=== PATIENT | female | born 2000 | race African-American/Black ===

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

== ENCOUNTER 2019-12-10 23:28 | Emergency (ER) | payer OTHER ==
--- OUTSIDE RECORDS SUMMARY | 2019-12-10 23:30 | XMS REPORT | Summary of Care ---
:1999 Author Organization [facility] [employer] Address [address] [place] [address] Care Team Providers Name Role Phone RUPERT Granger Primary Care Provider Reason for Visit Reason Comments Appointment NOB Encounter Details Date Type Department Care Team Description 10/18/2019 Telephone [facility] [employer] Kanika Chilel Ap pointment (NOB) [facility] [address] [facility] [address] [place] [address] [address] [place] [address] [phone] Allergies No Known Allergiesdocumented as of this encounter (statuses as of 10/19/2019) Medications Medication Sig Dispensed Refills Start Date End Date Status vitamin w/FA Take 1 tablet by 100 tablet 3 03/16/2019 Active tabletIndications: mouth daily. Supervision of high risk in third trimester, Multiparity, History of delivery, Chlamydia infection affecting in third trimester, Normal labor and delivery, 37 weeks gestation of , Liveborn , of gao , born in hospital by vaginal delivery, Positive GBS test, Obesity affecting in third trimester docusate calcium 240 Take 1 capsule by 30 capsule 1 03/16/2019 Active mg capsuleIndications: mouth once daily Supervision of high as needed for risk in Constipation. third trimester, Multiparity, History of delivery, Chlamydia infection affecting in third trimester, Normal labor and delivery, 37 weeks gestation of , Liveborn infant, of gao , born in hospital by vaginal delivery, Positive GBS test, Obesity affecting in third trimester ferrous sulfate 325 mg Take 1 tablet by 60 tablet 2 03/16/2019 Active (65 mg iron) mouth 2 (two) tabletIndications: times daily. Supervision of high risk in third trimester, Multiparity, History of delivery, Chlamydia infection affecting in third trimester, Normal labor and delivery, 37 weeks gestation of , Liveborn , of gao , born in hospital by vaginal delivery, Positive GBS test, Obesity affecting in third trimester ibuprofen 600 mg Take 1 tablet by 30 tablet 1 03/16/2019 Active tabletIndications: mouth every 6 Supervision of high (six) hours as risk in needed for Pain third trimester, (scale 1-3) or Multiparity, History Pain (scale 4-6) of delivery, (Pain). Take with Chlamydia infection food or milk. affecting in third trimester, Normal labor and delivery, 37 weeks gestation of , Liveborn , of gao , born in hospital by vaginal delivery, Positive GBS test, Obesity affecting in third trimester Hospital, Clinic, or Other Ordered Dose Route Frequency Start Date End Date Status Facility Administered Medication medroxyPROGESTERone 150 mg IM [id number] 04/25/2019 0 Active (DEPO-PROVERA) injection 150 mg documented as of this encounter (statuses as of 10/19/2019) Active Problems Problem Noted Date Normal labor and delivery 03/15/2019 37 weeks gestation of 03/15/2019 Liveborn infant, of gao , born in hospi seth by vaginal 03/15/2019 delivery Positive GBS test 03/15/2019 Normal labor 03/15/2019 Obesity (BMI 30-39.9) 11/22/2018 Chlamydia infection affecting 09/06/2018 Overview: Yeimi at next visit-neg and at 36 weeks Multiparity 08/11/2018 History of delivery 08/11/2018 Overview: Per patient report Obesity affecting 12/20/2015 Supervision of high-risk 12/20/2015 documented as of this encounter (statuses as of 10/19/2019) Resolved Problems Problem Noted Date Resolved Date Abnormal maternal glucose tolerance, antepartum 12/23/2015 08/11/2018 Overview: 1hr 147mgdl , passed 3hr documented as of this encounter (statuses as of 10/19/2019) Immunizations Name Administration Dates Next Due Tdap 07/19/2013 documented as of this encounter Social History Tobacco Use Types Packs/Day Years Used Date Never Smoker Smokeless Tobacco: Never Used Alcohol Use Drinks/Week oz/Week Comments No 0 Standard drinks or equivalent 0.0 Sex Assigned at Date Recorded Not on file Job Start Date Occupation Industry Not on file Not on file Not on file Travel History Travel Start Travel End No recent travel history available. documented as of this encounter Last Filed Vital Signs Not on filedocumented in this encounter Plan of Treatment Date Type Specialty Care Team Description 10/27/2019 Office Visit [facility] 2, Ang-Rmch[facility] Fc Room 10/27/2019 Initial Visit [facility] Jon Reilly, WHCNP [address] [place], [place] [address] [phone] Health Maintenance Due Date Last Done Comments MENINGOCOCCAL B VACCINES (1 2009 of 2 - Risk Bexsero 2-dose series) HPV VACCINES (1 - Female 2010 2-dose series) WELL CARE VISIT: 12-21 YEARS 2011 (yearly) INFLUENZA VACCINE (#1) 2019 CHLAMYDIA SCREENING 04/12/2020 04/12/2019, 03/07/2019, 10/03/2018, Additional history exists DTaP,Tdap,and Td Vaccines (2 07/19/2023 07/19/2013 - Td) MENINGOCOCCAL VACCINE Aged Out No longer eligible based on patient 's age to complete this topic PNEUMOCOCCAL 0-64 YEARS Aged Out No longe r eligible COMBINED SERIES based on patient 's age to complete this topic documented as of this encounter Results Not on filedocumented in this encounter Insurance Payer Benefit Plan / Subscriber ID Effective Phone Address T e Group Dates [facility] [place] [id number] 2018-Pres Tr rayray ent [facility] xxxxxxxxx 2018-Prese [address] Medic aid HEALTH CHOICE - HEALTH CHO[place] nt [id number] 1 MANAGED MEDICAID [place], [place]ICA[place] [id number] documented as of this encounter Advance Directives Name Relationship Healthcare Agent Relationship Co mmunication Bel Joe Mother Primary healthcare agent
--- OUTSIDE RECORDS SUMMARY | 2019-12-10 23:30 | XMS REPORT ---
:1999 Author Organization [facility] t Address [address] [place] [address] Care Team Providers Name Role Phone Osmar VILLA, Costa Attending Clinician 2, Lab Attending Clinician Unavailable Problems This patient has no known problems. Allergies, Adverse Reactions, Alerts This patient has no known allergies or adverse reactions. Medications This patient has no known medications. Procedures This patient has no known procedures. Encounters Start End Encounter Admission Attending Care Care Encounter Source Date/Time Date/Time Type Type Clinicians Facility Department ID 2019-12-08 2019-12-08 Case Vanessa Prasad [facility] [id number] 00:00:00 00:00:00 Management Cam [place] [id number] [place] [id number] Professio [phone] [address] 2019-12-07 2019-12-07 Telephone Vanessa Prasad [facility] [id number] 00:00:00 00:00:00 Cam [place] [id number] [place] [id number] Professio [phone] [facility] 2019-11-29 2019-11-29 Field Care Advocate 2, Adc Lab [facility] [id number] 13:51:24 14:06:24 Visit [place] [id number] [place] [id number] Professio [phone] [address] Results This patient has no known results.
--- OUTSIDE RECORDS SUMMARY | 2019-12-10 23:30 | XMS REPORT | Summary of Care ---
:1999 Author Organization [facility] Address [address] [place] [address] Care Team Providers Name Role Phone RUPERT Granger Primary Care Provider Reason for Visit Reason Comments Appointment pn fu Encounter Details Date Type Department Care Team Description 10/26/2019 Telephone [facility] Women's Vanessa Prasad MD Appointment (pn fu ) [facility]- [address] [facility] [address] [place] [address] [address] [place] [address] [phone] Allergies No Known Allergiesdocumented as of this encounter (statuses as of 10/26/2019) Medications Medication Sig Dispensed Refills Start Date [...] Facility Administered Medication medroxyPROGESTERone 150 mg IM [id number] 04/25/2019 0 Active (DEPO-PROVERA) injection 150 mg documented as of this encounter (statuses as of 10/26/2019) Active Problems Problem Noted Date Normal labor [...] as of this encounter (statuses as of 10/26/2019) Resolved Problems Problem Noted Date Resolved Date Abnormal maternal glucose tolerance, antepartum 12/23/2015 08/11/2018 Overview: 1hr 147mgdl , passed 3hr documented as of this encounter (statuses as of 10/26/2019) Immunizations Name Administration Dates Next Due Tdap [...] [facility] Jon Reilly, WHCNP [address] [place], [place] [address] [phone] Health Maintenance Due Date Last Done Comments [...] Payer Benefit Plan / Subscriber ID Effective Dates Phone Addre ss Type Group [facility] [id number] 2018-Caryl henry [facility] MEDICAID OF xxxxxxxxx 2016-Jesus [phone] Medicaid [place] t 0 [id number] [place] [address] documented as of this encounter Advance Directives Name Relationship Healthcare Agent Relationship Co mmunication Bel Joe Mother Primary healthcare agent
--- OUTSIDE RECORDS SUMMARY | 2019-12-10 23:31 | XMS REPORT | Summary of Care ---
:1999 Author Organization [facility] Address [address] [place] [address] Care Team Providers Name Role Phone RUPERT Granger Primary Care Provider Reason for Referral (Routine) Status Reason Specialty Diagnoses / Referred By Referred To Procedures Contact Contact Closed Maternal Diagnoses Unsure of LMP (last menstrual period) as reason for ultrasound scan Vanessa Prasad MD Medicine Procedures CONSULT MATERNAL MEDICINE ULTRASOUND Preferred Location: [address] [place] [address] Reason for Visit Reason Comments New OB Visit Encounter Details Date Type Department Care Team Description 11/07/2019 Telemedicine Visit [facility] Women's Vanessa Prasad MD Supervision of high risk , ante (Primary Dx); [address] Unsure of LMP (last menstrual period) as reason for ultrasound scan; [place] DR[address] History of delivery [address] [place] [address] [address] [place] [phone] Allergies No Known Allergiesdocumented as of this encounter (statuses as of 11/15/2019) Medications Medication Sig Dispensed Refills Start Date End Date Status vitamin Take 1 tablet 100 tablet 3 03/16/2019 02 Discontinued w/FA by mouth 0 (Alternate tabletIndications daily. th erapy) : Supervision of high risk in third trimester, Multiparity, History of delivery, Chlamydia infection affecting in third trimester, Normal labor and delivery, 37 weeks gestation of , Liveborn infant, of gao , born in hospital by vaginal delivery, Positive GBS test, Obesity affecting in third trimester docusate calcium Take 1 30 capsule 1 03/16/2019 D iscontinued 240 mg capsule by 0 (Therapy capsuleIndication mouth once c ompleted) s: Supervision of daily as high risk needed for in Constipation. third trimester, Multiparity, History of delivery, Chlamydia infection affecting in third trimester, Normal labor and delivery, 37 weeks gestation of , Liveborn , of gao , born in hospital by vaginal delivery, Positive GBS test, Obesity affecting in third trimester ferrous sulfate Take 1 tablet 60 tablet 2 03/16/2019 Discontinued 325 mg (65 mg by mouth 2 0 (Ther apy iron) (two) times complete d) tabletIndications daily. : Supervision of high risk in third trimester, Multiparity, History of delivery, Chlamydia infection affecting in third trimester, Normal labor and delivery, 37 weeks gestation of , Liveborn infant, of gao , born in hospital by vaginal delivery, Positive GBS test, Obesity affecting in third trimester ibuprofen 600 mg Take 1 tablet 30 tablet 1 03/16/2019 11/07/19 2 Discontinued tabletIndications by mouth 0 (T herapy : Supervision of every 6 (six) completed) high risk hours as in needed for third trimester, Pain (scale Multiparity, 1-3) or Pain History of (scale 4-6) delivery, (Pain). Take Chlamydia with food or infection milk. affecting in third trimester, Normal labor and delivery, 37 weeks gestation of , Liveborn infant, of gao , born in hospital by vaginal delivery, Positive GBS test, Obesity affecting in third trimester PNV Take 1 30 capsule 8 11/07/2019 Disconti nued [id number] TAB-CAP/M2 by 0 (Cost of 1-dss-dha mouth daily. medicat ion) (VITAFOL FE+, WITH DOCUSATE,) 90 mg iron-1 mg -50 mg-200 mg CapIndications: Unsure of LMP (last menstrual period) as reason for ultrasound scan Hospital, Clinic, or Ordered Dose Route Frequency Start Date End D ate Status Other Facility Administered Medication medroxyPROGESTERone 150 mg IM [id number] 04/25/2019 Discontinued (DEPO-PROVERA) injection 0 150 mg documented as of this encounter (statuses as of 11/15/2019) Active Problems Problem Noted Date Obesity (BMI 30-39.9) 11/22/2018 Multiparity 08/11/2018 History of delivery 08/11/2018 Overview: Per patient report Supervision of high-risk 12/20/2015 Estimated Date of Delivery Comments Yes 06/10/2020 Based on Ultrasound documented as of this encounter (statuses as of 11/15/2019) Resolved Problems Problem Noted Date Resolved Date Normal labor and delivery 03/15/2019 11/07/2019 37 weeks gestation of 03/15/2019 11/07/19 20 Liveborn infant, of gao , born in hospital by 03/15/2019 11/07/2019 vaginal delivery Positive GBS test 03/15/2019 11/07/2019 Normal labor 03/15/2019 11/07/2019 Chlamydia infection affecting 09/06/2018 11/07/2019 Overview: Yeimi at next visit-neg and at 36 weeks Abnormal maternal glucose tolerance, antepartum 12/23/2015 08/11/2018 Overview: 1hr 147mgdl , passed 3hr Obesity affecting 12/20/2015 11/07/2019 documented as of this encounter (statuses as of 11/15/2019) Immunizations Name Administration Dates Next Due Tdap 07/19/2013 documented as of this encounter Social History Tobacco Use Types Packs/Day Years Used Date Never Smoker Smokeless Tobacco: Never Used Alcohol Use Drinks/Week oz/Week Comments No 0 Standard drinks or equivalent 0.0 Estimated Date of Delivery Comments Yes 06/10/2020 Based on Ultrasound Sex Assigned at Date Recorded Not on file Job Start Date Occupation Industry Not on file Not on file Not on file Travel History Travel Start Travel End No recent travel history available. COVID-19 Exposure Response Date Recorded In the last month, have you been in contact with No / Unsure 11/07/2019 2:00 PM CDT someone who was confirmed or suspected to have Coronavirus / COVID-19? documented as of this encounter Last Filed Vital Signs Vital Sign Reading Time Taken Comments Blood Pressure - - Pulse - - Temperature - - Respiratory Rate - - Oxygen Saturation - - Inhaled Oxygen Concentration - - Weight 95.3 kg (210 lb) 11/07/2019 2:08 PM CDT Height 170.2 cm (5' 7") 11/07/2019 2:08 PM CDT Body Mass Index 32.89 11/07/2019 2:08 PM CDT documented in this encounter Progress Notes Vanessa Prasad MD - 11/07/2019 2:00 PM CDT TELEHEALTH NOTE Verbal consent obtained from Patient: Mary Joe for telehealth services provided below due to COVID-19 crises. Communication with patient was conducted via Telephone due to patient unable to obtain video call option. Location of Patient: Home Location of Provider: Office Date of Service: 11/07/2019 Chief Complaint: routine visit HPI: Mary Joe is a 19 year old female @ Unknown by No LMP recorded (lmp unknown). Patient is . here for NOB. Irregular period. Had depo shot on 04/2019 and had intermittent spotting for 5 months. She had a positive UPT on 10/04/2019. Had felt flutters about 1-2 wks ago. Denies cramping. Has not take PNV. Needs Rx Past Medical History: Diagnosis Date Heart murmur as a child STD (sexually transmitted disease) Chlalmydia MEDICATIONS: Outpatient Medications Marked as Taking for the 11/07/19 encounter (Telemedicine Visit) with Vanessa Prasad MD Medication Sig Dispense Refill PNV [id number] 1-dss-dha (VITAFOL FE+, WITH DOCUSATE,) 90 mg iron-1 mg -50 mg-200 mg Cap Take 1 TAB-CAP/M2 by mouth daily. 30 capsule 8 ROS Denies fever, chills, chest pain, SOB, coughing, constipation, diarrhea, nausea, vomiting. Pain score: 0 TELEHEALTH EXAM Alert and answering/asking questions appropriately ASSESSMENT/ PLAN Mary Joe is a 19 year old female with PMH as above presenting with: 1. Unsure of LMP (last menstrual period) as reason for ultrasound scan - CONSULT MATERNAL MEDICINE ULTRASOUND Preferred Location: [place]; [facility] - PNV [id number] 1-dss-dha (VITAFOL FE+, WITH DOCUSATE,) 90 mg iron-1 mg - 50 mg-200 mg Cap; Take 1 TAB-CAP/M2 by mouth daily. Dispense: 30 capsule; Refill: 8 2. Supervision of high risk , antepartum 3. History of delivery See OB Summary Discussed about COVID-19/flu precautions. Social distancing, frequent hand washings, and to follow CDC recommendations discussed. Indications for testing discussed. After visit summary (AVS ) documentation will be available through [employer] for this encounter. Vanessa Prasad MD 11/07/2019 2:50 PM documented in this encounter Plan of Treatment Date Type Specialty Care Team Description 11/29/2019 Routine Obstetrics & Vanessa Prasad MD Visit Gynecology [address] [place] [address] [address] [place] [id number] 15 [phone] Health Maintenance Due Date Last Done Comments [...] Results Not on filedocumented in this encounter Visit Diagnoses Diagnosis Supervision of high risk , ante - Primary Unsure of LMP (last menstrual period) as reason for ultrasound scan Encounter for routine screening for malf ormation using ultrasonics History of delivery documented in this encounter Insurance Payer Benefit Plan / Subscriber ID Effective Dates Phone Addre ss Type Group [facility]NA [facility] [id number] 2018-Caryl johnson [facility] MEDICAID OF xxxxxxxxx 2016-Jesus [phone] Medicaid [place] t 0 [id number] [place] [address] [address] ([address] [place] [address] documented as of this encounter Advance Directives Name Relationship Healthcare Agent Relationship Co mmunication Beldilma Schultznicho Mother Primary healthcare agent
--- OUTSIDE RECORDS SUMMARY | 2019-12-10 23:31 | XMS REPORT | Summary of Care ---
:1999 Author Organization [facility] Address [address] [place] [address] Care Team Providers Name Role Phone RUPERT Granger Primary Care Provider Reason for Referral (Routine) Status Reason Specialty Diagnoses / Referred By Referred To Procedures Contact Contact Authorized Maternal Diagnoses Unsure of LMP (last menstrual period) as reason for ultrasound scan Vanessa Prasad, Medicine Procedures CONSULT MATERNAL MEDICINE ULTRASOUND Preferred Location: [facility] [address] [place] [address] [address] [place] [address] Reason for Visit Reason Comments New OB Visit Encounter Details Date Type Department Care Team Description 11/07/2019 Telemedicine Visit [facility] Women's Vanessa Prasad MD Supervision of high risk , ante (Primary Dx); Healthcare- [address] [place] [address] Unsure of LMP (last menstrual period) as reason for ultrasound scan; [facility] History of delivery [address] [place] [address] [address] [place], [place] [phone] Allergies No Known Allergiesdocumented as of this encounter (statuses as of 11/07/2019) Medications Medication Sig Dispensed Refills Start Date End Date Status PNV Take 1 30 capsule 8 11/07/2019 Active [id number] TAB-CAP/M2 by 1-dss-dha mouth daily. (VITAFOL FE+, WITH DOCUSATE,) 90 mg iron-1 mg -50 mg-200 mg CapIndications: Unsure of LMP (last menstrual period) as reason for ultrasound scan vitamin Take 1 tablet 100 tablet 3 03/16/2019 02 Discontinued w/FA by mouth 0 (Alternate tabletIndications daily. th era) : Supervision of high risk in third [...] affecting in third trimester Hospital, Clinic, or Ordered Dose Route Frequency Start Date End D ate Status Other Facility Administered Medication medroxyPROGESTERone 150 mg IM [id number] 04/25/2019 Discontinued (DEPO-PROVERA) injection 0 150 mg documented as of this encounter (statuses as of 11/07/2019) Active Problems Problem Noted Date Obesity (BMI 30-39.9) 11/22/2018 Multiparity 08/11/2018 History of delivery 08/11/2018 Overview: Per patient report Supervision of high-risk 12/20/2015 Comments Yes documented as of this encounter (statuses as of 11/07/2019) Resolved Problems Problem Noted Date Resolved Date Normal labor and delivery 03/15/2019 11/07/2019 37 weeks gestation of 03/15/2019 11/07/19 20 Liveborn , of gao , born in hospital by 03/15/2019 11/07/2019 vaginal delivery Positive GBS test 03/15/2019 11/07/2019 Normal labor 03/15/2019 11/07/2019 Chlamydia infection affecting 09/06/2018 11/07/2019 Overview: Yeimi at next visit-neg and at 36 weeks Abnormal maternal glucose tolerance, antepartum 12/23/2015 08/11/2018 Overview: 1hr 147mgdl , passed 3hr Obesity affecting 12/20/2015 11/07/2019 documented as of this encounter (statuses as of 11/07/2019) Immunizations Name Administration Dates Next Due Tdap 07/19/2013 documented as of this encounter Social History Tobacco Use Types Packs/Day Years Used Date Never Smoker Smokeless Tobacco: Never Used Alcohol Use Drinks/Week oz/Week Comments No 0 Standard drinks or equivalent 0.0 Comments Yes Sex Assigned at Date Recorded Not on [...] Prasad MD Medication Sig Dispense Refill PNV [id number] 1-dss-dha (VITAFOL FE+, WITH DOCUSATE,) 90 mg [...] - CONSULT MATERNAL MEDICINE ULTRASOUND Preferred Location: [place]; [facility] - PNV [id number] 1-dss-dha (VITAFOL FE+, WITH DOCUSATE,) 90 mg [...] (AVS ) documentation will be available through [employer] for this encounter. Vanessa Prasad MD 11/07/2019 2:50 PM documented in this encounter Plan of Treatment Date Type Specialty Care Team Description 11/14/2019 Varnish Blender Visit Maternal Medicine Health Maintenance Due Date Last Done Comments [...] Dates Phone Addre ss Type Group [facility]ELENA [facility] [id number] 2018-Caryl johnson [facility] MEDICAID OF xxxxxxxxx 2016-Jeuss [phone] Medicaid [place] t 0 [id number] [place] [address] documented as of this encounter Advance Directives Name Relationship Healthcare Agent Relationship Co mmunication Bel Joe Mother Primary healthcare agent
--- OUTSIDE RECORDS SUMMARY | 2019-12-10 23:31 | XMS REPORT | Summary of Care ---
:1999 Author Organization [facility] - Health Address [address] [place] [address] Care Team Providers Name Role Phone RUPERT Granger Primary Care Provider Encounter Details Date Type Department Care Team Description 11/29/2019 Orders Only [facility] Doctor Unassigned, No 301 [facility] [place] [address] [address] [place] [address] Allergies No Known Allergiesdocumented as of this encounter (statuses as of 11/29/2019) Medications Medication Sig Dispensed Refills Start Date End Date Status PNV 67-iron ps-folate Take 1 tablet by 90 capsule 3 11/13/2019 Active no.1-dha (VITAFOL mouth daily. ULTRA) 29 mg iron- 1 mg-200 mg Cap documented as of this encounter (statuses as of 11/29/2019) Active Problems Problem Noted Date Obesity (BMI 30-39.9) 11/22/2018 Multiparity 08/11/2018 History of delivery 08/11/2018 Overview: Per patient report Supervision of high-risk 12/20/2015 Estimated Date of Delivery Comments Yes 06/10/2020 Based on Ultrasound documented as of this encounter (statuses as of 11/29/2019) Resolved Problems Problem Noted Date Resolved Date [...] as of this encounter (statuses as of 11/29/2019) Immunizations Name Administration Dates Next Due Tdap [...] been in contact with No / Unsure 11/29/2019 1:11 PM CDT someone who was confirmed or suspected to have Coronavirus / COVID-19? documented as of this encounter Last Filed Vital Signs Not on filedocumented in this encounter Plan of Treatment Date Type Specialty Care Team Description 12/27/2019 Head Machinist Visit Phlebotomy Talia Granger PA-C [address] [place] [phone] 2, Adc Lab 12/27/2019 Routine Visit Obstetrics & Prasad, aVnessa Skelton MD Gynecology [address] [place] [address] 775 15 [phone] Health Maintenance Due Date Last Done Comments MENINGOCOCCAL B VACCINES (1 2009 of 2 - Risk Bexsero 2-dose series) HPV VACCINES (1 - Female 2010 2-dose series) WELL CARE VISIT: 12-21 YEARS 2011 (yearly) INFLUENZA VACCINE (Season 03/19/2020 Ended) CHLAMYDIA SCREENING 04/12/2020 04/12/2019, 03/07/2019, 10/03/2018, Additional history exists DTaP,Tdap,and Td Vaccines (2 07/19/2023 07/19/2013 - Td) MENINGOCOCCAL VACCINE Aged Out No longer eligible based on patient 's age to complete this topic PNEUMOCOCCAL 0-64 YEARS Aged Out No longe r eligible COMBINED SERIES based on patient 's age to complete this topic documented as of this encounter Procedures Procedure Name Priority Date/Time Associated Diagnosis Comme nts ASSIGNMENT OF BENEFITS Routine 11/29/2019 1:49 PM CDT documented in this encounter Results Not on filedocumented in this encounter Insurance Payer Benefit Plan / Subscriber ID Effective Dates Phone Addre ss Type Group [employer] MEDICAID OF xxxxxxxxx 2016-Present [phone] [address] [place] [id number] [place] [id number] documented as of this encounter Advance Directives Name Relationship Healthcare Agent Relationship Co mmunication Bel Schultznicho Mother Primary healthcare agent
--- OUTSIDE RECORDS SUMMARY | 2019-12-10 23:31 | XMS REPORT | Summary of Care ---
:1999 Author Organization [facility] Address [address] [place] [address] Care Team Providers Name Role Phone RUPERT Granger Primary Care Provider Reason for Visit Reason Comments ULTRASOUND (Routine) Status Reason Specialty Diagnoses / Referred By Referred To Procedures Contact Contact Closed Maternal Diagnoses Unsure of LMP (last menstrual period) as reason for ultrasound scan Vanessa Prasad MD Medicine Procedures CONSULT MATERNAL MEDICINE ULTRASOUND Preferred Location: [address] [place] [address] Encounter Details Date Type Department Care Team Description 11/14/2019 Operater Visit [facility] Lauren Jackman Ute rine size-date Ultrasound- Jozef VILLA discrepancy in first 1108 [facility] [address] trimester [place], [place] [id number] [place], [place] [phone] Allergies No Known Allergiesdocumented as of this encounter (statuses as of 11/14/2019) Medications Medication Sig Dispensed Refills Start Date End Date Status PNV 67-iron ps-folate Take 1 tablet by 90 capsule 3 11/13/2019 Active no.1-dha (VITAFOL mouth daily. ULTRA) 29 mg iron- 1 mg-200 mg Cap documented as of this encounter (statuses as of 11/14/2019) Active Problems Problem Noted Date Obesity (BMI 30-39.9) 11/22/2018 Multiparity 08/11/2018 History of delivery 08/11/2018 Overview: Per patient report Supervision of high-risk 12/20/2015 Comments Yes documented as of this encounter (statuses as of 11/14/2019) Resolved Problems Problem Noted Date Resolved Date [...] as of this encounter (statuses as of 11/14/2019) Immunizations Name Administration Dates Next Due Tdap [...] filedocumented in this encounter Plan of Treatment Health Maintenance Due Date Last Done Comments [...] filedocumented in this encounter Visit Diagnoses Diagnosis Uterine size-date discrepancy in first t rimester Uterine size date discrepancy, antepartu m condition or complication documented in this encounter Insurance Payer Benefit Plan / Subscriber ID Effective Dates Phone Addre ss Type Group [facility] [id number] 2018-Caryl henry nt [facility] MEDICAID OF xxxxxxxxx 2016-Jesus [phone] [address] [place] [address] [id number] [place] [address] [address] ([place]) [address] [place] [address] documented as of this encounter Advance Directives Name Relationship Healthcare Agent Relationship Co mmunication Beldilma Schultznicho Mother Primary healthcare agent
--- OUTSIDE RECORDS SUMMARY | 2019-12-10 23:32 | XMS REPORT | Summary of Care ---
:1999 Author Organization [facility] Address [address] [place] [address] Care Team Providers Name Role Phone RUPERT Granger Primary Care Provider Reason for Referral (Routine) Status Reason Specialty Diagnoses / Referred By Referred To Procedures Contact Contact New Request Maternal Diagnoses Supervision of high risk , antepartum 12 weeks gestation of Vanessa Prasad, Medicine Procedures CONSULT MATERNAL MEDICINE ULTRASOUND [address] [place], [place] [address]Robbie [facility] [address] [place] [address] Reason for Visit Reason Comments ROUTINE VISIT New OB Visit Auth/Cert Status Reason Specialty Diagnoses / Procedures Referred By C ontact Referred To Contact Phlebotomy Diagnoses [facility] Pob Lab Draw Professional O [address] seth Oliver, [address] [place] [address] Phone: Fax: Encounter Details Date Type Department Care Team Description 11/29/2019 Routine [facility] Women's Vanessa Prasad am, MD Supervision of high risk , ante (Primary Dx); Visit Healthcare- [address] [place] [address] 12 weeks g estation of Jozef OLIVER [address] [place] [address], [facility] [address] [place], [place] [phone] Allergies No Known Allergiesdocumented as of [...] Sign Reading Time Taken Comments Blood Pressure 121/76 11/29/2019 1:11 PM CDT Pulse 77 11/29/2019 1:11 PM CDT Temperature 36.9 C (98.5 F) 11/29/2019 1:11 PM CDT Respiratory Rate 18 11/29/2019 1:11 PM CDT Oxygen Saturation - - Inhaled Oxygen Concentration - - Weight 104.3 kg (230 lb) 11/29/2019 1:11 PM CDT Height 172.7 cm (5' 8") 11/29/2019 1:11 PM CDT Body Mass Index 34.97 11/29/2019 1:11 PM CDT documented in this encounter Progress Notes Vanessa Prasad MD - 11/29/2019 1:00 PM CDT Chief complaint: Chief Complaint Patient presents with ROUTINE VISIT New OB Visit HPI Denies vaginal bleeding or cramping. Histories OB History Para Term AB Living 3 2 1 1 0 2 SAB TAB Ectopic Multiple Live Births 0 2 # Outcome Date GA Lbr Wolf/2nd Weight Sex Delivery Anes PTL Lv 3 Current 2 Term 03/15/19 37w3d 6 lb 2.4 oz (2.79 kg) M NORMAL SPONT None N MEHUL 1 07/10/16 36w0d F NORMAL SPONT MEHUL Past Medical History: Diagnosis Date Heart murmur as a child STD (sexually transmitted disease) Chlalmydia Family History Problem Relation Age of Onset Diabetes Father Hypertension Father Arthritis NoFHx Asthma NoFHx defects NoFHx Breast Cancer NoFHx Colon Cancer NoFHx Ovarian Cancer NoFHx Uterine Cancer NoFHx Cancer NoFHx Depression NoFHx Genetic NoFHx Heart NoFHx High cholesterol NoFHx Mental retardation NoFHx Neurological NoFHx Osteoporosis NoFHx Psychiatry NoFHx Other - see comments NoFHx Family Status Relation Name Status Fa Alive Mo Alive NoFHx (Not Specified) History reviewed. No pertinent surgical history. 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 Social Needs Financial resource strain: Not on file Food insecurity: Worry: Not on file Inability: Not on file Transportation needs: Medical: Not on file Non-medical: Not on file Tobacco Use Smoking status: Never Smoker Smokeless tobacco: Never Used Substance and Sexual Activity Alcohol use: No Alcohol/week: 0.0 standard drinks Drug use: No Sexual activity: Yes Partners: Male control/protection: None Comment: last intercourse before her menses Lifestyle Physical activity: Days per week: Not on file Minutes per session: Not on file Stress: Not on file Relationships Social connections: Talks on phone: Not on file Gets together: Not on file Attends rastafarian service: Not on file Active member of club or organization: Not on file Attends meetings of clubs or organizations: Not on file Relationship status: Not on file Intimate partner violence: Fear of current or ex partner: Not on file Emotionally abused: Not on file Physically abused: Not on file Forced sexual activity: Not on file Other Topics Concern Not on file Social History Narrative Denies domestic or physical violence within the home Hinduism Preference: none No Cats in home Social History Substance and Sexual Activity Sexual Activity Yes Partners: Male control/protection: None Comment: last intercourse before her menses Labs No new labs Radiology No new radiology. Allergies Mary has No Known Allergies. Medications Mary has a current medication list which includes the following prescription(s): pnv 67-iron ps-folate no.1-dha. Review of Systems Constitutional: Negative for chills, fatigue and fever. HENT: Negative for congestion, rhinorrhea, sneezing and sore throat. Respiratory: Negative for cough, chest tightness, shortness of breath and wheezing. Breasts: Negative for discharge, mass, pain and unequal size. Cardiovascular: Negative for chest pain and palpitations. Gastrointestinal: Negative for abdominal distention, abdominal pain, anal bleeding, blood in stool, constipation, diarrhea, nausea and vomiting. Genitourinary: Negative for dysuria, urgency, frequency, vaginal bleeding and vaginal discharge. Musculoskeletal: Negative for gait problem. Skin: Negative for rash. Neurological: Negative for syncope, light-headedness and headaches. Psychiatric/Behavioral: Negative for dysphoric mood, self-injury and suicidal ideas. Hematological: Negative for cold intolerance and heat intolerance. Does not bruise/bleed easily. Endocrine: Negative for cold intolerance and heat intolerance. BP 121/76 (BP Location: Left arm, Patient Position: Sitting, BP CUFF SIZE: Adult Medium) | Pulse 77 | Temp 36.9 C (98.5 F) (Oral) | Resp 18 | Ht 5' 8" (1.727 m) | Wt 230 lb (104.3 kg) | LMP (LMP Unknown) | BMI 34.97 kg/m Pregravid BMI: 31.9 Physical Exam Vitals reviewed. Constitutional: She is oriented to person, place, and time. Her body habitus is obese. Neck: No mass. No thyromegaly palpated. Cardiovascular: Regular rate and rhythm. Pulmonary/Chest: Breath sounds clear to auscultation. Normal inspiratory effort. Abdominal: Abdomen is soft. No tenderness present. No hernia palpated or inspected. Neuro/Psychiatric: She has a normal mood and affect. She is oriented to person, place, and time. Skin: Skin normal. No rash present. Lymphadenopathy: No axillary adenopathy present. No inguinal adenopathy present. Breast: Right breast exhibits no mass, no nipple discharge and no tenderness. Left breast exhibits no mass, no nipple discharge and no tenderness. Breasts are symmetrical. External genitalia: Normal external genitalia appropriate for age. Normal hair distribution. No labial lesion. Urethral meatus: Normal urethral meatus Urethra: Normal urethra. Bladder: Normal bladder Vagina:Normal vagina. Cervix: Normal cervix. No lesion. No tenderness and no discharge present. Uterus: Uterus is normal size and non-tender. Adnexa: Right adnexa without tenderness or mass. Left adnexa without tenderness or mass. Anus/perineum: Normal perineum and normal anus. Assessment/Plan See OB Summary Return to clinic in 4 weeks. Reviewed patient instructions and provided printed copy. Activity restrictions: As tolerated at 12w2d This visit did not involve counseling and coordination that comprised more than 50% of the visit time. Vanessa Prasad MD 11/29/2019 1:14 PM documented in this encounter Plan of Treatment Date Type Specialty Care Team Description 12/27/2019 Linen Sorter Visit Phlebotomy Talia Granger PA-C [address] [place] [address] [phone] 2, Adc Lab 12/27/2019 Routine Visit Obstetrics & Vanessa Prasad MD Gynecology [address] [place], [place] [address]Robbie [address] 775 15 [phone] Name Type Priority Associated Diagnoses Order S chedule GC & CHLAMYDIA AMPLIFIED LAB Routine 12 weeks gestati on of Expected: 11/29/2019, ASSAY Expires: 2020 URINE CULTURE LAB Routine 12 weeks gestation of Expec carisa: 11/29/2019, Expires: 2019 VZV ANTIBODY SCREEN LAB Routine 12 weeks gestation of Expected: 11/29/2019, Expires: 2019 SICKLE CELL SCREEN LAB Routine 12 weeks gestation of Expected: 11/29/2019, Expires: 2019 RUBELLA SCREEN IGG LAB Routine 12 weeks gestation of Expected: 11/29/2019, Expires: 2019 HCV ANTIBODY LAB Routine 12 weeks gestation of Expect ed: 11/29/2019, Expires: 2019 HEPATITIS B SURFACE LAB Routine 12 weeks gestation of Expected: 11/29/2019, ANTIGEN Expires: 2019 HIV 1/2 AG-AB WITH LAB Routine 12 weeks gestation of Expected: 11/29/2019, REFLEX Expires: 2020 ADC OR COLE ONLY - LAB Routine 12 weeks gestation of Expected: 11/29/2019, RPR Expires: 2019 ADC / LCC - DRUG SCREEN LAB Routine 12 weeks gestatio n of Expected: 11/29/2019, TRIAGE Expires: 2020 CBC WITH DIFF LAB Routine 12 weeks gestation of Expec carisa: 11/29/2019, Expires: 2019 WORKUP, BLOOD LAB Routine 12 weeks gestation of Expected: 11/29/2019, BANK Expires: 2019 Health Maintenance Due Date Last Done Comments [...] Name Priority Date/Time Associated Diagnosis Comme nts POCT URINALYSIS W/O Routine 11/29/2019 12 weeks gestation of Results for this SPECIFIC GRAVITY procedure a re in the results section . documented in this encounter Results POCT URINALYSIS W/O SPECIFIC GRAVITY (11/29/2019) Pathologist Sig nature POCT PH U n/a 5 - 8 mg/dl POCT U LEUK EST n/a Negative - Negative POCT U NIT n/a Negative - Negative POCT U PROT neg Negative - Negative POCT U GLU neg Negative - Negative POCT U KETONE n/a Negative - Negative POCT U BLD n/a Negative - Negative Specimen Urine - URINE, CLEAN CATCH documented in this encounter Visit Diagnoses Diagnosis Supervision of high risk , ante - Primary 12 weeks gestation of state, incidental documented in this encounter Insurance Payer Benefit Plan / Subscriber ID Effective Dates Phone Addre ss Type Group [facility] MEDICAID OF xxxxxxxxx 2016-Present [phone] [address] [place] [id number] [place] [phone] documented as of this encounter Advance Directives Name Relationship Healthcare Agent Relationship Co mmunication Bel Joe Mother Primary healthcare agent
--- OUTSIDE RECORDS SUMMARY | 2019-12-10 23:32 | XMS REPORT | Summary of Care ---
:1999 Author Organization [facility] Address [address] [place] [address] Care Team Providers Name Role Phone RUPERT Granger Primary Care Provider Reason for Visit Reason Comments LAB WORK Auth/Cert Status Reason Specialty Diagnoses / Procedures Referred By Dioni zepeda Referred To Contact Phlebotomy Diagnoses [facility] Pob Lab Draw Professional O ffice Building [address] [place] [address] seth Oliver, [address] [place] [address] Phone: Fax: Encounter Details Date Type Department Care Team Description 11/29/2019 Form Maker Plaster Visit [facility] Vanessa Prasad MD [address] [place] [address] [address] [place] [address] 12 weeks gestation Professional Office 2, [facility] Lab of Building Phlebotomy Lab Professional Office Building [address] [place] [address] , [address] [place] [address] Allergies No Known Allergiesdocumented as of [...] Date Type Specialty Care Team Description 12/27/2019 Form Maker Plaster Visit Phlebotomy Talia Granger PA-C [address] [phone] 2, Adc Lab 12/27/2019 Routine Visit Obstetrics & Prasad, Vanessa Skelton MD Gynecology [address] [place] [address] [address] [place], [place] [address] Name Type Priority Associated Diagnoses Date/Ti me VZV ANTIBODY SCREEN LAB Routine 12 weeks gestation of 11/29/2019 2:09 PM CDT SICKLE CELL SCREEN LAB Routine 12 weeks gestation of 11/29/2019 2:09 PM CDT RUBELLA SCREEN IGG LAB Routine 12 weeks gestation of 11/29/2019 2:09 PM CDT HCV ANTIBODY LAB Routine 12 weeks gestation of 2019 2:09 PM CDT HEPATITIS B SURFACE LAB Routine 12 weeks gestation of 11/29/2019 2:09 PM ANTIGEN CDT HIV 1/2 AG-AB WITH REFLEX LAB Routine 12 weeks gestat ion of 11/29/2019 2:09 PM CDT ADC OR COLE ONLY - RPR LAB Routine 12 weeks gestat ion of 11/29/2019 2:09 PM CDT CBC WITH DIFF LAB Routine 12 weeks gestation of 11/28 2:09 PM CDT CBC WITH DIFFERENTIAL LAB Routine 12 weeks gestation of 11/29/2019 2:09 PM CDT Health Maintenance Due Date Last Done Comments [...] filedocumented in this encounter Visit Diagnoses Diagnosis 12 weeks gestation of state, incidental documented in this encounter Insurance Payer Benefit Plan / Subscriber ID Effective Dates Phone Addre ss Type Group [facility] MEDICAID OF xxxxxxxxx 2016-Present [phone] [address] Medicaid [place] [id number] [place] [phone] [address] River[address] ([address]) [address] [place] [address] documented as of this encounter Advance Directives Name Relationship Healthcare Agent Relationship Co mmunication Bel Schultznicho Mother Primary healthcare agent
--- OUTSIDE RECORDS SUMMARY | 2019-12-10 23:33 | XMS REPORT | Summary of Care ---
:1999 Author Organization [facility] Address [address] [place] [address] Care Team Providers Name Role Phone RUPERT Granger Primary Care Provider Reason for Visit Reason Comments TEST RESULTS [facility] Low Risk / Male Encounter Details Date Type Department Care Team Description 12/08/2019 Case Management [facility] Women's PrasadVanessa MD TEST RESULTS Healthcare- [address] ([facility] / [address] [place] [address], DR. Dickson ) [address] [facility] [address] [place], [place] [phone] Allergies No Known Allergiesdocumented as of this encounter (statuses as of 12/08/2019) Medications Medication Sig Dispensed Refills Start Date End Date Status PNV 67-iron ps-folate Take 1 tablet by 90 capsule 3 11/13/2019 Active no.1-dha (VITAFOL mouth daily. ULTRA) 29 mg iron- 1 mg-200 mg Cap documented as of this encounter (statuses as of 12/08/2019) Active Problems Problem Noted Date Obesity (BMI 30-39.9) 11/22/2018 Multiparity 08/11/2018 History of delivery 08/11/2018 Overview: Per patient report Supervision of high-risk 12/20/2015 Estimated Date of Delivery Comments Yes 06/10/2020 Based on Ultrasound documented as of this encounter (statuses as of 12/08/2019) Resolved Problems Problem Noted Date Resolved Date [...] as of this encounter (statuses as of 12/08/2019) Immunizations Name Administration Dates Next Due Tdap [...] Signs Not on filedocumented in this encounter Progress Notes Mika White - 12/08/2019 3:58 PM CDTPanorama Low Risk Sex Male Placed in provider folder signature and review. Patient advised and aware. documented in this encounter Plan of Treatment Date Type Specialty Care Team Description 12/27/2019 Caseworker Intake Visit Phlebotomy Talia Granger PA-C [address] [place] [address] [phone] 2, Adc Lab 12/27/2019 Routine Visit Obstetrics & Prasad, Vanessa Skelton MD Gynecology [address] [place] [address] [address] [place], [place] [address] [phone] 01/19/2020 Caseworker Intake Visit Obstetrics & Ultrasound, Adc [facility] Gynecology Health Maintenance Due Date Last Done Comments MENINGOCOCCAL B VACCINES (1 2009 of 2 - Risk Bexsero 2-dose series) HPV VACCINES (1 - Female 2010 2-dose series) WELL CARE VISIT: 12-21 YEARS 2011 (yearly) INFLUENZA VACCINE (Season 03/19/2020 Ended) CHLAMYDIA SCREENING 11/28/2020 11/29/2019, 04/12/2019, 03/07/2019, Additional history exists DTaP,Tdap,and Td Vaccines (2 [...] Effective Dates Phone Addre ss Type Group [facility] MEDICAID OF xxxxxxxxx 2016-Present [phone] [address] Medicaid [place] [id number] [place] [phone] documented as of this encounter Advance Directives Name Relationship Healthcare Agent Relationship Co mmunication Bel Schultznicho Mother Primary healthcare agent
--- OUTSIDE RECORDS SUMMARY | 2019-12-10 23:33 | XMS REPORT | Summary of Care ---
:2000 Author Organization [facility] Address [address] [place] [address] Care Team Providers Name Role Phone RUPERT Granger Primary Care Provider Reason for Visit Reason Comments LAB WORK Auth/Cert Status Reason Specialty Diagnoses / Procedures Referred By Dioni zepeda Referred To Contact Phlebotomy Diagnoses [facility] Pob Lab Draw Professional O ffice Building [address] [place] [address] seth Oliver, [address] [place] [address] Phone: Fax: Encounter Details Date Type Department Care Team Description 11/29/2019 Arts And Crafts Instructor Visit [facility] Vanessa Prasad MD [address] [place] [address] [address] [place] [address] 12 weeks gestation Professional Office 2, [facility] of Building Phlebotomy Lab Professional Office Building [address] [place] [address] , [address] [place] [address] Allergies No Known Allergiesdocumented as [...] Date Type Specialty Care Team Description 12/27/2019 Arts And Crafts Instructor Visit Phlebotomy Talia Granger PA-C [address] [address] 2, Adc Lab 12/27/2019 Routine Visit Obstetrics & Prasad, Vanessa Skelton MD Gynecology [address] [place] [address] [address]. [address] [place], [place] [address] Name Type Priority Associated Diagnoses Date/Ti me VZV ANTIBODY SCREEN LAB Routine 12 weeks gestation of 11/29/2019 2:09 PM CDT SICKLE CELL SCREEN LAB Routine 12 weeks gestation of 11/29/2019 2:09 PM CDT RUBELLA SCREEN IGG LAB Routine 12 weeks gestation of 11/29/2019 2:09 PM CDT HCV ANTIBODY LAB Routine 12 weeks gestation of 2019 2:09 PM CDT ADC OR COLE ONLY - LAB Routine 12 weeks gestation of 11/29/2019 2:09 PM CDT RPR Health Maintenance Due Date Last Done Comments [...] encounter Procedures Procedure Name Priority Date/Time Associated Comments Diagnosis HIV 1/2 AG-AB WITH Routine 11/29/2019 2:09 12 weeks gestation Results for this REFLEX PM CDT of procedure are i n the results section. CBC WITH DIFFERENTIAL Routine 11/29/2019 2:09 12 weeks gestat ion Results for this PM CDT of procedure are i n the results section. HEPATITIS B SURFACE Routine 11/29/2019 2:09 12 weeks gestatio n Results for this ANTIGEN PM CDT of procedure are i n the results section. CBC WITH DIFFERENTIAL Routine 11/29/2019 2:09 12 weeks gestat ion Results for this PM CDT of procedure are i n the results section. HB ABO GROUPING Routine 11/29/2019 2:05 12 weeks gestation Re sults for this PM CDT of procedure are i n the results section. documented in this encounter Results CBC WITH DIFFERENTIAL (11/29/2019 2:09 PM CDT) Pathologist Sig nature WBC 6.89 4.30 - 11.10 [facility] 10*3/L [facility] RBC 4.09 3.93 - 5.25 [facility] 10*6/L [facility] HGB 11.8 11.6 - 15.0 [facility] g/dL [facility] HCT 35.1 (L) 35.7 - 45.2 % [facility] MCV 85.8 80.6 - 95.5 fL [facility] MCH 28.9 25.9 - 32.8 pg [facility] MCHC 33.6 31.6 - 35.1 [facility] g/dL [facility] RDW-SD 39.8 39.0 - 49.9 fL [facility] RDW-CV 13.0 12.0 - 15.5 % [facility] PLT 192 166 - 358 [facility] 10*3/L [facility] MPV 10.4 9.5 - 12.9 fL [facility] NRBC/100 WBC 0.0 0.0 - 10.0 /100 [facility] WBCs [facility] NRBC x10^3 <0.01 10*3/L [facility] GRAN MAT (NEUT) % 65.0 % [facility] IMM GRAN % 0.40 % [facility] LYMPH % 26.0 % [facility] MONO % 5.5 % [facility] EOS % 2.8 % [facility] BASO % 0.3 % [facility] GRAN MAT x10^3(ANC) 4.48 1.88 - 7.09 [facility] 10*3/uL [facility]ITAL [facility] IMM GRAN x10^3 0.03 0.00 - 0.06 [facility] 10*3/uL [facility] LYMPH x10^3 1.79 1.32 - 3.29 [facility] 10*3/uL [facility] MONO x10^3 0.38 0.33 - 0.92 [facility] 10*3/uL [facility]ITAL [facility] EOS x10^3 0.19 0.03 - 0.39 [facility] 10*3/uL [facility] BASO x10^3 <0.03 0.01 - 0.07 [facility] 10*3/uL HOS[facility]ITAL LAB[facility] Specimen Blood Performing Organization Address City/State/Zipcode Phone Number [facility] CLIA: [id number], [address] [place], [place] [address] LABORATORY Hospital [facility] HIV 1/2 AG-AB WITH REFLEX (11/29/2019 2:09 PM CDT) Pathologist Sig nature HIV 1/2 Ag-Ab with Negative Negative [facility] Reflex [facility] HIV Semi-quantitative 0.14 [facility] Specimen Blood Narrative Performed At Non-reactive for HIV-1 antigen and HIV-1/HIV-2 [facility] LABOR[facility]ORY antibodies. No laboratory evidence of HIV infection. Repeat in 2-4 weeks if acute HIV infection is suspected. Performing Organization Address City/[facility]/Zipcode Phone Number [facility] CLIA: [id number], [address] [place], [place] [address] HEPATITIS B SURFACE ANTIGEN (11/29/2019 2:09 PM CDT) Pathologist Sig nature HBsAg Negative Negative [facility]OR[facility]ORY SERVICES HBsAg 0.08 [facility] LABOR[facility] Semi-Quantitative SERVICES Specimen Blood Performing Organization Address City/State/Zipcode Phone Number [facility] CLIA: [id number], [address] [place], [place] [address] [facility] WORKUP, BLOOD BANK (11/29/2019 2:05 PM CDT) Pathologist Sig nature ABO & RH A Positive LAB Comment: Performed at [facility] Laboratory Services - [facility] Blood [facility] [address] [place] [phone] Toll Free: [phone] CLIA No. [id number] IAT Negative LAB Comment: Performed at [facility] Laboratory Services - [facility] Blood [facility] [address] [place] [phone] Toll Free: [phone] CLIA No. [id number] Specimen Blood - [facility] Performing Organization Address City/State/Zipcode Phone Number D LAB documented in this encounter Visit Diagnoses Diagnosis 12 weeks gestation of state, incidental documented in this encounter Insurance Payer Benefit Plan / Subscriber ID Effective Dates Phone Addre ss Type Group [facility] MEDICAID OF xxxxxxxxx 2016-Present [phone] [address] Medicaid [place] [id number] [place] [phone] [address] Rivero ([place]) [address] [place] [address] documented as of this encounter Advance Directives Name Relationship Healthcare Agent Relationship Co mmunication Bel Joe Mother Primary healthcare agent
--- OUTSIDE RECORDS SUMMARY | 2019-12-10 23:33 | XMS REPORT | Summary of Care ---
:2000 Author Organization [facility] Address [address] [place] [address] Care Team Providers Name Role Phone RUPERT Granger Primary Care Provider Reason for Visit Reason Comments Notification Encounter Details Date Type Department Care Team Description 12/07/2019 Telephone [facility] Women's PrasadVanessa MD Notification Healthcare- [address] [facility], [address] [place] [address] [place] [address] [phone] Allergies No Known Allergiesdocumented as of this [...] Date Type Specialty Care Team Description 12/27/2019 Generator Mechanic Visit Phlebotomy Talia Granger PA-C [address] [place] [phone], Adc Lab 12/27/2019 Routine Visit Obstetrics & Prasad, Vanessa Skelton MD Gynecology [address] [place] [address] [phone] 01/19/2020 Generator Mechanic Visit Obstetrics & Ultrasound, Adc [facility] Gynecology Health Maintenance Due Date Last Done [...] Type Group [facility] MEDICAID OF xxxxxxxxx 2016-Present [phone] [address] Medicaid [place] [id number] [place] [address] documented as of this encounter Advance Directives Name Relationship Healthcare Agent Relationship Co mmunication [place] Mother Primary healthcare agent
[2019-12-11 01:54] LABS: Absolute Lymphocytes (CBC) 2.2 K/uL (0.7-4.9); Basophils % 0.5 % (0-1.3); Hematocrit 33.6 % (36.0-45.0); Lymphocytes % 24.7 % (15.3-44.8); MPV 8.6 fL (7.6-11.3); RBC Red Blood Cell Count 3.95 M/uL (3.86-4.86)
[2019-12-11 02:03] LABS: BUN Blood Urea Nitrogen 16 mg/dL (7-18); Bicarbonate 25 mmol/L (21-32); Glucose Level 90 mg/dL (74-106); Potassium 3.4 mmol/L (3.5-5.1); Sodium Level 138 mmol/L (136-145)
[2019-12-11] MEDS ORDERED: NA CHLORIDE 0.9% 1,000 ML ONE (02:10)
[2019-12-11 02:18] LABS: Urine Appearance CLOUDY; Urine Blood NEGATIVE (NEG); Urine Color DK YELLOW; Urine Glucose NEGATIVE (NEG); Urine Protein TRACE (NEG); Urine Specific Gravity >=1.030 (1.005-1.030)
[2019-12-11 02:19] LABS: Urine Microscopic Reflex ORDER UMIC
[2019-12-11 03:11] LABS: Urine Bilirubin NEGATIVE (NEG)
[2019-12-11 03:14] LABS: Urine Bacteria 20-50 /HPF (<20); Urine Culture Reflex Order REFLEXED; Urine Mucus 3+ /HPF (NONE SEEN); Urine RBC <5 /HPF (NONE SEEN)
[2019-12-11 03:31] LABS: Urine Blood NEGATIVE (NEG); Urine Glucose NEGATIVE (NEG); Urine Protein TRACE (NEG); Urine Specific Gravity >1.030 (1.005-1.030); Urine pH 6.5 (5.0-7.0)
[2019-12-11] MEDS ORDERED: ONDANSETRON 4 MG/2 ML VIAL ONE (03:50)
--- NOTE | 2019-12-11 03:56 | ER ---
Nurse's Notes [facility] Name: Mary Joe Age: 19 yrs Sex: Female : 2000 Arrival Date: 12/10/2019 Time: 23:30 Bed 16 Private MD: Diagnosis: Hyperemesis gravidarum; related conditions, unspecified Presentation: 12/09 23:51 Chief complaint: Patient states: Vomiting x 2 days; States currently about 14 weeks lp1 ; Episodes of dizziness when standing for too long or getting up to fast; Concerned with dehydration. Coronavirus screen: Proceed with normal triage. Ebola Screen: No symptoms or risks identified at this time. Risk Assessment: Do you want to hurt yourself or someone else? Patient reports no desire to harm self or others. Onset of symptoms was December 10, 2019. 23:51 Method Of Arrival: Ambulatory lp1 23:51 Acuity: VANDANA 3 lp1 23:55 Initial Sepsis Screen: Does the patient meet any 2 criteria? No. Patient's initial lp1 sepsis screen is negative. Does the patient have a suspected source of infection? No. Patient's initial sepsis screen is negative. Triage Assessment: 12/10 01:15 General: Appears in no apparent distress. Behavior is calm, cooperative, appropriate vc for age. Pain: Denies pain. GI: Reports intolerance of fluids, nausea, vomiting, since For the last 2 days. 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 - Social history:: Smoking status: Patient denies any tobacco usage or history of. - Family history:: not pertinent. Screenin:54 Abuse screen: Denies threats or abuse. Denies injuries from another. Nutritional lp1 screening: No deficits noted. Tuberculosis screening: No symptoms or risk factors identified. 12/10 04:00 Fall Risk None identified. lp1 Assessment: 01:16 General: Appears in no apparent distress. comfortable, Behavior is calm, cooperative, vc appropriate for age. Pain: Denies pain. Neuro: Level of Consciousness is awake, alert, obeys commands, Oriented to person, place, time, situation, Appropriate for age. Cardiovascular: Reports lightheadedness, Denies shortness of breath, syncope. Respiratory: Airway is patent Respiratory effort is even, unlabored, Respiratory pattern is regular, symmetrical. GI: Abdomen is round non-distended. : No signs and/or symptoms were reported regarding the genitourinary system. Derm: Skin temperature is warm. 04:00 Reassessment: Patient appears in no apparent distress at this time. Patient is alert, lp1 oriented x 3, equal unlabored respirations, skin warm/dry/pink. Patient tolerating drinking juice Patient states feeling better. Vital Signs: 12/09 23:55 BP 132 / 74; Pulse 75; Resp 18; Temp 99.9(O); Pulse Ox 100% on R/A; Weight 102.06 kg lp1 (R); Height 5 ft. 7 in. (170.18 cm); Pain 0/10; 12/10 01:03 BP 121 / 70 Supine; Pulse 71; vc 01:05 BP 122 / 74 Sitting; Pulse 73; vc 01:07 BP 125 / 74 Standing; Pulse 96; vc 04:00 BP 121 / 69; Pulse 67; Resp 18; Pulse Ox 100% on R/A; lp1 12/09 23:55 Body Mass Index 35.24 (102.06 kg, 170.18 cm) lp1 ED Course: 12/09 23:30 Patient arrived in ED. cl3 23:53 Triage completed. lp1 23:53 Arm band placed on. lp1 12/10 00:57 Priti Otoole RN is Primary Nurse. vc 01:04 Sanford Baker DO is Attending Physician. ms3 01:17 Patient has correct armband on for positive identification. Bed in low position. Side vc rails up X 1. Pulse ox on. NIBP on. Warm blanket given. 02:12 Report received from CHRISTINA Marcos. lp1 03:00 Missed attempt(s): 20 gauge in left antecubital area. 22 gauge in right forearm. ds4 Bleeding controlled, band aid applied, catheter tip intact. 04:15 No provider procedures requiring assistance completed. IV discontinued, No lp1 redness/swelling at site. Pressure dressing applied. Administered Medications: 02:25 Drug: Sodium Chloride 0.9% 1000 ml Route: IVPB; Site: right antecubital; vc 04:00 Follow up: IV Status: Completed infusion; IV Intake: 1000ml lp1 03:40 Drug: Zofran (Ondansetron) 4 mg Route: IVP; Rate: 2 mg/min; Site: left antecubital; lp1 04:00 Follow up: Response: No adverse reaction; Marked relief of symptoms lp1 Intake: 04:00 IV: 1000ml; Total: 1000ml. lp1 Outcome: 03:55 Discharge ordered by MD. ms3 04:15 Discharged to home ambulatory. lp1 04:15 Condition: good 04:15 Discharge instructions given to patient, Instructed on discharge instructions, follow up and referral plans. medication usage, Demonstrated understanding of instructions, follow-up care, medications, Prescriptions given X 1. 04:15 Patient left the ED. lp1 Signatures: Malka Tello RN RN lp1 Garfield Baig ds4 Delgado Miller cl3 Priti Otoole RN RN vc Sims, Marcus, DO DO ms3 Corrections: (The following items were deleted from the chart) 04:38 04:37 No provider procedures requiring assistance completed. lp1 lp1 04:38 04:37 IV discontinued, No redness/swelling at site. Pressure dressing applied, lp1 lp1 04:40 04:40 Patient left the ED. lp1 lp1
--- NOTE | 2019-12-11 03:56 | EDPHYS ---
Physician Documentation [facility] Name: Mary Joe Age: 19 yrs Sex: Female : 2000 Arrival Date: 12/10/2019 Time: 23:30 Bed 16 Private MD: ED Physician Sanford Baker HPI: 12/10 01:22 This 19 yrs old Black Female presents to ER via Ambulatory with complaints of ms3 Dizziness, Vomiting. 01:22 The patient presents with dizziness. Onset: The symptoms/episode began/occurred ms3 gradually, 2 day(s) ago. Context: occurred while the patient was standing. Modifying factors: The symptoms are alleviated by nothing, the symptoms are aggravated by standing for long periods of time. Associated signs and symptoms: The patient has no apparent associated signs or symptoms. Severity of symptoms: Pain is currently a 0 / 10. 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 - Social history:: Smoking status: Patient denies any tobacco usage or history of. - Family history:: not pertinent. ROS: 12/10 01:22 Constitutional: Negative for fever, and chills. Eyes: Negative for injury, pain, ms3 redness, and discharge, ENT: Negative for injury, pain, and discharge, Neck: Negative for injury, pain, and swelling, Cardiovascular: Negative for chest pain, and palpitations. Respiratory: Negative for shortness of breath, cough, wheezing, and pleuritic chest pain, Back: Negative for injury and pain, MS/Extremity: Negative for injury and deformity, Skin: Negative for injury, rash, and discoloration, Neuro: Negative for headache, weakness, numbness, tingling. Abdomen/GI: Positive for nausea and vomiting. Neuro: Positive for dizziness. Exam: 01:24 Constitutional: This is a well developed, well nourished patient who is awake, alert, ms3 and in no acute distress. Head/Face: Normocephalic, atraumatic. Eyes: Pupils equal round and reactive to light, extra-ocular motions intact. Lids and lashes normal. Conjunctiva and sclera are non-icteric and not injected. Cornea within normal limits. Periorbital areas with no swelling, redness, or edema. Neck: Trachea midline, no cervical lymphadenopathy. Supple, full range of motion without nuchal rigidity, or vertebral point tenderness. No Meningismus. Chest/axilla: Normal chest wall appearance and motion. Nontender with no deformity. Cardiovascular: Regular rate and rhythm with a normal S1 and S2. No gallops, murmurs, or rubs. Normal PMI, no JVD. No pulse deficits. Respiratory: Lungs have equal breath sounds bilaterally, clear to auscultation and percussion. No rales, rhonchi or wheezes noted. No increased work of breathing, no retractions or nasal flaring. Abdomen/GI: Soft, non-tender, with normal bowel sounds. No distension or tympany. No guarding or rebound. No evidence of tenderness throughout. Back: No spinal tenderness. No costovertebral tenderness. Full range of motion. Skin: Warm, dry with normal turgor. Normal color with no rashes, no lesions, and no evidence of cellulitis. MS/ Extremity: Pulses equal, no cyanosis. Neurovascular intact. Full, normal range of motion. Neuro: Awake and alert, GCS 15, oriented to person, place, time, and situation. Cranial nerves II-XII grossly intact. Motor strength 5/5 in all extremities. Sensory grossly intact. Cerebellar exam normal. Normal gait. Psych: Awake, alert, with orientation to person, place and time. Behavior, mood, and affect are within normal limits. Vital Signs: 12/09 23:55 BP 132 / 74; Pulse 75; Resp 18; Temp 99.9(O); Pulse Ox 100% on R/A; Weight 102.06 kg lp1 (R); Height 5 ft. 7 in. (170.18 cm); Pain 0/10; 12/10 01:03 BP 121 / 70 Supine; Pulse 71; vc 01:05 BP 122 / 74 Sitting; Pulse 73; vc 01:07 BP 125 / 74 Standing; Pulse 96; vc 04:00 BP 121 / 69; Pulse 67; Resp 18; Pulse Ox 100% on R/A; lp1 12/09 23:55 Body Mass Index 35.24 (102.06 kg, 170.18 cm) lp1 MDM: 01:22 Patient medically screened. ms3 01:24 Differential diagnosis: Hyperemesis gravidarum, Dehydration, Nausea and Vomiting. Data ms3 reviewed: vital signs, nurses notes. 12/10 01:26 Order name: CBC with Diff; Complete Time: 02:35 ms3 12/10 01:26 Order name: Basic Metabolic Panel; Complete Time: 02:35 ms3 12/10 01:26 Order name: Urinalysis; Complete Time: 04:15 ms3 12/10 02:20 Order name: Urine Dipstick--Ancillary (enter results); Complete Time: 04:15 2 12/10 02:20 Order name: Urine --Ancillary (enter results); Complete Time: 04:15 mw2 12/10 02:21 Order name: Urine Microscopic Only; Complete Time: 04:15 EDMS 12/10 03:16 Order name: Urine Culture EDMS Administered Medications: 02:25 Drug: Sodium Chloride 0.9% 1000 ml Route: IVPB; Site: right antecubital; vc 04:00 Follow up: IV Status: Completed infusion; IV Intake: 1000ml lp1 03:40 Drug: Zofran (Ondansetron) 4 mg Route: IVP; Rate: 2 mg/min; Site: left antecubital; lp1 04:00 Follow up: Response: No adverse reaction; Marked relief of symptoms lp1 Disposition: 12/11/19 03:55 Discharged to Home. Impression: Hyperemesis gravidarum, related conditions, unspecified. - Condition is Stable. - Prescriptions for Zofran ODT 8 mg Oral tablet,disintegrating - take 1 tablet by ORAL route every 8 hours for 3 days; 10 tablet. - Medication Reconciliation Form, Thank You Letter, Antibiotic Education, Prescription Opioid Use form. - Follow up: Private Physician; When: 1 - 2 days. - Problem is new. - Symptoms have improved. Signatures: Dispatcher [employer] EDMS Malka Tello RN RN lp1 Priti Otoole RN RN vc Sanford Baker DO DO ms3 Corrections: (The following items were deleted from the chart) 03:55 03:55 12/11/2019 03:55 Discharged to Home. Impression: Hyperemesis gravidarum; ms3 related conditions, unspecified. Condition is Stable. Forms are Medication Reconciliation Form, Thank You Letter, Antibiotic Education, Prescription Opioid Use. Follow up: Private Physician; When: 1 - 2 days. ms3 04:40 03:55 12/11/2019 03:55 Discharged to Home. Impression: Hyperemesis gravidarum; lp1 related conditions, unspecified. Condition is Stable. Forms are Medication Reconciliation Form, Thank You Letter, Antibiotic Education, Prescription Opioid Use. Follow up: Private Physician; When: 1 - 2 days. Problem is new. Symptoms have improved. ms3
[2019-12-11 04:45] VITALS: TEMP 99.9; O2SAT 100
[2019-12-11 04:49] VITALS: BP 121/69
== END 2019-12-11 04:40 | disposition home or self-care (01) ==
LOC: ER 23:28
DX: O21.0 Mild hyperemesis gravidarum (principal); Z3A.20 20 weeks gestation of pregnancy
CPT/HCPCS: 96365; 87088; 85025; 87086; 80048; 36415; 81025; 96375; 99283; 96366; J7030; J2405; 81003; 81015

== ENCOUNTER 2020-01-23 16:42 | Emergency (ER) | payer OTHER ==
--- NOTE | 2020-01-23 18:44 | ER ---
Nurse's Notes [facility] Name: Mary Joe Age: 19 yrs Sex: Female : 2000 Arrival Date: 01/23/2020 Time: 16:52 Bed Hall20 Private MD: Diagnosis: Viral infection, unspecified Presentation: 01/22 17:10 Chief complaint: Patient states: Sore throat, sneezing, runny nose since 3-4 days ago. ca1 We've been around family who tested positive for COVID, who just had their results today. Denies fever. Denies cough. Denies N/V/Diar. 20 wks. Coronavirus screen: Patient denies a cough. Patient denies shortness of breath or difficulty breathing. Patient denies measured and/or subjective temperature greater than 100.4F prior to today's visit. Patient denies travel on a cruise ship or to a country the [facility] currently lists as an affected area. Patient reports contact with known and/or suspected case of COVID-19. Surgical mask provided. Instructed to keep mask at all times and keep 6 feet physical distance from other patients/people in the lobby. Ebola Screen: Patient negative for fever greater than or equal to 101.5 degrees Fahrenheit, and additional compatible Ebola Virus Disease symptoms Patient denies exposure to infectious person. Patient denies travel to an Ebola-affected area in the 21 days before illness onset. No symptoms or risks identified at this time. Initial Sepsis Screen: Does the patient meet any 2 criteria? No. Patient's initial sepsis screen is negative. Does the patient have a suspected source of infection? No. Patient's initial sepsis screen is negative. Risk Assessment: Do you want to hurt yourself or someone else? Patient reports no desire to harm self or others. Onset of symptoms was January 23, 2020. 17:10 Method Of Arrival: Ambulatory ca1 17:10 Acuity: VANDANA 4 ca1 Triage Assessment: 18:10 General: Appears in no apparent distress. comfortable, Behavior is cooperative, bp appropriate for age, anxious. Pain: Denies pain. EENT: Reports nasal congestion nasal discharge. Neuro: No deficits noted. Cardiovascular: No deficits noted. Respiratory: No deficits noted. GI: No signs and/or symptoms were reported involving the gastrointestinal system. : No signs and/or symptoms were reported regarding the genitourinary system. Derm: No deficits noted. Musculoskeletal: No deficits noted. 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 ca1 Historical: - Allergies: 17:13 No Known Allergies; ca1 - Home Meds: 17:13 Vitamin Oral tab 1 tab once daily [Active]; ca1 - PMHx: 17:13 None; ca1 - PSHx: 17:13 None; ca1 - Immunization history:: Adult Immunizations up to date. - Social history:: Smoking status: Patient denies any tobacco usage or history of. Screenin:51 Abuse screen: Denies threats or abuse. Denies injuries from another. Nutritional bp screening: No deficits noted. Tuberculosis screening: No symptoms or risk factors identified. Fall Risk None identified. Assessment: 18:10 General: SEE TRIAGE NOTE. bp 19:04 Reassessment: PT D/C HOME AMBULATORY, DX WITH VIRAL URI, R/O COVID. bp Vital Signs: 17:10 BP 117 / 72; Pulse 101; Resp 18 S; Temp 97.8(TE); Pulse Ox 100% on R/A; Weight 104.33 ca1 kg (R); Height 5 ft. 8 in. (172.72 cm) (R); 17:10 Body Mass Index 34.97 (104.33 kg, 172.72 cm) ca1 ED Course: 16:52 Patient arrived in ED. fj1 17:13 Triage completed. ca1 17:13 Arm band placed on right wrist. ca1 18:12 [facility] jr8 18:12 Nehemiah Sims MD is Attending Physician. jr8 18:33 Everett Ruiz, CHRISTINA is Primary Nurse. bp 18:51 Patient has correct armband on for positive identification. Bed in low position. Call bp light in reach. Side rails up X2. 19:04 No provider procedures requiring assistance completed. Patient did not have IV access bp during this emergency room visit. Administered Medications: No medications were administered Outcome: 18:43 Discharge ordered by . jr8 19:04 Discharged to home ambulatory. bp 19:04 Condition: stable 19:04 Discharge instructions given to patient, Instructed on discharge instructions, follow up and referral plans. Demonstrated understanding of instructions, follow-up care. 19:05 Patient left the ED. bp Addendum: 01/28/2020 10:49 Addendum: COVID-19 Result: Negative result given to RN to notify pt. Contacted by: Abdullahi Meade RN. Notified pt of negative COVID 19 swab results. Pt advised that even with a negative test result they should remain in isolation until symptom free for 3 days without medication. Pt also advised to return to the ED for worsening symptoms. Signatures: Joana Meade, RN RN dm5 Ramakrishna Hernandez PA PA 8 Everett Ruiz RN RN bp Acob, Elayne RN RN ca1 Osvaldo Owens fj1 Corrections: (The following items were deleted from the chart) 01/22 17:27 17:10 Chief complaint: Patient states: Sore throat, sneezing, runny nose since 3-4 days ca1 ago. We've been around family who tested positive, who just had their results today. Denies fever. Denies cough. Denies N/V/Diar. 20 wks ca1
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
[2020-01-23 19:35] VITALS: BP 117/72; TEMP 97.8; O2SAT 100
--- OUTSIDE RECORDS SUMMARY | 2020-01-24 01:57 | XMS REPORT | Continuity of Care Document ---
:2000 Author Organization [facility] t Address [address] [place] [address] [address]. [address]. [address] [place] [address] Care Team Providers Name Role Phone Ultrasound, Tonya Attending Clinician Unavailable 2, Lab Attending Clinician Unavailable Osmar VILLA, Costa Attending Clinician Problems This patient has no known problems. Allergies, Adverse Reactions, Alerts This patient has no known allergies or adverse reactions. Medications This patient has no known medications. Procedures This patient has no known procedures. Encounters Start End Encounter Admission Attending Care Care Encounter Source Date/Time Date/Time Type Type Clinicians Facility Department ID 2020-01-19 2020-01-19 Car Body Mechanic David, UTKRISTI [id number] 10:38:05 11:38:05 Visit Rossi Haskins [id number] Ramon [id number] Professio [phone] [address] 2020-01-10 2020-01-10 Car Body Mechanic 2, Adc Lab [facility] [id number] 15:27:02 15:42:02 Visit Jozef [id number] Ramon [id number] Professio [phone] [address] 2020-01-10 2020-01-10 Routine Vanessa Prasad UTKRISTI [id number] 14:47:58 15:22:57 Costa Haskins [id number] Visit Ramon [id number] Professio [phone] [facility] 134 [facility] 2019-12-13 2019-12-13 Telephone Vanessa Prasad [id number] 00:00:00 00:00:00 Cam [place] [id number] [place] [id number] Professio [phone] [address] 2019-12-08 2019-12-08 Case Vanessa Prasad [facility] [id number] 00:00:00 00:00:00 Management Cam [place] [id number] [place] [id number] Professio [phone] [address] 2019-12-07 2019-12-07 Telephone Vanessa Prasad [facility] [id number] 00:00:00 00:00:00 Cam [place] [id number] [place] [id number] Professio [phone] [address] 2019-11-29 2019-11-29 Car Body Mechanic 2, Adc Lab [facility] [id number] 13:51:24 14:06:24 Visit [place] [id number] [place] [id number] Professio [phone] [address] Results This patient has no known results.
--- OUTSIDE RECORDS SUMMARY | 2020-01-24 02:01 | XMS REPORT | Summary of Care ---
:2000 Author Organization [facility] Address [address] [place] [address] Care Team Providers Name Role Phone RUPERT Granger Primary Care Provider Reason for Visit Reason Comments TEST RESULTS [facility] NEGATIVE Encounter Details Date Type Department Care Team Description 12/13/2019 Telephone [facility] Women's PrasadVanessa MD TEST RESULTS ([facility]- [address] NEGATIVE) [facility] [address] [place], [place] [id number] [phone] Allergies No Known Allergiesdocumented as of this encounter (statuses as of 12/14/2019) Medications Medication Sig Dispensed Refills Start Date End Date Status PNV 67-iron ps-folate Take 1 tablet by 90 capsule 3 11/13/2019 Active no.1-dha (VITAFOL mouth daily. ULTRA) 29 mg iron- 1 mg-200 mg Cap documented as of this encounter (statuses as of 12/14/2019) Active Problems Problem Noted Date Obesity (BMI 30-39.9) 11/22/2018 Multiparity 08/11/2018 History of delivery 08/11/2018 Overview: Per patient report Supervision of high-risk 12/20/2015 Estimated Date of Delivery Comments Yes 06/10/2020 Based on Ultrasound documented as of this encounter (statuses as of 12/14/2019) Resolved Problems Problem Noted Date Resolved Date [...] as of this encounter (statuses as of 12/14/2019) Immunizations Name Administration Dates Next Due Tdap [...] Date Type Specialty Care Team Description 12/27/2019 Pc Analyst Visit Phlebotomy Talia Granger , RUPERT [address] [place] [phone] 2, Adc Lab 12/27/2019 Routine Visit Obstetrics & Prasad, Vanessa Skelton MD Gynecology [address] [place] [address] [phone] 01/19/2020 Pc Analyst Visit Obstetrics & Ultrasound, Adc [facility] Gynecology Health Maintenance Due Date Last Done Comments MENINGOCOCCAL B VACCINES (1 2009 of 2 - Risk Bexsero 2-dose series) HPV VACCINES (1 - Female 2010 2-dose series) Depression Screening 2011 WELL CARE VISIT: 12-21 YEARS 2011 (yearly) [...] / Subscriber ID Effective Phone Address T ype Group Dates [facility] MEDICAID OF xxxxxxxxx 2016-Prese [phone] Med icaid [place] [id number] [place] [address] [facility] xxxxxxxxx 2018-Prese [address] Medic aid HEALTH CHOICE HEALTH CHOICE nt [id number] - MANAGED MEDICAID [place], [place] [phone] documented as of this encounter Advance Directives Name Relationship Healthcare Agent Relationship Co mmunication Bel Schultznicho Mother Primary healthcare agent
--- OUTSIDE RECORDS SUMMARY | 2020-01-24 02:01 | XMS REPORT | Summary of Care ---
:2000 Author Organization [facility] Address [address] [place] [address] Care Team Providers Name Role Phone RUPERT Granger Primary Care Provider Reason for Visit Reason Comments LAB Encounter Details Date Type Department Care Team Description 01/10/2020 Musculoskeletal Physician Visit [place] Vanessa Prasad MD [address] [place] [address] [address] [place] [address] Supervision of high risk , ante ; Professional Office 2, Adc Lab 18 weeks gestation of Building Phlebotomy Lab Professional Office Building [address] [facility] , [address] [place] [address] Allergies No Known Allergiesdocumented as of this encounter (statuses as of 01/10/2020) Medications Medication Sig Dispensed Refills Start Date End Date Status PNV 67-iron ps-folate Take 1 tablet by 90 capsule 3 11/13/2019 Active no.1-dha (VITAFOL mouth daily. ULTRA) 29 mg iron- 1 mg-200 mg Cap documented as of this encounter (statuses as of 01/10/2020) Active Problems Problem Noted Date Obesity (BMI 30-39.9) 11/22/2018 Multiparity 08/11/2018 History of delivery 08/11/2018 Overview: Per patient report Supervision of high-risk 12/20/2015 Estimated Date of Delivery Comments Yes 06/10/2020 Based on Ultrasound documented as of this encounter (statuses as of 01/10/2020) Resolved Problems Problem Noted Date Resolved Date [...] as of this encounter (statuses as of 01/10/2020) Immunizations Name Administration Dates Next Due TDAP 07/19/2013 documented as of this encounter Social [...] been in contact with No / Unsure 01/09/2020 10:25 AM CDT someone who was confirmed or suspected to have Coronavirus / COVID-19? documented as of this encounter Last Filed Vital Signs Not on filedocumented in this encounter Plan of Treatment Date Type Specialty Care Team Description 01/19/2020 Musculoskeletal Physician Visit Obstetrics & Ultrasound, Adc [facility] Gynecology 02/08/2020 Routine Visit Obstetrics & Talia Granger, Gynecology RUPERT [address] [address] Health Maintenance Due Date Last Done Comments [...] Diagnosis Supervision of high risk , ante 18 weeks gestation of state, incidental documented in this encounter Insurance Payer Benefit Plan / Subscriber ID Effective Phone Address T e Group Dates [facility] [id number] 2018-Pres Tr icare ent [facility] xxxxxxxxx 2019-Prese [address] Medic aid HEALTH CHOICE - [place] [id number] 1 MANAGED MEDICAID [place], [place] [phone] [address] (Home) [address] [place] [address] documented as of this encounter Advance Directives Name Relationship Healthcare Agent Relationship Co mmunication Bel Schultznicho Mother Primary healthcare agent
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
--- OUTSIDE RECORDS SUMMARY | 2020-01-24 02:01 | XMS REPORT | Summary of Care ---
:[address] [facility] - [facility] Address [address] [place] [id number] Care Team Providers Name Role Phone RUPERT Granger Primary Care Provider Reason for Visit Reason Comments ULTRASOUND (Routine) Status Reason Specialty Diagnoses / Referred By Referred To Procedures Contact Contact Closed Maternal Diagnoses Supervision of high risk , antepartum 12 weeks gestation of Vanessa Prasad MD Medicine Procedures CONSULT MATERNAL MEDICINE ULTRASOUND [address] [place] [address] DRRobbie Luis [address] [place] [address] Encounter Details Date Type Department Care Team Description 01/19/2020 Rotating Field Assembler Visit [facility] Myron Waters MD [address] [facility] [id number] [place] [address] Supervision of high risk in se cond trimester; [facility] Ultrasound, Adc Mfm Supervision of with history of pre-term labor in second trimester; [address] [place] [address] Encounter for screening for risk of pre-term labor Drive, [address] [place] [address] Allergies No Known Allergiesdocumented as of this encounter (statuses as of 01/19/2020) Medications Medication Sig Dispensed Refills Start Date End Date Status PNV 67-iron ps-folate Take 1 tablet by 90 capsule 3 11/13/2019 Active no.1-dha (VITAFOL mouth daily. ULTRA) 29 mg iron- 1 mg-200 mg Cap documented as of this encounter (statuses as of 01/19/2020) Active Problems Problem Noted Date Obesity (BMI 30-39.9) 11/22/2018 Multiparity 08/11/2018 History of delivery 08/11/2018 Overview: Per patient report Supervision of high-risk 12/20/2015 Estimated Date of Delivery Comments Yes 06/10/2020 Based on Ultrasound documented as of this encounter (statuses as of 01/19/2020) Resolved Problems Problem Noted Date Resolved Date [...] as of this encounter (statuses as of 01/19/2020) Immunizations Name Administration Dates Next Due TDAP [...] been in contact with No / Unsure 01/19/2020 10:37 AM CDT someone who was confirmed or suspected to have Coronavirus / COVID-19? documented as of this encounter Last Filed Vital Signs Not on filedocumented in this encounter Plan of Treatment Date Type Specialty Care Team Description 02/08/2020 Telemedicine Visit Obstetrics & Gynecology Jaleel Granger PA-C [address] [address] Health Maintenance Due Date Last Done Comments MENINGOCOCCAL B VACCINES (1 2009 of 2 - Risk Bexsero 2-dose series) HPV VACCINES (1 - Female 2010 2-dose series) Depression Screening 2011 WELL CARE VISIT: 12-21 YEARS 2011 (yearly) INFLUENZA VACCINE (#1) 2020 CHLAMYDIA SCREENING 11/28/2020 11/29/2019, 04/12/2019, 03/07/2019, Additional [...] Visit Diagnoses Diagnosis Supervision of high risk in se cond trimester Unspecified high-risk Supervision of with history of pre-term labor in second trimester with history of pre-term labor Encounter for screening for risk of pre- term labor documented in this encounter Insurance Payer Benefit Plan / Subscriber ID Effective Phone Address T e Group [facility] [id number] 2018-[facility] x[facility] 2019-Prese [address] Medic aid HEALTH CHOICE - HEALTH [place] nt [id number] 1 MANAGED MEDICAID [place], [place] [phone] documented as of this encounter Advance Directives Name Relationship Healthcare Agent Relationship Co mmunication [place] Joe Mother Primary healthcare agent
== END 2020-01-23 19:05 | disposition home or self-care (01) ==
LOC: ER 16:42
DX: O98.512 Other viral diseases complicating pregnancy, second trimester (principal); Z20.828 Contact with and (suspected) exposure to other viral communicable diseases; Z3A.20 20 weeks gestation of pregnancy
CPT/HCPCS: 87070; 87081; 99281; U0002

== ENCOUNTER 2020-08-24 03:07 | Emergency (ER) | payer OTHER ==
--- OUTSIDE RECORDS SUMMARY | 2020-08-24 03:08 | XMS REPORT | Continuity of Care Document ---
:1999 Author Organization [facility] t Address [address] [place] [address] Dr. Smith. [address] [place] [address] Care Team Providers Name Role Phone Elkin EMERY Attending Clinician Doctor Unassigned, Name Attending Clinician Unavailable Costa Prasad MD Attending Clinician 1, Lab Attending Clinician Unavailable Room, Nst Attending Clinician Unavailable Ultrasound, Mfm Attending Clinician Unavailable Mike Parra MD Attending Clinician 2, Lab Attending Clinician Unavailable Costa Prasad MD Admitting Clinician Problems This patient has no known problems. Allergies, Adverse Reactions, Alerts This patient has no known allergies or adverse reactions. Medications This patient has no known medications. Procedures This patient has no known procedures. Encounters Start End Encounter Admission Attending Care Care Encounter Source Date/Time Date/Time Type Type Clinicians Facility Department ID 2020-06-18 2020-06-18 Routine LIA Granger [id number] 15:28:00 16:09:46 Talia Haskins [id number] Visit [place] 4.2.7.2.686 Jonathan [phone] [address] 2020-06-12 2020-06-12 Orders Doctor FRANK [id number] 00:00:00 00:00:00 Only UnassELROY gtz [id number] [place] [facility] 4.2.7.2.686 [id number] [id number] 2020-05-20 2020-05-21 [facility] Vanessa Prasad [facility] 1.2.840.114 [id number] 04:10:00 11:40:00 Encounter Cam [place] [id number] [place] 4.2.7.2.686 [place] [id number] [id number] 2020-05-20 2020-05-20 Orders Doctor FRANK 1.2.840.114 [id number] 00:00:00 00:00:00 Only Unassigned, ELROY [id number] [place] [facility] 4.2.7.2.686 [id number] [id number] 2020-05-17 2020-05-17 Cement Pa[place] 1, [facility] 1.2.840.114 [id number] 09:10:37 09:25:37 Visit [place] [id number] [place] 4.2.7.2.686 [place] [id number] [id number] 2020-05-17 2020-05-17 Routine Room, [facility] [id number] 08:17:41 08:54:38 Wh Nst [place] [id number] Visit [place] 4.2.7.2.686 Professio [phone] [address] 2020-05-14 2020-05-14 Routine Room, [facility] [id number] 11:09:37 12:11:42 Wh Nst [place] [id number] Visit [place] 4.2.7.2.686 Professio [phone] [address] 2020-05-14 2020-05-14 Orders Doctor FRANK 1.2.840.114 [id number] 00:00:00 00:00:00 Only Unassigned, ELROY [id number] [place] [facility] 4.2.7.2.686 [id number] [id number] 2020-05-10 2020-05-10 Cement Paver Ultrasound, [facility] 1.2.840.114 [id number] 10:41:31 11:25:11 Visit [facility] [place] [id number] [place] 4.2.7.2.686 Professio [phone] [address] 2020-04-25 2020-04-25 Hospital Vanessa Prasad [facility] 1.2.840.114 [id number] 10:09:00 12:35:00 Encounter Cam [place] [id number] [place] 4.2.7.2.686 [place] [id number] [id number] 2020-04-25 2020-04-25 Routine Room, [facility] [id number] 08:21:54 09:48:28 Wh Nst [place] [id number] Visit [place] 4.2.7.2.686 Professio [phone] [address] 2020-04-22 2020-04-22 Routine Vanessa Prasad [facility] [id number] 13:01:30 14:28:44 [place] [id number] Visit [place] 4.2.7.2.686 Professio [phone] [address] 2020-04-20 2020-04-20 Hospital Vanessa Prasad [facility] 1.2.840.114 [id number] 09:11:00 11:10:00 Encounter [place] [id number] [place] 4.2.7.2.686 [place] [id number] 2020-04-20 2020-04-20 Orders Doctor FRANK 1.2.840.114 [id number] 00:00:00 00:00:00 Only Unassigned, ELR[place] 350.1.13.10 [place] [address]686 [id number] [id number] 2020-04-12 2020-04-12 Hospital Vanessa Prasad [facility] 1.2.840.114 [id number] 15:07:00 16:30:00 Encounter Adum, Esperanza L [place] 350.1.13.10 [place] 4.2.7.2.686 [place] [id number] 083 2020-04-12 2020-04-12 Routine Adum, [facility] 1.2.840.114 [id number] 13:43:19 14:45:57 Esperanza [place] [id number] Visit [place] 4.2.7.2.686 Professio [phone] [address] 2020-04-12 2020-04-12 Cement Paver Ultrasound, [facility] 1.2.840.114 [id number] 13:04:57 13:34:57 Visit Adc Mfm [place] 350.1.13.10 [place] 4.2.7.2.686 Professio [phone] [address] 2020-04-09 2020-04-09 Cement Paver 2, Adc Lab [facility] 1.2.840.114 [id number] 09:21:59 09:36:59 Visit [place] 350.1.13.10 [place] 4.2.7.2.686 Professio [phone] [address] 2020-04-08 2020-04-08 Cement Paver 2, Adc Lab [facility] 1.2.840.114 [id number] 13:50:06 14:05:06 Visit [place] 350.1.13.10 [place] 4.2.7.2.686 Professio [phone] [address] 2020-04-08 2020-04-08 Routine Prasad, Vanessa [facility] 1.2.405.870 [id number] 13:05:39 13:46:28 Cam [place] 350.1.13.10 Visit [place] 4.2.7.2.686 Professio [phone] [address] 2020-04-08 2020-04-08 Case Elkin [facility] 1.2.134.128 [id number] 00:00:00 00:00:00 Management Talia [place] 350.1.13.10 [place] 4.2.7.2.686 Professio [phone] [address] 2020-02-09 2020-02-09 Telemedici Elkin [facility] 1.2.840.114 [id number] 08:30:37 08:45:37 ne Visit Talia [place] 350.1.13.10 [place] 4.2.7.2.686 Professio [phone] [address] 2020-01-19 2020-01-19 Cement Pa[place] 1.2.840.114 [id number] 10:38:05 11:38:05 Visit Adc Mfm [place] 350.1.13.10 [place] 4.2.7.2.686 Professio [phone] [address] 2020-01-10 2020-01-10 Cement Paver 2, Adc Lab [facility] 1.2.840.114 [id number] 15:27:02 15:42:02 Visit [place] 350.1.13.10 [place] 4.2.7.2.686 Professio [phone] [address] 2020-01-10 2020-01-10 Routine Vanessa Prasad [facility] [id number] 14:47:58 15:22:57 Cam [place] 350.1.13.10 Visit [place] 4.2.7.2.686 Professio [phone] [address] 2019-12-13 2019-12-13 Telephone Vanessa Prasad 1.2.840.114 [id number] 00:00:00 00:00:00 Cam [place] 350.1.13.10 [place] 4.2.7.2.686 Professio [phone] [address] 2019-12-08 2019-12-08 Case Vanessa Prasad [facility] [id number] 00:00:00 00:00:00 Management Cam [place] 350.1.13.10 [place] 4.2.7.2.686 Professio [phone] [address] 2019-12-07 2019-12-07 Telephone Vanessa Prasad [facility] 1.2.840.114 [id number] 00:00:00 00:00:00 Cam [place] 350.1.13.10 [place] 4.2.7.2.686 Professio [phone] [address] 2019-11-29 2019-11-29 Cement Paver 2, Adc Lab [facility] 1.2.840.114 [id number] 13:51:24 14:06:24 Visit [place] 350.1.13.10 [place] 4.2.7.2.686 Professio [phone] [address] Results This patient has no known results.
--- OUTSIDE RECORDS SUMMARY | 2020-08-24 03:09 | XMS REPORT | Summary of Care ---
:1999 Author Organization [facility] - [facility] Address [address] [place] [address] Care Team Providers Name Role Phone RUPERT Granger Primary Care Provider Encounter Details Date Type Department Care Team Description 06/12/2020 Orders Only [facility] Doctor Unassigned, No [address] [facility] [place] [address] [address] [place] [address] Allergies No Known Allergiesdocumented as of this encounter (statuses as of 06/20/2020) Medications Medication Sig Dispensed Refills Start Date End Date Status vitamin w/FA Take 1 tablet by 100 tablet 3 05/21/2020 Active tabletIndications: mouth daily. Supervision of high risk in third trimester, Multiparity, Obesity (BMI 30-39.9), 37 weeks gestation of , Liveborn infant, of gao , born in hospital by vaginal delivery, Positive GBS test, Placental abruption in third trimester, Encounter for planned induction of labor, Anemia, antepartum, third trimester, History of delivery docusate calcium 240 Take 1 capsule by 60 capsule 1 05/21/2020 Active mg capsuleIndications: mouth once daily Supervision of high as needed for risk in Constipation. third trimester, Multiparity, Obesity (BMI 30-39.9), 37 weeks gestation of , Liveborn , of gao , born in hospital by vaginal delivery, Positive GBS test, Placental abruption in third trimester, Encounter for planned induction of labor, Anemia, antepartum, third trimester, History of delivery ferrous sulfate 325 mg Take 1 tablet by 60 tablet 2 05/21/2020 Active (65 mg iron) mouth 2 (two) tabletIndications: times daily. Supervision of high risk in third trimester, Multiparity, Obesity (BMI 30-39.9), 37 weeks gestation of , Liveborn infant, of gao , born in hospital by vaginal delivery, Positive GBS test, Placental abruption in third trimester, Encounter for planned induction of labor, Anemia, antepartum, third trimester, History of delivery ibuprofen 600 mg Take 1 tablet by 30 tablet 1 05/21/2020 Active tabletIndications: mouth every 6 Supervision of high (six) hours as risk in needed (Pain). third trimester, Take with food or Multiparity, Obesity milk. (BMI 30-39.9), 37 weeks gestation of , Liveborn infant, of gao , born in hospital by vaginal delivery, Positive GBS test, Placental abruption in third trimester, Encounter for planned induction of labor, Anemia, antepartum, third trimester, History of delivery documented as of this encounter (statuses as of 06/20/2020) Active Problems Problem Noted Date Uterine size-date discrepancy in third trimester 04/08 Positive GBS test 03/15/2019 Obesity (BMI 30-39.9) 11/22/2018 Multiparity 08/11/2018 History of delivery 08/11/2018 Overview: Per patient report documented as of this encounter (statuses as of 06/20/2020) Resolved Problems Problem Noted Date Resolved Date Encounter for planned induction of labor 05/20/2020 06/18/2020 Anemia, antepartum, third trimester 05/20/202007/2019 Placental abruption in third trimester 04/22/2020 1 08/19/2019 Overview: Chronic, intermittent vaginal bleeding Low-lying placenta in third trimester 04/08/2020 Last Assessment & Plan: Resolved on 04/12/2020 USG Normal labor and delivery 03/15/2019 11/07/2019 37 weeks gestation of 03/15/2019 06/18/20 20 Liveborn , of gao , born in hospital by 03/15/2019 06/18/2020 vaginal delivery Normal labor 03/15/2019 11/07/2019 Chlamydia infection affecting 09/06/2018 11/07/2019 Overview: Yeimi at next visit-neg and at 36 weeks Abnormal maternal glucose tolerance, antepartum 12/23/2015 08/11/2018 Overview: 1hr 147mgdl , passed 3hr Obesity affecting 12/20/2015 11/07/2019 Supervision of high-risk 12/20/201506/18 documented as of this encounter (statuses as of 06/20/2020) Immunizations Name Administration Dates Next Due TDAP 04/08/2020, 07/19/2013 04/08/2030 documented as of this encounter Social History Tobacco Use Types Packs/Day Years Used Date Never Smoker Smokeless Tobacco: Never Used Alcohol Use Drinks/Week oz/Week Comments No 0 Standard drinks or equivalent 0.0 Sex Assigned at Date Recorded Not on file COVID-19 Exposure Response Date Recorded In the last month, have you been in contact with No / Unsure 06/18/2020 3:25 PM 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 documented as of this encounter Last Filed Vital Signs Not on filedocumented in this encounter Plan of Treatment Date Type Specialty Care Team Description 12/17/2020 Office Visit Obstetrics & Gynecology Talia Granger PA-C [address] [place] [address] [phone] Health Maintenance Due Date Last Done Comments MENINGOCOCCAL B VACCINES (1 2009 of 2 - Risk Bexsero 2-dose series) HPV VACCINES (1 - 2-dose 2010 series) Depression Screening 2011 WELL CARE VISIT: -06/23/2011 YEARS (yearly) INFLUENZA VACCINE (#1) 2021 Postponed from 03/19/2020 (Refu sed) CHLAMYDIA SCREENING 05/14/2021 05/14/2020, 04/12/2020, 11/29/2019, Additional history exists DTaP,Tdap,and Td Vaccines 04/08/2030 04/08/2020, 07/19/2013 (3 - Td) MENINGOCOCCAL VACCINE Aged Out No longer eligible based on patient 's age to complete this topic PNEUMOCOCCAL 0-64 YEARS Aged Out No longe r eligible COMBINED SERIES based on patient 's age to complete this topic documented as of this encounter Procedures Procedure Name Priority Date/Time Associated Diagnosis Comme nts AUTHORIZATION FOR RELEASE Routine 06/12/2020 12:01 AM OF PHI 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
--- OUTSIDE RECORDS SUMMARY | 2020-08-24 03:09 | XMS REPORT | Summary of Care ---
:2000 Author Organization [facility] Address [address] [place] [id number] Care Team Providers Name Role Phone RUPERT Granger Primary Care Provider Reason for Visit Reason Comments Care (Routine) Status Reason Specialty Diagnoses / Referred By Referred To Procedures Contact Contact Closed OG-OBSTETRICS & Diagnoses Supervision of high risk in third trimester Multiparity Obesity (BMI 30-39.9) 37 weeks gestation of Liveborn infant, of gao , born in hospital by vaginal delivery Positive GBS test Vanessa Prasad MD GYNECOLOGY / OB Placental abrupt ion in third trimester Encounter for planned induction of labor Anemia, antepartum, third trimester History of delivery [address] [facility] Procedures Discharge Follow-Up: Specialty Service OG-OBSTETRICS & GYNECOLOGY; [address] [place] [address] Encounter Details Date Type Department Care Team Description 06/18/[address] [facility] Women's Tlaia Granger, care and examination (Primary Dx); Visit [facility]- RUPERT control counseling; [address] Initial encounter for manage ment of contraceptive patch use [address] [facility], [address] [facility] [address] [place] [id number] Allergies No Known Allergiesdocumented as of this encounter (statuses as of 06/18/2020) Medications Medication Sig Dispensed Refills Start Date [...] trimester, History of delivery docusate calcium 240 mg Take 1 capsule 60 capsule 1 05/21/2020 Active capsuleIndications: by mouth once Supervision of high daily as needed risk in third for trimester, Multiparity, Constipation. Obesity (BMI 30-39.9), 37 weeks gestation of [...] of high (six) hours as risk in third needed (Pain). trimester, Multiparity, Take with food Obesity (BMI 30-39.9), or milk. 37 weeks gestation of , Liveborn , of gao , born in hospital by vaginal delivery, Positive GBS test, Placental abruption in third trimester, Encounter for planned induction of labor, Anemia, antepartum, third trimester, History of delivery norelgestromin-ethinyl Apply 1 Patch to 3 Patch 12 06/18/2020 Active estradiol (XULANE) skin weekly. 150-35 mcg/24 hr patchIndications: Initial encounter for management of contraceptive patch use documented as of this encounter (statuses as of 06/18/2020) Active Problems Problem Noted Date Uterine size-date discrepancy in third trimester 04/08 Positive GBS test 03/15/2019 Obesity (BMI 30-39.9) 11/22/2018 Multiparity 08/11/2018 History of delivery 08/11/2018 Overview: Per patient report documented as of this encounter (statuses as of 06/18/2020) Resolved Problems Problem Noted Date Resolved Date Encounter for planned induction of labor 05/20/2020 06/18/2020 Anemia, antepartum, third trimester 05/20/2020 1207/2019 Placental abruption in third trimester 04/22/2020 1 08/19/2019 Overview: Chronic, intermittent vaginal bleeding Low-lying placenta in third trimester 04/08/2020 Last Assessment & Plan: Resolved on 04/12/2020 USG Normal labor and delivery 03/15/2019 11/07/2019 37 weeks gestation of 03/15/2019 06/18/20 20 Liveborn infant, of gao , born in hospital by 03/15/2019 06/18/2020 vaginal delivery Normal labor 03/15/2019 11/07/2019 Chlamydia infection affecting 09/06/2018 11/07/2019 Overview: Yeimi at next visit-neg and at 36 weeks Abnormal maternal glucose tolerance, antepartum 12/23/2015 08/11/2018 Overview: 1hr 147mgdl , passed 3hr Obesity affecting 12/20/2015 11/07/2019 Supervision of high-risk 12/20/201506/18 documented as of this encounter (statuses as of 06/18/2020) Immunizations Name Administration Dates Next Due TDAP [...] with No / Unsure 06/18/2020 3:25 PM 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 documented as of this encounter Last Filed Vital Signs Vital Sign Reading Time Taken Comments Blood Pressure 114/74 06/18/2020 3:52 PM TOOL CLERK Pulse 65 06/18/2020 3:52 PM TOOL CLERK Temperature 37 C (98.6 F) 06/18/2020 3:52 PM TOOL CLERK Respiratory Rate 18 06/18/2020 3:52 PM TOOL CLERK Oxygen Saturation - - Inhaled Oxygen Concentration - - Weight 95.3 kg (210 lb) 06/18/2020 3:52 PM TOOL CLERK Height 170.2 cm (5' 7") 06/18/2020 3:52 PM TOOL CLERK Body Mass Index 32.89 06/18/2020 3:52 PM TOOL CLERK documented in this encounter Progress Notes Talia Granger PA-C - 06/18/2020 3:15 PM CST Mary Joe is a 19 year old female s/p vaginal delivery on 05/20/2020 presents for pp visit. Bottlefeeding without issues. Denies blues or depressive symptoms. Denies intercourse. Stopped bleeding Past Medical History: Diagnosis Date Anemia, antepartum, third trimester 05/20/2020 Heart murmur as a child STD (sexually transmitted disease) Chlalmydia No past surgical history on file. No Known Allergies Current Outpatient Medications on File Prior to Visit Medication Sig Dispense Refill docusate calcium 240 mg capsule Take 1 capsule by mouth once daily as needed for Constipation. 60 capsule 1 ferrous sulfate 325 mg (65 mg iron) tablet Take 1 tablet by mouth 2 (two) times daily. 60 tablet2 ibuprofen 600 mg tablet Take 1 tablet by mouth every 6 (six) hours as needed (Pain). Take with food or milk. 30 tablet 1 vitamin w/FA tablet Take 1 tablet by mouth daily. 100 tablet 3 No current facility-administered medications on file prior to visit. 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 [employer] Social Needs Financial resource strain: Not on file Food insecurity Worry: Not on file Inability: Not on file Transportation needs Medical: Not on file Non-medical: Not on file Tobacco Use Smoking status: Never Smoker Smokeless tobacco: Never Used Substance and Sexual Activity Alcohol use: No Alcohol/week: 0.0 standard drinks Drug use: No Sexual activity: Yes Partners: Male control/protection: None Comment: last intercourse before her menses Lifestyle Physical activity Days per week: Not on file Minutes per session: Not on file Stress: Not on file Relationships Social connections Talks on phone: Not on file Gets together: Not on file Attends voodoo service: Not on file Active member of club or organization: Not on file Attends meetings of clubs or organizations: Not on file Relationship status: Not on file Intimate partner violence Fear of current or ex partner: Not on file Emotionally abused: Not on file Physically abused: Not on file Forced sexual activity: Not on file Other Topics Concern Not on file Social History Narrative Denies domestic or physical violence within the home Faith Preference: none No Cats in home BP: (114)/(74) Temp: [37 C (98.6 F)] Temp source: Oral (06/18 1552) Pulse: [65] Resp: [18] SpO2: -- Height: [5' 7" (170.2 cm)] Weight: [210 lb (95.3 kg)] BMI (calculated): [32.89] NAD, EPDS score 5 Breathing unlabored Breasts: No engorgement Abdomen: No tenderness or masses. No hernia. Pelvic: Perineum well healed Bimanual: Uterus well involuted, nontender. Adnexa without tenderness or masses A/P: Pelvic rest x 2 weeks. Discussed contraception as below: Return for Well Woman exam in 6 months Call for any questions or concerns care and examination (primary encounter diagnosis) FOLLOW-UP in 6 months WWE control counseling Comment: UPT NEG Plan: POCT TEST Also counseled the patient about her options for control. We discussed risks and benefits of condoms, diaphragms along with control pills, the control patch and the Nuva ring. I then discussed risks and benefits of the Depo Provera injection, the various IUDs (Cathy, Mirena, Paraguard) and the Nexplanon implant. After counseling, the patient is most interested in control patch. Proper use was discussed and reviewed. I stressed the importance of using condoms regardless of her contraceptive method to assist in prevention of sexually transmitted infections. I discussed that no control method is 100% in preventing except abstinence. The patient expressedunderstanding. Initial encounter for management of contraceptive patch use Plan: norelgestromin-ethinyl estradiol (XULANE) 150-35 mcg/24 hr patch Patient denies self or family history of thromboembolic disease or thrombophilia, migraine headache. I counseled patient regarding use of contraceptive patch. There are combined oral contraceptive, which has both estrogen and progestin, and there is progestin only oral contraceptive. With typical use, 9 out 100 women get in the first year and with perfect use 0.3 out of 100 women get in the first year according to ACOG Practice Bulletin. Risks include but not limited to increase risk of thromboembolic disease, headache, weight gain, mood lability, and breast cancer. Decrease r isks of ovarian cancer, colon cancer, and endometrial cancer. Oral contraceptive may decrease milk supply. Alternatives reviewed include patch, ring, Depo-Provera, Nexplanon, and IUD. Advise using condoms for STDs prevention. Talia Granger PA-C 06/18/2020 10:17 PM CLERK documented in this encounter Plan of Treatment Date Type Specialty Care Team Description 12/17/2020 Office Visit Obstetrics & Gynecology Talia Granger PA-C [address] [place] [address] [phone] Health Maintenance Due Date Last Done [...] Priority Date/Time Associated Diagnosis Comme nts POCT TEST Routine 06/18/2020 control Results for this counseling procedure are i n the results section . documented in this encounter Results POCT TEST (06/18/2020) Pathologist Sig nature POCT PREG Negative On board controls acceptable Yes with C Line POCT PREG LOT # POCT PREG TEST DATE Specimen Urine - URINE, CLEAN CATCH documented in this encounter Visit Diagnoses Diagnosis care and examination - Primar y Routine follow-up control counseling General counseling for initiation of oth er contraceptive measures Initial encounter for management of cont raceptive patch use Other specified contraceptive management documented in this encounter Insurance Payer Benefit Plan / Subscriber ID Effective Phone Address T ype Group Dates [facility] [id number] 2018-Pres [facility]ony seo [facility] [id number] 2019-[employer] [address] Medic aid HEALTH CHOICE - [place] [id number] 1 MANAGED MEDICAID [place], [place] [id number] documented as of this encounter Advance Directives Name Relationship Healthcare Agent Relationship Co mmunication [place] Mother Health Care Agent
--- NOTE | 2020-08-24 03:31 | ER ---
Nurse's Notes [facility] Name: Mary Joe Age: 20 yrs Sex: Female : 2000 Arrival Date: 08/24/2020 Time: 03:09 Bed Waiting Private MD: Diagnosis: ED Course: 08/24 03:09 Patient arrived in ED. am2 03:16 Harrison Humphrey MD is Attending Physician. [facility] 03:20 Patient's name was called from ER lobby. No response. lp1 03:30 Patient's name was called from ER lobby. Unable to locate patient. Will disposition as lp1 left without being seen by a provider. Administered Medications: No medications were administered Outcome: 03:31 Patient left the ED. lp1 Signatures: Malka Tello RN RN lp1 Tierney Anne 2 Harrison Humphrey MD MD [facility]
== END 2020-08-24 03:31 | disposition left against medical advice (07) ==
LOC: ER 03:07
DX: Z02.9 Encounter for administrative examinations, unspecified (principal)

== ENCOUNTER 2022-08-31 07:03 | Emergency (ER) | payer OTHER ==
--- OUTSIDE RECORDS SUMMARY | 2022-08-31 07:07 | XMS REPORT | Continuity of Care Document ---
:2000 Author Organization [facility] t Address [address] [place] [address] Care Team Providers Name Role Phone JADE MEDINA Primary Care Physician Unavailable JADE MEDINA Attending Clinician Unavailable Esperanza Parra MD Attending Clinician ECHO HODGES Attending Clinician Unavailable Echo Hodges MD Attending Clinician Nurse, [facility] Attending Clinician Unavailable URSLAN GLYNN Attending Clinician Unavailable Fran Weiss CRNA Attending Clinician Osmany Carcamo MD Attending Clinician Doctor Unassigned, [place] Attending Clinician Unavailable Jade Medina PA-C Attending Clinician Ultrasound, Ang-Mfm Attending Clinician Unavailable Ruslan Glynn MD Attending Clinician Ultrasound, Adc Mfm Attending Clinician Unavailable Pascual Mcfarlane MD Attending Clinician [phone] Attending Clinician Unavailable Naina Lopez RN Attending Clinician Unavailable CAMILLA ASHFORD Attending Clinician Unavailable Pob, [facility] Main Attending Clinician Unavailable Malka Hernandez LMSW Attending Clinician 1, [facility] Lab Attending Clinician [facility] Attending Clinician Unavailable Lauren Jackman MD Attending Clinician 2, [facility] Attending Clinician Unavailable Martha Waters MD Attending Clinician ILANA MONTES Attending Clinician Unavailable Kanika Bryant Attending Clinician TALYA ORR Attending Clinician Unavailable ECHO HODGES Admitting Clinician Unavailable Echo Hodges MD Admitting Clinician Payers Payer Name Policy Type Policy Number Effective Date Expiration Date Oksana NEGRO [id number] 2018 00:00:00 [facility] [id number] 2019 CHOICE MEDICAID 00:00:00 MEDICAID FORMERLY [facility] [id number] 2016 00:00:00 Problems Condition Condition Condition Status Onset Resolution Last Treating Co mments Source Name Details Category Date Date Treatment Clinician Date Encounter Encounter Disease Active Uni vers for tubal for tubal 8-02 ity of ligation ligation 00:00: [place] counseling counseling 00 Me dical Branch Gestationa Gestationa Disease Active U nivers l l 8-01 ity of hypertens[place]ens[place] third on, third 00 [facility] trimester trimester Bran ch ASCUS with ASCUS with Disease Active U nivers positive positive 3-31 ity of high risk high risk 00:00: [place] colbert HPV HPV 00 [facility] cervical cervical [place] Supervisio Supervisio Disease Active U nivers n of high n of high 2-02 ity of risk risk 00:00: [place] , , 00 Me dical antepartum antepartum Br anch Nausea Nausea Disease Active Univers 2-02 ity of 00:00: [place] 00 [facility] 37 weeks 37 weeks Disease Active Unive rs gestation gestation 8-28 ity of of of 00:00: [place] 00 [facility] Liveborn Liveborn Disease Active Unive rs , of infant, of 8-28 it y of gao gao 00:00: [place] , , 00 Me dical born in born in [facility] hospital by vaginal by vaginal delivery delivery Obesity Obesity Disease Active Univers (BMI (BMI 5-07 ity of 30-39.9) 30-39.9) 00:00: [place] 00 [facility] Multiparit Multiparit Disease Active U nivers y y 1-24 ity of 00:00: [place] 00 Medical Branch History of History of Disease Active Overview : Univers -24 Formattin ity o f delivery delivery 00:00: g of this [place] as 00 note Medical might be Branch different from the original. Per patient report Allergies, Adverse Reactions, Alerts Allergy Allergy Status Severity Reaction(s) Onset Inactive Treating Comm ents Source Name Type Date Date Clinician NO KNOWN Drug Active Univers ALLERGIE Class ity of S [facility] Social History Social Habit Start Date Stop Date Quantity Comments Source History SDOH University o f Alcohol Frequency [place] M edical Branch History SDOH University o f Alcohol Std [place] Medical Drinks Branch History SDOH University o f Alcohol Binge [place] Medic al Branch Exposure to 2022-03-06 2022-03-16 Not sure [place] [facility]-CoV-2 00:00:00 11:01:00 [facility] (event) Branch Alcohol intake 2022-03-16 2022-03-16 0 /d University of 00:00:00 00:00:00 [facility] Tobacco use and 2022-02-02 2022-02-02 Smokeless tobacco Un iversity of exposure 00:00:00 00:00:00 non-user [facility] Alcohol Comment 2021-08-20 2021-08-20 quit when found Univ ersity of 00:00:00 00:00:00 out she was [facility] [place] Sex Assigned At [birth year] Universit y of 00:00:00 00:00:00 [facility] Smoking Status Start Date Stop Date Source Never smoked tobacco [facility] Medications Ordered Filled Start Stop Current Ordering Indication Dosage Frequency Signature Comments Components Source Medication Medication Date Date Medication? Clinician (SIG) Name Name hydroCHLORO Yes [id number] 12.5mg Take 1 Univers thiazide 8-07 tablet by ity of 12.5 mg 00:00: mouth in [place] tablet 00 the Medical morning. Branch hydroCHLORO Yes [id number] 12.5mg Take 1 Univers thiazide 8-07 tablet by ity of 12.5 mg 00:00: mouth in [place] tablet 00 the Medical morning. Branch hydroCHLORO Yes [id number] 12.5mg Take 1 Univers thiazide 8-07 tablet by ity of 12.5 mg 00:00: mouth in [place] tablet 00 the Medical morning. Branch Yes [id number] 1{tbl} Take 1 Univers vitamin 8-06 tablet by ity of w/FA tablet 00:00[place] the Medical morning. Branch docusate Yes [id number] 200mg Take 2 U nivers 100 mg 8-06 capsules ity of capsule 00:00: by mouth [place] 00 once daily Medical as needed Branch for Constipati on. ferrous Yes [id number] 325mg Take 1 Un alex sulfate 325 8-06 tablet by ity of mg (65 mg 00:00: [place] iron[place] 00 the Medical tablet morning Branch and 1 tablet in the evening. ibuprofen Yes [id number] 600mg Take 1 Univers 600 mg 8-06 tablet by ity of tablet 00:00: mouth [place] 00 every 6 Medical (six) Branch hours as needed (Pain). Take with food or milk. 0 Yes [id number] 1{tbl} Take 1 Univers vitamin 8-06 tablet by ity of w/FA tablet 00:00[place] the Medical morning. Branch docusate Yes [id number] 200mg Take 2 U nivers 100 mg 8-06 capsules ity of capsule 00:00: by mouth [place] 00 once daily Medical as needed Branch for Constipati on. ferrous Yes [id number] 325mg Take 1 Un alex sulfate 325 8-06 tablet by ity of mg (65 mg 00:00: [place] iron[place] 00 the Medical tablet morning Branch and 1 tablet in the evening. ibuprofen 0 Yes [id number] 600mg Take 1 Univers 600 mg 8-06 tablet by ity of tablet 00:00: mouth [place] 00 every 6 Medical (six) Branch hours as needed (Pain). Take with food or milk. 0 Yes [id number] 1{tbl} Take 1 Univers vitamin 8-06 tablet by ity of w/FA tablet 00:00: [place] the Medical morning. Branch docusate Yes [id number] 200mg Take 2 U nivers 100 mg 8-06 capsules ity of capsule 00:00: by mouth [place] 00 once daily Medical as needed Branch for Constipati on. ferrous 2021-0 Yes [id number] 325mg Take 1 Un alex sulfate 325 8-06 tablet by ity of mg (65 mg 00:00: mouth in [facility] s iron) 00 the Medical tablet morning Branch and 1 tablet in the evening. ibuprofen 2021-0 Yes [id number] 600mg Take 1 Univers 600 mg 8-06 tablet by ity of tablet 00:00: mouth [place] 00 every 6 Medical (six) Branch hours as needed (Pain). Take with food or milk. cephALEXin 2021-0 Yes [id number] 500mg Take 1 Univers 500 mg 8-02 capsule by ity of capsule 00:00: mouth [place] 00 every 6 Medical (six) Branch hours. cephALEXin 2021-0 Yes [id number] 500mg Take 1 Univers 500 mg 8-02 capsule by ity of capsule 00:00: mouth [place] 00 every 6 Medical (six) Branch hours. cephALEXin 2021-0 Yes [id number] 500mg Take 1 Univers 500 mg 8-02 capsule by ity of capsule 00:00: mouth [place] 00 every 6 Medical (six) Branch hours. fluticasone 2021-0 Yes Univer s propionate 3-06 ity of 50 00:00: [place] mcg/actuati 00 Medical on nasal Branch spray fluticasone 2021-0 Yes Univer s propionate 3-06 ity of 50 00:00: [place] mcg/actuati 00 Medical on nasal Branch spray fluticasone 2021-0 Yes Univer s propionate 3-06 ity of 50 00:00: [place] mcg/actuati 00 Medical on nasal Branch spray metoclopram 2021-0 Yes [id number] 10mg Take 1 Univers jaron HCl 10 2-02 tablet by ity of mg tablet 00:00: mouth [place] 00 every 6 Medical (six) Branch hours as needed for Nausea and Vomiting (N/V). metoclopram 2022-0 Yes [id number] 10mg Take 1 Univers jaron HCl 10 2-02 tablet by ity of mg tablet 00:00: mouth [place] 00 every 6 Medical (six) Branch hours as needed for Nausea and Vomiting (N/V). metoclopram 2-0 Yes [id number] 10mg Take 1 Univers jaron HCl 10 2-02 tablet by ity of mg tablet 00:00: mouth [place] 00 every 6 Medical (six) Branch hours as needed for Nausea and Vomiting (N/V). Immunizations Ordered Filled Immunization Date Status Comments Sourc e Immunization Name Name [facility] 2020-04-08 Completed University 00:00:00 [facility] 2020-04-08 Completed University of 00:00:00 [facility] 2020-04-08 Completed University of 00:00:00 [facility] 2013-07-19 Completed University of 00:00:00 [facility] 2013-07-19 Completed University of 00:00:00 [facility] 2013-07-19 Completed University of 00:00:00 [facility] Vital Signs Vital Name Observation Time Observation Value Comments Source Systolic blood 2022-03-16 16:56:00 128 mm[Hg] Univer sity pressure [facility] Diastolic blood 2022-03-16 16:56:00 82 [facility]Hg[facility] 2022-03-16 16:56:00 62 /min [facility] Body temperature 2022-03-16 16:56:00 36.78 Bisi [facility] Respiratory rate 2022-03-16 16:56:00 18 /min [facility] Body height 2022-03-16 16:56:00 170.2 cm [facility] Body weight 2022-03-16 16:56:00 91.173 kg [facility] BMI 2022-03-16 16:56:00 31.48 kg/m2 [facility] Procedures This patient has no known procedures. Encounters Start End Encounter Admission Attending Care Care Encounter Source Date/Time Date/Time Type Type Clinicians Facility Department ID 2021-05-17 Outpatient [facility] ESTELA [id number] Univers 02:01:28 [facility] 2021-05-16 Outpatient P [facility] EST[facility] [id number] Univers 21:48:38 [facility] 2021-05-16 Outpatient P [facility] EST[facility] [id number] Univers 19:33:22 [facility] 2021-05-16 Outpatient P [facility] EST[facility] [id number] Univers 19:31:22 [facility] 2022-06-29 2022-06-29 Outpatient R ADAM [facility] [id number] Univers 10:30:00 10:30:00 JADE ity [facility] [place] [facility] 2022-06-18 2022-06-18 [facility] [id number] Univers 00:00:00 00:00:00 Esperanza HAMMOND [id number] ity of [facility] [id number] [id number] [address] 2022-05-11 2022-05-11 Outpatient R CARROLL ECHO [facility] [id number] Univers 15:00:00 15:00:00 ity [facility] [place] [facility] 2022-03-26 2022-03-26 Outpatient R CARROLL [facility] [id number] Univers 15:00:00 15:00:00 ity [facility] [place] [facility] 2022-03-16 2022-03-16 Outpatient R CARROLL ECHO [facility] [id number] Univers 11:15:00 12:10:28 ity [facility] [place] [facility] 2022-03-16 2022-03-16 Routine [facility] [id number] Univers 11:15:00 12:10:28 [place] H[place] 350.1.13.10 ity [place] [phone] Nd dic[address] 2022-03-04 2022-03-04 Telephone Echo Hodges [facility] 1.2.840.114 [id number] Univers 00:00:00 00:00:00 Costa HAMMOND 350.1.13.10 i ty of [facility] 4.2.7.2.[place] [id number] Nd dical [address] 2022-02-25 2022-02-25 Nurse Nurse, [facility] 1.2.840.114 [id number] Univers 14:30:00 14:30:00 Visit Echo Hodges 350.1.13.10 ity of [facility] 4.2.7.2.[place] [id number] Nd dical NAL 134 [facility] 2022-02-25 2022-02-25 Outpatient R ECHO HODGES [facility] [id number] Univers 14:30:00 13:35:46 ity of [facility] 2022-02-23 2022-02-23 Outpatient P ROSELYN [facility] [id number] Univers 09:00:00 09:00:00 RUSLAN ity of [facility] 2022-02-20 2022-02-21 Inpatient X CARROLL [facility] ESTELA [id number] Univers 04:04:00 18:25:00 ity of [facility] 2022-02-20 2022-02-21 [facility] 1.2.840.114 [id number] Univers 04:04:00 18:25:00 Encounter Cam [place] 350.1.13.10 [place]y [place] 4.2.7.2.686 [facility] [id number] [place] 651213 [place] 2022-02-20 2022-02-20 Anesthesia Fran Weiss [facility] [id number] [id number] Univers 12:04:53 12:04:53 Event Osmany Carcamo [place] 350.1.13. 10 ity of [facility] 4.2.7.2.686 [facility] [id number] [place] 651213 [place] 2022-02-20 2022-02-20 Orders Doctor MARIE 1.2.840.114 [id number] Univers 00:00:00 00:00:00 Only Unassigned, ELROY 350.1.13.10 ity [place] [facility] 4.2.7.2.686 [place] [id number] [facility] 009 [place] 2022-02-17 2022-02-17 Outpatient P CARROLL [facility] ESTELA [id number] Univers 20:59:00 21:55:00 ity of [facility] 2022-02-17 2022-02-17 [facility] 1.2.840.114 [id number] Univers 20:59:00 21:55:00 Encounter Cam [place] 350.1.13.10 ity of [facility] 4.2.7.2.686 [facility] [id number] [place] 651213 [place] 2022-02-16 2022-02-17 Outpatient X ECHO HODGES [facility] ESTELA [id number] Univers 16:10:00 08:10:00 ity of [facility] 2022-02-16 2022-02-17 Hospital Echo Hodges [facility] 1.2.840.114 [id number] Univers 16:10:00 08:10:00 Encounter Cam MAN[place] 350.1.13.10 [place]y [place] 4.2.7.2.686 [facility] [id number] [place] 651213 [place] 2022-02-16 2022-02-16 Routine Adam [facility] [id number] Univers 15:30:00 15:45:00 Jade H[place]MON[place] 350.1.13.10 ity of [place] 4.2.7.2.686 [facility] PROFESSIO [id number] Nd dical NAL 134 [facility] 2022-02-16 2022-02-16 Outpatient R ADAM [facility] [id number] Univers 15:30:00 15:30:00 JADE ity [facility] [place] [facility] 2022-02-16 2022-02-16 Orders Doctor FRANK 1.2.840.114 [id number] Univers 00:00:00 00:00:00 Only Unassigned, [place]LR[place] 350.1.13.10 ity [address] [place] [facility] 4.2.7.2.686 [place] [id number] [facility] 009 [place] 2022-02-03 2022-02-03 Outpatient R [facility] [id number] Univers 15:00:00 15:00:00 ity of [facility] 2022-02-02 2022-02-02 Outpatient R ECHO HODGES [facility] [id number] Univers 16:15:00 16:36:06 ity of [facility] 2022-02-02 2022-02-02 Routine Echo Hodges [facility] [id number] Univers 16:15:00 16:36:06 [place] 350.1.13.10 [place]y of [place] [id number] Nd dical [address] 2022-02-02 2022-02-02 Outpatient ECHO VELOZ [facility] [id number] Univers 16:15:00 16:15:00 ity [facility] [place] [facility] 2022-01-26 2022-01-26 Cancellation Clerk Ultrasound, [facility] 1.2 .840.114 [id number] Univers 09:15:00 09:37:53 Visit Ruslan Glynn 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 350.1.13.10 ity of [facility] 4.2.7.2.686 [place] as MATERNAL [id number] Med ical & CHILD [address] [place] [address] 2022-01-26 2022-01-26 Outpatient Javy GLYNN [facility] [id number] Univers 09:15:00 09:15:00 [facility] 2022-01-07 2022-01-07 Outpatient Misha MEDINA [facility] [id number] Univers 15:30:00 15:30:00 [facility] 2021-12-31 2021-12-31 Outpatient Misha MEDINA [facility] [id number] Univers 11:15:00 11:15:00 [facility] 2021-12-18 2021-12-18 Outpatient Misha MEDINA [facility] [id number] Univers 13:00:00 13:00:00 [facility] 2021-12-18 2021-12-18 Outpatient Misha MEDINA [facility] [id number] Univers 13:00:00 13:00:00 JADE [facility] 2021-12-18 2021-12-18 Outpatient Misha MEDINA [facility] [id number] Univers 13:00:00 13:00:00 [facility] 2021-12-18 2021-12-18 Outpatient R [facility] [id number] Univers 10:15:00 10:15:00 [facility] 2021-12-17 2021-12-17 Outpatient ECHO VELOZ [facility] [id number] Univers 13:15:00 13:55:19 ity of [facility] 2021-12-17 2021-12-17 Routine Echo Hodges [facility] [id number] Univers 13:15:00 13:55:19 [place] 350.1.13.10 [place]y [place] [id number] Nd dical [address] 2021-12-17 2021-12-17 Orders Doctor FRANK 1.2.840.114 [id number] Univers 00:00:00 00:00:00 Only Unassigned, [place] 350.1.13.10 [address] [address] [place] [facility] 4.2.7.2.686 [place] as [id number] [address] 2021-11-18 2021-11-18 Outpatient P ADAM [facility] [id number] Univers 10:45:00 12:39:29 JADE howard [facility] 2021-11-18 2021-11-18 Cancellation Clerk Ultrasound, Adc [facility] 1.2 .840.114 [id number] Univers 10:45:00 12:39:29 Visit Jade Medina 350.1.13.10 [place]2.[place] [id number] Nd dic[address] 2021-11-18 2021-11-18 Routine Adam MNKRISTI 1.2.005.315 [id number] Univers 10:15:00 10:51:35 Jade H[place]MON[place] 350.1.13.10 ity of [facility] 4.2.7.2.[place] [id number] Nd dical NAL [address] [place] [address] 2021-11-11 2021-11-11 Telephone Echo Hodges [facility] 1.2.840.114 [id number] Univers 00:00:00 00:00:00 Cam MAN[place] 350.1.13.10 i ty of [facility] 4.2.7.2.[place] [id number] Nd dical [address] 2021-11-04 2021-11-04 Cancellation Clerk Ultrasound, Adc [facility] 1.2 .840.114 [id number] Univers 11:15:00 12:00:00 Visit Chandler SchaeferkhoiPascual maya MARYCARMENTON 350.1 .13.10 ity of [place] 4.2.7.2.[place] [id number] Nd dical [address] 2021-11-04 2021-11-04 Outpatient P [facility] [id number] Univers 11:15:00 11:15:00 DEMETRIAI it y of SPASCUAL [facility] 2021-11-04 2021-11-04 Letter Echo Hodges [facility] [id number] Univers 00:00:00 00:00:00 (Out) Cam [place] 350.1.13.10 i ty of [place] 4.2.7.2.[place] [id number] Nd dic[address] 2021-11-04 2021-11-04 Letter Echo Hodges MNKRISTI [id number] Univers 00:00:00 00:00:00 (Out) Cam [place] 350.1.13.10 i ty of [place] 4.2.7.2.[place] [id number] Nd dic[address] 2021-10-28 2021-10-28 Cancellation Clerk Ultrasound, [facility] 1.2 .840.114 [id number] Univers 14:45:00 15:30:00 Visit Chandler SchafeerhonorioPascual oseguera [place] 350.1 .13.10 ity of [place] 4.2.7.2.[place] [id number] Nd dic[address] 2021-10-28 2021-10-28 Outpatient P [facility] [id number] Univers 14:45:00 14:45:00 ity of [facility] 2021-10-28 2021-10-28 Outpatient P [facility] [id number] Univers 14:45:00 14:45:00 DEMETRIAI it y of S, GARNER [facility] 2021-10-16 2021-10-16 Outpatient R ECHO HODGES [facility] [id number] Univers 13:00:00 14:20:07 ity of [facility] 2021-10-16 2021-10-16 Office Echo Hodges [facility] [id number] Univers 13:00:00 14:20:07 Visit Cam MAN[place] 350.1.13.10 i ty of [facility] 4.2.7.2.686 [place] [id number] Nd dic[address] 2021-10-16 2021-10-16 Outpatient R ECHO HODGES [facility] [id number] Univers 13:00:00 14:20:07 ity of [facility] 2021-10-16 2021-10-[address] [facility] [id number] Univers 00:00:00 00:00:00 (Out) [place] H[place] 350.1.13.10 i [place].2.[place] [id number] Nd dical NAL [address] [place] [address] 2021-10-16 2021-10-16 Orders Doctor FRANK 1.2.840.114 [id number] Univers 00:00:00 00:00:00 Only Unassigned, ELR[place] 350.1.13.10 ity [place] [facility] 4.2.7.2.686 [place] as [id number] [address] 2021-10-01 2021-10-01 Telephone Echo Hodges [facility] 1.2.840.114 [id number] Univers 00:00:00 00:00:00 Cam MANISH 350.1.13.10 i ty of [facility] 4.2.7.2.[place] [id number] Nd dical NAL [address] [place] [address] 2021-09-25 2021-09-25 Orders Doctor FRANK 1.2.840.114 [id number] Univers 00:00:00 00:00:00 Only Unassigned, ELROY 350.1.13.10 [place]y [place] [facility] 4.2.7.2.686 [place] [id number] [facility] 009 [place] 2021-09-24 2021-09-24 Telephone Echo Hodges [facility] 1.2.840.114 [id number] Univers 00:00:00 00:00:00 [place] 350.1.13.10 i [place] [id number] [address] 2021-09-22 2021-09-22 Telephone [facility] 1.2.840.114 [id number] Univers 00:00:00 00:00:00 Jade [place] 350.1.13.10 i ty [place] [id number] [address] 2021-09-19 2021-09-19 Telephone FRANK Lopez 1.2.097.135 [id number] Univers 00:00:00 00:00:00 Naina ABBASI 350.1.13.10 it y of HOSPITAL 4.2.7.2.686 [place] as [id number] [facility] 019 [place] 2021-09-18 2021-09-18 Outpatient R MAKEDA [facility] [id number] Univers 09:20:00 09:55:56 CAMILLA howard [facility] 2021-09-17 2021-09-17 [facility] [id number] Univers 16:00:00 16:53:47 JADE howard [facility] 2021-09-17 2021-09-17 Routine [facility] [id number] Univers 16:00:00 16:53:47 Jade [place] 350.1.13.10 ity of [place] [id number] [address] 2021-09-17 2021-09-17 Letter [facility] [id number] Univers 00:00:00 00:00:00 (Out) Jade [place] 350.1.13.10 [place] [id number] Nd dical NAL 134 [facility] 2021-09-12 2021-09-12 Patient Adam [facility] [facility] 1.2.817.583 [id number] Univers 00:00:00 00:00:00 Secure Msg Jade HAMMOND 350.1.13.10 ity of [facility] [place] [phone] Nd dical NAL 134 [facility] 2021-09-09 2021-09-09 Telephone Echo Hodges [facility] 1.2.840.114 [id number] Univers 00:00:00 00:00:00 Costa HAMMOND 350.1.13.10 i ty of [facility] [place] [phone] Nd dical NAL 134 [facility] 2021-09-02 2021-09-02 Telephone Greardnadineheather [facility] 1.2.840.114 [id number] Univers 00:00:00 00:00:00 Jade HAMMOND 350.1.13.10 [place] [phone] Nd dical NAL 134 [facility] 2021-08-29 2021-08-29 Cancellation Clerk Rossi Perez Lab Main [facility] 1.2.8 40.114 [id number] Univers 11:30:00 11:45:00 Visit Echo Hodges 350.1.13.10 ity of [facility] 4.[place] [phone] Nd dical NAL 353 [facility] 2021-08-29 2021-08-29 Outpatient R ECHO HODGES [facility] [id number] Univers 11:30:00 11:30:00 ity of [facility] 2021-08-29 2021-08-29 Orders Doctor FRANK 1.2.840.114 [id number] Univers 00:00:00 00:00:00 Only Unassigned, ELROY 350.1.13.10 ity of [place] [facility] 4.2.7.2.686 [place] [phone] [address] 2021-08-24 2021-08-24 Case SMITH Medina 1.2.136.236 [id number] [id number] Univers 00:00:00 00:00:00 Management Jade PEDIATRIC 350.1.13.10 [place] of [place] [phone] [facility] PR[facility] [address] [facility] 2021-08-21 2021-08-21 Patient David [facility] 1.2.840.114 [id number] Univers 00:00:00 00:00:00 Outreach Malka Mike HAMMOND 350.1.13.10 [place] [phone] Nd dical NAL 098 [facility] 2021-08-20 2021-08-20 Initial Echo Hodges [facility] 1.2.733.429 [id number] Univers 14:30:00 15:36:52 Costa HAMMOND 350.1.13.10 ity of [place] [phone] Nd dical NAL 134 [facility] 2021-08-20 2021-08-20 Outpatient R ECHO HODGES [facility] [id number] Univers 14:30:00 15:36:52 ity of [facility] 2021-08-20 2021-08-20 Letter Echo Hodges [facility] 1.2.922.386 [id number] [id number] Univers 00:00:00 00:00:00 (Out) Costa HAMMOND 350.1.13.10 i [place] [phone] Nd dical NAL 134 [facility] 2021-08-20 2021-08-20 Orders Doctor FRANK 1.2.840.114 [id number] Univers 00:00:00 00:00:00 Only Unassigned, ELROY 350.1.13.10 ity [place] [facility] 4.2.7.2.686 [place] [phone] [facility] [address] 2021-08-12 2021-08-12 Outpatient R ADAM [facility] [id number] Univers 14:00:00 14:00:00 JADE howard [facility] 2021-02-06 2021-02-06 Outpatient R ADAM [facility] [id number] Univers 13:30:00 13:30:00 JADE howard [facility] 2021-01-16 2021-01-16 Bird Echo Hodges [facility] 1.2.106.136 [id number] Univers 00:00:00 00:00:00 (Out) Costa Hammond 350.1.13.10 i ty of [place] [phone] [address] 2021-01-16 2021-01-16 [facility]phone [facility] 1.2.840.114 [id number] Univers 00:00:00 00:00:00 Jade Hammond 350.1.13.10 i ty of [place].2.[place] [phone] [address] 2021-01-07 2021-01-07 Telephone [facility] 1.2.840.114 [id number] Univers 00:00:00 00:00:00 Jade Hammond 350.1.13.10 i ty of [place].2.[place] [id number] [address] 2020-12-17 2020-12-17 Office [facility] 1.2.829.405 [id number] Univers 12:54:01 13:51:32 Visit Jade Hammond 350.1.13.10 i ty of [place].7.2.[place] [phone] [address] 2020-12-17 2020-12-17 Outpatient Misha MEDINA [facility] [id number] Univers 13:00:00 13:00:00 JADE howard [facility] 2020-12-17 2020-12-17 Orders Doctor MARIE 1.2.840.114 [id number] Univers 00:00:00 00:00:00 Only Unassigned, ELROY 350.1.13.10 ity of [place] [facility] 4.2.7.2.686 [place] [phone] [facility] [address] 2020-06-18 2020-06-18 Routine [facility] 1.2.162.175 [id number] 7441 Univers 15:28:00 16:09:46 Jade [place] 350.1.13.10 ity of Visit [place].7.2.[place] [phone] Nd dical [address] 2020-06-18 2020-06-18 Routine [facility] 1.2.640.127 [id number] 15:28:00 16:09:46 Jade [place] 350.1.13.10 Visit [place] 4.2.7.2.686 Professio [phone] [address] 2020-06-18 2020-06-18 [facility] [id number] Univers 15:15:00 [facility] 2020-06-17 2020-06-17 [facility] [id number] Univers 16:30:00 [facility]:30:[facility] 2020-06-12 2020-06-12 Orders Doctor MARIE 1.2.840.114 [id number] Univers 00:00:00 00:00:00 Only Unassigned, ELROY 350.1.13.10 ity of [place] [facility] 4.2.7.2.686 [place] [phone] [address] 2020-06-12 2020-06-12 Orders Doctor MARIE 1.2.840.114 [id number] 00:00:00 00:00:00 Only Unassigned, ELROY 350.1.13.[address] [place] [facility] 4.2.7.2.686 [id number] [facility] 2020-05-20 2020-05-[address] [facility] 1.2.840.114 [id number] Univers 04:10:00 11:40:00 Encounter Costa Hammond 350.1.13.10 ity of [place].2.[place] [phone] [facility] [address] 2020-05-20 2020-05-21 Hospital Echo Hodges [facility] 1.2.840.114 [id number] 04:10:00 11:40:00 Encounter [place] 350.1.13.10 [place] 4.2.7.2.686 [place] [id number] 083 2020-05-20 2020-05-20 Orders Doctor FRANK 1.2.840.114 [id number] Univers 00:00:00 00:00:00 Only Unassigned, ELROY 350.1.13.10 ity of [place] [facility] 4.2.7.2.686 [place] [phone] [facility] [address] 2020-05-20 2020-05-20 Orders Doctor FRANK 1.2.840.114 [id number] 00:00:00 00:00:00 Only Unassigned, ELROY 350.1.13.[address] [place] [facility] 4.2.7.2.686 [id number] 009 2020-05-17 2020-05-17 Cancellation Clerk 1, [facility] 1.2.840.114 [id number] [facility] 09:10:37 09:25:37 Visit Echo Hodges [place] 350.1.13.10 ity of [place].2.[place] [phone] [facility] [address] 2020-05-17 2020-05-17 Cancellation Clerk 1, [facility] 1.2.840.114 [id number] 09:10:37 09:25:37 Visit [place] 350.1.13.10 [place] 4.2.7.2.686 [place] [phone] [facility] 2020-05-17 2020-05-17 Routine Room, [facility] 1.2.840.1 14 [id number] Univers 08:17:41 08:54:38 Echo Hodges 350.1.13.10 ity of [place]2.7.2.[place] [phone] Nd dical nal 134 [place] [facility] 2020-05-17 2020-05-17 Routine Room, [facility] 1.2.588.744 [id number] 08:17:41 08:54:38 Wh Nst [place] 350.1.13.10 Visit [place] 4.2.7.2.686 Professio [phone] [address] 2020-05-17 2020-05-17 Outpatient R [facility] [id number] Univers 08:00:00 08:00:00 ity [facility] 2020-05-16 2020-05-16 Outpatient R [facility] [id number] Univers 14:00:00 14:00:00 ity [facility] 2020-05-14 2020-05-14 Routine Room, [facility] 1.2.840.1 14 [id number] Univers 11:09:37 12:11:42 Echo Hodges [place] 350.1.13.10 ity of [place]7.2.[place] [phone] Nd dical [address] 2020-05-14 2020-05-14 Routine Room, [facility] 1.2.096.845 [id number] 11:09:37 12:11:42 Nst [place] 350.1.13.10 Visit [place] 4.2.7.2.686 Professio [phone] [address] 2020-05-14 2020-05-14 Outpatient R [facility] [id number] Univers 11:00:00 11:00:00 ity [facility] 2020-05-14 2020-05-14 Orders Doctor FRANK 1.2.840.114 [id number] Univers 00:00:00 00:00:00 Only Unassigned, ELROY 350.1.13.10 ity [place] [facility] 4.2.7.2.686 [place] [phone] [address] 2020-05-14 2020-05-14 Orders Doctor FRANK 1.2.840.114 [id number] 00:00:00 00:00:00 Only Unassigned, ELROY 350.1.13.[address] [place] [facility] 4.2.7.2.686 [id number] 009 2020-05-10 2020-05-10 Cancellation Clerk Ultrasound, [facility] 1.2.840.114 [id number] 10:41:31 11:25:11 Visit Adc Mfm [place] 350.1.13.10 [place] 4.2.7.2.686 Professio [phone] [address] 2020-05-10 2020-05-10 Cancellation Clerk Ultrasound, [facility] 1.2 .840.114 [id number] [facility] 10:41:31 11:25:11 Visit Pascual Mcfarlane [place] 350.1 .13.10 ity of [place]2.7.2.[place] [phone] Nd dical [address] 2020-05-10 2020-05-10 Outpatient P [facility] [id number] Univers 10:30:00 10:30:00 ity of [facility] 2020-04-29 2020-04-29 Outpatient R [facility] [id number] Univers 11:00:00 11:00:00 ity of [facility] 2020-04-25 2020-04-25 [facility] 1.2.840.114 [id number] 10:09:00 12:35:00 Encounter Cam [place] 350.1.13.10 [place] 4.2.7.2.686 [place] [phone] [facility] 2020-04-25 2020-04-25 [facility] Echo Hodges [facility] 1.2.840.114 [id number] Univers 10:09:00 12:35:00 Encounter Cam [place] 350.1.13.10 ity of [place] [phone] [address] 2020-04-25 2020-04-25 Routine Room, [facility] 1.2.048.150 [id number] 08:21:54 09:48:28 Nst [place] 350.1.13.10 Visit [place] 4.2.7.2.686 Professio [phone] [address] 2020-04-25 2020-04-25 Routine Room, [facility] 1.2.840.1 14 [id number] [facility] 08:21:54 09:48:28 Jade Medina [place] 350.1.13.10 ity of [place]7.2.[place] [phone] Nd dical [address] 2020-04-25 2020-04-25 Outpatient R [facility] [id number] Univers 08:00:00 08:00:00 ity of [facility] 2020-04-22 2020-04-22 Routine Echo Hodges [facility] 1.2.707.047 [id number] 13:01:30 14:28:44 Cam [place] 350.1.13.10 Visit [place] 4.2.7.2.686 Professio [id number] [address] 2020-04-22 2020-04-22 Routine Echo Hodges [facility] 1.2.383.906 [id number] Univers 13:01:30 14:28:44 Cam [place] 350.1.13.10 ity of Visit [place]2.7.2.[place] [phone] Nd dic[address] 2020-04-22 2020-04-22 Outpatient R ECHO HODGES [facility] [id number] Univers 13:00:00 13:00:00 ity of [facility] 2020-04-20 2020-04-20 Hospital Echo Hodges [facility] 1.2.840.114 [id number] 09:11:00 11:10:00 Encounter Cam [place] 350.1.13.10 [place] 4.2.7.2.686 [place] [phone] [facility] 2020-04-20 2020-04-20 [facility] Echo Hodges [facility] 1.2.840.114 [id number] Univers 09:11:00 11:10:00 Encounter Cam [place] 350.1.13.10 ity of [place].2.[place] [phone] [address] 2020-04-20 2020-04-20 Outpatient P [facility] ESTELA [id number] Univers 09:08:00 09:08:00 ity of [facility] 2020-04-20 2020-04-20 Orders Doctor FRANK 1.2.840.114 [id number] 00:00:00 00:00:00 Only Unassigned, ELR[place] [address].13.[address] [place] [facility] 4.2.7.2.686 [id number] 009 2020-04-20 2020-04-20 Orders Doctor FRANK 1.2.840.114 [id number] Univers 00:00:00 00:00:00 Only Unassigned, ELROY 350.1.13.10 ity [place] [facility] 4.2.7.2.686 [place] [phone] [address] 2020-04-12 2020-04-12 [facility] 1.2.840.114 [id number] 15:07:00 16:30:00 Encounter Adum, Esperanza Mckeon [place] 350.1.13.10 [place] 4.2.7.2.686 [place] [id number] [facility] 2020-04-12 2020-04-12 [facility] Echo Hodges [facility] 1.2.840.114 [id number] Univers 15:07:00 16:30:00 Encounter Adum, Esperanza L [place] 350.1.13.10 ity of [place].2.[place] [phone] [address] 2020-04-12 2020-04-12 Routine Adum, [facility] 1.2.840.114 [id number] 13:43:19 14:45:57 Esperanza L [place] 350.1.13.10 Visit [place] 4.2.7.2.686 Professio [phone] [address] 2020-04-12 2020-04-12 Routine Adum, [facility] 1.2.840.114 [id number] Univers 13:43:19 14:45:57 Esperanza L [place] 350.1.13.10 ity of Visit [place]2.7.2.[place] [phone] [address] 2020-04-12 2020-04-12 Cancellation Clerk Ultrasound, [facility]c [facility] 1.2 .840.114 [id number] Univers 13:04:57 13:34:57 Visit Lauren Jackman [place] 350.1.13.10 ity of [place] 4[place]2.7.2.[place] [phone] Nd dical [address] 2020-04-12 2020-04-12 Cancellation Clerk Ultrasound, [facility] 1.2.840.114 [id number] 13:04:57 13:34:57 Visit Adc [facility] Manish 350.1.13.10 [place] 4.2.7.2.686 Professio [phone] [address] 2020-04-12 2020-04-12 Outpatient P [facility] [id number] Univers 13:00:00 13:00:00 ity [facility] 2020-04-09 2020-04-09 Cancellation Clerk 2, [facility] 1.2.840.114 [id number] [facility] 09:21:59 09:36:59 Visit Felicia Medinacy Manish 350.1.13.10 ity of [place]2.7.2.[place] [phone] Nd dic[address] 2020-04-09 2020-04-09 Cancellation Clerk 2, [facility] 1.2.840.114 [id number] 09:21:59 09:36:59 Visit [place] 350.1.13.10 [place] 4.2.7.2.686 Professio [phone] [address] 2020-04-09 2020-04-09 Outpatient R [facility] [id number] Univers 09:15:00 09:15:00 ity [facility] 2020-04-08 2020-04-08 Cancellation Clerk 2, [facility] 1.2.840.114 [id number] Univers 13:50:06 14:05:06 Visit Echo Hodges 350.1.13.10 ity of [place].7.2.[place] [phone] Nd dical [address] 2020-04-08 2020-04-08 Cancellation Clerk 2, [facility] 1.2.840.114 [id number] 13:50:06 14:05:06 Visit [place] 350.1.13.10 [place] 4.2.7.2.686 Professio [phone] [address] 2020-04-08 2020-04-08 Routine Echo Hodges [facility] 1.2.490.181 [id number] Univers 13:05:39 13:46:28 Cam [place] 350.1.13.10 ity of Visit [place] 4[place]2.7.2.[place] [phone] [address] 2020-04-08 2020-04-08 Routine [facility] 1.2.786.433 [id number] 13:05:39 13:46:28 Cam [place] 350.1.13.10 Visit [place] 4.2.7.2.686 Professio [phone] [address] 2020-04-08 2020-04-08 Outpatient R CARR[facility]LL [facility] [id number] Univers 13:00:00 13:00:00 ity [facility] 2020-04-08 2020-04-08 Case Adam [facility] 1.2.537.042 [id number] Univers 00:00:00 00:00:00 Management Jade Hammond 350.1.13.10 ity of [place].2.[place] [phone] [address] 2020-04-08 2020-04-08 Case Adam [facility] 1.2.694.658 [id number] 00:00:00 00:00:00 Management Jade Hammond 350.1.13.10 [place] 4.2.7.2.686 Professio [phone] [address] 2020-04-03 2020-04-03 Outpatient R CARR[facility]LL [facility] [id number] Univers 13:00:00 13:00:00 ity [facility] 2020-03-20 2020-03-20 Outpatient R HODGES [facility] [id number] Univers 09:15:00 09:15:00 ity of [facility] 2020-03-18 2020-03-18 Outpatient R HODGES [facility] [id number] Univers 16:00:00 16:00:00 ity [facility] 2020-03-08 2020-03-08 Outpatient R [facility] [id number] Univers 13:00:00 13:00:00 ity of [facility] 2020-02-09 2020-02-09 Outpatient R ADAM [facility] [id number] Univers 14:30:00 14:30:00 JADE [facility] 2020-02-09 2020-02-09 [facility] 1.2.840.114 [id number] Univers 08:30:37 08:45:37 ne Visit Jadevivi Hammond 350.1.13.10 ity of [place]2.7.2.[place] [phone] [address] 2020-02-09 2020-02-09 [facility] 1.2.840.114 [id number] 08:30:37 08:45:37 ne Visit Jade Manish 350.1.13.10 [place] 4.2.7.2.686 Professio [phone] [address] 2020-02-08 2020-02-08 Outpatient [facility] [id number] Univers 16:30:00 16:30:00 [facility] 2020-01-19 2020-01-19 Cancellation Clerk Ultrasound, Adc [facility] 1.2 .840.114 [id number] [facility] 10:38:05 11:38:05 Visit Martha Waters 350.1.13.10 ity of [place]2.7.2.[place] [phone] Nd dic[address] 2020-01-19 2020-01-19 Cancellation Clerk Ultrasound, [facility] 1.2.840.114 [id number] 10:38:05 11:38:05 Visit Adc [facility] [place] 350.1.13.10 [place] 4.2.7.2.686 Professio [phone] [address] 2020-01-19 2020-01-19 Outpatient R [facility] [id number] Univers 11:00:00 11:00:00 [facility] 2020-01-10 2020-01-10 Cancellation Clerk 2, Adc Lab [facility] 1.2.840.114 [id number] Univers 15:27:02 15:42:02 Visit Echo Hodges [place] 350.1.13.10 ity of [place]7.2.[place] [phone] [address] 2020-01-10 2020-01-10 Cancellation Clerk 2, Adc Lab [facility] 1.2.840.114 [id number] 15:27:02 15:42:02 Visit [place] 350.1.13.10 [place] 4.2.7.2.686 Professio [phone] [address] 2020-01-10 2020-01-10 Outpatient R ECHO HODGES [facility] [id number] Univers 15:30:00 15:30:00 [facility] 2020-01-10 2020-01-10 Routine Echo Hodges [facility] 1.2.101.321 [id number] Univers 14:47:58 15:22:57 Cam [place] 350.1.13.10 ity of Visit [place] 4.2.7.2.[place] Profess[place] [phone] [address] 2020-01-10 2020-01-10 Routine Echo Hodges [facility] 1.2.881.261 [id number] [id number] 14:47:58 15:22:57 Cam [place] 350.1.13.10 Visit [place] 4.2.7.2.686 Professio [phone] [address] 2019-12-27 2019-12-27 Outpatient R ECHO HODGES [facility] [id number] Univers 13:00:00 13:00:00 ity [facility] 2019-12-13 2019-12-13 Telephone Echo Hodges [facility] 1.2.840.114 [id number] Univers 00:00:00 00:00:00 Cam [place] 350.1.13.10 i ty of [place]7.2.[place] [phone] [address] 2019-12-13 2019-12-13 Telephone Echo Hodges [facility] 1.2.840.114 [id number] 00:00:00 00:00:00 Cam [place] 350.1.13.10 [place] 4.2.7.2.686 Professio [phone] [address] 2019-12-08 2019-12-08 Case Echo Hodges [facility] 1.2.340.242 [id number] [facility] 00:00:00 00:00:00 Management Cam [place] 350.1.13.10 ity of [place].2.[place] [phone] [facility] 134 [place] [facility] 2019-12-08 2019-12-08 Case Echo Hodges [facility] 1.2.239.154 [id number] 00:00:00 00:00:00 Management Cam [place] 350.1.13.10 [place] 4.2.7.2.686 Professio [phone] [address] 2019-12-07 2019-12-07 Telephone Echo Hodges [facility] 1.2.840.114 [id number] [facility] 00:00:00 00:00:00 Cam [place] 350.1.13.10 i ty of [place]2.7.2.[place] [phone] Nd dic[address] 2019-12-07 2019-12-07 Telephone Echo Hodges [facility] 1.2.840.114 [id number] 00:00:00 00:00:00 Cam [place] 350.1.13.10 [place] 4.2.7.2.686 Professio [phone] [address] 2019-11-29 2019-11-29 Cancellation Clerk 2, [facility] 1.2.840.114 [id number] [facility] 13:51:24 14:06:24 Visit Echo Hodges Cam [place] 350.1.13.10 ity of [place] 4[place]2.7.2.[place] [phone] Nd dic[address] 2019-11-29 2019-11-29 Cancellation Clerk 2, [facility] 1.2.840.114 [id number] 13:51:24 14:06:24 Visit [place] 350.1.13.10 [place] 4.2.7.2.686 Professio [phone] [address] 2019-11-29 2019-11-29 Routine Echo Hodges [facility] 1.2.221.295 [id number] Univers 13:00:25 13:36:47 Costa Hammond 350.1.13.10 ity of Visit [place] 4.2.7.2.[place] [phone] Nd dic[address] 2019-11-29 2019-11-29 Outpatient R ECHO HODGES [facility] [id number] Univers 13:00:00 13:00:00 ity of [facility] 2019-11-29 2019-11-29 Orders Doctor FRANK 1.2.840.114 [id number] Univers 00:00:00 00:00:00 Only Unassigned, ELROY 350.1.13.10 ity of [facility] 4.2.7.2.686 [place] [phone] [address] 2019-11-07 2019-11-15 Telemedici Echo Hodges [facility] 1.2.840.114 [id number] Univers 08:13:02 09:41:50 ne Visit Costa Hammond 350.1.13.10 ity of [id number] [phone] Nd dic[address] 2019-11-14 2019-11-14 Cancellation Clerk Ultrasound, [facility] 1.2 .840.114 [id number] Univers 11:24:05 12:36:31 Visit Lauren Jackman 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 [id number] ity of [facility] [id number] [place] as MATERNAL [phone] Med ical & CHILD [address] [place] [address] 2019-11-14 2019-11-14 Outpatient P [facility] [id number] Univers 11:00:00 11:00:00 ity [facility] 2019-11-07 2019-11-07 Outpatient R ECHO HODGES [facility] [id number] Univers 14:00:00 14:00:00 ity [facility] 2019-10-27 2019-10-27 Outpatient R AKINJUANCHO [facility] [id number] Univers 09:00:00 09:00:00 ILANA turnery o f [facility] 2019-10-26 2019-10-26 Telephone Echo Hodges [facility] 1.2.840.114 [id number] Univers 00:00:00 00:00:00 Costa Hammond [id number] i [place] [phone] Nd dical [facility] [address] [place] [facility] 2019-10-18 2019-10-18 Telephone Alireza [facility] [id number] Univers 00:00:00 00:00:00 Rosleenda R 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 [id number] ity of [facility] [id number] [place] MATERNAL [phone] Med ical & CHILD 107 [facility] 2019-04-25 2019-04-25 Outpatient R ADAM [facility] [id number] Univers 14:00:00 14:33:35 JADE ity [facility] 2019-03-15 2019-03-16 Inpatient P ECHO HODGES [facility] ESTELA [id number] Univers 06:47:00 19:30:00 ity of [facility] 2019-03-15 2019-03-16 Hospital Echo Hodges [facility] 1.2.840.114 [id number] Univers 06:47:00 19:30:00 Encounter Costa Hammond [id number] [id number] [place] [phone] [facility] [address] 2019-03-09 2019-03-09 Cancellation Clerk 1, Adc Lab [facility] [id number] Univers 14:22:30 14:37:30 Visit Jade Medina [id number] [id number] [phone] [facility] [address] 2019-03-09 2019-03-09 Orders Doctor FRANK [id number] Univers 00:00:00 00:00:00 Only Unassigned, ELROY [id number] [place] [facility] [id number] [place] [phone] [facility] [address] 2019-03-08 2019-03-08 Case Adam [facility] [id number] Univers 00:00:00 00:00:00 Management Jade [place] [id number] [id number] [phone] [address] 2019-03-08 2019-03-[address] [facility] [id number] Univers 00:00:00 00:00:00 Cam Manish [id number] [id number] [phone] [address] 2019-03-07 2019-03-07 Routine Adam [facility] [id number] Univers 14:36:38 15:24:28 Jade [place] [id number] [id number] [phone] [address] 2019-02-21 2019-02-[address] [facility] [id number] Univers 14:33:39 15:05:05 [place] [id number] [id number] [phone] [address] 2019-02-21 2019-02-21 Outpatient Misha HODGES [facility] [id number] Univers 13:45:00 15:05:05 ity of [facility] 2019-01-23 2019-01-23 Outpatient Misha HODGES [facility] [id number] Univers 11:15:00 11:15:00 ity [facility] 2018-12-26 2018-12-26 Outpatient Misha HODGES [facility] [id number] Univers 10:30:00 11:28:51 ity [facility] 2018-11-08 2018-11-08 Outpatient P KIRBY [facility] [id number] Univers 13:30:00 14:17:04 TALYA ity [facility] 2018-10-31 2018-10-31 Outpatient R SIMON, [facility] [id number] Univers 11:00:00 11:59:43 ILANA porter f [facility] Results This patient has no known results.
[2022-08-31] MEDS ORDERED: FAMOTIDINE 20 MG/2 ML VIAL IV ONE (08:59)
[2022-08-31] MEDS ORDERED: NA CHLORIDE 0.9% 1,000 ML ONE (08:59)
[2022-08-31] MEDS ORDERED: ONDANSETRON 4 MG/2 ML VIAL ONE (08:59)
[2022-08-31] MEDS ORDERED: KETOROLAC 30 MG/ML INJ ONE (08:59)
[2022-08-31 09:36] LABS: SARS-COV-2 RT PCR POSITIVE (NEGATIVE)
--- NOTE | 2022-08-31 09:38 | EDPHYS ---
Physician Documentation [facility] Name: Mary Joe Age: 22 yrs Sex: Female : 2000 Arrival Date: 08/31/2022 Time: 07:05 Bed 11 Private MD: None, None ED Physician Hossein Tirado HPI: 08/31 07:58 This 22 yrs old Black Female presents to ER via Ambulatory with complaints of Cold rn Symptoms. 07:58 The patient or guardian reports cough, flu symptoms, low-grade fever, no appetite. rn Onset: The symptoms/episode began/occurred yesterday. Severity of symptoms: At their worst the symptoms were mild, in the emergency department the symptoms are unchanged. Modifying factors: The symptoms are alleviated by nothing, the symptoms are aggravated by nothing. Associated signs and symptoms: Pertinent positives: fever, rhinorrhea, sore throat, Pertinent negatives: chest pain, vomiting. The patient has not experienced similar symptoms in the past. The patient has not recently seen a physician. Pt reports congestion/sore throat/cough/fever, no sob, no chest pain, no abd pain, no vomiting/diarrhea. . 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 - Family history:: not pertinent. - Hospitalizations: : No recent hospitalization is reported. ROS: 07:58 Constitutional: + fever Eyes: Negative for injury, pain, redness, and discharge, ENT: + rn congestion and sore throat Cardiovascular: Negative for chest pain, palpitations, and edema, Respiratory: Negative for shortness of breath, wheezing, and pleuritic chest pain, Abdomen/GI: Negative for abdominal pain, nausea, vomiting, diarrhea, and constipation, Back: Negative for injury and pain, MS/Extremity: Negative for injury and deformity, Skin: Negative for injury, rash, and discoloration, Neuro: Negative for headache, weakness, numbness, tingling, and seizure. Exam: 07:58 Constitutional: This is a well developed, well nourished patient who is awake, alert, rn and in no acute distress. Head/Face: Normocephalic, atraumatic. ENT: Mild pharyngeal erythema with a few blisters on posterior pharynx, no stridor, + congestion, no oral swelling Neck: Trachea midline, no masses palpated, and no cervical lymphadenopathy. Supple, full range of motion without nuchal rigidity, or vertebral point tenderness. Cardiovascular: Regular rate and rhythm. No pulse deficits. Respiratory: No increased work of breathing, no retractions or nasal flaring. Abdomen/GI: Soft, non-tender Skin: Warm, dry MS/ Extremity: Pulses equal, no cyanosis. Neuro: Awake and alert, GCS 15 Vital Signs: 07:12 BP 139 / 88; Pulse 97; Resp 18; Temp 99.6; Pulse Ox 100% on R/A; iw 08:15 BP 136 / 99; Pulse 89; Resp 18; Pulse Ox 97% on R/A; eh3 MDM: 07:05 Patient medically screened. rn 09:36 Differential Diagnosis: Bronchitis Influenza Upper Respiratory Infection Pharyngitis rn Viral Syndrome. Data reviewed: vital signs, nurses notes, lab test result(s), and as a result, I will discharge patient. Counseling: I had a detailed discussion with the patient and/or guardian regarding: the historical points, exam findings, and any diagnostic results supporting the discharge/admit diagnosis, lab results, the need for outpatient follow up, to return to the emergency department if symptoms worsen or persist or if there are any questions or concerns that arise at home. Special discussion: I discussed with the patient/guardian in detail that at this point there is no indication for admission to the hospital. It is understood, however, that if the symptoms persist or worsen the patient needs to return immediately for re-evaluation. ED course: COVID +, no oxygen requirement, stable vitals, will dc home. . 08/31 07:15 Order name: COVID-19/FLU A+B rn 08/31 07:15 Order name: Strep rn 08/31 08:05 Order name: Group A Streptococcus Rapid Sc; Complete Time: 09:04 EDMS 08/31 09:36 Order name: COVID-19/FLU A+B; Complete Time: 09:38 EDMS Administered Medications: No medications were administered Disposition Summary: 08/31/22 09:38 Discharge Ordered Location: Home rn Problem: new rn Symptoms: have improved rn Condition: Stable rn Diagnosis - SARS-associated coronavirus as the cause of diseases classified elsewhere rn - Fever, unspecified rn Followup: rn - With: Private Physician - When: As needed - Reason: Recheck today's complaints, Re-evaluation by your physician Discharge Instructions: - Discharge Summary Sheet rn - COVID-19 rn - 10 Things You Can Do to Manage Your COVID-19 Symptoms at Home - [facility] rn - Viral Illness, Adult rn Forms: - Medication Reconciliation Form rn - Thank You Letter rn - Antibiotic engraver ornamental design - Prescription Opioid Use rn Signatures: Dispatcher [employer] Linda Townsend RN RN Hossein Dejesus MD MD rn Hall, Erin, RN RN eh3
--- NOTE | 2022-08-31 09:38 | ER ---
Nurse's Notes [facility] Name: Mary Joe Age: 22 yrs Sex: Female : 2000 Arrival Date: 08/31/2022 Time: 07:05 Bed 11 Private MD: None, None Diagnosis: SARS-associated coronavirus as the cause of diseases classified elsewhere;Fever, unspecified Presentation: 08/31 07:12 Chief complaint: Patient states: fever, chills, body aches, felt SOB and has sore iw throat , started yesterday morning and got worse. Coronavirus screen: Client presents with at least one sign or symptom that may indicate coronavirus-19. Ebola Screen: Patient negative for fever greater than or equal to 101.5 degrees Fahrenheit, and additional compatible Ebola Virus Disease symptoms Patient denies exposure to infectious person. Patient denies travel to an Ebola-affected area in the 21 days before illness onset. No symptoms or risks identified at this time. Initial Sepsis Screen: Does the patient meet any 2 criteria? No. Patient's initial sepsis screen is negative. Does the patient have a suspected source of infection? No. Patient's initial sepsis screen is negative. Risk Assessment: Do you want to hurt yourself or someone else? Patient reports no desire to harm self or others. Onset of symptoms was August 30, 2022. 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 - Family history:: not pertinent. - Hospitalizations: : No recent hospitalization is reported. Screenin:44 [facility] ED Fall Risk Assessment (Adult) Score/Fall Risk Level 0 - 2 = Low Risk. Abuse eh3 screen: Denies threats or abuse. Denies injuries from another. Nutritional screening: No deficits noted. Tuberculosis screening: No symptoms or risk factors identified. Assessment: 08:15 General: Appears in no apparent distress. uncomfortable, Behavior is calm, cooperative, eh3 appropriate for age. Pain: Denies pain. Neuro: Level of Consciousness is awake, alert, obeys commands, Oriented to person, place, time, situation. Cardiovascular: Capillary refill < 3 seconds Patient's skin is warm and dry. Respiratory: Airway is patent Respiratory effort is even, unlabored, Respiratory pattern is regular, symmetrical. GI: No signs and/or symptoms were reported involving the gastrointestinal system. Abdomen is round non-distended. : No signs and/or symptoms were reported regarding the genitourinary system. EENT: No signs and/or symptoms were reported regarding the EENT system. Derm: No signs and/or symptoms reported regarding the dermatologic system. Skin is pink, warm \T\ dry. Musculoskeletal: No signs and/or symptoms reported regarding the musculoskeletal system. Circulation, motion, and sensation intact. Range of motion: intact in all extremities. 09:15 Reassessment: Patient appears in no apparent distress at this time. Patient and/or eh3 family updated on plan of care and expected duration. Pain level reassessed. Patient is alert, oriented x 3, equal unlabored respirations, skin warm/dry/pink. Vital Signs: 07:12 BP 139 / 88; Pulse 97; Resp 18; Temp 99.6; Pulse Ox 100% on R/A; iw 08:15 BP 136 / 99; Pulse 89; Resp 18; Pulse Ox 97% on R/A; eh3 ED Course: 07:05 Patient arrived in ED. as 07:05 None, None is Private Physician. as 07:05 Hossein Tirado MD is Attending Physician. rn 07:13 Triage completed. iw 07:13 Arm band placed on. iw 07:41 Linda Reyna, RN is Primary Nurse. iw 07:41 COVID-19/FLU A+B Sent. iw 07:42 Strep Sent. iw 08:15 Pulse ox on. NIBP on. eh3 08:15 Patient has correct armband on for positive identification. Bed in low position. Call eh3 light in reach. Side rails up X2. 09:45 No provider procedures requiring assistance completed. Patient did not have IV access eh3 during this emergency room visit. Administered Medications: No medications were administered Medication: 09:44 VIS not applicable for this client. eh3 Outcome: 09:38 Discharge ordered by . rn 10:00 Discharged to home ambulatory. eh3 10:00 Condition: stable 10:00 Discharge instructions given to patient, Instructed on discharge instructions, follow up and referral plans. Demonstrated understanding of instructions, follow-up care. 10:00 Patient left the ED. eh3 Signatures: Lenora Chance Irene RN Hossein Shafer MD MD rn Hall, Erin, RN RN eh3 Corrections: (The following items were deleted from the chart) 09:45 09:44 Patient has correct armband on for positive identification. Bed in low position. eh3 Call light in reach. Side rails up X2. eh3
[2022-08-31 10:05] VITALS: TEMP 99.6
[2022-08-31 10:06] VITALS: BP 136/99; O2SAT 97
== END 2022-08-31 10:00 | disposition home or self-care (01) ==
LOC: ER 07:03
DX: U07.1 COVID-19 (principal)
CPT/HCPCS: 87070; 87081; 0240U; 99283; J7030; J2405

== ENCOUNTER 2022-10-08 11:15 | Emergency (ER) | payer OTHER ==
--- OUTSIDE RECORDS SUMMARY | 2022-10-08 11:18 | XMS REPORT | Continuity of Care Document ---
:2000 Author Organization [facility] t Address [address] [facility] [address]. [address] [place] [address] Care Team Providers Name Role Phone TALIA MEDINA Primary Care Physician Unavailable TALIA MEDINA Attending Clinician Unavailable Esperanza Parra MD Attending Clinician ECHO HODGES Attending Clinician Unavailable Echo Hodges MD Attending Clinician Nurse, [facility] Attending Clinician Unavailable RUSLAN GLYNN Attending Clinician Unavailable Fran Weiss CRNA Attending Clinician Osmany Carcamo MD Attending Clinician Doctor Unassigned, [place] Attending Clinician Unavailable Talia Medina PA-C Attending Clinician Ultrasound, [facility] Attending Clinician Unavailable Ruslan Glynn MD Attending Clinician Ultrasound, [facility] Attending Clinician Unavailable Pascual Mcfarlane MD Attending Clinician [phone] Attending Clinician Unavailable Naina Lopez RN Attending Clinician Unavailable CAMILLA ASHFORD Attending Clinician Unavailable Pob, [facility] Lab Main Attending Clinician Unavailable Malka Hernandez LMSW Attending Clinician 1, [facility] Attending Clinician [facility] Clin[facility] Unavailable Lauren Jackman MD Attending Clinician 2, [facility] Attending Clinician Unavailable Martha Waters MD Attending Clinician ILANA MONTES Attending Clinician Unavailable Kanika Bryant Attending Clinician TALYA ORR Attending Clinician Unavailable ECHO HODGES Admitting Clinician Unavailable Echo Hodges MD Admitting Clinician Payers Payer Name Policy Type Policy Number Effective Date Expiration Date Oksana NEGRO [id number] 2018 00:00:00 [facility] [id number] 2019 [facility] MEDICAID 00:00:00 [place] OF [place] [id number] 2016 00:00:00 Problems Condition Condition Condition Status Onset Resolution Last Treating Co mments Source Name Details Category Date Date Treatment Clinician Date Encounter Encounter Disease Active Uni vers for tubal for tubal 8-02 ity of ligation ligation 00:00: [place] counseling counseling 00 Me dical Branch Gestationa Gestationa Disease Active U nivers l l 8 [place] of hypertens[place]ens[place] on, third 00 [facility] trimester trimester Bran ch ASCUS with ASCUS with Disease Active U nivers positive positive 3-31 ity of high risk high risk 00:00: Salv[place] s HPV HPV [facility] cervical cervical [place] Supervisio Supervisio Disease Active U nivers n of high n of high 2-02 ity of risk risk 00:00: [place] , , 00 Me dical antepartum antepartum Br anch Nausea Nausea Disease Active Univers 2-02 ity of 00:00: [place] 00 [facility] 37 weeks 37 weeks Disease Active Unive rs gestation gestation 8-28 ity of of of 00:00: [place] 00 [facility] Liveborn Liveborn Disease Active Unive rs , of , of 8-28 it y of gao gao [place] , , 00 Me dical born in [facility] by vaginal by vaginal delivery delivery Obesity Obesity Disease Active Univers (BMI (BMI 5-07 ity of 30-39.9) 30-39.9) 00:00: [place] 00 [facility] Multiparit Multiparit Disease Active U nivers y [...] Active Univers ALLERGIE Class ity of S [facility] Social History Social Habit Start Date Stop Date Quantity Comments Source History SDOH University o f Alcohol Frequency [place] M edical Branch History SDOH University o f Alcohol Std [place] Medical Drinks Branch History SDUT University o f Alcohol Binge [place] Medic al Branch Exposure to 2022-03-06 2022-03-16 Not sure [facility] SARS-CoV-2 00:00:00 11:01:00 [facility] (event) [place] Alcohol intake 2022-03-16 2022-03-16 0 /d University of 00:00:00 00:00:00 [facility] Tobacco use and 2022-02-02 2022-02-02 Smokeless tobacco Un iversity of exposure 00:00:00 00:00:00 non-user [facility] Alcohol Comment 2021-08-20 2021-08-20 quit when found Univ ersity of 00:00:00 00:00:00 out she was [facility] [place] Sex Assigned At [birth year] Universit y of 00:00:00 00:00:00 [facility] Smoking Status Start Date Stop Date Source Never smoked tobacco [facility] Medications Ordered Filled Start Stop Current Ordering Indication Dosage Frequency Signature Comments Components Source Medication Medication Date Date Medication? Clinician (SIG) Name Name hydroCHLORO 2021-0 Yes [id number] 12.5mg Take 1 Univers thiazide 8-07 tablet by ity of 12.5 mg 00:00: mouth in [place] tablet 00 the Medical morning. Branch hydroCHLORO 2021-0 Yes [id number] 12.5mg Take 1 Univers thiazide 8-07 tablet by ity of 12.5 mg 00:00: mouth in [place] tablet 00 the Medical morning. Branch hydroCHLORO 2021-0 Yes [id number] 12.5mg Take 1 Univers thiazide 8-07 tablet by ity of 12.5 mg 00:00: mouth in [place] tablet 00 the Medical morning. Branch 0 Yes [id number] 1{tbl} Take 1 Univers vitamin 8-06 tablet by ity of w/FA tablet 00:00[place] the [place] morning. Branch docusate 0 Yes [id number] 200mg Take 2 U nivers 100 mg 8-06 capsules ity of capsule 00:00: by mouth [place] 00 once daily Medical as needed Branch for Constipati on. ferrous Yes [id number] 325mg Take 1 Un alex sulfate 325 8-06 tablet by ity of mg (65 mg 00:00: [place] iron[place] 00 the Medical tablet morning Branch and 1 tablet in the evening. ibuprofen Yes [id number] 600mg Take 1 Univers 600 mg 8-06 tablet by ity of tablet 00:00: mouth [place] 00 every 6 Medical (six) Branch hours as needed (Pain). Take with food or milk. Yes [id number] 1{tbl} Take 1 Univers vitamin 8-06 tablet by ity of w/FA tablet 00:00[place] the Medical morning. Branch docusate Yes [id number] 200mg Take 2 U nivers 100 mg 8-06 capsules ity of capsule 00:00: by mouth [place] 00 once daily Medical as needed Branch for Constipati on. ferrous 0 Yes [id number] 325mg Take 1 Un alex sulfate 325 8-06 tablet by ity of mg (65 mg 00:00: [place] iron[place] 00 the Medical tablet morning Branch and 1 tablet in the evening. ibuprofen 2021-0 Yes [id number] 600mg Take 1 Univers 600 mg 8-06 tablet by ity of tablet 00:00: mouth [place] 00 every 6 Medical (six) Branch hours as needed (Pain). Take with food or milk. 2021-0 Yes [id number] 1{tbl} Take 1 Univers vitamin 8-06 tablet by ity of w/FA tablet 00:00: [place] the Medical morning. Branch docusate Yes [id number] 200mg Take 2 U nivers 100 mg 8-06 capsules ity of capsule 00:00: by mouth [place] 00 once daily Medical as needed Branch for Constipati on. ferrous 2022-0 Yes [id number] 325mg Take 1 Un alex sulfate 325 8-06 tablet by ity of mg (65 mg 00:00[facility] Medical tablet morning Branch and 1 tablet in the evening. ibuprofen 2021-0 Yes [id number] 600mg Take 1 Univers 600 mg 8-06 tablet by ity of tablet 00:00: mouth [place] 00 every 6 Medical (six) Branch hours as needed (Pain). Take with food or milk. cephALEXin 2021-0 Yes [id number] 500mg Take 1 Univers 500 mg 8-02 capsule by ity of capsule 00:00: mouth [place] 00 every 6 Medical (six) Branch hours. cephALEXin 2021-0 Yes [id number] 500mg Take 1 Univers 500 mg 8-02 capsule by ity of capsule 00:00: mouth [place] 00 every 6 Medical (six) Branch hours. cephALEXin 2021-0 Yes [id number] 500mg Take 1 Univers 500 mg 8-02 capsule by ity of capsule 00:00: mouth [place] 00 every 6 Medical (six) Branch hours. [...] on nasal Branch spray metoclopram 2021-0 Yes [id number] 10mg Take 1 Univers jaron HCl 10 2-02 tablet by ity of mg tablet 00:00: mouth [place] 00 every 6 Medical (six) Branch hours as needed for Nausea and Vomiting (N/V). metoclopram 2022-0 Yes [id number] 10mg Take 1 Univers jaron HCl 10 2-02 tablet by ity of mg tablet 00:00: mouth [place] 00 every 6 Medical (six) Branch hours as needed for Nausea and Vomiting (N/V). metoclopram 2022-0 Yes [id number] 10mg Take 1 Univers jaron HCl 10 2-02 tablet by ity of mg tablet 00:00: mouth [place] 00 every 6 Medical (six) Branch hours as needed for Nausea and Vomiting (N/V). Immunizations Ordered Filled Immunization Date Status Comments Sourc e Immunization Name Name TD 2020-04-08 Completed University of 00:00:00 [facility] 2020-04-08 Completed University of 00:00:00 [facility] TD 2020-04-08 Completed University of 00:00:00 [facility] TDAP 2013-07-19 Completed [facility] Com[facility] University of 00:00:00 [facility] 2013-07-19 Completed University of 00:00:00 [facility] Vital Signs Vital Name Observation Time Observation Value Comments Source Systolic blood 2022-03-16 16:56:00 128 mm[Hg] Univer sity of pressure [facility] Diastolic blood 2022-03-16 16:56:00 82 mm[Hg] Unive rsity of [facility] Heart rate 2022-03-16 16:56:00 62 /min [facility] Body temperature 2022-03-16 16:56:00 36.78 Bisi [facility] Respiratory rate 2022-03-16 16:56:00 18 /min [facility] Body height 2022-03-16 16:56:00 170.2 cm [facility] Body weight 2022-03-16 16:56:00 91.173 kg [facility] BMI 2022-03-16 16:56:00 31.48 kg/m2 [facility] Procedures This patient has no known procedures. Encounters Start End Encounter Admission Attending Care Care Encounter Source Date/Time Date/Time Type Type Clinicians Facility Department ID 2021-05-17 Outpatient [facility] ESTELA [id number] Univers 02:01:28 ity [facility] 2021-05-16 Outpatient P [facility] ESTELA [id number] Univers [facility] P [facility] ESTELA [id number] Univers [facility]16 Out[facility] P [facility] ESTELA [id number] Univers [facility]:31[facility] 2022-06-29 2022-06-29 Outpatient R ADAM [facility] [id number] Univers 10:30:00 10:30:00 TALIA ity of [facility] 2022-06-18 2022-06-18 Refill Aida [facility] 1.2.840.114 [id number] Univers 00:00:00 00:00:00 Esperanza HAMMOND 350.1.13.10 ity of [facility] [id number] [id number] Nc dical NAL [address] [place] [address] 2022-05-11 2022-05-11 Outpatient R CARROLL ECHO [facility] [id number] Univers 15:00:00 15:00:00 ity [facility] 2022-03-26 2022-03-26 Outpatient R CARROLL ECHO [facility] [id number] Univers 15:00:00 15:00:00 ity [facility] 2022-03-16 2022-03-16 Outpatient R CARROLL ECHO [facility] [id number] Univers 11:15:00 12:10:28 ity [facility] 2022-03-16 2022-03-16 Routine Carroll [facility] [id number] Univers 11:15:00 12:10:28 Costa HAMMOND 350.1.13.10 ity of Visit [place] 4.2.7.2.686 [place] [id number] Nc dical NAL [address] [place] [address] 2022-03-04 2022-03-04 Telephone Echo Hodges [facility] 1.2.840.114 [id number] Univers 00:00:00 00:00:00 Costa HAMMOND 350.1.13.10 i ty of [facility] 4.2.7.2.686 [place] [id number] Nc dical NAL [address] [place] [address] 2022-02-25 2022-02-25 Nurse Nurse, [facility] 1.2.840.114 [id number] Univers 14:30:00 14:30:00 Visit Carroll Echocindy HAMMOND 350.1.13.10 ity of [facility] 4.2.7.2.686 [place] [id number] Nc dical [address] 2022-02-25 2022-02-25 Outpatient R ECHO HODGES [facility] [id number] Univers 14:30:00 13:35:46 ity of [facility] 2022-02-23 2022-02-23 Outpatient P ROSELYN [facility] [id number] Univers 09:00:00 09:00:00 RUSLAN ity of [facility] 2022-02-20 2022-02-21 Inpatient X CARROLL [facility] ESTELA [id number] Univers 04:04:00 18:25:00 ity of [facility] 2022-02-20 2022-02-21 [facility] 1.2.840.114 [id number] Univers 04:04:00 18:25:00 Encounter Cam [place] 350.1.13.10 ity of [place] 4.2.7.2.686 [facility] [id number] [facility] 083 [place] 2022-02-20 2022-02-20 Anesthesia Fran Weiss [facility] 1.2.8 40.114 [id number] Univers 12:04:53 12:04:53 Event Osmany Carcamo [place] 350.1.13. 10 ity of [place] 4.2.7.2.686 [facility] [id number] [facility] 083 [place] 2022-02-20 2022-02-20 Orders Doctor MARIE 1.2.840.114 [id number] Univers 00:00:00 00:00:00 Only Unassigned, ELROY 350.1.13.10 ity of [place] [facility] 4.2.7.2.686 [place] [id number] [facility] 009 Branch 2022-02-17 2022-02-17 Outpatient P CARROLL ECHO [facility] ESTELA [id number] Univers 20:59:00 21:55:00 ity of [facility] 2022-02-17 2022-02-17 [facility] Echo Hodges [facility] 1.2.840.114 [id number] Univers 20:59:00 21:55:00 Encounter Cam [place] 350.1.13.10 ity of [place] 4.2.7.2.686 [facility] [id number] [place] 877063 [place] 2022-02-16 2022-02-17 Outpatient X ECHO HODGES [facility] ESTELA [id number] Univers 16:10:00 08:10:00 ity of [facility] 2022-02-16 2022-02-17 Hospital Echo Hodges [facility] 1.2.840.114 [id number] Univers 16:10:00 08:10:00 Encounter Costa HAMMOND 350.1.13.10 ity of [place] 4.2.7.2.686 [facility] [id number] [address] 2022-02-16 2022-02-16 Routine Adam [facility] 1.2.756.868 [id number] Univers 15:30:00 15:45:00 Talia HAMMOND 350.1.13.10 ity of Visit [place] 4.2.7.2.[place] [id number] Nc dical [address] 2022-02-16 2022-02-16 Outpatient R ADAM [facility] [id number] Univers 15:30:00 15:30:00 TALIA ity [facility] 2022-02-16 2022-02-16 Orders Doctor FRANK 1.2.840.114 [id number] Univers 00:00:00 00:00:00 Only Unassigned, ELROY 350.1.13.10 ity of [place] [facility] 4.2.7.2.686 [place] [id number] [facility] 009 [place] 2022-02-03 2022-02-03 Outpatient R [facility] [id number] Univers 15:00:00 15:00:00 ity of [facility] 2022-02-02 2022-02-02 Outpatient R CARROLL ECHO [facility] [id number] Univers 16:15:00 16:36:06 ity of [facility] 2022-02-02 2022-02-02 Routine Echo Hodges [facility] [id number] Univers 16:15:00 16:36:06 [place] 350.1.13.10 ity of Visit [place] 4.2.7.2.[place] [id number] Nc dical [address] 2022-02-02 2022-02-02 Outpatient ECHO VELOZ [facility] [id number] Univers 16:15:00 16:15:[address] [facility] 2022-01-26 2022-01-26 Bundle Tier Ultrasound, [facility] 1.2 .840.114 [id number] Univers 09:15:00 09:37:53 Visit Ruslan Glynn PATIENT CASE MANAGER 350.1.13.10 [place] [id number] [place] as MATERNAL [id number] Med ical & CHILD [address] [place] [address] 2022-01-26 2022-01-26 Outpatient Javy GLYNN [facility] [id number] Univers 09:15:00 09:15:00 [facility] 2022-01-07 2022-01-07 Outpatient Misha MEDINA [facility] [id number] Univers 15:30:00 15:30:00 [facility] 2021-12-31 2021-12-31 Outpatient R ADAM [facility] [id number] Univers 11:15:00 11:15:00 [facility] 2021-12-18 2021-12-18 Outpatient Misha MEDINA [facility] [id number] Univers 13:00:00 13:00:00 [facility] 2021-12-18 2021-12-18 Outpatient Misha MEDINA [facility] [id number] Univers 13:00:00 13:00:00 [facility] 2021-12-18 2021-12-18 Outpatient Misha MEDINA [facility] [id number] Univers 13:00:00 13:00:00 [facility] 2021-12-18 2021-12-18 Outpatient R [facility] [id number] Univers 10:15:00 10:15:[address] [facility] 2021-12-17 2021-12-17 Outpatient ECHO VELOZ [facility] [id number] Univers 13:15:00 13:55:19 ity of [facility] 2021-12-17 2021-12-17 Routine Echo Hodges [facility] 1.2.503.321 [id number] Univers 13:15:00 13:55:19 Cam MANISH 350.1.13.10 ity of [place] 4.2.7.2.686 [place] [id number] Nc dical [address] 2021-12-17 2021-12-17 Orders Doctor FRANK 1.2.840.114 [id number] Univers 00:00:00 00:00:00 Only Unassigned, ELR[place] 350.1.13.10 ity of [place] [facility] 4.2.7.2.686 [place] as [id number] [address] 2021-11-18 2021-11-18 Outpatient P ADAM [facility] [id number] Univers 10:45:00 12:39:29 TALIA ity [facility] 2021-11-18 2021-11-18 Bundle Tier Ultrasound, [facility] 1.2 .840.114 [id number] Univers 10:45:00 12:39:29 Visit Talia Medina 350.1.13.10 ity of [place] 4[place]2.7.2.[place] [id number] Nc dical [address] 2021-11-18 2021-11-18 Routine Adam ARKRISTI 1.2.955.578 [id number] Univers 10:15:00 10:51:35 Talia H[place]MOND 350.1.13.10 ity of Visit [place] 4.2.7.2.[place] [id number] Nc dical NAL [address] [place] [address] 2021-11-11 2021-11-11 Telephone Echo Hodges [facility] 1.2.840.114 [id number] Univers 00:00:00 00:00:00 Costa HAMMOND 350.1.13.10 i ty of [facility] 4.2.7.2.[place] [id number] Nc dical [address] 2021-11-04 2021-11-04 Bundle Tier Ultrasound, [facility] 1.2 .840.114 [id number] Univers 11:15:00 12:00:00 Visit Chandler SchaeferkhoiPascual maya MARYCARMENTON 350.1 .13.10 ity of [place] 4.2.7.2.686 [place] [id number] [address] 2021-11-04 2021-11-04 Outpatient P [facility] [id number] Univers 11:15:00 11:15:00 RAJENDRA it y of [place] [facility] 2021-11-04 2021-11-04 Letter Echo Hodges [facility] 1.2.410.165 [id number] Univers 00:00:00 00:00:00 (Out) Cam [place] 350.1.13.10 i ty of [place] 4.2.7.2.[place] [id number] [address] 2021-11-04 2021-11-04 Letter Echo Hodges [facility] 1.2.296.086 [id number] Univers 00:00:00 00:00:00 (Out) Cam [place] 350.1.13.10 i ty of [place] 4.2.7.2.686 [place] [id number] [address] 2021-10-28 2021-10-28 Bundle Tier Ultrasound, [facility] 1.2 .840.114 [id number] Univers 14:45:00 15:30:00 Visit Chandler CowartamePascual maya MARYCARMENTON 350.1 .13.10 ity of [place] 4.2.7.2.686 [place] [id number] [address] 2021-10-28 2021-10-28 Outpatient P [facility] [id number] Univers 14:45:00 14:45:00 ity of [facility] 2021-10-28 2021-10-28 Outpatient P [facility] [id number] Univers 14:45:00 14:45:00 RAJENDRA it y of [place] [facility] 2021-10-16 2021-10-16 Outpatient R ECHO HODGES [facility] [id number] Univers 13:00:00 14:20:07 ity of [facility] 2021-10-16 2021-10-16 Office Echo Hodges [facility] 1.2.626.065 [id number] Univers 13:00:00 14:20:07 Visit Cam [place] 350.1.13.10 i ty of [facility] 4.2.7.2.686 [place] [id number] [address] 2021-10-16 2021-10-16 Outpatient R ECHO HODGES [facility] [id number] Univers 13:00:00 14:20:07 ity of [facility] 2021-10-16 2021-10-16 Letter Echo Hodges [facility] 1.2.502.651 [id number] Univers 00:00:00 00:00:00 (Out) Cam MAN[place] 350.1.13.10 i ty of [place] 4.2.7.2.[place] [id number] [address] 2021-10-16 2021-10-16 Orders Doctor FRANK 1.2.840.114 [id number] Univers 00:00:00 00:00:00 Only Unassigned, ELR[place] 350.1.13.10 ity of [place] [facility] 4.2.7.2.686 [place] as [id number] [address] 2021-10-01 2021-10-01 Telephone Echo Hodges [facility] 1.2.840.114 [id number] Univers 00:00:00 00:00:00 Cam [place] 350.1.13.10 i ty of [facility] 4.2.7.2.[place] [id number] [address] 2021-09-25 2021-09-25 Orders Doctor FRANK 1.2.840.114 [id number] Univers 00:00:00 00:00:00 Only Unassigned, ELR[place] 350.1.13.10 ity of [place] [facility] 4.2.7.2.686 [place] as [id number] [address] 2021-09-24 2021-09-24 Telephone Echo Hodges [facility] 1.2.840.114 [id number] Univers 00:00:00 00:00:00 Costa HAMMOND 350.1.13.10 i ty of [place] 4.2.7.2.[place] [id number] [address] 2021-09-22 2021-09-22 [facility] 1.2.840.114 [id number] Univers 00:00:00 00:00:00 Talia HAMMOND 350.1.13.10 i ty of [place] 4.2.7.2.[place] [id number] [address] 2021-09-19 2021-09-19 Telephone JessicaFRANK 1.2.504.164 [id number] Univers 00:00:00 00:00:00 Naina ABBASI 350.1.13.10 it y of HOSPITAL 4.2.7.2.686 [place] as [id number] [address] 2021-09-18 2021-09-18 Outpatient Misha ASHFORD [facility] [id number] Univers 09:20:00 09:55:56 CAMILLA howard [facility] 2021-09-17 2021-09-17 Outpatient Misha MDEINA [facility] [id number] Univers 16:00:00 16:53:47 TALIA howard [facility] 2021-09-17 2021-09-17 [facility] 1.2.528.730 [id number] Univers 16:00:00 16:53:47 Talia HAMMOND 350.1.13.10 ity of Visit [place] 4.2.7.2.[place] [id number] [address] 2021-09-17 2021-09-17 [facility] 1.2.657.470 [id number] Univers 00:00:00 00:00:00 (Out) Talia HAMMOND 350.1.13.10 i ty of [place] 4.2.7.2.[place] [id number] Nc dical NAL 134 [facility] 2021-09-12 2021-09-12 Patient Adam [facility] 1.2.312.473 [id number] Univers 00:00:00 00:00:00 Secure Msg Talia H[place]MON[place] 350.1.13.10 ity of [facility] 4.2.7.2.[place] [id number] Nc dical NAL 134 [facility] 2021-09-09 2021-09-09 Telephone Echo Hodges [facility] 1.2.840.114 [id number] Univers 00:00:00 00:00:00 Costa HAMMON[place] 350.1.13.10 i ty of [facility] 4.2.7.2.686 [place] [id number] Nc dical NAL 134 [facility] 2021-09-02 2021-09-02 Telephone Adam [facility] 1.2.840.114 [id number] Univers 00:00:00 00:00:00 Talia H[place]MOND 350.1.13.10 i ty of [place] 4.2.7.2.[place] [id number] Nc dical NAL 134 [facility] 2021-08-29 2021-08-29 Bundle Tier Rossi Perez Lab Main [facility] 1.2.8 40.114 [id number] Univers 11:30:00 11:45:00 Visit Echo Hodges 350.1.13.10 ity of [facility] 4.2.7.2.686 [place] [id number] Nc dical NAL 353 [facility] 2021-08-29 2021-08-29 Outpatient R ECHO HODGES [facility] [id number] Univers 11:30:00 11:30:00 ity of [facility] [facility] 2021-08-29 2021-08-29 Orders Doctor MARIE 1.2.840.114 [id number] Univers 00:00:00 00:00:00 Only Unassigned, ELROY 350.1.13.10 ity of [place] [facility] 4.2.7.2.686 [place] as [phone] [address] 2021-08-24 2021-08-24 Case SARAH MedinaIN 1.2.297.578 [id number] 0190 Univers 00:00:00 00:00:00 Management Talia PEDIATRIC 350.1.13.10 [place] of [place] [phone] [facility] PRIMARY [address] [facility] 2021-08-21 2021-08-21 Patient David [facility] 1.2.840.114 [id number] Univers 00:00:00 00:00:00 Outreach Malka HAMMOND 350.1.13.10 ity of [facility] [place].2.7.2.[place] [phone] [facility] 098 [facility] 2021-08-20 2021-08-20 Initial Echo Hodges [facility] 1.2.081.882 4542 [id number] Univers 14:30:00 15:36:52 Costa HAMMOND 350.1.13.10 ity of Visit [place].2.7.2.[place] [phone] [facility] 134 [facility] 2021-08-20 2021-08-20 Outpatient R ECHO HODGES [facility] [id number] Univers 14:30:00 15:36:52 ity of [facility] 2021-08-20 2021-08-20 Letter Echo Hodges [facility] 1.2.977.630 [id number] Univers 00:00:00 00:00:00 (Out) Costa HAMMOND 350.1.13.10 i ty of [place].7.2.[place] [phone] [facility] 134 [facility] 2021-08-20 2021-08-20 Orders Doctor MARIE 1.2.840.114 [id number] Univers 00:00:00 00:00:00 Only Unassigned, ELROY 350.1.13.10 ity of [place] [facility] 4.2.7.2.686 [place] [phone] [place] [address] [address] 2021-08-12 2021-08-12 Outpatient R ADAM [facility] [id number] Univers 14:00:00 14:00:00 TALIA ity [facility] 2021-02-06 2021-02-06 Outpatient Misha MEDINA [facility] [id number] Univers 13:30:00 13:30:00 TALIA howard [facility] 2021-01-16 2021-01-16 Bird Echo Hodges [facility] 1.2.116.807 [id number] Univers 00:00:00 00:00:00 (Out) Costa Hammond 350.1.13.10 i ty of [place] Profess[place] [phone] [address] 2021-01-16 2021-01-16 Telephone [facility] 1.2.840.114 [id number] Univers 00:00:00 00:00:00 aTlia Hammond 350.1.13.10 i ty of [place] 4.2.7.2.[place] [phone] Nc dic[address] 2021-01-07 2021-01-07 Telephone [facility] 1.2.840.114 [id number] Univers 00:00:00 00:00:00 Talia Hammond 350.1.13.10 i ty of [place].2.7.2.686 [place] [phone] Nc dic[address] 2020-12-17 2020-12-17 Office [facility] 1.2.167.993 [id number] 2966 Univers 12:54:01 13:51:32 Visit Talia Hammond 350.1.13.10 i ty of [place] 4.2.7.2.686 [place] [phone] Nc dic[address] 2020-12-17 2020-12-17 Outpatient Misha MEDINA [facility] [id number] Univers 13:00:00 13:00:00 TALIA howard [facility] 2020-12-17 2020-12-17 Orders Doctor MARIE 1.2.840.114 [id number] Univers 00:00:00 00:00:00 Only Unassigned, ELROY 350.1.13.10 [facility] 4.2.7.2.686 [place] as [phone] [facility] [address] [place] 2020-06-18 2020-06-18 [facility] 1.2.482.289 [id number] [id number] Univers 15:28:00 16:09:46 Talia Meacham 350.1.13.10 ity of Visit [place] 4.2.7.2.686 [place] [phone] Nc dical [address] 2020-06-18 2020-06-18 [facility] 1.2.804.678 [id number] [id number] 15:28:00 16:09:46 Talia Manish 350.1.13.10 Visit [place] 4.2.7.2.686 Professio [phone] [address] 2020-06-18 2020-06-18 Out[facility] 67765 [id number] Univers 15:15:00 15:15:00 TALIA howard [facility] 2020-06-17 2020-06-17 Outpatient [facility] 15532 13158 Univers 16:30:00 16:30:[address] [facility] 2020-06-12 2020-06-12 Orders Doctor MARIE 1.2.840.114 [id number] Univers 00:00:00 00:00:00 Only Unassigned, ELROY 350.1.13.10 ity of [place] [facility] 4.2.7.2.686 [place] as [phone] [address] 2020-06-12 2020-06-12 Orders Doctor MARIE 1.2.840.114 [id number] 00:00:00 00:00:00 Only Unassigned, ELROY 350.1.13.10 [place] [facility] [id number] [facility] 2020-05-20 2020-05-21 [facility] 1.2.840.114 [id number] Univers 04:10:00 11:40:00 Encounter Costa Hammond 350.1.13.10 ity of [place] 4.2.7.2.686 [place] [phone] [facility] [address] [place] 2020-05-20 2020[facility] 1.2.840.114 [id number] 04:10:00 11:40:00 Encounter Costa Manish 350.1.13.10 [place] 4.2.7.2.686 [place] [id number] 083 2020-05-20 2020-05-20 Orders Doctor FRANK 1.2.840.114 [id number] Univers 00:00:00 00:00:00 Only Unassigned, ELROY 350.1.13.10 ity of [place] [facility] 4.2.7.2.686 [place] as [phone] [facility] [address] 2020-05-20 2020-05-20 Orders Doctor FRANK 1.2.840.114 [id number] 00:00:00 00:00:00 Only Unassigned, ELROY 350.1.13.10 [facility] 4.2.7.2.686 [id number] 009 2020-05-17 2020-05-17 Bundle Tier 1, [facility] 1.2.840.114 [id number] Univers 09:10:37 09:25:37 Visit Echo Hodges Meacham 350.1.13.10 ity of [place] 4.2.7.2.686 [place] [phone] [facility] [address] 2020-05-17 2020-05-17 Bundle Tier 1, [facility] 1.2.840.114 [id number] 09:10:37 09:25:37 Visit Meacham 350.1.13.10 [place] 4.2.7.2.686 [place] [phone] 353 2020-05-17 2020-05-17 Routine Room, [facility] 1.2.840.1 14 [id number] Univers 08:17:41 08:54:38 Echo Hodges 350.1.13.10 ity of Visit [place].2.7.2.686 [place] [facility] [phone] [facility] [address] [facility] 2020-05-17 2020-05-17 Routine Room, [facility] 1.2.166.371 [id number] [id number] 08:17:41 08:54:38 [facility] Meacham 350.1.13.10 Visit [place] 4.2.7.2.686 Professio [phone] [address] 2020-05-17 2020-05-17 Outpatient R [facility] [id number] Univers 08:00:00 08:00:00 ity of [facility] 2020-05-16 2020-05-16 Outpatient R [facility] [id number] Univers 14:00:00 14:00:00 ity of [facility] 2020-05-14 2020-05-14 Routine Room, [facility] 1.2.840.1 14 [id number] Univers 11:09:37 12:11:42 Hodges, Echo Cam Manish 350.1.13.10 ity of Visit [place] 4.2.7.2.[place] [phone] Me dical [address] 2020-05-14 2020-05-14 Routine Room, [facility] 1.2.984.952 [id number] [id number] 11:09:37 12:11:42 Nst Meacham 350.1.13.10 Visit [place] 4.2.7.2.686 Professio [phone] [address] 2020-05-14 2020-05-14 Outpatient R [facility] [id number] Univers 11:00:00 11:00:00 ity of [facility] 2020-05-14 2020-05-14 Orders Doctor FRANK 1.2.840.114 [id number] Univers 00:00:00 00:00:00 Only Unassigned, ELROY 350.1.13.10 ity of [facility] 4.2.7.2.686 [place] as [phone] [address] 2020-05-14 2020-05-14 Orders Doctor FRANK 1.2.840.114 [id number] 00:00:00 00:00:00 Only Unassigned, ELROY 350.1.13.10 [facility] 4.2.7.2.686 [id number] 009 2020-05-10 2020-05-10 Bundle Tier Ultrasound, [facility] 1.2.840.114 [id number] 10:41:31 11:25:11 Visit [facility] Manish 350.1.13.10 [place] 4.2.7.2.686 Professio [phone] [address] 2020-05-10 2020-05-10 Bundle Tier Ultrasound, [facility] 1.2 .840.114 [id number] Univers 10:41:31 11:25:11 Visit Pascual Mcfarlane Meacham 350.1 .13.10 ity of [place] 4.2.7.2.[place] [phone] Nc dical [address] 2020-05-10 2020-05-10 Outpatient P [facility] [id number] Univers 10:30:00 10:30:00 ity [facility] 2020-04-29 2020-04-29 Outpatient R [facility] [id number] Univers 11:00:00 11:00:00 ity of [facility] 2020-04-25 2020-04-25 [facility] Echo Hodges [facility] 1.2.840.114 [id number] 10:09:00 12:35:00 Encounter Cam Meacham 350.1.13.10 [place] 4.2.7.2.686 [place] [phone] [facility] 2020-04-25 2020-04-25 [facility] Echo Hodges [facility] 1.2.840.114 [id number] Univers 10:09:00 12:35:00 Encounter Cam Meacham 350.1.13.10 ity of [place].2.7.2.686 [place] [phone] [address] 2020-04-25 2020-04-25 Routine Room, [facility] 1.2.416.134 [id number] [id number] 08:21:54 09:48:28 Nst Meacham 350.1.13.10 Visit [place] 4.2.7.2.686 Professio [phone] [address] 2020-04-25 2020-04-25 Routine Room, [facility] 1.2.840.1 14 [id number] [facility] 08:21:54 09:48:28 Talia Medina Meacham 350.1.13.10 ity of Visit [place] 4.2.7.2.686 [place] [phone] Nc dic[address] 2020-04-25 2020-04-25 Outpatient R [facility] [id number] Univers 08:00:00 08:00:00 ity [facility] 2020-04-22 2020-04-22 Routine Echo Hodges [facility] 1.2.663.523 [id number] 13:01:30 14:28:44 Cam Meacham 350.1.13.10 Visit [place] 4.2.7.2.686 Professio [phone] [address] 2020-04-22 2020-04-22 Routine Echo Hodges [facility] 1.2.694.873 [id number] 6294 Univers 13:01:30 14:28:44 Cam Meacham 350.1.13.10 ity of Visit [place] 4.2.7.2.686 [place] Profess[place] [phone] [address] 2020-04-22 2020-04-22 Outpatient R ECHO HODGES [facility] [id number] Univers 13:00:00 13:00:00 ity of [facility] 2020-04-20 2020-04-20 Hospital Echo Hodges [facility] 1.2.840.114 [id number] 09:11:00 11:10:00 Encounter Cam Meacham 350.1.13.10 [place] 4.2.7.2.686 [place] [phone] [facility] 2020-04-20 2020-04-20 [facility] Echo Hodges [facility] 1.2.840.114 [id number] Univers 09:11:00 11:10:00 Encounter Cam Meacham 350.1.13.10 ity of [place] 4.2.7.2.686 [place] [phone] [address] 2020-04-20 2020-04-20 Outpatient P [facility] ESTELA [id number] Univers 09:08:00 09:08:00 ity [facility] 2020-04-20 2020-04-20 Orders Doctor FRANK 1.2.840.114 [id number] 00:00:00 00:00:00 Only Unassigned, ELROY 350.1.13.10 [place] [facility] 4.2.7.2.686 [id number] 009 2020-04-20 2020-04-20 Orders Doctor FRANK 1.2.840.114 [id number] Univers 00:00:00 00:00:00 Only Unassigned, ELROY 350.1.13.10 ity of [place] 4.2.7.2.686 [place] as [phone] [facility] [address] [place] 2020-04-12 2020-04-12 [facility] Echo Hodges [facility] 1.2.840.114 [id number] 15:07:00 16:30:00 Encounter Adum, Esperanza Mckeon Meacham 350.1.13.10 [place] 4.2.7.2.686 [place] [phone] [facility] 2020-04-12 2020-04-12 [facility] Echo Hodges [facility] 1.2.840.114 [id number] Univers 15:07:00 16:30:00 Encounter Adum, Esperanza L Meacham 350.1.13.10 ity of [place] 4.2.7.2.686 [place] [phone] [facility] [address] [place] 2020-04-12 2020-04-12 Routine Adum, [facility] 1.2.840.114 [id number] 13:43:19 14:45:57 Esperanza L Meacham 350.1.13.10 Visit [place] 4.2.7.2.686 Professio [phone] [address] 2020-04-12 2020-04-12 Routine Adum, [facility] 1.2.840.114 [id number] [facility] 13:43:19 14:45:57 Esperanza L Meacham 350.1.13.10 ity of Visit [place] 4.2.7.2.686 [place] [phone] Nc dical nal [address] [place] [address] 2020-04-12 2020-04-12 Bundle Tier Ultrasound, Adc [facility] 1.2 .840.114 [id number] Univers 13:04:57 13:34:57 Visit Lauren Jackmanton 350.1.13.10 ity of [place] 4.2.7.2.686 [place] [phone] Nc dical [address] 2020-04-12 2020-04-12 Bundle Tier Ultrasound, [facility] 1.2.840.114 [id number] 13:04:57 13:34:57 Visit Adc [facility] Manish 350.1.13.10 [place] 4.2.7.2.686 Professio [id number] [address] 2020-04-12 2020-04-12 Outpatient P [facility] [id number] Univers 13:00:00 13:00:00 ity [facility] 2020-04-09 2020-04-09 Bundle Tier 2, Adc [facility] 1.2.840.114 [id number] Univers 09:21:59 09:36:59 Visit Felicia Medinacy Manish 350.1.13.10 ity of [place] 4.2.7.2.[place] [phone] Nc dical [address] 2020-04-09 2020-04-09 Bundle Tier 2, Adc Lab [facility] 1.2.840.114 [id number] 09:21:59 09:36:59 Visit Meacham 350.1.13.10 [place] 4.2.7.2.686 Professio [phone] [address] 2020-04-09 2020-04-09 Outpatient R [facility] [id number] Univers 09:15:00 09:15:00 ity [facility] 2020-04-08 2020-04-08 Bundle Tier 2, Adc Lab [facility] 1.2.840.114 [id number] Univers 13:50:06 14:05:06 Visit Echo Hodges 350.1.13.10 ity of [place] 4.2.7.2.686 [place] [phone] Nc dical [address] 2020-04-08 2020-04-08 Bundle Tier 2, Adc [facility] 1.2.840.114 [id number] 13:50:06 14:05:06 Visit Meacham 350.1.13.10 [place] 4.2.7.2.686 Professio [phone] [address] 2020-04-08 2020-04-08 Routine Echo Hodges [facility] 1.2.777.220 [id number] Univers 13:05:39 13:46:28 Cam Meacham 350.1.13.10 ity of Visit [place] 4.2.7.2.686 [place] [phone] Nc dical [address] 2020-04-08 2020-04-08 Routine [facility] 1.2.303.360 [id number] 13:05:39 13:46:28 Cam Meacham 350.1.13.10 Visit [place] 4.2.7.2.686 Professio [phone] [address] 2020-04-08 2020-04-08 Outpatient R [facility] [id number] Univers 13:00:00 13:00:00 ity of [facility] 2020-04-08 2020-04-08 Case Adam [facility] 1.2.845.441 [id number] [id number] Univers 00:00:00 00:00:00 Management Talia Meacham 350.1.13.10 ity of [place]2.7.2.[place] [phone] [address] 2020-04-08 2020-04-08 Case Adam [facility] 1.2.320.958 [id number] 00:00:00 00:00:00 Management Talia Meacham 350.1.13.10 [place] 4.2.7.2.686 Professio [phone] [address] 2020-04-03 2020-04-03 Outpatient R [facility] [id number] Univers 13:00:00 13:00:00 ity of [facility] 2020-03-20 2020-03-20 Outpatient R [facility] [id number] Univers 09:15:00 09:15:00 ity of [facility] 2020-03-18 2020-03-18 Outpatient R [facility] [id number] Univers 16:00:00 16:00:00 ity of [facility] 2020-03-08 2020-03-08 Outpatient R [facility] [id number] Univers 13:00:00 13:00:00 ity of [facility] 2020-02-09 2020-02-09 Outpatient [facility] [id number] Univers 14:30:00 14:30:[address] [facility] 2020-02-09 2020-02-09 [facility]ici [facility] 1.2.840.114 [id number] Univers 08:30:37 08:45:37 ne Visit Talia Hammond 350.1.13.10 ity of [place] 4.2.7.2.[place] [phone] [address] 2020-02-09 2020-02-09 [facility] 1.2.840.114 [id number] 08:30:37 08:45:37 ne Visit Talia Hammond 350.1.13.10 [place] 4.2.7.2.686 Professio [phone] [address] 2020-02-08 2020-02-08 Outpatient R [facility] [id number] Univers 16:30:00 16:30:00 [facility] 2020-01-19 2020-01-19 Bundle Tier Ultrasound, [facility] 1.2 .840.114 [id number] Univers 10:38:05 11:38:05 Visit Martha Waters 350.1.13.10 ity of [place] 4.2.7.2.686 [place] [phone] [address] 2020-01-19 2020-01-19 Bundle Tier Ultrasound, [facility] 1.2.840.114 [id number] 10:38:05 11:38:05 Visit Rossi [facility] Manish 350.1.13.10 [place] 4.2.7.2.686 Professio [phone] [address] 2020-01-19 2020-01-19 Outpatient R [facility] [id number] Univers 11:00:00 11:00:[address] [facility] 2020-01-10 2020-01-10 Bundle Tier 2, Adc Lab [facility] 1.2.840.114 [id number] Univers 15:27:02 15:42:02 Visit Hodges, Echo Cam Meacham 350.1.13.10 ity of [place] 4.2.7.2.[place] [phone] Nc dical [address] 2020-01-10 2020-01-10 Bundle Tier 2, Adc Lab [facility] 1.2.840.114 [id number] 15:27:02 15:42:02 Visit Meacham 350.1.13.10 [place] 4.2.7.2.686 Professio [phone] [address] 2020-01-10 2020-01-10 Outpatient R ECHO HODGES [facility] [id number] Univers 15:30:00 15:30:00 ity [facility] 2020-01-10 2020-01-10 Routine [facility] 1.2.592.598 [id number] Univers 14:47:58 15:22:57 Cam Meacham 350.1.13.10 ity of Visit [place] 4.2.7.2.686 [place] [phone] [address] 2020-01-10 2020-01-10 Routine [facility] 1.2.290.529 [id number] 9327 14:47:58 15:22:57 Cam Meacham 350.1.13.10 Visit [place] 4.2.7.2.686 Professio [phone] [address] 2019-12-27 2019-12-27 Outpatient R ECHO HODGES [facility] [id number] Univers 13:00:00 [facility]-12-13 2019-12-13 Telephone [facility] 1.2.840.114 [id number] Univers 00:00:00 00:00:00 Cam Meacham 350.1.13.10 i ty of [place] 4.2.7.2.686 [place] [phone] Nc dic[address] 2019-12-13 2019-12-13 Telephone [facility] 1.2.840.114 [id number] 00:00:00 00:00:00 Cam Meacham 350.1.13.10 [place] 4.2.7.2.686 Professio [phone] [address] 2019-12-08 2019-12-08 Case Echo Hodges [facility] 1.2.297.451 [id number] [facility] 00:00:00 00:00:00 Management Cam Meacham 350.1.13.10 ity of [place]2.7.2.[place] [phone] [address] 2019-12-08 2019-12-08 Case Echo Hodges [facility] 1.2.547.718 [id number] [id number] 00:00:00 00:00:00 Management Cam Meacham 350.1.13.10 [place] 4.2.7.2.686 Professio [phone] [address] 2019-12-07 2019-12-07 Telephone Echo Hodges [facility] 1.2.840.114 [id number] Univers 00:00:00 00:00:00 Cam Meacham 350.1.13.10 i ty of [place] 4.2.7.2.[place] [phone] [address] 2019-12-07 2019-12-07 Telephone Echo Hodges [facility] 1.2.840.114 [id number] 00:00:00 00:00:00 Cam Meacham 350.1.13.10 [place] 4.2.7.2.686 Professio [phone] [address] 2019-11-29 2019-11-29 Bundle Tier 2, Adc Lab [facility] 1.2.840.114 [id number] [facility] 13:51:24 14:06:24 Visit Echo Hodges Costa Meacham 350.1.13.10 ity of [place] 4.2.7.2.[place] [phone] [address] 2019-11-29 2019-11-29 Bundle Tier 2, Adc Lab [facility] 1.2.840.114 [id number] 13:51:24 14:06:24 Visit Meacham 350.1.13.10 [place] 4.2.7.2.686 Professio [phone] [address] 2019-11-29 2019-11-29 Routine Echo Hodges [facility] 1.2.511.620 [id number] [id number] Univers 13:00:25 13:36:47 Cam Meacham 350.1.13.10 ity of Visit [place] 4.2.7.2.[place] [phone] [address] 2019-11-29 2019-11-29 Outpatient R ECHO HODGES [facility] [id number] Univers 13:00:00 13:00:00 ity [facility] 2019-11-29 2019-11-29 Orders Doctor FRANK 1.2.840.114 [id number] Univers 00:00:00 00:00:00 Only Unassigned, ELROY 350.1.13.10 [facility] 4.2.7.2.686 [place] as [phone] [address] 2019-11-07 2019-11-15 Telemedici Echo Hodges [facility] 1.2.840.114 [id number] Univers 08:13:02 09:41:50 ne Visit Costa Meacham 350.1.13.10 ity of [place].2.7.2.[place] [phone] [address] 2019-11-14 2019-11-14 Bundle Tier Ultrasound, [facility] 1.2 .840.114 [id number] Univers 11:24:05 12:36:31 Visit Lauren Jackman PATIENT CASE MANAGER 350.1.13.10 ity of [facility] 4.2.7.2.686 [place] as MATERNAL [phone] Med ical & CHILD [address] [place] [address] 2019-11-14 2019-11-14 Outpatient P [facility] [id number] Univers 11:00:00 11:00:00 ity [facility] 2019-11-07 2019-11-07 Outpatient R CARROLL ECHO [facility] [id number] Univers 14:00:00 14:00:00 ity [facility] 2019-10-27 2019-10-27 Outpatient R SIMON [facility] [id number] Univers 09:00:00 09:00:00 ILANA turnery o f [facility] 2019-10-26 2019-10-26 Telephone Echo Hodges [facility] 1.2.840.114 [id number] Univers 00:00:00 00:00:00 Costa Hammond 350.1.13.10 i ty of [place] 4.2.7.2.686 [facility] s Professio [phone] Nc dical [facility] 134 [facility] 2019-10-18 2019-10-18 Telephone Alireza [facility] 1.2.377.575 [id number] Univers 00:00:00 00:00:00 Kanika R PATIENT CASE MANAGER 350.1.13.10 ity of [place] [address].2.7.2.686 [place] as MATERNAL [phone] Med ical & CHILD 107 [facility] 2019-04-25 2019-04-25 Outpatient R ADAM [facility] [id number] Univers 14:00:00 14:33:35 TALIA ity [facility] 2019-03-15 2019-03-16 Inpatient P ECHO HODGES [facility] ESTELA [id number] Univers 06:47:00 19:30:00 ity of [facility] 2019-03-15 2019-03-16 Hospital Echo Hodges [facility] 1.2.840.114 [id number] Univers 06:47:00 19:30:00 Encounter Costa Hammond [id number] ity of [place] [id number] [facility] s [place] [phone] [facility] [address] 2019-03-09 2019-03-09 Bundle Tier 1, Adc Lab [facility] 1.2.840.114 [id number] Univers 14:22:30 14:37:30 Visit Talia Medina [id number] ity of [place] 4.2.7.2.686 [facility] [phone] [facility] [address] 2019-03-09 2019-03-09 Orders Doctor FRANK 1.2.840.114 [id number] Univers 00:00:00 00:00:00 Only Unassigned, ELROY [id number] ity of [place] [facility] 4.2.7.2.686 [place] as [id number] [facility] [address] 2019-03-08 2019-03-08 Case Adam [facility] [id number] Univers 00:00:00 00:00:00 Management Talia Hammond [id number] [id number] [id number] [address] 2019-03-08 2019-03-08 [facility] 1.2.840.114 [id number] Univers 00:00:00 00:00:00 Cam Meacham 350.1.13.10 i [place] [id number] [place] [id number] [address] 2019-03-07 2019-03-07 [facility] 1.2.261.605 [id number] Univers 14:36:38 15:24:28 Talia Hammond [id number] ity of [place] 4[place]2.7.2.[place] [phone] [address] 2019-02-21 2019-02-21 Routine [facility] [id number] Univers 14:33:39 15:05:05 Cam Meacham [id number] ity of [place] 4[place]2.7.2.686 [place] [phone] [address] 2019-02-21 2019-02-21 Outpatient R CARROLL ECHO [facility] [id number] Univers 13:45:00 15:05:05 ity [place] [facility] 2019-01-23 2019-01-23 Outpatient R [facility] [id number] Univers 11:15:00 11:15:00 ity [facility] 2018-12-26 2018-12-26 Outpatient R [facility] [id number] Univers 10:30:00 11:28:51 ity [facility] 2018-11-08 2018-11-08 Outpatient P KIRBY [facility] [id number] Univers 13:30:00 14:17:04 [facility] 2018-10-31 Outpatient R SIMON [facility] [id number] Univers 11:00:00 11:59:43 ILANA [facility] Results This patient has no known results.
--- NOTE | 2022-10-08 12:56 | ER ---
Nurse's Notes [facility] Name: Mary Joe Age: 22 yrs Sex: Female : 2000 Arrival Date: 10/08/2022 Time: 11:17 Bed 11 Private MD: Diagnosis: Streptococcal pharyngitis Presentation: 10/08 11:39 Chief complaint: Patient states: "for the past 2 days I've been having fever and chills aa5 and my throat hurts to the point that it hurts to talk". Coronavirus screen: sore throat. Ebola Screen: Patient denies travel to an Ebola-affected area in the 21 days before illness onset. Initial Sepsis Screen: Does the patient meet any 2 criteria? No. Patient's initial sepsis screen is negative. Does the patient have a suspected source of infection? No. Patient's initial sepsis screen is negative. Risk Assessment: Do you want to hurt yourself or someone else? Patient reports no desire to harm self or others. Onset of symptoms was September 2022. 11:39 Method Of Arrival: Ambulatory aa5 11:39 Acuity: VANDANA 4 aa5 DEPUTY BAILIFF: 11:41 LMP 09/12/2022 aa5 Historical: - Allergies: 11:40 No Known Allergies; aa5 - PMHx: 11:40 None; aa5 - PSHx: 11:40 None; aa5 - Immunization history:: Adult Immunizations unknown. - Social history:: Smoking status: Patient denies any tobacco usage or history of. Screenin:15 [facility] ED Fall Risk Assessment (Adult) Score/Fall Risk Level 0 - 2 = Low Risk. Abuse eh3 screen: Denies threats or abuse. Denies injuries from another. Nutritional screening: No deficits noted. Tuberculosis screening: No symptoms or risk factors identified. Assessment: 12:15 General: Appears in no apparent distress. uncomfortable, Behavior is calm, cooperative, eh3 appropriate for age, drowsy. Pain: Complains of pain in throat. Neuro: Level of Consciousness is awake, alert, obeys commands, Oriented to person, place, time, situation. Cardiovascular: Capillary refill < 3 seconds Patient's skin is warm and dry. Respiratory: Airway is patent Respiratory effort is even, unlabored, Respiratory pattern is regular, symmetrical, Breath sounds are coarse bilaterally. GI: No signs and/or symptoms were reported involving the gastrointestinal system. Abdomen is round non-distended. : No signs and/or symptoms were reported regarding the genitourinary system. EENT: Throat is reddened has patchy exudate. Derm: Skin is pink, warm \\T\\ dry. Musculoskeletal: Circulation, motion, and sensation intact. Range of motion: intact in all extremities. Vital Signs: 11:39 BP 143 / 88; Pulse 80; Resp 18 S; Temp 98.8(O); Pulse Ox 100% on R/A; Weight 95.25 kg aa5 (R); Height 5 ft. 7 in. (R); 12:15 Temp 98.8(O); eh3 11:39 Body Mass Index 32.89 (95.25 kg, 170.18 cm) aa5 ED Course: 11:17 Patient arrived in ED. am2 11:20 Marissa Rooney FNP-C is [facility]. snw 11:20 Dylan Springer MD is Attending Physician. snw 11:38 Arm band placed on. aa5 11:40 Triage completed. aa5 12:11 Patricia Rosales, CHRISTINA is Primary Nurse. eh3 12:15 Patient has correct armband on for positive identification. Bed in low position. Call 3 light in reach. Side rails up X2. Pulse ox on. NIBP on. Door closed. Noise minimized. Lights dimmed. Warm blanket given. 12:17 COVID-19/FLU A+B Sent. eh3 12:17 Strep Sent. eh3 Administered Medications: 13:25 Drug: Rocephin (cefTRIAXone) IM 1 grams Route: IM; Site: right ventrogluteal; eh3 13:30 Follow up: Response: Medication administered at discharge. eh3 13:25 Drug: Decadron - Dexamethasone IVP 10 mg Route: IVP; Site: Other; eh3 13:30 Follow up: Response: Medication administered at discharge. eh3 13:25 Drug: Acetaminophen PO Liquid 325 mg Route: PO; eh3 13:30 Follow up: Response: Medication administered at discharge. eh3 Outcome: 12:56 Discharge ordered by . snw 13:35 Patient left the ED. eh3 Signatures: Marissa Rooney FNP-C PATTERN MAKER PROGRAMER-Carlitosw Cony Fountain, RN RN aa5 Tierney Anne am2 Patricia Rosales, RN RN eh3
--- NOTE | 2022-10-08 12:56 | EDPHYS ---
Physician Documentation [facility] Name: Mary Joe Age: 22 yrs Sex: Female : 2000 Arrival Date: 10/08/2022 Time: 11:17 Bed 11 Private MD: ED Physician Dylan Springer HPI: 10/08 13:22 This 22 yrs old Black Female presents to ER via Ambulatory with complaints of Fever, snw Sore Throat, chills. 13:22 The patient reports fever, not measured (subjective). Onset: The symptoms/episode snw began/occurred suddenly, 2 day(s) ago, and became persistent. Associated signs and symptoms: Pertinent positives: chills, sore throat. Severity of symptoms: At their worst the symptoms were moderate severe. It is unknown whether or not the patient has had similar symptoms in the past. The patient has not recently seen a physician. 13:23 Children go to daycare. 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 - Social history:: Smoking status: Patient denies any tobacco usage or history of. ROS: 13:24 Eyes: Negative for injury, pain, redness, and discharge. snw 13:24 Neck: Negative for injury, pain, and swelling, Cardiovascular: Negative for chest pain, palpitations, and edema, Respiratory: Negative for shortness of breath, cough, wheezing, and pleuritic chest pain, Abdomen/GI: Negative for abdominal pain, nausea, vomiting, diarrhea, and constipation, Back: Negative for injury and pain, : Negative for injury, bleeding, discharge, and swelling, MS/Extremity: Negative for injury and deformity, Skin: Negative for injury, rash, and discoloration, Neuro: Negative for headache, weakness, numbness, tingling, and seizure, Psych: Negative for depression, anxiety, suicide ideation, homicidal ideation, and hallucinations. 13:24 Constitutional: Positive for chills, fever, poor PO intake. 13:24 ENT: Positive for sore throat. Exam: 13:22 Head/Face: Normocephalic, atraumatic. Eyes: Pupils equal round and reactive to light, snw extra-ocular motions intact. Lids and lashes normal. Conjunctiva and sclera are non-icteric and not injected. Cornea within normal limits. Periorbital areas with no swelling, redness, or edema. 13:22 Neck: Trachea midline, no thyromegaly or masses palpated, and no cervical lymphadenopathy. Supple, full range of motion without nuchal rigidity, or vertebral point tenderness. No Meningismus. Chest/axilla: Normal chest wall appearance and motion. Nontender with no deformity. No lesions are appreciated. Cardiovascular: Regular rate and rhythm with a normal S1 and S2. No gallops, murmurs, or rubs. Normal PMI, no JVD. No pulse deficits. Respiratory: Lungs have equal breath sounds bilaterally, clear to auscultation and percussion. No rales, rhonchi or wheezes noted. No increased work of breathing, no retractions or nasal flaring. Abdomen/GI: Soft, non-tender, with normal bowel sounds. No distension or tympany. No guarding or rebound. No evidence of tenderness throughout. Back: No spinal tenderness. No costovertebral tenderness. Full range of motion. Skin: Warm, dry with normal turgor. Normal color with no rashes, no lesions, and no evidence of cellulitis. MS/ Extremity: Pulses equal, no cyanosis. Neurovascular intact. Full, normal range of motion. Neuro: Awake and alert, GCS 15, oriented to person, place, time, and situation. Cranial nerves II-XII grossly intact. Motor strength 5/5 in all extremities. Sensory grossly intact. Cerebellar exam normal. Normal gait. Psych: Awake, alert, with orientation to person, place and time. Behavior, mood, and affect are within normal limits. 13:22 Constitutional: The patient appears alert, awake, uncomfortable. 13:22 ENT: TM's: erythema, that is mild, that is moderate, bilaterally, Nose: is normal, Mouth: Oral mucosa: normal, Posterior pharynx: erythema, that is moderate, that is marked, Voice: is normal. Vital Signs: 11:39 BP 143 / 88; Pulse 80; Resp 18 S; Temp 98.8(O); Pulse Ox 100% on R/A; Weight 95.25 kg aa5 (R); Height 5 ft. 7 in. (R); 12:15 Temp 98.8(O); eh3 11:39 Body Mass Index 32.89 (95.25 kg, 170.18 cm) aa5 MDM: 11:43 Patient medically screened. snw 13:24 Differential diagnosis: group A strep tonsillitis, mononucleosis, peritonsillar abscess snw pharyngitis, tonsillitis, viral syndrome. Data reviewed: vital signs, nurses notes, lab test result(s). Counseling: I had a detailed discussion with the patient and/or guardian regarding: the historical points, exam findings, and any diagnostic results supporting the discharge/admit diagnosis, the presence of at least one elevated blood pressure reading (>120/80) during this emergency department visit, lab results, the need for outpatient follow up, for definitive care, to return to the emergency department if symptoms worsen or persist or if there are any questions or concerns that arise at home. Special discussion: I have referred the patient to see his PCP for further evaluation of high blood pressure. Based on the history and exam findings, there is no indication for further emergent testing or inpatient evaluation. I discussed with the patient/guardian the need to see the primary care provider for further evaluation of the symptoms. 10/08 11:49 Order name: Strep; Complete Time: 12:53 snw 10/08 11:49 Order name: COVID-19/FLU A+B; Complete Time: 13:21 snw Administered Medications: 13:25 Drug: Rocephin (cefTRIAXone) IM 1 grams Route: IM; Site: right ventrogluteal; 3 13:30 Follow up: Response: Medication administered at discharge. 3 13:25 Drug: Decadron - Dexamethasone IVP 10 mg Route: IVP; Site: Other; 3 13:30 Follow up: Response: Medication administered at discharge. 3 13:25 Drug: Acetaminophen PO Liquid 325 mg Route: PO; 3 13:30 Follow up: Response: Medication administered at discharge. 3 Disposition: 14:32 I reviewed the patient's care provided by the Advanced Practice Provider and agree with jr11 the diagnosis and treatment plan. Disposition Summary: 10/08/22 12:56 Discharge Ordered Location: Home snw Condition: Stable snw Diagnosis - Streptococcal pharyngitis snw Followup: snw - With: Emergency Department - When: As needed - Reason: Worsening of condition Followup: snw - With: Private Physician - When: 5 - 6 days - Reason: Recheck today's complaints, Continuance of care, Re-evaluation by your physician Discharge Instructions: - Discharge Summary Sheet snw - Strep Throat, Adult snw - Rehydration, Adult snw Forms: - Work release form snw - Medication Reconciliation Form snw - Thank You Letter snw - Antibiotic Education snw - Prescription Opioid Use snw Prescriptions: - Pepcid 20 mg Oral Tablet - take 1 tablet by ORAL route once daily; 20 tablet; Refills: 0, Product snw Selection Permitted - promethazine 25 mg Oral Tablet - take 1 tablet by ORAL route every 6 hours As needed; 20 tablet; Refills: 0, snw Product Selection Permitted - Zithromax 500 mg Oral Tablet - take 1 tablet by ORAL route once daily for 5 days; 5 tablet; Refills: 0, snw Product Selection Permitted Signatures: Dispatcher [employer] EDMS Marissa Roonye FNP-C WELDING ROBOT OPERATOR-Csnw Cony Fountain, RN RN aa5 Dylan Springer MD MD [id number] Patricia Rosales, CHRISTINA RN eh3
[2022-10-08 13:21] LABS: SARS-COV-2 RT PCR NEGATIVE (NEGATIVE)
[2022-10-08] MEDS ORDERED: dexAMETHasone 10 MG/ML VIAL ONE (13:22)
[2022-10-08] MEDS ORDERED: ACETAMINOPHEN 160 MG/5 ML UCUP ONE (13:23)
[2022-10-08] MEDS ORDERED: CEFTRIAXONE 1000 MG/VIAL ONE (13:23)
[2022-10-08] MEDS ORDERED: LIDOCAINE 1% MPF 2 ML AMPULE ONE (13:23)
[2022-10-08 16:16] VITALS: BP 143/88; TEMP 98.8; O2SAT 100
== END 2022-10-08 13:35 | disposition home or self-care (01) ==
LOC: ER 11:15
DX: J02.0 Streptococcal pharyngitis (principal); Z20.822 Contact with and (suspected) exposure to COVID-19
CPT/HCPCS: 87081; 0240U; J1100

== ENCOUNTER 2023-03-21 08:36 | Emergency (ER) | payer OTHER ==
[2023-03-21] MEDS ORDERED: LIDOCAINE 1% MPF 5 ML VIAL ONE (09:23)
[2023-03-21] MEDS ORDERED: CEPHALEXIN 250 MG CAP ONE (09:23)
[2023-03-21] MEDS ORDERED: SMZ./TMP. 800/160 MG TABLET ONE (09:24)
--- OUTSIDE RECORDS SUMMARY | 2023-03-21 09:25 | XMS REPORT | Continuity of Care Document ---
:2000 Author Organization [facility] t Address [address] [facility] [address] [place] [address] Care Team Providers Name Role Phone PCP, PATIENT DOES NOT HAVE A Primary Care Physician UnavailECHO hSen Attending Clinician Unavailable Nurse, [facility] Attending Clinician Unavailable Echo Hodges MD Attending Clinician Doctor Unassigned, [place] Attending Clinician Unavailable Talia Medina PA-C Attending Clinician TALIA MEDINA Attending Clinician Unavailable Esperanza Parra MD Attending Clinician RUSLAN GLYNN Attending Clinician Unavailable Fran Weiss CRNA Attending Clinician Osmany Cracamo MD Attending Clinician Ultrasound, [facility] Attending Clinician Unavailable Ruslan Glynn MD Attending Clinician Ultrasound, [facility] Attending Clinician Unavailable Pascual Mcfarlane MD Attending Clinician [phone] Attending Clinician Unavailable Naina Lopez RN Attending Clinician Unavailable CAMILLA ASHFORD Attending Clinician Unavailable Pob, [facility] Main Attending Clinician Unavailable Malka Hernandez LMSW Attending Clinician 1, [facility] Attending Clinician Unavailable [employer] Attending Clinician Unavailable Lauren Jackman MD Attending Clinician 2, [facility] Attending Clinician Unavailable Martha Waters MD Attending Clinician ILANA MONTES Attending Clinician Unavailable Kanika Bryant Attending Clinician TALYA ORR Attending Clinician Unavailable ECHO HODGES Admitting Clinician Unavailable Echo Hodges MD Admitting Clinician Payers Payer Name Policy Type Policy Number Effective Date Expiration Date Oksana NEGRO [id number] 2018 00:00:00 [facility] [id number] 2019 CHOICE MEDICAID 00:00:00 MEDICAID [facility] [id number] 2016 00:00:00 Problems Condition Condition Condition Status Onset Resolution Last Treating Co mments Source Name Details Category Date Date Treatment Clinician Date Encounter Encounter Disease Active Uni vers for tubal for tubal 8-02 ity of ligation ligation 00:00: [place] counseling counseling 00 Me dical Branch Gestationa Gestationa Disease Active U nivers l l 8-01 ity of hypertensi hypertens[place] 00:[place], third on, third 00 [facility] trimester trimester Bran ch ASCUS with ASCUS with Disease Active U nivers positive positive 3-31 ity of high risk high risk 00:00: [place] HPV HPV 00 [facility] cervical cervical [place] Supervisio Supervisio Disease Active U nivers n of high n of high 2-02 ity of risk risk 00:00: [place] , , 00 Me dical antepartum antepartum Br anch Nausea Nausea Disease Active Univers 2-02 ity of 00:00: [place] 00 [facility] 37 weeks 37 weeks Disease Active Unive rs gestation gestation 8-28 ity of of of 00:00: [place] [facility] Live[facility] Liveborn Disease Active Unive rs , of infant, of 8-28 it y of gao [place] , , [place] born in born in [facility] by vaginal by vaginal delivery delivery Obesity Obesity Disease Active Univers (BMI (BMI 5-07 ity of 30-39.9) 30-39.9) 00:00: [place] 00 Medical Branch Multiparit Multiparit Disease Active U nivers y [...] Active Univers ALLERGIE Class ity of S [facility] Social History Social Habit Start Date Stop Date Quantity Comments Source Gender identity Universit y of [facility] Sexual orientation Univer sity of [facility] History SDOH University o f Alcohol Frequency [facility] edical Branch History SDOH University o f Alcohol Std Drinks [facility] History [facility] Binge [place] [facility] [place] Alcohol intake 2023-02-02 2023-02-02 0 /d University of 00:00:00 00:00:00 [facility] Exposure to 2022-10-23 2022-11-02 Not sure [facility] SARS-CoV-2 (event) 00:00:00 13:35:00 [facility] Tobacco use and 2022-02-02 2022-02-02 Smokeless Universit y of exposure 00:00:00 00:00:00 tobacco non-user [facility] dical [place] Alcohol Comment 2021-08-20 2021-08-20 quit when found Univ ersity of 00:00:00 00:00:[address] [facility] [place] History of Social 2019-01-24 2019-01-24 Univers ity of function 00:00:00 00:00:00 [facility] Sex Ass[birth year] At [birth year] Universit y of 00:00:00 00:00:00 [facility] Smoking Status Start Date Stop Date Source Never smoked tobacco [facility] Medications Ordered Filled Start Stop Current Ordering Indication Dosage Frequency Signature Comments Components Source Medication Medication Date Date Medication? Clinician (SIG) Name Name medroxyPROG 2022- No [id number] 150mg Univers ESTERone 02-02 ity of (DEPO-PROVE 16:00: 15:17 [place] RA) syringe 00 :00 Medical 150 mg Branch medroxyPROG 2022- No [id number] 150mg 150 mg, Univers ESTERone 02-02-18 Intramuscu ity of (DEPO-PROVE 16:00: 15:17 lar, ONCE, [place] RA) syringe 00 :00 1 dose, On Me dical 150 mg Sami Felipe 02/02/23 at 1100, Routine hydroCHLORO 2022-0 Yes [id number] 12.5mg Take 1 Univers thiazide 8-07 tablet by ity of 12.5 mg 00:00: mouth in [place] tablet 00 the Medical morning. Branch hydroCHLORO 2022-0 Yes [id number] 12.5mg Take 1 Univers thiazide 8-07 tablet by ity of 12.5 mg 00:00: mouth in [place] tablet 00 the Medical morning. Branch hydroCHLORO 2-0 Yes [id number] 12.5mg Take 1 Univers thiazide 8-07 tablet by ity of 12.5 mg 00:00: mouth in [place] tablet 00 the Medical morning. Branch hydroCHLORO 2-0 Yes [id number] 12.5mg Take 1 Univers thiazide 8-07 tablet by ity of 12.5 mg 00:00: mouth in [place] tablet 00 the Medical morning. Branch hydroCHLORO 2021-0 Yes [id number] 12.5mg Take 1 Univers thiazide 8-07 tablet by ity of 12.5 mg 00:00: mouth in [place] tablet 00 the Medical morning. Branch hydroCHLORO 2-0 Yes [id number] 12.5mg Take 1 Univers thiazide 8-07 tablet by ity of 12.5 mg 00:00: mouth in [place] tablet 00 the Medical morning. Branch hydroCHLORO 2022-0 Yes [id number] 12.5mg Take 1 Univers thiazide 8-07 tablet by ity of 12.5 mg 00:00: mouth in [place] tablet 00 the Medical morning. Branch hydroCHLORO 2-0 Yes [id number] 12.5mg Take 1 Univers thiazide 8-07 tablet by ity of 12.5 mg 00:00: mouth in [place] tablet 00 the Medical morning. Branch hydroCHLORO 2022-0 Yes [id number] 12.5mg Take 1 Univers thiazide 8-07 tablet by ity of 12.5 mg 00:00: mouth in [place] tablet 00 the Medical morning. Branch hydroCHLORO 2022-0 Yes [id number] 12.5mg Take 1 Univers thiazide 8-07 tablet by ity of 12.5 mg 00:00: mouth in [place] tablet 00 the Medical morning. Branch hydroCHLORO 2021-0 Yes [id number] 12.5mg Take 1 Univers thiazide 8-07 tablet by ity of 12.5 mg 00:00: mouth in [place] tablet 00 the Medical morning. Branch hydroCHLORO 2021-0 Yes [id number] 12.5mg Take 1 Univers thiazide 8-07 tablet by ity of 12.5 mg 00:00: mouth in [place] tablet 00 the Medical morning. Branch hydroCHLORO 2021-0 Yes [id number] 12.5mg Take 1 Univers thiazide 8-07 tablet by ity of 12.5 mg 00:00: mouth in [place] tablet 00 the Medical morning. Branch hydroCHLORO 0 Yes [id number] 12.5mg Take 1 Univers thiazide 8-07 tablet by ity of 12.5 mg 00:00: mouth in [place] tablet 00 the Medical morning. Branch hydroCHLORO 0 Yes [id number] 12.5mg Take 1 Univers thiazide 8-07 tablet by ity of 12.5 mg 00:00: mouth in [place] tablet 00 the Medical morning. Branch hydroCHLORO 0 Yes [id number] 12.5mg Take 1 Univers thiazide 8-07 tablet by ity of 12.5 mg 00:00: mouth in [place] tablet 00 the Medical morning. Branch Yes [id number] 1{tbl} Take 1 Univers vitamin 8-06 tablet by ity of w/FA tablet 00:00: mouth in [place] 00 the Medical morning. Branch docusate 0 Yes [id number] 200mg Take 2 U nivers 100 mg 8-06 capsules ity of capsule 00:00: by mouth [place] 00 once daily Medical as needed Branch for Constipati on. ferrous 0 Yes [id number] 325mg Take 1 Un alex sulfate 325 8-06 tablet by ity of mg (65 mg 00:00: [place] iron[place] 00 the Medical tablet morning Branch and 1 tablet in the evening. ibuprofen 2021-0 Yes [id number] 600mg Take 1 Univers 600 mg 8-06 tablet by ity of tablet 00:00: mouth [place] 00 every 6 Medical (six) Branch hours as needed (Pain). Take with food or milk. 2021-0 Yes [id number] 1{tbl} Take 1 Univers vitamin 8-06 tablet by ity of w/FA tablet 00:00: mouth in [place] 00 the Medical morning. Branch docusate Yes [id number] 200mg Take 2 U nivers 100 mg 8-06 capsules ity of capsule 00:00: by mouth [place] 00 once daily Medical as needed Branch for Constipati on. ferrous Yes [id number] 325mg Take 1 Un alex sulfate 325 8-06 tablet by ity of mg (65 mg 00:00: [place] iron[place] 00 the Medical tablet morning Branch and 1 tablet in the evening. ibuprofen Yes [id number] 600mg Take 1 Univers 600 mg 8-06 tablet by ity of tablet 00:00: mouth [place] 00 every 6 Medical (six) Branch hours as needed (Pain). Take with food or milk. Yes [id number] 1{tbl} Take 1 Univers vitamin 8-06 tablet by ity of w/FA tablet 00:00: mouth in [place] 00 the Medical morning. Branch docusate Yes [id number] 200mg Take 2 U nivers 100 mg 8-06 capsules ity of capsule 00:00: by mouth [place] 00 once daily Medical as needed Branch for Constipati on. ferrous 0 Yes [id number] 325mg Take 1 Un alex sulfate 325 8-06 tablet by ity of mg (65 mg 00:00: [place] iron[place] 00 the Medical tablet morning Branch and 1 tablet in the evening. ibuprofen Yes [id number] 600mg Take 1 Univers 600 mg 8-06 tablet by ity of tablet 00:00: mouth [place] 00 every 6 Medical (six) Branch hours as needed (Pain). Take with food or milk. 0 Yes [id number] 1{tbl} Take 1 Univers vitamin 8-06 tablet by ity of w/FA tablet 00:00: mouth in [place] 00 the Medical morning. Branch docusate Yes [id number] 200mg Take 2 U nivers 100 mg 8-06 capsules ity of capsule 00:00: by mouth [place] 00 once daily Medical as needed Branch for Constipati on. ferrous 2021-0 Yes [id number] 325mg Take 1 Un alex sulfate 325 8-06 tablet by ity of mg (65 mg 00:00: [place] iron[place] 00 the Medical tablet morning Branch and 1 tablet in the evening. ibuprofen 2021-0 Yes [id number] 600mg Take 1 Univers 600 mg 8-06 tablet by ity of tablet 00:00: mouth [place] 00 every 6 Medical (six) Branch hours as needed (Pain). Take with food or milk. 2021-0 Yes [id number] 1{tbl} Take 1 Univers vitamin 8-06 tablet by ity of w/FA tablet 00:00: mouth in [place] 00 the Medical morning. Branch docusate Yes [id number] 200mg Take 2 U nivers 100 mg 8-06 capsules ity of capsule 00:00: by mouth [place] 00 once daily Medical as needed Branch for Constipati on. ferrous 2021- Yes [id number] 325mg Take 1 Un alex sulfate 325 8-06 tablet by ity of mg (65 mg 00:00: [place] iron[place] 00 the Medical tablet morning Branch and 1 tablet in the evening. ibuprofen Yes [id number] 600mg Take 1 Univers 600 mg 8-06 tablet by ity of tablet 00:00: mouth [place] 00 every 6 Medical (six) Branch hours as needed (Pain). Take with food or milk. 2021-0 Yes [id number] 1{tbl} Take 1 Univers vitamin 8-06 tablet by ity of w/FA tablet 00:00: mouth in [place] 00 the Medical morning. Branch docusate 0 Yes [id number] 200mg Take 2 U nivers 100 mg 8-06 capsules ity of capsule 00:00: by mouth [place] 00 once daily Medical as needed Branch for Constipati on. ferrous 2021-0 Yes [id number] 325mg Take 1 Un alex sulfate 325 8-06 tablet by ity of mg (65 mg 00:00: [place] iron[place] 00 the Medical tablet morning Branch and 1 tablet in the evening. ibuprofen 2021-0 Yes [id number] 600mg Take 1 Univers 600 mg 8-06 tablet by ity of tablet 00:00: mouth [place] 00 every 6 Medical (six) Branch hours as needed (Pain). Take with food or milk. 2021-0 Yes [id number] 1{tbl} Take 1 Univers vitamin 8-06 tablet by ity of w/FA tablet 00:00: mouth in [place] 00 the Medical morning. Branch docusate Yes [id number] 200mg Take 2 U nivers 100 mg 8-06 capsules ity of capsule 00:00: by mouth [place] 00 once daily Medical as needed Branch for Constipati on. ferrous Yes [id number] 325mg Take 1 Un alex sulfate 325 8-06 tablet by ity of mg (65 mg 00:00: [place] iron[place] 00 the Medical tablet morning Branch and 1 tablet in the evening. ibuprofen Yes [id number] 600mg Take 1 Univers 600 mg 8-06 tablet by ity of tablet 00:00: mouth [place] 00 every 6 Medical (six) Branch hours as needed (Pain). Take with food or milk. Yes [id number] 1{tbl} Take 1 Univers vitamin 8-06 tablet by ity of w/FA tablet 00:00: mouth in [place] 00 the Medical morning. Branch docusate Yes [id number] 200mg Take 2 U nivers 100 mg 8-06 capsules ity of capsule 00:00: by mouth [place] 00 once daily Medical as needed Branch for Constipati on. ferrous Yes [id number] 325mg Take 1 Un alex sulfate 325 8-06 tablet by ity of mg (65 mg 00:00: [place] iron[place] 00 the Medical tablet morning Branch and 1 tablet in the evening. ibuprofen Yes [id number] 600mg Take 1 Univers 600 mg 8-06 tablet by ity of tablet 00:00: mouth [place] 00 every 6 Medical (six) Branch hours as needed (Pain). Take with food or milk. Yes [id number] 1{tbl} Take 1 Univers vitamin 8-06 tablet by ity of w/FA tablet 00:00: mouth in [place] 00 the Medical morning. Branch docusate Yes [id number] 200mg Take 2 U nivers 100 mg 8-06 capsules ity of capsule 00:00: by mouth [place] 00 once daily Medical as needed Branch for Constipati on. ferrous Yes [id number] 325mg Take 1 Un alex sulfate 325 8-06 tablet by ity of mg (65 mg 00:00: mouth [place] iron[place] 00 the Medical tablet morning Branch and 1 tablet in the evening. ibuprofen 0 Yes [id number] 600mg Take 1 Univers 600 mg 8-06 tablet by ity of tablet 00:00: mouth [place] 00 every 6 Medical (six) Branch hours as needed (Pain). Take with food or milk. 2021-0 Yes [id number] 1{tbl} Take 1 Univers vitamin 8-06 tablet by ity of w/FA tablet 00:00: mouth in [place] 00 the Medical morning. Branch docusate Yes [id number] 200mg Take 2 U nivers 100 mg 8-06 capsules ity of capsule 00:00: by mouth [place] 00 once daily Medical as needed Branch for Constipati on. ferrous Yes [id number] 325mg Take 1 Un alex sulfate 325 8-06 tablet by ity of mg (65 mg 00:00: [place] iron[place] 00 the Medical tablet morning Branch and 1 tablet in the evening. ibuprofen 0 Yes [id number] 600mg Take 1 Univers 600 mg 8-06 tablet by ity of tablet 00:00: mouth [place] 00 every 6 Medical (six) Branch hours as needed (Pain). Take with food or milk. 0 Yes [id number] 1{tbl} Take 1 Univers vitamin 8-06 tablet by ity of w/FA tablet 00:00: mouth in [place] 00 the Medical morning. Branch docusate Yes [id number] 200mg Take 2 U nivers 100 mg 8-06 capsules ity of capsule 00:00: by mouth [place] 00 once daily Medical as needed Branch for Constipati on. ferrous 2021-0 Yes [id number] 325mg Take 1 Un alex sulfate 325 8-06 tablet by ity of mg (65 mg 00:00: [place] iron[place] 00 the Medical tablet morning Branch and 1 tablet in the evening. ibuprofen 0 Yes [id number] 600mg Take 1 Univers 600 mg 8-06 tablet by ity of tablet 00:00: mouth [place] 00 every 6 Medical (six) Branch hours as needed (Pain). Take with food or milk. 2021-0 Yes [id number] 1{tbl} Take 1 Univers vitamin 8-06 tablet by ity of w/FA tablet 00:00: mouth in [place] 00 the Medical morning. Branch docusate 0 Yes [id number] 200mg Take 2 U nivers 100 mg 8-06 capsules ity of capsule 00:00: by mouth [place] 00 once daily Medical as needed Branch for Constipati on. ferrous 2021-0 Yes [id number] 325mg Take 1 Un alex sulfate 325 8-06 tablet by ity of mg (65 mg 00:00: mouth [place] iron[place] 00 the Medical tablet morning Branch and 1 tablet in the evening. ibuprofen 2021-0 Yes [id number] 600mg Take 1 Univers 600 mg 8-06 tablet by ity of tablet 00:00: mouth [place] 00 every 6 Medical (six) Branch hours as needed (Pain). Take with food or milk. Yes [id number] 1{tbl} Take 1 Univers vitamin 8-06 tablet by ity of w/FA tablet 00:00: mouth in [place] 00 the Medical morning. Branch docusate Yes [id number] 200mg Take 2 U nivers 100 mg 8-06 capsules ity of capsule 00:00: by mouth [place] 00 once daily Medical as needed Branch for Constipati on. ferrous 2021-0 Yes [id number] 325mg Take 1 Un alex sulfate 325 8-06 tablet by ity of mg (65 mg 00:00: mouth [place] iron[place] 00 the Medical tablet morning Branch and 1 tablet in the evening. ibuprofen 2021-0 Yes [id number] 600mg Take 1 Univers 600 mg 8-06 tablet by ity of tablet 00:00: mouth [place] 00 every 6 Medical (six) Branch hours as needed (Pain). Take with food or milk. 2021-0 Yes [id number] 1{tbl} Take 1 Univers vitamin 8-06 tablet by ity of w/FA tablet 00:00: mouth in [place] 00 the Medical morning. Branch docusate 0 Yes [id number] 200mg Take 2 U nivers 100 mg 8-06 capsules ity of capsule 00:00: by mouth [place] 00 once daily Medical as needed Branch for Constipati on. ferrous 2021-0 Yes [id number] 325mg Take 1 Un alex sulfate 325 8-06 tablet by ity of mg (65 mg 00:00: mouth [place] iron[place] 00 the Medical tablet morning Branch and 1 tablet in the evening. ibuprofen 2021-0 Yes [id number] 600mg Take 1 Univers 600 mg 8-06 tablet by ity of tablet 00:00: mouth [place] 00 every 6 Medical (six) Branch hours as needed (Pain). Take with food or milk. 2021-0 Yes [id number] 1{tbl} Take 1 Univers vitamin 8-06 tablet by ity of w/FA tablet 00:00: mouth in [place] 00 the Medical morning. Branch docusate 0 Yes [id number] 200mg Take 2 U nivers 100 mg 8-06 capsules ity of capsule 00:00: by mouth [place] 00 once daily Medical as needed Branch for Constipati on. ferrous 2021-0 Yes [id number] 325mg Take 1 Un alex sulfate 325 8-06 tablet by ity of mg (65 mg 00:00: [place] iron[place] 00 the Medical tablet morning Branch and 1 tablet in the evening. ibuprofen 2021-0 Yes [id number] 600mg Take 1 Univers 600 mg 8-06 tablet by ity of tablet 00:00: mouth [place] 00 every 6 Medical (six) Branch hours as needed (Pain). Take with food or milk. 2021-0 Yes [id number] 1{tbl} Take 1 Univers vitamin 8-06 tablet by ity of w/FA tablet 00:00: mouth in [place] 00 the Medical morning. Branch docusate 2021-0 Yes [id number] 200mg Take 2 U nivers 100 mg 8-06 capsules ity of capsule 00:00: by mouth [place] 00 once daily Medical as needed Branch for Constipati on. ferrous 2021-0 Yes [id number] 325mg Take 1 Un alex sulfate 325 8-06 tablet by ity of mg (65 mg 00:00: [place] iron[place] 00 the Medical tablet morning Branch and 1 tablet in the evening. ibuprofen 2021-0 Yes [id number] 600mg Take 1 Univers 600 mg 8-06 tablet by ity of tablet 00:00: mouth [place] 00 every 6 Medical (six) Branch hours as needed (Pain). Take with food or milk. cephALEXin 2021-0 Yes [id number] 500mg Take 1 Univers 500 mg 8-02 capsule by ity of capsule 00:00: mouth [place] 00 every 6 Medical (six) Branch hours. cephALEXin 2022-0 Yes [id number] 500mg Take 1 Univers 500 mg 8-02 capsule by ity of capsule 00:00: mouth [place] 00 every 6 Medical (six) Branch hours. cephALEXin 2022-0 Yes [id number] 500mg Take 1 Univers 500 mg 8-02 capsule by ity of capsule 00:00: mouth [place] 00 every 6 Medical (six) Branch hours. cephALEXin 2022-0 Yes [id number] 500mg Take 1 Univers 500 mg 8-02 capsule by ity of capsule 00:00: mouth [place] 00 every 6 Medical (six) Branch hours. cephALEXin 2022-0 Yes [id number] 500mg Take 1 Univers 500 mg 8-02 capsule by ity of capsule 00:00: mouth [place] 00 every 6 Medical (six) Branch hours. cephALEXin 2022-0 Yes [id number] 500mg Take 1 Univers 500 mg 8-02 capsule by ity of capsule 00:00: mouth [place] 00 every 6 Medical (six) Branch hours. cephALEXin 2022-0 Yes [id number] 500mg Take 1 Univers 500 mg 8-02 capsule by ity of capsule 00:00: mouth [place] 00 every 6 Medical (six) Branch hours. cephALEXin 2022-0 Yes [id number] 500mg Take 1 Univers 500 mg 8-02 capsule by ity of capsule 00:00: mouth [place] 00 every 6 Medical (six) Branch hours. cephALEXin 2022-0 Yes [id number] 500mg Take 1 Univers 500 mg 8-02 capsule by ity of capsule 00:00: mouth [place] 00 every 6 Medical (six) Branch hours. cephALEXin 2022-0 Yes [id number] 500mg Take 1 Univers 500 mg 8-02 capsule by ity of capsule 00:00: mouth [place] 00 every 6 Medical (six) Branch hours. cephALEXin 2022-0 Yes [id number] 500mg Take 1 Univers 500 mg 8-02 capsule by ity of capsule 00:00: mouth [place] 00 every 6 Medical (six) Branch hours. cephALEXin 2022-0 Yes [id number] 500mg Take 1 Univers 500 mg 8-02 capsule by ity of capsule 00:00: mouth [place] 00 every 6 Medical (six) Branch hours. cephALEXin 2022-0 Yes [id number] 500mg Take 1 Univers 500 mg 8-02 capsule by ity of capsule 00:00: mouth [place] 00 every 6 Medical (six) Branch hours. cephALEXin 2-0 Yes [id number] 500mg Take 1 Univers 500 mg 8-02 capsule by ity of capsule 00:00: mouth [place] 00 every 6 Medical (six) Branch hours. cephALEXin 2022-0 Yes [id number] 500mg Take 1 Univers 500 mg 8-02 capsule by ity of capsule 00:00: mouth [place] 00 every 6 Medical (six) Branch hours. cephALEXin 2022-0 Yes [id number] 500mg Take 1 Univers 500 mg 8-02 capsule by ity of capsule 00:00: mouth [place] 00 every 6 Medical (six) Branch hours. fluticasone 2021-0 Yes Univer s propionate 3-06 ity of 50 00:00: [place] mcg/actuati 00 Medical on nasal Branch spray fluticasone 0 Yes Univer s propionate 3-06 ity of [...] 00 Medical on nasal Branch spray fluticasone 2-0 Yes Univer s propionate 3-06 ity of 50 00:00: [place] mcg/actuati 00 Medical on nasal Branch spray fluticasone 2-0 Yes Univer s propionate 3-06 ity of 50 00:00: [place] mcg/actuati 00 Medical on nasal Branch spray fluticasone 2-0 Yes Univer s propionate 3-06 ity of 50 00:00: [place] mcg/actuati 00 Medical on nasal Branch spray fluticasone 2-0 Yes Univer s propionate 3-06 ity of 50 00:00: [place] mcg/actuati 00 Medical on nasal Branch spray fluticasone 2021-0 Yes Univer s propionate 3-06 ity of 50 00:00: [place] mcg/actuati 00 Medical on nasal Branch spray metoclopram 2022-0 Yes [id number] 10mg Take 1 Univers jaron HCl 10 2-02 tablet by ity of mg tablet 00:00: mouth [place] 00 every 6 Medical (six) Branch hours as needed for Nausea and Vomiting (N/V). metoclopram 2022-0 Yes [id number] 10mg Take 1 Univers jaron HCl 10 2-02 tablet by ity of mg tablet 00:00: mouth [place] 00 every 6 Medical (six) Branch hours as needed for Nausea and Vomiting (N/V). metoclopram 2022-0 Yes [id number] 10mg Take 1 Univers jaron HCl 10 2-02 tablet by ity of mg tablet 00:00: mouth [place] 00 every 6 Medical (six) Branch hours as needed for Nausea and Vomiting (N/V). metoclopram 2022-0 Yes [id number] 10mg Take 1 Univers jaron HCl 10 2-02 tablet by ity of mg tablet 00:00: mouth [place] 00 every 6 Medical (six) Branch hours as needed for Nausea and Vomiting (N/V). metoclopram 2022-0 Yes [id number] 10mg Take 1 Univers jaron HCl 10 2-02 tablet by ity of mg tablet 00:00: mouth [place] 00 every 6 Medical (six) Branch hours as needed for Nausea and Vomiting (N/V). metoclopram 2022-0 Yes [id number] 10mg Take 1 Univers jaron HCl 10 2-02 tablet by ity of mg tablet 00:00: mouth [place] 00 every 6 Medical (six) Branch hours as needed for Nausea and Vomiting (N/V). metoclopram 2022-0 Yes [id number] 10mg Take 1 Univers jaron HCl 10 2-02 tablet by ity of mg tablet 00:00: mouth [place] 00 every 6 Medical (six) Branch hours as needed for Nausea and Vomiting (N/V). metoclopram 2022-0 Yes [id number] 10mg Take 1 Univers jaron HCl 10 2-02 tablet by ity of mg tablet 00:00: mouth [place] 00 every 6 Medical (six) Branch hours as needed for Nausea and Vomiting (N/V). metoclopram 2022-0 Yes [id number] 10mg Take 1 Univers jaron HCl 10 2-02 tablet by ity of mg tablet 00:00: mouth [place] 00 every 6 Medical (six) Branch hours as needed for Nausea and Vomiting (N/V). metoclopram 2022-0 Yes [id number] 10mg Take 1 Univers jaron HCl 10 2-02 tablet by ity of mg tablet 00:00: mouth [place] 00 every 6 Medical (six) Branch hours as needed for Nausea and Vomiting (N/V). metoclopram 2022-0 Yes [id number] 10mg Take 1 Univers jaron HCl 10 2-02 tablet by ity of mg tablet 00:00: mouth [place] 00 every 6 Medical (six) Branch hours as needed for Nausea and Vomiting (N/V). metoclopram 2022-0 Yes [id number] 10mg Take 1 Univers jaron HCl 10 2-02 tablet by ity of mg tablet 00:00: mouth [place] 00 every 6 Medical (six) Branch hours as needed for Nausea and Vomiting (N/V). metoclopram 2022-0 Yes [id number] 10mg Take 1 Univers jaron HCl 10 2-02 tablet by ity of mg tablet 00:00: mouth [place] 00 every 6 Medical (six) Branch hours as needed for Nausea and Vomiting (N/V). metoclopram 2022-0 Yes [id number] 10mg Take 1 Univers jaron HCl 10 2-02 tablet by ity of mg tablet 00:00: mouth [place] 00 every 6 Medical (six) Branch hours as needed for Nausea and Vomiting (N/V). metoclopram 2022-0 Yes [id number] 10mg Take 1 Univers jaron HCl 10 2-02 tablet by ity of mg tablet 00:00: mouth [place] 00 every 6 Medical (six) Branch hours as needed for Nausea and Vomiting (N/V). metoclopram 2-0 Yes [id number] 10mg Take 1 Univers jaron HCl 10 2-02 tablet by ity of mg tablet 00:00: mouth [place] 00 every 6 Medical (six) Branch hours as needed for Nausea and Vomiting (N/V). Immunizations Ordered Filled Immunization Date Status Comments [facility] e Immunization Name Name TD 2020-04-08 Completed University of 00:00:00 [facility] TDAP 2020-04-08 Completed University of 00:00:00 [facility] TDAP 2020-04-08 Completed University of 00:00:00 [facility] TDAP 2020-04-08 Completed University of 00:00:00 [facility] TDAP 2020-04-08 Completed University of 00:00:00 [facility] TDAP 2020-04-08 Completed University of 00:00:00 [facility] TDAP 2020-04-08 Completed University of 00:00:00 [facility] TDAP 2020-04-08 Completed University of 00:00:00 [facility] TDAP 2020-04-08 Completed University of 00:00:00 [facility] TDAP 2020-04-08 Completed University of 00:00:00 [facility] TDAP 2020-04-08 Completed University of 00:00:00 [facility] TDAP 2020-04-08 Completed University of 00:00:00 [facility] TDAP 2020-04-08 Completed University of 00:00:00 [facility] TDAP 2020-04-08 Completed University of 00:00:00 [facility] TDAP 2020-04-08 Completed University of 00:00:00 [facility] TDAP 2020-04-08 Completed University of 00:00:00 [facility] TDAP 2013-07-19 Completed University of 00:00:00 [facility] TDAP 2013-07-19 Completed University of 00:00:00 [facility] TDAP 2013-07-19 Completed University of 00:00:00 [facility] TDAP 2013-07-19 Completed University of 00:00:00 [facility] TDAP 2013-07-19 Completed University of 00:00:00 [facility] TDAP 2013-07-19 Completed University of 00:00:00 [facility] TDAP 2013-07-19 Completed University of 00:00:00 [facility] TDAP 2013-07-19 Completed University of 00:00:00 [facility] TDAP 2013-07-19 Completed University of 00:00:00 [facility] TDAP 2013-07-19 Completed University of 00:00:00 [facility] TDAP 2013-07-19 Completed University of 00:00:00 [facility] TDAP 2013-07-19 Completed University of 00:00:00 [facility] TDAP 2013-07-19 Completed University of 00:00:00 [facility] TDAP 2013-07-19 Completed University of 00:00:00 [facility] TDAP 2013-07-19 Completed University of 00:00:00 [facility] TDAP 2013-07-19 Completed University of 00:00:00 [facility] Vital Signs Vital Name Observation Time Observation Value Comments Source Systolic blood 2023-02-02 15:14:00 124 mm[Hg] Univer sity of pressure [facility] Diastolic blood 2023-02-02 15:14:00 84 mm[Hg] Unive rsity of [facility] Heart rate 2023-02-02 15:14:00 69 /min [facility] Body temperature 2023-02-02 15:14:00 36.89 [facility] Respiratory rate 2023-02-02 15:14:00 18 /min Univ [facility] Body weight 2023-02-02 15:14:00 107.23 kg [facility] BMI 2023-02-02 15:14:00 37.03 kg/m2 [facility] Systolic blood 2022-11-02 19:20:00 132 mm[Hg] Univer sity of pressure [facility] Diastolic blood 2022-11-02 19:20:00 100 mm[Hg] Unive rsity of pressure [facility] Heart rate 2022-11-02 19:20:00 72 /min [facility] Body temperature 2022-11-02 19:20:00 37 [facility] [place] [facility] Respiratory rate 2022-11-02 19:20:00 18 /min Univ [facility] Body height 2022-11-02 19:20:00 170.2 cm Universi ty of [facility] Body weight 2022-11-02 19:20:00 103.42 kg Universi ty of [facility] BMI 2022-11-02 19:20:00 35.71 kg/m2 Universi ty of [facility] Systolic blood 2022-03-16 16:56:00 128 mm[Hg] Univer sity [facility] Diastolic blood 2022-03-16 16:56:00 82 mm[facility]Hg[facility] 2022-03-16 16:56:00 62 /min Universi ty of [facility] Body temperature 2022-03-16 16:56:00 36.78 Bisi [facility] Respiratory rate 2022-03-16 16:56:00 18 /min [facility] [place] [facility] Body height 2022-03-16 16:56:00 170.2 cm Universi ty of [facility] Body weight 2022-03-16 16:56:00 91.173 kg Universi ty of [facility] BMI 2022-03-16 16:56:00 31.48 kg/m2 Universi ty [facility] Procedures Procedure Date / Time Performing Clinician Source Performed ASSIGNMENT OF BENEFITS 2023-02-02 14:48:21 Doctor Unassigned, No [facility] GC & CHLAMYDIA AMPLIFIED 2022-11-02 19:52:00 Talia Medina [facility] LAB ONLY PAP 2022-11-02 19:52:00 Talia Medina [facility] [place] SMEAR-LIQUID BASED [facility] h TRICHOMONAS AMPLIFIED 2022-11-02 19:52:00 Talia Medina [facility] PAP SMEAR-LIQUID 2022-11-02 19:52:00 Talia Medina [facility] HIGH RISK HPV-THIN PREP 2022-11-02 19:52:00 Talia Medina [facility] PATIENT FINANCIAL 2022-11-02 18:37:30 Doctor Unassigned, No [facility] POLICY [facility] CONSENT FOR 2022-11-02 05:01:00 Doctor Unassigned, No [facility] Emergency Encounters Start End Encounter Admission Attending Care Care Encounter Source Date/Time Date/Time Type Type Clinicians Facility Department ID 2021-05-17 Outpatient [facility] ESTELA [id number] Univers 02:01:28 ity of [facility] 2021-05-16 Outpatient P [facility] ESTELA [id number] Univers 21:48:38 ity of [facility] 2021-05-16 Outpatient P [facility] ESTELA [id number] Univers 19:33:22 ity of [facility] 2021-05-16 Outpatient P [facility] ESTELA [id number] Univers 19:31:22 ity [facility] 2023-02-02 2023-02-02 Outpatient R ECHO HODGES [facility] [id number] Univers 10:00:00 10:15:09 ity [facility] 2023-02-02 2023-02-02 Nurse Nurse, [facility] 1.2.840.114 [id number] Univers 10:00:00 10:15:09 Visit Echo Hodges 350.1.13.10 ity [facility] [place]2.7.2.[place] [id number] Nm dical [address] 2023-02-02 2023-02-02 Orders Doctor FRANK 1.2.840.114 [id number] Univers 00:00:00 00:00:00 Only Unassigned, ELROY 350.1.13.10 ity of [place] [facility] 4.2.7.2.686 [place] as [id number] [address] 2023-01-29 2023-01-29 Outpatient R ECHO HODGES [facility] [id number] Univers 14:30:00 14:30:00 ity [facility] 2023-01-12 2023-01-12 Outpatient R ECHO HODGES [facility] [id number] Univers 14:15:00 14:15:00 ity [facility] 2022-12-08 2022-12-08 Telephone Adam [facility] 1.2.840.114 [id number] Univers 00:00:00 00:00:00 Talia HAMMOND 350.1.13.10 i ty of [place] 4.2.7.2.[place] [id number] Nm dical [address] 2022-11-25 2022-11-25 Patient Doctor HIKRISTI 1.2.840.114 [id number] Univers 00:00:00 00:00:00 Secure Msg Unassigned, MANISH 350.1.13.10 ity of [place] 4.2.7.2.[place] [id number] [address] 2022-11-16 2022-11-16 Telephone Adam HIKRISTI 1.2.840.114 [id number] Univers 00:00:00 00:00:00 Talia HAMMOND 350.1.13.10 i ty of [place] 4.2.7.2.[place] [id number] [address] 2022-11-02 2022-11-02 Outpatient R ADAM [facility] [id number] Univers 14:15:00 15:02:03 TALIA howard [facility] 2022-11-02 2022-11-02 Office Adam [facility] 1.2.485.183 [id number] Univers 14:15:00 15:02:03 Visit Talia HAMMOND 350.1.13.10 i ty of [facility] 4.2.7.2.[place] [id number] [address] 2022-11-02 2022-11-02 Orders Doctor FRANK 1.2.840.114 [id number] Univers 00:00:00 00:00:00 Only Unassigned, ELROY 350.1.13.10 ity of [place] [facility] 4.2.7.2.686 [place] [id number] [address] 2022-06-29 2022-06-29 Outpatient R ADAM [facility] [id number] Univers 10:30:00 10:30:00 TALIA howard [facility] 2022-06-18 2022-06-18 Refmarco Parra [facility] 1.2.840.114 [id number] Univers 00:00:00 00:00:00 Esperanza HAMMOND 350.1.13.10 ity of [facility] 4.2.7.2.[place] [id number] [address] 2022-05-11 2022-05-11 Outpatient R ECHO HODGES [facility] [id number] Univers 15:00:00 15:00:00 ity [facility] 2022-03-26 2022-03-26 Outpatient R CARROLL [facility] [id number] Univers 15:00:00 15:00:00 ity of [facility] 2022-03-16 2022-03-16 Outpatient R CARROLL [facility] [id number] Univers 11:15:00 12:10:28 ity of [facility] 2022-03-16 2022-03-16 Routine Echo Hodges [facility] 1.2.895.825 [id number] Univers 11:15:00 12:10:28 Costa HAMMOND 350.1.13.10 ity of Visit [place] 4.2.7.2.[place] [id number] Nm dic[address] 2022-03-04 2022-03-04 Telephone Echo Hodges [facility] 1.2.840.114 [id number] Univers 00:00:00 00:00:00 Costa HAMMOND 350.1.13.10 i ty of [place] 4.2.7.2.686 [place] [id number] Nm dic[address] 2022-02-25 2022-02-25 Nurse Nurse, [facility] 1.2.840.114 [id number] Univers 14:30:00 14:30:00 Visit Echo Hodges Costa HAMMOND 350.1.13.10 ity of [place] 4.2.7.2.686 [place] [id number] Nm dical NAL [address] [place] [address] 2022-02-25 2022-02-25 Outpatient R ECHO HODGES [facility] [id number] Univers 14:30:00 13:35:46 ity [facility] 2022-02-23 2022-02-23 Outpatient P ROSELYN [facility] [id number] Univers 09:00:00 09:00:00 RUSLAN ity of [facility] 2022-02-20 2022-02-21 Inpatient X ECHO HODGES [facility] ESTELA [id number] Univers 04:04:00 18:25:00 ity of [facility] 2022-02-20 2022-02-21 [facility] Echo Hodges [facility] 1.2.840.114 [id number] Univers 04:04:00 18:25:00 Encounter Cam [place] 350.1.13.10 ity of [place] 4.2.7.2.686 [facility] [id number] [address] 2022-02-20 2022-02-20 Anesthesia Fran Weiss [facility] 1.2.8 40.114 [id number] Univers 12:04:53 12:04:53 Event Osmany Carcamo [place] 350.1.13. 10 ity of [facility] 4.2.7.2.686 [facility] [id number] [place] 301583 [place] 2022-02-20 2022-02-20 Orders Doctor FRANK 1.2.840.114 [id number] Univers 00:00:00 00:00:00 Only Unassigned, ELROY 350.1.13.10 ity of [place] [facility] 4.2.7.2.686 [place] [id number] [place] [address] Branch 2022-02-17 2022-02-17 Outpatient P ECHO HODGES [facility] ESTELA [id number] Univers 20:59:00 21:55:00 ity of [facility] 2022-02-17 2022-02-17 [facility] Echo Hodges [facility] 1.2.840.114 [id number] Univers 20:59:00 21:55:00 Encounter Cam [place] 350.1.13.10 ity of [place] 4.2.7.2.686 [facility] [id number] [address] 2022-02-16 2022-02-17 Outpatient X ECHO HODGSE [facility] ESTELA [id number] Univers 16:10:00 08:10:00 ity of [facility] 2022-02-16 2022-02-17 Hospital Echo Hodges [facility] 1.2.840.114 [id number] Univers 16:10:00 08:10:00 Encounter Costa HAMMOND 350.1.13.10 ity of [place] 4.2.7.2.[place] [id number] [facility] 083 [place] 2022-02-16 2022-02-16 Routine Adam [facility] 1.2.814.652 [id number] Univers 15:30:00 15:45:00 Talia HAMMOND 350.1.13.10 ity of Visit [place] 4[place]2.7.2.[place] [id number] Nm dic[address] 2022-02-16 2022-02-16 Outpatient R ADAM [facility] [id number] Univers 15:30:00 15:30:00 TALIA ity [facility] 2022-02-16 2022-02-16 Orders Doctor MARIE 1.2.840.114 [id number] Univers 00:00:00 00:00:00 Only Unassigned, ELROY 350.1.13.10 ity of [place] [facility] 4.2.7.2.686 [place] [phone] [facility] 009 [place] 2022-02-03 2022-02-03 Outpatient R [facility] [id number] Univers 15:00:00 15:00:00 ity of [facility] 2022-02-02 2022-02-02 Outpatient R ECHO HODGES [facility] [id number] Univers 16:15:00 16:36:06 ity of [facility] 2022-02-02 2022-02-02 Routine Carroll [facility] 1.2.288.479 [id number] Univers 16:15:00 16:36:06 Costa HAMMOND 350.1.13.10 ity of Visit [place] 4.2.7.2.686 [place] [id number] Nm dical NAL [address] [place] [address] 2022-02-02 2022-02-02 Outpatient R CARROLL ECHO [facility] [id number] Univers 16:15:00 16:15:00 ity of [place] [facility] 2022-01-26 2022-01-26 Branch Office Administrator Ultrasound, [facility] 1.2 .840.114 [id number] Univers 09:15:00 09:37:53 Visit Ruslan Glynn [employer] 350.1.13.10 [facility] 4.2.7.2.686 [place] as MATERNAL [id number] Med ical & CHILD [address] [place] [address] 2022-01-26 2022-01-26 Outpatient P ROSELYN [facility] [id number] Univers 09:15:00 09:15:00 RUSLAN [facility] [place] [facility] 2022-01-07 2022-01-07 Outpatient R ADAM [facility] [id number] Univers 15:30:00 15:30:00 [facility] 2021-12-31 2021-12-31 Outpatient R ADAM [facility] [id number] Univers 11:15:00 11:15:00 [facility] 2021-12-18 2021-12-18 Outpatient R ADAM [facility] [id number] Univers 13:00:00 13:00:00 [facility] 2021-12-18 2021-12-18 Outpatient R ADAM [facility] [id number] Univers 13:00:00 13:00:00 [facility] 2021-12-18 2021-12-18 Outpatient R ADAM [facility] [id number] Univers 13:00:00 13:00:00 [facility] 2021-12-18 2021-12-18 Outpatient R [facility] [id number] Univers 10:15:00 10:15:00 [facility] [place] [facility] 2021-12-17 2021-12-17 Outpatient R ECHO HODGES [facility] [id number] Univers 13:15:00 13:55:19 [facility] [place] [facility] 2021-12-17 2021-12-17 Routine Echo Hodges [facility] 1.2.117.482 [id number] Univers 13:15:00 13:55:19 Cam [place] 350.1.13.10 ity of [facility] 4.2.7.2.[place] [id number] Nm dical NAL [address] [place] [address] 2021-12-17 2021-12-17 Orders Doctor FRANK 1.2.840.114 [id number] Univers 00:00:00 00:00:00 Only Unassigned, ELROY 350.1.13.10 ity of [place] [facility] 4.2.7.2.686 [place] [id number] [address] 2021-11-18 2021-11-18 Outpatient P ADAM [facility] [id number] Univers 10:45:00 12:39:29 TALIA howard [facility] 2021-11-18 2021-11-18 Branch Office Administrator Ultrasound, [facility] 1.2 .840.114 [id number] [facility] 10:45:00 12:39:29 Visit Talia Medina 350.1.13.10 ity of [place] 4.2.7.2.686 [place] [id number] Nm dical NAL [address] [place] [address] 2021-11-18 2021-11-18 Routine Adam [facility] 1.2.824.036 [id number] Univers 10:15:00 10:51:35 Talia HAMMOND 350.1.13.10 ity of [facility] 4.2.7.2.[place] [id number] Nm dical NAL [address] [place] [address] 2021-11-11 2021-11-11 Telephone Echo Hodges [facility] 1.2.840.114 [id number] Univers 00:00:00 00:00:00 Costa HAMMOND 350.1.13.10 i ty of [facility] 4.2.7.2.[place] [id number] Nm dical NAL [address] [place] [address] 2021-11-04 2021-11-04 Branch Office Administrator Ultrasound, [facility] 1.2 .840.114 [id number] Univers 11:15:00 12:00:00 Visit Pascual Mcfarlane 350.1 .13.10 ity of [facility] 4.2.7.2.[place] [id number] Nm dical NAL [address] [place] [address] 2021-11-04 2021-11-04 Outpatient P AUGIE [facility] [id number] Univers 11:15:00 11:15:00 RAJENDRA it y of [place] [facility] 2021-11-04 2021-11-04 Letter Echo Hodges HIKRISTI 1.2.607.422 [id number] Univers 00:00:00 00:00:00 (Out) Cam [place] 350.1.13.10 i ty of [place] 4.2.7.2.[place] [id number] Nm dical NAL [address] [place] [address] 2021-11-04 2021-11-04 Letter Echo Hodges HIKRISTI 1.2.660.098 [id number] Univers 00:00:00 00:00:00 (Out) Cam [place] 350.1.13.10 i ty of [place] 4.2.7.2.[place] [id number] Nm dical NAL [address] [place] [address] 2021-10-28 2021-10-28 Branch Office Administrator Ultrasound, [facility] 1.2 .840.114 [id number] Univers 14:45:00 15:30:00 Visit Augie Cowarttatiana Boone [place] 350.1 .13.10 ity of [facility] 4.2.7.2.686 [place] [id number] Nm dical NAL [address] [place] [address] 2021-10-28 2021-10-28 Outpatient P [facility] [id number] Univers 14:45:00 14:45:00 ity of [facility] 2021-10-28 2021-10-28 Outpatient P GHOSH [facility] [id number] Univers 14:45:00 14:45:00 RAJENDRA it y of [place] Gandhi [facility] 2021-10-16 2021-10-16 Outpatient R ECHO HODGES [facility] [id number] Univers 13:00:00 14:20:07 ity [facility] 2021-10-16 2021-10-16 Office Echo Hodges [facility] 1.2.192.915 [id number] Univers 13:00:00 14:20:07 Visit Cam [place] 350.1.13.10 i ty of [place] 4[place].7.2.[place] [id number] [address] 2021-10-16 2021-10-16 Outpatient R ECHO HODGES [facility] [id number] Univers 13:00:00 14:20:07 ity of [facility] 2021-10-16 2021-10-16 Letter Carroll [facility] 1.2.829.098 [id number] Univers 00:00:00 00:00:00 (Out) Cam [place] 350.1.13.10 i ty of [place] 4[place].7.2.[place] [id number] [address] 2021-10-16 2021-10-16 Orders Doctor FRANK 1.2.840.114 [id number] Univers 00:00:00 00:00:00 Only Unassigned, ELROY 350.1.13.10 ity of [place] [facility] 4.2.7.2.686 [place] [id number] [address] 2021-10-01 2021-10-01 Telephone Echo Hodges [facility] 1.2.840.114 [id number] Univers 00:00:00 00:00:00 Cam [place] 350.1.13.10 i ty of [place] 4[place]2.7.2.[place] [id number] [address] 2021-09-25 2021-09-25 Orders Doctor FRANK 1.2.840.114 [id number] Univers 00:00:00 00:00:00 Only Unassigned, ELROY 350.1.13.10 ity of [place] [facility] 4.2.7.2.686 [place] [id number] [address] 2021-09-24 2021-09-24 Telephone Carroll Echo [facility] 1.2.840.114 [id number] Univers 00:00:00 00:00:00 Cam [place] 350.1.13.10 i ty of [place] 4[place]2.7.2.[place] [id number] Nm dical NAL [address] [place] [address] 2021-09-22 2021-09-22 Telephone Adam [facility] 1.2.840.114 [id number] Univers 00:00:00 00:00:00 Talia HAMMOND 350.1.13.10 i ty of [place] 4.2.7.2.[place] [id number] Nm dical [address] 2021-09-19 2021-09-19 Telephone FRANK Lopez 1.2.597.948 [id number] [facility] 00:00:00 00:00:00 Naina ELROY 350.1.13.10 it y of HOSPITAL 4.2.7.2.686 [place] as [id number] [address] 2021-09-18 2021-09-18 Outpatient R MAKEDA [facility] [id number] Univers 09:20:00 09:55:56 CAMILLA howard [facility] 2021-09-17 2021-09-17 Outpatient R ADAM [facility] [id number] Univers 16:00:00 16:53:47 TALIA howard [facility] 2021-09-17 2021-09-17 [facility] 1.2.944.368 [id number] Univers 16:00:00 16:53:47 Talia HAMMOND 350.1.13.10 ity of [place] 4.2.7.2.[place] [id number] Nm dical NAL [address] [place] [address] 2021-09-17 2021-09-17 Letter [facility] 1.2.977.421 [id number] Univers 00:00:00 00:00:00 (Out) Talia HAMMOND 350.1.13.10 i ty of [place] 4.2.7.2.[place] [id number] Nm dical NAL [address] [place] [address] 2021-09-12 2021-09-12 Patient Adam [facility] 1.2.914.461 [id number] Univers 00:00:00 00:00:00 Secure Msg Talia HAMMOND 350.1.13.10 ity of [place].7.2.[place] [id number] Nm dical NAL [address] [facility] 2021-09-09 2021-09-09 Telephone Echo Hodges [facility] 1.2.840.114 [id number] Univers 00:00:00 00:00:00 Costa HAMMOND 350.1.13.10 i ty of [facility] 4.2.7.2.[place] [id number] Nm dical NAL 134 [facility] 2021-09-02 2021-09-02 [facility]phone [facility] 1.2.840.114 [id number] Univers 00:00:00 00:00:00 Talia HAMMOND 350.1.13.10 i ty of [place].2.[place] [id number] [facility] 134 [facility] 2021-08-29 2021-08-29 Branch Office Administrator Ana, Rossi Lab Main [facility] 1.2.8 40.114 [id number] Univers 11:30:00 11:45:00 Visit Echo Hodges 350.1.13.10 ity of [place] 4[place].7.2.[place] [id number] [facility] 353 [facility] 2021-08-29 2021-08-29 Outpatient R ECHO HODGES [facility] [id number] Univers 11:30:00 11:30:00 ity of [facility] 2021-08-29 2021-08-29 Orders Doctor FRANK 1.2.840.114 [id number] Univers 00:00:00 00:00:00 Only Unassigned, ELROY 350.1.13.10 ity of [place] [facility] 4.2.7.2.686 [place] as [id number] [address] 2021-08-24 2021-08-24 Case SMITH Medina 1.2.138.568 [id number] Univers 00:00:00 00:00:00 Management Talia PEDIATRIC 350.1.13.10 [place] of [place]2.[place] [id number] [facility] PRIMARY [address] [facility] 2021-08-21 2021-08-21 [facility] [id number] [employer] 00:00:00 00:00:00 Outreach Malka Mike HAMMOND [id number] ity of [id number] [id number] [facility] 098 [facility] 2021-08-20 2021-08-20 Echo Orta [facility] [id number] Univers 14:30:00 15:36:52 [place] HAMMOND [id number] ity of [id number] [phone] [facility] 134 [facility] 2021-08-20 2021-08-20 Outpatient R ECHO HODGES [facility] [id number] Univers 14:30:00 15:36:52 ity of [facility] 2021-08-20 2021-08-20 Echo Montes [facility] 1.2.303.373 [id number] Univers 00:00:00 00:00:00 (Out) Costa HAMMOND 350.1.13.10 i ty of [place] [phone] [facility] 134 [facility] 2021-08-20 2021-08-20 Orders Doctor FRANK 1.2.840.114 [id number] Univers 00:00:00 00:00:00 Only Unassigned, ELROY 350.1.13.10 ity of [place] [facility] 4.2.7.2.686 [place] as [phone] [facility] 009 Branch 2021-08-12 2021-08-12 Outpatient Misha MEDINA [facility] [id number] Univers 14:00:00 14:00:00 TALIA howard [facility] 2021-02-06 2021-02-06 Outpatient Misha MEDINA [facility] [id number] Univers 13:30:00 13:30:00 TALIA howard [facility] 2021-01-16 2021-01-16 Adriana Montesen [facility] 1.2.842.430 [id number] Univers 00:00:00 00:00:00 (Out) Costa Hammond 350.1.13.10 i ty of [place] [phone] Nm dic[address] 2021-01-16 2021-01-16 [facility]phone [facility] 1.2.840.114 [id number] Univers 00:00:00 00:00:00 Talia Hammond 350.1.13.10 i ty of [place] [phone] [address] 2021-01-07 2021-01-07 Telephone [facility] 1.2.840.114 [id number] Univers 00:00:00 00:00:00 Talia Hammond 350.1.13.10 i ty of [place] [phone] [address] 2020-12-17 2020-12-17 Office [facility] 1.2.458.334 [id number] Univers 12:54:01 13:51:32 Visit Talia Hammond 350.1.13.10 i ty of [place] [phone] [address] 2020-12-17 2020-12-17 Outpatient R ADAM [facility] [id number] Univers 13:00:00 13:00:00 TALIA howard of [facility] 2020-12-17 2020-12-17 Orders Doctor FRANK 1.2.840.114 [id number] Univers 00:00:00 00:00:00 Only Unassigned, ELROY 350.1.13.10 ity of [place] [facility] 4.2.7.2.686 [place] as [phone] [address] 2020-06-18 2020-06-18 Routine [facility] 1.2.017.447 [id number] Univers 15:28:00 16:09:46 Talia Plato 350.1.13.10 ity of Visit [place].7.2.[place] [phone] Me dical [address] 2020-06-18 2020-06-18 [facility] 1.2.309.319 [id number] 15:28:00 16:09:46 Talia Plato 350.1.13.10 Visit [place] 4.2.7.2.686 Professio [phone] [address] 2020-06-18 2020-06-18 Outpatient R ADAM [facility] [id number] Univers 15:15:00 15:15:00 TALIA howard [facility] 2020-06-17 2020-06-17 [facility] [id number] Univers 16:30:00 16:30:00 TALIA howard [facility] 2020-06-12 2020-06-12 Orders Doctor MARIE 1.2.840.114 [id number] Univers 00:00:00 00:00:00 Only Unassigned, ELROY 350.1.13.10 ity of [place] [facility] 4.2.7.2.686 [place] as [phone] [facility] [address] 2020-06-12 2020-06-12 Orders Doctor MARIE 1.2.840.114 [id number] 00:00:00 00:00:00 Only Unassigned, ELROY 350.1.13.10 [place] [facility] 4.2.7.2.686 [id number] [facility] 2020-05-20 2020-05-21 [facility] 1.2.840.114 [id number] [facility] 04:10:00 11:40:00 Encounter Cam Plato 350.1.13.10 ity of [place].2.[place] [phone] [facility] [address] 2020-05-20 2020-05-21 [facility] 1.2.840.114 [id number] 04:10:00 11:40:00 Encounter Cam Plato 350.1.13.10 [place] 4.2.7.2.686 [place] [phone] [facility] 2020-05-20 2020-05-20 Orders Doctor FRANK 1.2.840.114 [id number] Univers 00:00:00 00:00:00 Only Unassigned, ELROY 350.1.13.10 ity of [place] [facility] 4.2.7.2.686 [place] [phone] [facility] [address] 2020-05-20 2020-05-20 Orders Doctor FRANK 1.2.840.114 [id number] 00:00:00 00:00:00 Only Unassigned, ELROY 350.1.13.10 [place] [facility] 4.2.7.2.686 [id number] 009 2020-05-17 2020-05-17 Branch Office Administrator 1, [facility] 1.2.840.114 [id number] Univers 09:10:37 09:25:37 Visit Echo Hodges Manish 350.1.13.10 ity of [place] [phone] [address] 2020-05-17 2020-05-17 Branch Office Administrator 1, [facility] 1.2.840.114 [id number] 09:10:37 09:25:37 Visit Plato 350.1.13.10 [place] 4.2.7.2.686 [place] [phone] [id number] 2020-05-17 2020-05-17 Routine Room, [facility] 1.2.840.1 14 [id number] Univers 08:17:41 08:54:38 Echo Hodgeston 350.1.13.10 ity of Visit [place].7.2.[place] [phone] Me dical [address] 2020-05-17 2020-05-17 Routine Room, [facility] 1.2.868.448 [id number] 08:17:41 08:54:38 [facility] Plato 350.1.13.10 Visit [place] 4.2.7.2.686 Professio [phone] [address] 2020-05-17 2020-05-17 Outpatient R [facility] [id number] Univers 08:00:00 08:00:00 ity of [place] [facility] 2020-05-16 2020-05-16 Outpatient R [facility] [id number] Univers 14:00:00 14:00:00 ity [facility] 2020-05-14 2020-05-14 Routine Room, [facility] 1.2.840.1 14 [id number] Univers 11:09:37 12:11:42 Hodges, Echo Costa Hammond 350.1.13.10 ity of Visit [place] 4.2.7.2.[place] [phone] Nm dical [address] 2020-05-14 2020-05-14 Routine Room, [facility] 1.2.003.466 [id number] [id number] 11:09:37 12:11:42 Wh Nst Manish 350.1.13.10 Visit [place] 4.2.7.2.686 Professio [phone] [address] 2020-05-14 2020-05-14 Outpatient R [facility] [id number] Univers 11:00:00 11:00:00 ity of [facility] 2020-05-14 2020-05-14 Orders Doctor FRANK 1.2.840.114 [id number] Univers 00:00:00 00:00:00 Only Unassigned, ELROY 350.1.13.10 ity of [place] [facility] 4.2.7.2.686 [place] as [phone] [address] 2020-05-14 2020-05-14 Orders Doctor FRANK 1.2.840.114 [id number] 00:00:00 00:00:00 Only Unassigned, ELROY 350.1.13.10 [place] [facility] 4.2.7.2.686 [id number] [facility] 2020-05-10 2020-05-10 Branch Office Administrator Ultrasound, [facility] 1.2.840.114 [id number] 10:41:31 11:25:11 Visit [facility] Plato 350.1.13.10 [place] 4.2.7.2.686 Professio [phone] [address] 2020-05-10 2020-05-10 Branch Office Administrator Ultrasound, [facility] 1.2 .840.114 [id number] Univers 10:41:31 11:25:11 Visit Pascual Mcfarlane Plato 350.1 .13.10 ity of [place] 4.2.7.2.[place] [phone] Nm dical nal [address] [place] [address] 2020-05-10 2020-05-10 Outpatient P [facility] [id number] Univers 10:30:00 10:30:00 ity of [facility] 2020-04-29 2020-04-29 Outpatient R [facility] [id number] Univers 11:00:00 11:00:00 ity of [facility] 2020-04-25 2020-04-25 [facility] 1.2.840.114 [id number] 10:09:00 12:35:00 Encounter Cam Plato 350.1.13.10 [place] 4.2.7.2.686 [place] [phone] [facility] 2020-04-25 2020-04-25 [facility] Echo Hodges [facility] 1.2.840.114 [id number] Univers 10:09:00 12:35:00 Encounter Cam Plato 350.1.13.10 ity of [place] [phone] [address] 2020-04-25 2020-04-25 Routine Room, [facility] 1.2.760.346 [id number] 08:21:54 09:48:28 Nst Plato 350.1.13.10 Visit [place] 4.2.7.2.686 Professio [phone] [address] 2020-04-25 2020-04-25 Routine Room, [facility] 1.2.840.1 14 [id number] Univers 08:21:54 09:48:28 Talia Medina Plato 350.1.13.10 ity of Visit [place].7.2.[place] [phone] Nm dical [address] 2020-04-25 2020-04-25 Outpatient R [facility] [id number] Univers 08:00:00 08:00:00 ity of [facility] 2020-04-22 2020-04-22 Routine Echo Hodges [facility] 1.2.957.493 2912 [id number] 13:01:30 14:28:44 Cam Plato 350.1.13.10 Visit [place] 4.2.7.2.686 Professio [phone] [address] 2020-04-22 2020-04-22 Routine Echo Hodges HIKRISTI 1.2.431.727 [id number] [id number] Univers 13:01:30 14:28:44 Cam Plato 350.1.13.10 ity of Visit [place] 4.2.7.2.[place] [phone] Nm dical [address] 2020-04-22 2020-04-22 Outpatient R ECHO HODGES [facility] [id number] Univers 13:00:00 13:00:00 ity of [facility] 2020-04-20 2020-04-20 Hospital Echo Hodges HIKRISTI 1.2.840.114 [id number] 09:11:00 11:10:00 Encounter Cam Plato 350.1.13.10 [place] 4.2.7.2.686 [place] [phone] [facility] 2020-04-20 2020-04-20 Hospital Echo Hodges 1.2.840.114 [id number] Univers 09:11:00 11:10:00 Encounter Cam Plato 350.1.13.10 ity of [place].2.[place] [phone] [address] 2020-04-20 2020-04-20 Outpatient P [facility] ESTELA [id number] Univers 09:08:00 09:08:00 ity of [facility] 2020-04-20 2020-04-20 Orders Doctor FRANK 1.2.840.114 [id number] 00:00:00 00:00:00 Only Unassigned, ELROY 350.1.13.10 [place] [facility] 4.2.7.2.686 [id number] 009 2020-04-20 2020-04-20 Orders Doctor MARIE 1.2.840.114 [id number] Univers 00:00:00 00:00:00 Only Unassigned, ELROY 350.1.13.10 ity of [place] [facility] 4.2.7.2.686 [place] as [phone] [facility] [address] 2020-04-12 2020-04-12 [facility] Echo Hodges [facility] 1.2.840.114 [id number] 15:07:00 16:30:00 Encounter Adum, Esperanza L [place] 350.1.13.10 [place] 4.2.7.2.686 [place] [phone] [facility] 2020-04-12 2020-04-12 [facility] Echo Hodges [facility] 1.2.840.114 [id number] [facility] 15:07:00 16:30:00 Encounter Adum, Esperanza L Plato 350.1.13.10 ity of [place].2.[place] [phone] [address] 2020-04-12 2020-04-12 Routine Adum, [facility] 1.2.840.114 [id number] 13:43:19 14:45:57 Esperanza L Plato 350.1.13.10 Visit [place] 4.2.7.2.686 Professio [phone] [address] 2020-04-12 2020-04-12 Routine Adum, [facility] 1.2.840.114 [id number] Univers 13:43:19 14:45:57 Esperanza L Plato 350.1.13.10 ity of Visit [place] 4.2.7.2.[place] [phone] Nm dical [address] 2020-04-12 2020-04-12 Branch Office Administrator Ultrasound, [facility] 1.2.840.114 [id number] 13:04:57 13:34:57 Visit Adc [facility] Plato 350.1.13.10 [place] 4.2.7.2.686 Professio [phone] [address] 2020-04-12 2020-04-12 Branch Office Administrator Ultrasound, [facility] 1.2 .840.114 [id number] Univers 13:04:57 13:34:57 Visit Lauren Jackman Plato 350.1.13.10 ity of [place] 4.2.7.2.[place] [phone] Nm dical nal 134 [facility] 2020-04-12 2020-04-12 Outpatient P [facility] [id number] Univers 13:00:00 13:00:00 ity [facility] 2020-04-09 2020-04-09 Branch Office Administrator 2, Adc Lab [facility] 1.2.840.114 [id number] 09:21:59 09:36:59 Visit Plato 350.1.13.10 [place] 4.2.7.2.686 Professio [phone] [address] 2020-04-09 2020-04-09 Branch Office Administrator 2, Adc Lab [facility] 1.2.840.114 [id number] Univers 09:21:59 09:36:59 Visit Talia Medina 350.1.13.10 ity of [place] 4.[place].7.2.[place] [phone] Nm dical [address] 2020-04-09 2020-04-09 Outpatient R [facility] [id number] Univers 09:15:00 09:15:00 ity [facility] 2020-04-08 2020-04-08 Branch Office Administrator 2, [facility] 1.2.840.114 [id number] Univers 13:50:06 14:05:06 Visit Echo Hodges 350.1.13.10 ity of [place].7.2.[place] [phone] Nm dical nal [address] [place] [address] 2020-04-08 2020-04-08 Branch Office Administrator 2, Adc Lab [facility] 1.2.840.114 [id number] 13:50:06 14:05:06 Visit Plato 350.1.13.10 [place] 4.2.7.2.686 Professio [phone] [address] 2020-04-08 2020-04-08 Routine Echo Hodges [facility] 1.2.071.460 [id number] Univers 13:05:39 13:46:28 Costa Plato 350.1.13.10 ity of Visit [place] 4.2.7.2.[place] [phone] Nm dical [address] 2020-04-08 2020-04-08 Routine [facility] 1.2.722.443 [id number] 13:05:39 13:46:28 Costa Hammond 350.1.13.10 Visit [place] 4.2.7.2.686 Professio [phone] [address] 2020-04-08 2020-04-08 Outpatient R CARROLL ECHO [facility] [id number] Univers 13:00:00 13:00:00 [facility] 2020-04-08 2020-04-08 [facility] 1.2.316.533 [id number] Univers 00:00:00 00:00:00 Management Talia Hammond 350.1.13.10 [facility] [place] [phone] Nm dical [address] 2020-04-08 2020-04-08 [facility] 1.2.468.499 [id number] 00:00:00 00:00:00 Management Talia Hammond 350.1.13.10 [place] 4.2.7.2.686 Professio [phone] [address] 2020-04-03 2020-04-03 Outpatient R CARROLL ECHO [facility] [id number] Univers 13:00:00 13:00:00 [facility] 2020-03-20 2020-03-20 Outpatient R CARROLL [facility] [id number] Univers 09:15:00 09:15:00 ity [facility] 2020-03-18 2020-03-18 Outpatient R CARROLL ECHO [facility] [id number] Univers 16:00:00 16:00:00 ity [facility] 2020-03-08 2020-03-08 Outpatient R CARROLL [facility] [id number] Univers 13:00:00 13:00:00 [facility] 2020-02-09 2020-02-09 Outpatient R ADAM [facility] [id number] Univers 14:30:00 14:30:00 TALIA [facility] 2020-02-09 2020-02-09 Telemedici [facility] 1.2.840.114 [id number] [facility] 08:30:37 08:45:37 ne Visit Talia Manish 350.1.13.10 ity of [place] 4[place].2.[place] [phone] [address] 2020-02-09 2020-02-09 Telemedici [facility] 1.2.840.114 [id number] 08:30:37 08:45:37 ne Visit Talia Manish 350.1.13.10 [place] 4.2.7.2.686 Professio [phone] [address] 2020-02-08 2020-02-08 [facility] [id number] [facility] 16:30:00 16:30:00 [facility]ALIA [facility] 2020-01-19 2020-01-19 Branch Office Administrator Ultrasound, [facility] 1.2 .840.114 [id number] [facility] 10:38:05 11:38:05 Visit Martha Waters 350.1.13.10 ity of [place] 4.2.7.2.[place] [phone] [address] 2020-01-19 2020-01-19 Branch Office Administrator Ultrasound, [facility] 1.2.840.114 [id number] 10:38:05 11:38:05 Visit Rossi [facility] Manish 350.1.13.10 [place] 4.2.7.2.686 Professio [phone] [address] 2020-01-19 2020-01-19 Outpatient R [facility] [id number] Univers 11:00:00 11:00:00 ity [facility] 2020-01-10 2020-01-10 Branch Office Administrator 2, Adc Lab [facility] 1.2.840.114 [id number] [facility] 15:27:02 15:42:02 Visit Echo Hodges 350.1.13.10 ity of [place] 4.2.7.2.[place] [phone] [address] 2020-01-10 2020-01-10 Branch Office Administrator 2, Adc Lab [facility] 1.2.840.114 [id number] 15:27:02 15:42:02 Visit Plato 350.1.13.10 [place] 4.2.7.2.686 Professio [phone] [address] 2020-01-10 2020-01-10 Outpatient R ECHO HODGES [facility] [id number] Univers 15:30:00 15:30:00 ity of [facility] 2020-01-10 2020-01-10 Routine Echo Hodges HIKRISTI 1.2.789.137 [id number] Univers 14:47:58 15:22:57 Cam Plato 350.1.13.10 ity of Visit [place] 4.2.7.2.[place] [phone] [address] 2020-01-10 2020-01-10 Routine Echo Hodges [facility] 1.2.942.660 [id number] 14:47:58 15:22:57 Cam Plato 350.1.13.10 Visit [place] 4.2.7.2.686 Professio [phone] [address] 2019-12-27 2019-12-27 Outpatient R ECHO HODGES [facility] [id number] Univers 13:00:00 13:00:00 ity of [facility] 2019-12-13 2019-12-13 Telephone Echo Hodges HIKRISTI 1.2.840.114 [id number] Univers 00:00:00 00:00:00 Cam Plato 350.1.13.10 i ty of [place] 4.2.7.2.[place] [phone] [address] 2019-12-13 2019-12-13 Telephone Echo Hodges HIKRISTI 1.2.840.114 [id number] 00:00:00 00:00:00 Cam Plato 350.1.13.10 [place] 4.2.7.2.686 Professio [phone] [address] 2019-12-08 2019-12-08 Case Echo Hodges HIKRISTI 1.2.934.617 [id number] Univers 00:00:00 00:00:00 Management Cam Plato 350.1.13.10 ity of [place] 4[place].2.[place] [phone] Nm dical [address] 2019-12-08 2019-12-08 Case Echo Hodges [facility] 1.2.770.458 [id number] 00:00:00 00:00:00 Management Cam Plato 350.1.13.10 [place] 4.2.7.2.686 Professio [phone] [address] 2019-12-07 2019-12-07 Telephone Echo Hodges [facility] 1.2.840.114 [id number] [facility] 00:00:00 00:00:00 Cam Plato 350.1.13.10 i ty of [place] 4.2.7.2.[place] [phone] Nm dic[address] 2019-12-07 2019-12-07 Telephone Echo Hodges [facility] 1.2.840.114 [id number] 00:00:00 00:00:00 Cam Plato 350.1.13.10 [place] 4.2.7.2.686 Professio [phone] [address] 2019-11-29 2019-11-29 Branch Office Administrator 2, Adc Lab [facility] 1.2.840.114 [id number] [facility] 13:51:24 14:06:24 Visit Echo Hodges Cam Plato 350.1.13.10 ity of [place] 4.2.7.2.[place] [phone] Nm dic[address] 2019-11-29 2019-11-29 Branch Office Administrator 2, Adc Lab [facility] 1.2.840.114 [id number] 13:51:24 14:06:24 Visit Plato 350.1.13.10 [place] 4.2.7.2.686 Professio [phone] [address] 2019-11-29 2019-11-29 Routine Echo Hodges [facility] 1.2.991.308 [id number] Univers 13:00:25 13:36:47 Cam Plato 350.1.13.10 ity of Visit [place] 4.2.7.2.[place] [phone] Nm dical nal [address] [place] [address] 2019-11-29 2019-11-29 Outpatient R ECHO HODGES [facility] [id number] Univers 13:00:00 13:00:00 ity [facility] 2019-11-29 2019-11-29 Orders Doctor FRANK 1.2.840.114 [id number] Univers 00:00:00 00:00:00 Only Unassigned, ELROY 350.1.13.10 ity of [place] [facility] 4.2.7.2.686 [place] [phone] [address] 2019-11-07 2019-11-15 [facility]ici [facility] 1.2.840.114 [id number] Univers 08:13:02 09:41:50 ne Visit Costa Hammond 350.1.13.10 ity of [place] 4[place]2.[place].2.[place] [phone] Nm dical [address] 2019-11-14 2019-11-14 Branch Office Administrator Ultrasound, [facility] 1.2 .840.114 [id number] Univers 11:24:05 12:36:31 Visit Lauren Jackman [employer] 350.1.13.10 ity of [facility] 4.2.7.2.686 [place] as MATERNAL [phone] Med ical & CHILD [address] [place] [address] 2019-11-14 2019-11-14 Outpatient P [facility] [id number] Univers 11:00:00 11:00:00 ity [facility] 2019-11-07 2019-11-07 Outpatient R HODGESADRIANAEN [facility] [id number] Univers 14:00:00 14:00:00 ity [facility] 2019-10-27 2019-10-27 Outpatient R AKINSIMIKAEL [facility] [id number] Univers 09:00:00 09:00:00 ILANA ity o f [facility] 2019-10-26 2019-10-26 Telephone Echo Hodges [facility] 1.2.840.114 [id number] Univers 00:00:00 00:00:00 Costa Hammond 350.1.13.10 i ty of [place] [phone] Nm dical nal 134 [facility] 2019-10-18 2019-10-18 Telephone Alireza [facility] 1.2.620.050 [id number] Univers 00:00:00 00:00:00 Kanika Cabral [employer] 350.1.13.10 ity of [facility] 4.2.7.2.686 [place] MATERNAL [phone] Med ical & CHILD 107 [facility] 2019-04-25 2019-04-25 Outpatient R ADAM [facility] [id number] Univers 14:00:00 14:33:35 TALIA ity [facility] 2019-03-15 2019-03-16 Inpatient P CARROLL ECHO [facility] ESTELA [id number] Univers 06:47:00 19:30:00 ity of [facility] 2019-03-15 2019-03-16 Hospital HodgesEcho [facility] 1.2.840.114 [id number] Univers 06:47:00 19:30:00 Encounter Costa Hammond 350.1.13.10 ity of [place] [phone] [facility] [address] 2019-03-09 2019-03-09 Branch Office Administrator 1, Adc Lab [facility] 1.2.840.114 [id number] Univers 14:22:30 14:37:30 Visit Talia Medina 350.1.13.10 ity of [place] 4[place].2.[place] [phone] [facility] 353 [address] 2019-03-09 2019-03-09 Orders Doctor FRANK 1.2.840.114 [id number] Univers 00:00:00 00:00:00 Only Unassigned, ELROY 350.1.13.10 ity of [place] [facility] 4.2.7.2.686 [place] [phone] [facility] [address] 2019-03-08 2019-03-08 Case Adam [facility] 1.2.765.256 [id number] Univers 00:00:00 00:00:00 Management Talia Hammond 350.1.13.10 ity of [place].2.[place] [phone] [address] 2019-03-08 2019-03-08 Telephone Echo Hodges [facility] 1.2.840.114 [id number] Univers 00:00:00 00:00:00 Cam Plato 350.1.13.10 i ty of [place].2.[place] [phone] [address] 2019-03-07 2019-03-07 Routine [facility] 1.2.711.470 [id number] Univers 14:36:38 15:24:28 Talia Plato 350.1.13.10 ity of [place].2.[place] [phone] [address] 2019-02-21 2019-02-21 Routine Echo Hodges [facility] 1.2.568.896 [id number] Univers 14:33:39 15:05:05 Cam Plato 350.1.13.10 ity of Visit [place] 4.2.[place].2.[place] [phone] [address] 2019-02-21 2019-02-21 Outpatient R ECHO HODGES [facility] [id number] Univers 13:45:00 15:05:05 ity [facility] 2019-01-23 2019-01-23 Outpatient R ECHO HODGES [facility] [id number] Univers 11:15:00 11:15:00 ity [facility] 2018-12-26 2018-12-26 Outpatient R EHCO HODGES [facility] [id number] Univers 10:30:00 11:28:51 ity [facility] 2018-11-08 2018-11-08 Outpatient P KIRBY [facility] [id number] Univers 13:30:00 14:17:04 [facility] 2018-10-31 Outpatient R SIMON [facility] [id number] Univers 11:00:00 11:59:43 ILANA howard o f [facility] Results This patient has no known results.
--- NOTE | 2023-03-21 09:34 | ER ---
Nurse's Notes [facility] Name: Mray Joe Age: 22 yrs Sex: Female : 2000 Arrival Date: 03/21/2023 Time: 08:36 Bed 19 Private MD: Diagnosis: Pilonidal cyst with abscess Presentation: 03/21 08:45 Chief complaint: Patient states: abscess to buttock area since yesterday, she gets them iw all the time but they usually go away on their own. Coronavirus screen: At this time, the client does not indicate any symptoms associated with coronavirus-19. Ebola Screen: Patient negative for fever greater than or equal to 101.5 degrees Fahrenheit, and additional compatible Ebola Virus Disease symptoms Patient denies exposure to infectious person. Patient denies travel to an Ebola-affected area in the 21 days before illness onset. No symptoms or risks identified at this time. Initial Sepsis Screen: Does the patient meet any 2 criteria? No. Patient's initial sepsis screen is negative. Does the patient have a suspected source of infection? No. Patient's initial sepsis screen is negative. Risk Assessment: Do you want to hurt yourself or someone else? Patient reports no desire to harm self or others. 08:45 Method Of Arrival: Ambulatory iw 08:45 Acuity: VANDANA 3 iw 08:45 Onset of symptoms was March 14, 2023. 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 - Social history:: Smoking status: . Screenin:43 [facility] ED Fall Risk Assessment (Adult) History of falling in the last 3 months, rs5 including since admission No falls in past 3 months (0 pts) Confusion or Disorientation No (0 pts) Intoxicated or Sedated No (0 pts) Impaired Gait No (0 pts) Mobility Assist Device Used No (0 pt) Altered Elimination No (0 pt) Score/Fall Risk Level 0 - 2 = Low Risk Oriented to surroundings, Maintained a safe environment. 09:43 Abuse screen: Denies threats or abuse. Nutritional screening: No deficits noted. rs5 Tuberculosis screening: No symptoms or risk factors identified. Assessment: 08:50 General: Appears in no apparent distress. comfortable, Behavior is calm, cooperative. rs5 08:50 Pain: Complains of pain in upper buttocks Pain does not radiate. Pain currently is 7 rs5 out of 10 on a pain scale. Quality of pain is described as aching, tender, Pain began one week ago, worse today Is intermittent, Aggravated by repositioning, weight bearing. Neuro: Level of Consciousness is awake, alert, obeys commands, Oriented to person, place, time, situation. Cardiovascular: Rhythm is regular. Respiratory: Airway is patent Respiratory effort is even, unlabored, Respiratory pattern is regular, symmetrical. GI: Abdomen is round non-distended, Abd is soft and non tender X 4 quads. : No signs and/or symptoms were reported regarding the genitourinary system. EENT: No signs and/or symptoms were reported regarding the EENT system. Derm: Skin is dry, Skin is normal, Skin temperature is warm quarter sized boil noted to upper buttocks. No redness, or drainage noted. Musculoskeletal: Range of motion: intact in all extremities. 09:33 Reassessment: Patient and/or family updated on plan of care and expected duration. Pain rs5 level reassessed. Patient is alert, oriented x 3, equal unlabored respirations, skin warm/dry/pink. I\T\D setup at bedside. Provider notified. 09:35 Reassessment: To bedside. Assisted provider with I\T\D to pt's upper buttocks . rs5 Vital Signs: 08:45 BP 115 / 73; Pulse 107; Resp 16; Pulse Ox 100% on R/A; Weight 99.79 kg; Height 5 ft. 7 iw in. ; Pain 7/10; 09:00 BP 119 / 78; Pulse 67; Resp 72; Temp 97.9; Pulse Ox 99% on R/A; rs5 08:45 Body Mass Index 34.46 (99.79 kg, 170.18 cm) iw 08:45 Pain Scale: Adult iw ED Course: 08:37 Patient arrived in ED. ts1 08:46 Triage completed. iw 08:46 Arm band placed on. iw 08:52 Anais Ramirez FNP-C is PHCP. kb 08:52 Fede Scruggs MD is Attending Physician. kb 09:15 Lenard Mondragon, RN is Primary Nurse. rs5 09:33 Roman Nieves MD is Referral Physician. kb 09:33 Assist provider with I \T\ D: of an abscess on upper buttocks. rs5 09:43 Patient has correct armband on for positive identification. Placed in gown. Bed in low rs5 position. Call light in reach. Side rails up X2. Administered Medications: 09:15 Drug: Trimethoprim-Sulfamethoxazole PO (160 mg-800 mg (DS) 1 tablet Route: PO; rs5 09:15 Drug: Cephalexin PO 500 mg Route: PO; rs5 09:32 Drug: Lidocaine Infiltration (1 %) 1 vials {Note: Administered by provider to upper rs5 buttocks .} Volume: 5 ml; Route: Infiltration; Medication: 09:00 VIS not applicable for this client. rs5 Outcome: 09:33 Discharge ordered by . kb 09:40 Discharged to home ambulatory. rs5 09:40 Condition: stable 09:40 Discharge instructions given to patient, Instructed on discharge instructions, follow up and referral plans. medication usage, Demonstrated understanding of instructions, follow-up care, medications, Prescriptions given X 2. 09:44 Patient left the ED. rs5 Signatures: Anais Ramirez, MAINOR-C CUSTOMER SALES SPECIALIST-Ckb Linda Reyna, RN CHRISTINA Lenard Mondragon, RN RN rs5 Maria G Xiao PAS PAS ts1 Corrections: (The following items were deleted from the chart) 09:35 09:30 Reassessment: To bedside. Assisted provider with I\T\D to pt's upper buttocks . rs5 rs5
--- NOTE | 2023-03-21 09:34 | EDPHYS ---
Physician Documentation [facility] Name: Mary Joe Age: 22 yrs Sex: Female : 2000 Arrival Date: 03/21/2023 Time: 08:36 Bed 19 Private MD: ED Physician Fede Scruggs HPI: 03/21 09:01 This 22 yrs old Black Female presents to ER via Ambulatory with complaints of Boil. kb 09:01 The patient presents with an abscess of the gluteal cleft. Description: fluctuant, kb swollen. Onset: The symptoms/episode began/occurred yesterday. Possible cause(s): unknown. Associated signs and symptoms: Pertinent positives: swelling. Modifying factors: the symptoms are alleviated by nothing, the symptoms are aggravated by pressure, touching. Severity of symptoms: At their worst the symptoms were moderate, in the emergency department the symptoms are unchanged. The patient has experienced similar episodes in the past, a few times. The patient has not recently seen a physician. Pt reports she has an abscess to buttock that started last week, went away and came back last night. States it is swollen and painful and she wants it drained. Denies fever. 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 - Social history:: Smoking status: . ROS: 09:00 Constitutional: Negative for fever, chills, and weight loss. kb 09:00 Skin: Positive for abscess, of the gluteal cleft. 09:00 All other systems are negative. Exam: 09:00 Constitutional: This is a well developed, well nourished patient who is awake, alert, kb and in no acute distress. Head/Face: Normocephalic, atraumatic. ENT: Moist Mucous membranes Cardiovascular: Regular rate and rhythm with a normal S1 and S2. No gallops, murmurs, or rubs. No pulse deficits. Respiratory: Respirations even and unlabored. No increased work of breathing. Talking in full sentences MS/ Extremity: Pulses equal, no cyanosis. Neurovascular intact. Full, normal range of motion. Neuro: Awake and alert, GCS 15, oriented to person, place, time, and situation. Moves all extremities. Normal gait. 09:00 Skin: abscess, that is moderate sized, of the gluteal cleft, with fluctuance, that is moderate. Vital Signs: 08:45 BP 115 / 73; Pulse 107; Resp 16; Pulse Ox 100% on R/A; Weight 99.79 kg; Height 5 ft. 7 iw in. ; Pain 7/10; 09:00 BP 119 / 78; Pulse 67; Resp 72; Temp 97.9; Pulse Ox 99% on R/A; rs5 08:45 Body Mass Index 34.46 (99.79 kg, 170.18 cm) iw 08:45 Pain Scale: Adult iw Procedures: 09:32 I \T\ D: Incision and drainage was performed for an abscess of the left pilonidal cyst kb Prepped with Betadine, Anesthetized with 2 ml's 1% Lidocaine. Incised with #11 blade. Drained large amount purulent fluid. Packed with iodoform gauze, Dressing: sterile 4x4 gauze, the patient tolerated the procedure well. MDM: 08:52 Patient medically screened. kb 09:00 Data reviewed: vital signs, nurses notes. kb 09:01 Differential diagnosis: abscess, allergic reaction, cellulitis, insect bite. kb 09:33 Counseling: I had a detailed discussion with the patient and/or guardian regarding the kb historical points, exam findings, and any diagnostic results supporting the discharge/admit diagnosis, the need for outpatient follow up, a general surgeon, to return to the emergency department if symptoms worsen or persist or if there are any questions or concerns that arise at home. 03/21 09:31 Order name: Wound Culture aa5 03/21 08:58 Order name: I\T\D Setup; Complete Time: 09:03 kb Administered Medications: 09:15 Drug: Trimethoprim-Sulfamethoxazole PO (160 mg-800 mg (DS) 1 tablet Route: PO; rs5 09:15 Drug: Cephalexin PO 500 mg Route: PO; rs5 09:32 Drug: Lidocaine Infiltration (1 %) 1 vials {Note: Administered by provider to upper rs5 buttocks .} Volume: 5 ml; Route: Infiltration; Disposition Summary: 03/21/23 09:33 Discharge Ordered Location: Home kb Condition: Stable kb Diagnosis - Pilonidal cyst with abscess kb Followup: kb - With: Emergency Department - When: As needed - Reason: Worsening of condition Followup: kb - With: Private Physician - When: 2 - 3 days - Reason: Recheck today's complaints, Continuance of care, Re-evaluation by your physician Followup: kb - With: - When: 2 - 3 days - Reason: Recheck today's complaints Discharge Instructions: - Discharge Summary Sheet kb - Pilonidal Cyst Drainage, Care After kb Forms: - Medication Reconciliation Form kb - Thank You Letter kb - Antibiotic Education kb - Prescription Opioid Use kb - Patient Portal Instructions kb - Leadership Thank You Letter kb Prescriptions: - Cephalexin 500 mg Oral Capsule - take 1 capsule by ORAL route every 8 hours for 10 days; 30 capsule; Refills: 0, kb Product Selection Permitted - Bactrim DS 800-160 mg Oral Tablet - take 1 tablet by ORAL route every 12 hours for 10 days; 20 tablet; Refills: 0, kb Product Selection Permitted Signatures: Dispatcher [employer] Anais Ramirez, MAINOR-Dioni HAYWARD-Linda Khalil, RN RN iw Lenard Mondragon RN RN rs5
[2023-03-21 10:01] VITALS: BP 115/73; O2SAT 100
== END 2023-03-21 09:44 | disposition home or self-care (01) ==
LOC: ER 08:36
PROC: 0H98XZZ Drainage of Buttock Skin, External Approach (ICD-10-PCS; principal; 2023-03-21)
DX: L05.01 Pilonidal cyst with abscess (principal)
CPT/HCPCS: 87070; 87205; 99283; 10080; J2001

== ENCOUNTER 2023-12-27 10:33 | Emergency (ER) | payer OTHER, SELFPAY ==
--- OUTSIDE RECORDS SUMMARY | 2023-12-27 10:38 | XMS REPORT | Continuity of Care Document ---
Author Name Unknown Address [address] [facility] [address] [place] [address] [facility] Address [address] [facility] [place] [address] Care Team Providers Care Packaging Design Engineer Name Role Phone PCP, PATIENT DOES NOT HAVE A Primary Care Physic millie Unavailable ECHO HODGES Attending Clinician Unavailable Nurse, [facility] Women's [facility] Attending Clinician Un available Echo Hodges MD Attending Clinician [phone] Doctor Unassigned, [place] Attending Clinician U Talia Vu PA-C Attending Clinician [phone] TALIA MEDINA Attending Clinician Unavailable Esperanza Parra MD Attending Clinician [phone] RUSLAN DEMPSEY Attending Clinician Unavailable Fran Weiss CRNA Attending Clinician + [phone] Osmany Carcamo MD Attending Clinician + [phone] Ultrasound, [facility] Attending Clinician UnavailRuslan Ramos MD Attending Clinician [phone] Ultrasound, Adc Mf Attending Clinician UnavailPascual Shah MD Attending Clinician + PASCUAL MCFARLANE Attending Clinician Unatri Lopez RN, Naina Attending Clinician Unavailable CAMILLA ASHFORD Attending Clinician Unavailable Pob, [facility] Lab Main Attending Clinician UnavailMalka Powell LMSW Attending Clinician [phone] , [facility] Lab Attending Clinician Unavailable Room, [facility]st Attending Clinician Unavailable Lauren Jackman MD Attending Clinician [phone], Adc Lab Attending Clinician Unavailable Martha Waters MD Attending Clinician [phone] ILANA MONTES Attending Clinician Unavail able Alireza HAYWARD, Leroykurt Cabral Attending Clinician [phone] TALYA ORR Attending Clinician Unavaila ECHO Ring Admitting Clinician Unavailable Echo Hodges MD Admitting Clinician [phone] Payers Payer Name Policy Type Policy Number Effective Date Expirati on Date Source [facility] [id number] 2018 00:00:00 [employer] MEDICAID [id number] 2019 00:00:00 MEDICAID OF [place] [id number] 2016 00:00:00 Problems Condition Name Condition Details Condition Category Status Onset Date Resolution Date Last Treatment Date Treating Clinician Comments Source Encounter for tubal ligation counseling Encounter for tubal ligation counseling Disease Active 8- 00:00: 00 [facility] Gestationa l hypertensi on, third trimester Gestationa l hypertensi on, third trimester Disease Active 8- 00:00: 00 [facility] 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 Disease Active 3-31 00:00: 00 [facility] Supervisio n of high risk , antepartum Supervisio n of high risk , antepartum Disease Active 2-02 00:00: 00 [facility] Nausea Nausea Disease Active 2-02 00:00: 00 [facility] 37 weeks gestation of 37 weeks gestation of Disease Active 03-15 00:00: 00 [facility] Liveborn infant, of gao , born in hospital by vaginal delivery Liveborn infant, of gao , born in hospital by vaginal delivery Disease Active 03-15 00:00: 00 [facility] Obesity (BMI 30-39.9) Obesity (BMI 30-39.9) Disease Active 5- 00:00: 00 [facility] Multiparit y Multiparit y Disease Active 08-11 00:00: 00 [facility] History of delivery History of delivery Disease Active 08-11 00:00: 00 Overview: Formattin g of this note might be different from the original. Per patient report [facility] Allergies, Adverse Reactions, Alerts Allergy Name Allergy Type Status Severity Reaction(s) Onset Date Inactive Date Treating Clinician Comments Source NO KNOWN ALLERGIE S Drug Class Active [facility] Social History Social Habit Start Date Stop Date Quantity Comments Source [facility] History SDOH Alcohol Frequency [facility] History SDOH Alcohol Std Drinks [facility] History SDOH Alcohol Binge [facility] Exposure to SARS-CoV-2 (event) 2022-10-23 00:00:00 2022-11-02 13:35:00 Not sure [facility] Alcohol Comment 2021-08-20 00:00:00 2021-08-20 00:00:00 quit when found out she was [facility] Alcohol intake 2020-12-17 00:00:00 2020-12-17 00:00:00 0 /d [facility] History of Social function 2019-01-24 00:00:00 2019-01-24 00:00:00 [facility] Tobacco use and exposure 2015-12-20 00:00:00 2015-12-20 00:00:00 Smokeless tobacco non-user [facility] Sex Assigned At 2000 00:00:00 2000 00:00:00 [facility] Smoking Status Start Date Stop Date Source Never smoked tobacco [facility] Medications Ordered Medication Name Filled Medication Name Start Date Stop Date Current Medication? Ordering Clinician Indication Dosage Frequency Signature (SIG) Comments Components Source medroxyPROG ESTERone (DEPO-PROVE RA) syringe 150 mg 02-02 16:00: 00 02-02 15:17 :00 No [id number] 150mg Univer [facility] hydroCHLORO thiazide 12.5 mg tablet 02-22 00:00: 00 Yes [id number] 12.5mg Take 1 tablet by mouth in the morning. [facility] vitamin w/FA tablet 02-21 00:00: 00 Yes [id number] 1{tbl} Take 1 tablet by mouth in the morning. [facility] docusate 100 mg capsule 02-21 00:00: 00 Yes [id number] 200mg Take 2 capsules by mouth once daily as needed for Constipati on. [facility] ferrous sulfate 325 mg (65 mg iron) tablet 02-21 00:00: 00 Yes [id number] 325mg Take 1 tablet by mouth in the morning and 1 tablet in the evening. [facility] ibuprofen 600 mg tablet 02-21 00:00: 00 Yes [id number] 600mg Take 1 tablet by mouth every 6 (six) hours as needed (Pain). Take with food or milk. [facility] vitamin w/FA tablet 02-21 00:00: 00 Yes [id number] 1{tbl} Take 1 tablet by mouth in the morning. [facility] cephALEXin 500 mg capsule 02-17 00:00: 00 Yes [id number] 500mg Take 1 capsule by mouth every 6 (six) hours. [facility] fluticasone propionate 50 mcg/actuati on nasal spray 06 00:00: 00 Yes [facility] metoclopram jaron HCl 10 mg tablet 2 00:00: 00 Yes [id number] 10mg Take 1 tablet by mouth every 6 (six) hours as needed for Nausea and Vomiting (N/V). [facility] norgestimat e-ethinyl estradioL 0.25-35 mg-mcg per tablet 12-17 00:00: 00 08-20 00:00 :00 No [id number] 1{tbl} Take 1 tablet by mouth daily. [facility] vitamin w/FA tablet 2019-07- 00:00: 00 08-20 00:00 :00 No [id number] 1{tbl} Take 1 tablet by mouth daily. [facility] docusate calcium 240 mg capsule 2019-07 00:00: 00 08-20 00:00 :00 No [id number] 240mg Take 1 capsule by mouth once daily as needed for Constipati on. [facility] ferrous sulfate 325 mg (65 mg iron) tablet 2019-07 00:00: 00 08-20 00:00 :00 No [id number] 325mg Take 1 tablet by mouth 2 (two) times daily. [facility] ibuprofen 600 mg tablet 2019-07 00:00: 00 08-20 00:00 :00 No [id number] 600mg Take 1 tablet by mouth every 6 (six) hours as needed (Pain). Take with food or milk. [facility] Immunizations Ordered Immunization Name Filled Immunization Name Date Status Comments Source TDAP 2020-04-08 00:00:00 Completed [facility] TDAP 2020-04-08 00:00:00 Completed [facility] TDAP 2020-04-08 00:00:00 Completed [facility] TDAP 2020-04-08 00:00:00 Completed [facility] TDAP 2020-04-08 00:00:00 Completed [facility] TDAP 2020-04-08 00:00:00 Completed [facility] TDAP 2020-04-08 00:00:00 Completed [facility] TDAP 2020-04-08 00:00:00 Completed [facility] TDAP 2020-04-08 00:00:00 Completed [facility] TDAP 2020-04-08 00:00:00 Completed [facility] TDAP 2020-04-08 00:00:00 Completed [facility] TDAP 2020-04-08 00:00:00 Completed [facility] TDAP 2020-04-08 00:00:00 Completed [facility] TDAP 2020-04-08 00:00:00 Completed [facility] TDAP 2020-04-08 00:00:00 Completed [facility] TDAP 2020-04-08 00:00:00 Completed [facility] TDAP 2013-07-19 00:00:00 Completed [facility] TDAP 2013-07-19 00:00:00 Completed [facility] TDAP 2013-07-19 00:00:00 Completed [facility] TDAP 2013-07-19 00:00:00 Completed [facility] TDAP 2013-07-19 00:00:00 Completed [facility] TDAP 2013-07-19 00:00:00 Completed [facility] TDAP 2013-07-19 00:00:00 Completed [facility] TDAP 2013-07-19 00:00:00 Completed [facility] TDAP 2013-07-19 00:00:00 Completed [facility] TDAP 2013-07-19 00:00:00 Completed [facility] TDAP 2013-07-19 00:00:00 Completed [facility] TDAP 2013-07-19 00:00:00 Completed [facility] TDAP 2013-07-19 00:00:00 Completed [facility] TDAP 2013-07-19 00:00:00 Completed [facility] TDAP 2013-07-19 00:00:00 Completed [facility] TDAP 2013-07-19 00:00:00 Completed [facility] TDAP Unknown Completed [facility] TDAP Unknown Completed [facility] TDAP Unknown Completed [facility] TDAP Unknown Completed [facility] TDAP Unknown Completed [facility] TDAP Unknown Completed [facility] TDAP Unknown Completed [facility] TDAP Unknown Completed [facility] TDAP Unknown Completed [facility] TDAP Unknown Completed [facility] TDAP Unknown Completed [facility] TDAP Unknown Completed [facility] Vital Signs Vital Name Observation Time Observation Value Comments S ource Systolic blood pressure 2023-02-02 15:14:00 124 mm[Hg] [facility] Diastolic blood pressure 2023-02-02 15:14:00 84 mm[Hg] [facility] Heart rate 2023-02-02 15:14:00 69 /[facility] 2023-02-02 15:14:00 36.89 Bisi [facility] Respiratory rate 2023-02-02 15:14:00 18 /min [facility] Body weight 2023-02-02 15:14:00 [facility]23 [facility] BMI 2023-02-02 15:14:00 37.03 kg/m2 [facility] Systolic blood pressure 2022-11-02 19:20:00 132 mm[Hg] [facility] Diastolic blood pressure 2022-11-02 19:20:00 100 mm[Hg] [facility] Heart rate 2022-11-02 19:20:00 72 /min Unive [facility] Body temperature 2022-11-02 19:20:00 37 Bisi [facility] Respiratory rate 2022-11-02 19:20:00 18 /min [facility] Body height 2022-11-02 19:20:00 170.2 cm [facility] Body weight 2022-11-02 19:20:00 103.42 kg [facility] BMI 2022-11-02 19:20:00 35.71 kg/m2 [facility] Systolic blood pressure 2022-03-16 16:56:00 128 mm[Hg] [facility] Diastolic blood pressure 2022-03-16 16:56:00 82 mm[Hg] [facility] Heart rate 2022-03-16 16:56:00 62 /min Unive [facility] Body temperature 2022-03-16 16:56:00 36.78 Bisi [facility] Respiratory rate 2022-03-16 16:56:00 18 /min [facility] Body height 2022-03-16 16:56:00 170.2 cm [facility] Body weight 2022-03-16 16:56:00 91.173 kg [facility] BMI 2022-03-16 16:56:00 31.48 kg/m2 [facility] Procedures Procedure Date / Time Performed Performing Clinician Source ASSIGNMENT OF BENEFITS 2023-02-02 14:48:21 Docto r Unassigned, [place] [facility] GC & CHLAMYDIA AMPLIFIED ASSAY 2022-11-02 19:52:00 Talia Medina [facility] LAB ONLY PAP SMEAR-LIQUID BASED 2022-11-02 19:52:00 Adam Talia [facility] TRICHOMONAS AMPLIFIED ASSAY 2022-11-02 19:52:00 Talia Medina [facility] PAP SMEAR-LIQUID BASED-CP 2022-11-02 19:52:00 Talia Medina [facility] HIGH RISK HPV-THIN PREP 2022-11-02 19:52:00 Talia Medina [facility] PATIENT FINANCIAL POLICY 2022-11-02 18:37:30 Doctor Unassigned, [place] [facility] CONSENT FOR CONTRACEPTION 2022-11-02 05:01:00 Doctor Unassigned, [place] [facility] Encounters Start Date/Time End Date/Time Encounter Type Admission Type Attending [facility] Care Facility Care Department Encounter ID Source 2021-05-17 02:01:28 Outpatient [facility] ESTELA [id number] [facility] 2021-05-16 21:48:38 Outpatient P [facility] ESTELA [id number] [facility] 2021-05-16 19:33:22 Outpatient P [facility] ESTELA [id number] [facility] 2021-05-16 19:31:22 Outpatient P [facility] ESTELA [id number] [facility] 2023-05-05 14:00:00 2023-05-05 14:00:00 Outpatient ECHO VELOZ [facility] [id number] [facility] 2023-02-02 10:00:00 2023-02-02 10:15:09 Outpatient ECHO VELOZ [facility] [id number] [facility] 2023-02-02 10:00:00 2023-02-02 10:15:09 Nurse Visit Nurse, [facility] Women's [facility] Echo Hodges [facility] 1.2.840.114 350.1.13.10 4.2.7.2.686 [id number] [facility] 2023-02-02 00:00:00 2023-02-02 00:00:00 Orders Only Doctor Unassigned, [place] [facility] 1.2840.114 350.1.13.10 4.2.7.2.686 [id number] [facility] 2023-01-29 14:30:00 2023-01-29 14:30:00 Outpatient R ECHO HODGES [facility] [id number] [facility] 2023-01-12 14:15:00 2023-01-12 14:15:00 Outpatient R ECHO HODGES [facility] [id number] [facility] 2022-12-08 00:00:00 2022-12-08 00:00:00 Telephone Talia Medina [facility] 1.2.840.114 350.1.13.10 4.2.7.2.686 [id number] [facility] 2022-11-25 00:00:00 2022-11-25 00:00:00 Patient Secure Msg Doctor Unassigned, [place] [facility] 1.2.840.114 350.1.13.10 4.2.7.2.686 [id number] [facility] 2022-11-16 00:00:00 2022-11-16 00:00:00 Telephone Talia Medina [facility] 1.2.840.114 350.1.13.10 4.2.7.2.686 [id number] [facility] 2022-11-02 14:15:00 2022-11-02 15:02:03 Outpatient R TALIA MEDINA [facility] [id number] [facility] 2022-11-02 14:15:00 2022-11-02 15:02:03 Office Visit Talia Medina [facility] 1.2.840.114 350.1.13.10 4.2.7.2.686 [id number] [facility] 2022-11-02 00:00:00 2022-11-02 00:00:00 Orders Only Doctor Unassigned, [place] [facility] 1.114 350.1.13.10 4.2.7.2.686 [id number] [facility] 2022-06-29 10:30:00 2022-06-29 10:30:00 Outpatient TALIA ALVAREZ [facility] [id number] [facility] 2022-06-18 00:00:00 2022-06-18 00:00:00 Refill Esperanza Parra [facility] 1..114 350.1.13.10 4.2.7.2.686 [id number] [facility] 2022-05-11 15:00:00 2022-05-11 15:00:00 Outpatient R ECHO HODGES [facility] [id number] [facility] 2022-03-26 15:00:00 2022-03-26 15:00:00 Outpatient R ECHO HODGES [facility] [id number] [facility] 2022-03-16 11:15:00 2022-03-16 12:10:28 Outpatient R ECHO HODGES [facility] [id number] [facility] 2022-03-16 11:15:00 2022-03-16 12:10:28 Routine Visit Echo Hodges [facility] 1.114 350.1.13.10 4.2.7.2.686 [id number] 134 [id number] [facility] 2022-03-04 00:00:00 2022-03-04 00:00:00 Telephone [facility] 1.114 350.1.13.10 4.2.7.2.686 [id number] 134 [id number] [facility] 2022-02-25 14:30:00 2022-02-25 14:30:00 Nurse Visit Nurse, [facility] Echo Hodges [facility] 1.840.114 350.1.13.10 4.2.7.2.686 [id number] [facility] 2022-02-25 14:30:00 2022-02-25 13:35:46 Outpatient R ECHO HODGES [facility] [id number] [facility] 2022-02-23 09:00:00 2022-02-23 09:00:00 Outpatient P RUSLAN DEMPSEY [facility] [id number] [facility] 2022-02-20 04:04:00 2022-02-21 18:25:00 Inpatient X ECHO HODGES [facility] EST[facility] [id number] [facility] 2022-02-20 04:04:00 2022-02-21 18:25:00 Hospital Encounter Echo Hodges [facility] 1..114 350.1.13.10 4.2.7.2.686 [id number] [facility] 2022-02-20 12:04:53 2022-02-20 12:04:53 Anesthesia Event Fran Weiss Jeffrey S [facility] 1..114 350.1.13.10 4.2.7.2.686 [id number] [facility] 2022-02-20 00:00:00 2022-02-20 00:00:00 Orders Only Doctor Unassigned, [place] [facility] 1.84.114 350.1.13.10 4.2.7.2.686 [id number] [facility] 2022-02-17 20:59:00 2022-02-17 21:55:00 Outpatient P ECHO HODGES [facility] EST[facility] [id number] [facility] 2022-02-17 20:59:00 2022-02-17 21:55:00 Hospital Encounter Echo Hodges [facility] 1.2840.114 350.1.13.10 4.2.7.2.686 [id number] [facility] 2022-02-16 16:10:00 2022-02-17 08:10:00 Outpatient X ECHO HODGES [facility] [id number] [facility] 2022-02-16 16:10:00 2022-02-17 08:10:00 Hospital Encounter Echo Hodges [facility] 1.2840.114 350.1.13.10 4.2.7.2.686 [id number] [facility] 2022-02-16 15:30:00 2022-02-16 15:45:00 Routine Visit Talia Medina [facility] 1.2840.114 350.1.13.10 4.2.7.2.686 [id number] [facility] 2022-02-16 15:30:00 2022-02-16 15:30:00 [id number] 2022-02-16 00:00:00 2022-02-16 00:00:00 Orders Only Doctor Unassigned, [place] [facility] 1.2840.114 350.1.13.10 4.2.7.2.686 [id number] [facility] 2022-02-03 15:00:00 2022-02-03 15:00:00 Outpatient R [facility] [id number] [facility] 2022-02-02 16:15:00 2022-02-02 16:36:06 Outpatient R ECHO HODGES [facility] [id number] [facility] 2022-02-02 16:15:00 2022-02-02 16:36:06 Routine Visit Echo Hodges [facility] 1..840.114 350.1.13.10 4.2.7.2.686 [id number] [facility] 2022-02-02 16:15:00 2022-02-02 16:15:00 Outpatient R ECHO HODGES [facility] [id number] [facility] 2022-01-26 09:15:00 2022-01-26 09:37:53 Senior Project 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 Ultrasound, Ruslan Goldstein [facility] LACTATION NURSE [facility] 1..840.114 350.1.13.10 4.2.7.2.686 [id number] [facility] 2022-01-26 09:15:00 2022-01-26 09:15:00 Outpatient RUSLAN TATUM [facility] [id number] [facility] 2022-01-07 15:30:00 2022-01-07 15:30:00 Outpatient TALIA ALVAREZ [facility] [id number] [facility] 2021-12-31 11:15:00 2021-12-31 11:15:00 Outpatient TALIA ALVAREZ [facility] [id number] [facility] 2021-12-18 13:00:00 2021-12-18 13:00:00 Outpatient TALIA ALVAREZ [facility] [id number] [facility] 2021-12-18 13:00:00 2021-12-18 13:00:00 Outpatient TALIA ALVAREZ [facility] [id number] [facility] 2021-12-18 13:00:00 2021-12-18 13:00:00 Outpatient TALIA ALVAREZ [facility] [id number] [facility] 2021-12-18 10:15:00 2021-12-18 10:15:00 Outpatient R [facility] [id number] [facility] 2021-12-17 13:15:00 2021-12-17 13:55:19 Outpatient R ECHO HODGES [facility] [id number] [facility] 2021-12-17 13:15:00 2021-12-17 13:55:19 Routine Visit Echo Hodges Costa [facility] 1.2.840.114 350.1.13.10 4.2.7.2.686 [id number] [facility] 2021-12-17 00:00:00 2021-12-17 00:00:00 Orders Only Doctor Unassigned, [place] [facility] 1.84.114 350.1.13.10 4.2.7.2.686 [id number] [facility] 2021-11-18 10:45:00 2021-11-18 12:39:29 Outpatient P TALIA MEDINA [facility] [id number] [facility] 2021-11-18 10:45:00 2021-11-18 12:39:29 Senior Project 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 Ultrasound, [facility] 1.2.840.114 350.1.13.10 4.2.7.2.686 [id number] [facility] 2021-11-18 10:15:00 2021-11-18 10:51:35 Routine Visit JonesTalia ríos [facility] 1.284.114 350.1.13.10 4.2.7.2.686 [id number] [facility] 2021-11-11 00:00:00 2021-11-11 00:00:00 Telephone HodgesEcho [facility] 1.2840.114 350.1.13.10 4.2.7.2.686 [id number] [facility] 2021-11-04 11:15:00 2021-11-04 12:00:00 Senior Project 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 Ultrasound, Adc Pascual Mcgrath [facility] 1.2840.114 350.1.13.10 4.2.7.2.686 [id number] [facility] 2021-11-04 11:15:00 2021-11-04 11:15:00 Outpatient P PASCUAL LINO [facility] [id number] [facility] 2021-11-04 00:00:00 2021-11-04 00:00:00 Letter (Out) Echo Hodges [facility] 1.2840.114 350.1.13.10 4.2.7.2.686 [id number] [facility] 2021-11-04 00:00:00 2021-11-04 00:00:00 Letter (Out) Echo Hodges [facility] 1.2840.114 350.1.13.10 4.2.7.2.686 [id number] [facility] 2021-11-03 00:00:00 2021-11-03 00:00:00 Patient Secure Msg Doctor Unassigned, [place] [facility] 1.2840.114 350.1.13.10 4.2.7.2.686 [id number] [facility] 2021-10-28 14:45:00 2021-10-28 15:30:00 Senior Project 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 Ultrasound, Rossi colbert [facility] 1.2840.114 350.1.13.10 4.2.7.2.686 [id number] [facility] 2021-10-28 14:45:00 2021-10-28 14:45:00 Outpatient P [facility] [id number] [facility] 2021-10-28 14:45:00 2021-10-28 14:45:00 Outpatient P AUGIE RAJENDRA Oksana GARNER [facility] [id number] [facility] 2021-10-16 13:00:00 2021-10-16 14:20:07 Outpatient R EHCO HODGES [facility] [id number] [facility] 2021-10-16 13:00:00 2021-10-16 14:20:07 Office Visit Echo Hodges [facility] 1.840.114 350.1.13.10 4.2.7.2.686 [id number] [facility] 2021-10-16 13:00:00 2021-10-16 14:20:07 Outpatient R ECHO HODGES [facility] [id number] [facility] 2021-10-16 00:00:00 2021-10-16 00:00:00 Letter (Out) Echo Hodges [facility] 1.840.114 350.1.13.10 4.2.7.2.686 [id number] [facility] 2021-10-16 00:00:00 2021-10-16 00:00:00 Orders Only Doctor Unassigned, [place] [facility] .84.114 350.1.13.10 4.2.7.2.686 [id number] [facility] 2021-10-01 00:00:00 2021-10-01 00:00:00 Telephone Echo Hodges [facility] 1.84.114 350.1.13.10 4.2.7.2.686 [id number] [facility] 2021-09-25 00:00:00 2021-09-25 00:00:00 Orders Only Doctor Unassigned, [place] [facility] 1.2.840.114 350.1.13.10 4.2.7.2.686 [id number] [facility] 2021-09-24 00:00:00 2021-09-24 00:00:00 Telephone Echo Hodges [facility] 1.2840.114 350.1.13.10 4.2.7.2.686 [id number] [facility] 2021-09-22 00:00:00 2021-09-22 00:00:00 Telephone Talia Medina [facility] 1.2840.114 350.1.13.10 4.2.7.2.686 [id number] [facility] 2021-09-19 00:00:00 2021-09-19 00:00:00 Telephone JessicaNaina [facility] 1.2840.114 350.1.13.10 4.2.7.2.686 [id number] [facility] 2021-09-18 09:20:00 2021-09-18 09:55:56 Outpatient CAMILLA DONOVAN [facility] [id number] [facility] 2021-09-17 16:00:00 2021-09-17 16:53:47 Outpatient TALIA ALVAREZ [facility] [id number] [facility] 2021-09-17 16:00:00 2021-09-17 16:53:47 Routine Visit Talia Medina [facility] 1.2840.114 350.1.13.10 4.2.7.2.686 [id number] 134 [id number] [facility] 2021-09-17 00:00:00 2021-09-17 00:00:00 Letter (Out) Talia Medina [facility] 1.2840.114 350.1.13.10 4.2.7.2.686 [id number] 134 [id number] [facility] 2021-09-12 00:00:00 2021-09-12 00:00:00 Patient Secure Msg Talia Medina [facility] 1.2840.114 350.1.13.10 4.2.7.2.686 [id number] 134 [id number] [facility] 2021-09-10 00:00:00 2021-09-10 00:00:00 Patient Secure Msg Doctor Unassigned, [place] [facility] 1.2840.114 350.1.13.10 4.2.7.2.686 [id number] [facility] 2021-09-09 00:00:00 2021-09-09 00:00:00 Telephone Echo Hodges [facility] 1.2840.114 350.1.13.10 4.2.7.2.686 [id number] 134 [id number] [facility] 2021-09-02 00:00:00 2021-09-02 00:00:00 Telephone Talia Medina [facility] 1.2840.114 350.1.13.10 4.2.7.2.686 [id number] 134 [id number] [facility] 2021-08-29 11:30:00 2021-08-29 11:45:00 Senior Project 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 Pob, Adc Lab Main Echo Hodges Costa [facility] 1.2840.114 350.1.13.10 4.2.7.2.686 [id number] 353 [id number] [facility] 2021-08-29 11:30:00 2021-08-29 11:30:00 Outpatient ECHO VELOZ [facility] [id number] [facility] 2021-08-29 00:00:00 2021-08-29 00:00:00 Orders Only Doctor Unassigned, [place] [facility] 1.0.114 350.1.13.10 4.2.7.2.686 [id number] [id number] [facility] 2021-08-24 00:00:00 2021-08-24 00:00:00 Case Management Talia Medina [facility] 1.114 350.1.13.10 4.2.7.2.686 [id number] [facility] 2021-08-21 00:00:00 2021-08-21 00:00:00 Patient Secure Msg Doctor Unassigned, [place] [facility] 1..114 350.1.13.10 4.2.7.2.686 [id number] 134 [id number] [facility] 2021-08-21 00:00:00 2021-08-21 00:00:00 Patient Outreach Malka Hernandez [facility] 1..114 350.1.13.10 4.2.7.2.686 [id number] 098 [id number] [facility] 2021-08-20 14:30:00 2021-08-20 15:36:52 Initial Visit Echo Hodges [facility] 1..114 350.1.13.10 4.2.7.2.686 [id number] 134 [id number] [facility] 2021-08-20 14:30:00 2021-08-20 15:36:52 Outpatient ECHO VELOZ [facility] [id number] [facility] 2021-08-20 00:00:00 2021-08-20 00:00:00 Patient Secure Msg Doctor Unassigned, [place] [facility] 1.840.114 350.1.13.10 4.2.7.2.686 [id number] 134 [id number] [facility] 2021-08-20 00:00:00 2021-08-20 00:00:00 Letter (Out) Hodges Echo [facility] 1.840.114 350.1.13.10 4.2.7.2.686 [id number] 134 [id number] [facility] 2021-08-20 00:00:00 2021-08-20 00:00:00 Orders Only Doctor Unassigned, [place] [facility] 1.840.114 350.1.13.10 4.2.7.2.686 [id number] [id number] [facility] 2021-08-12 14:00:00 2021-08-12 14:00:00 Outpatient TALIA ALVAREZ [facility] [id number] [facility] 2021-08-04 00:00:00 2021-08-04 00:00:00 Patient Secure Msg Doctor Unassigned, [place] [facility] 1.840.114 350.1.13.10 4.2.7.2.686 [id number] [facility] 2021-02-06 13:30:00 2021-02-06 13:30:00 Outpatient TALIA ALVAREZ [facility] [id number] [facility] 2021-01-16 00:00:00 2021-01-16 00:00:00 Letter (Out) Echo Hodges [facility] 1.840.114 350.1.13.10 4.2.7.2.686 [id number] 134 [id number] [facility] 2021-01-16 00:00:00 2021-01-16 00:00:00 Telephone Talia Medina [facility] 1.2.840.114 350.1.13.10 4.2.7.2.686 [id number] 134 [id number] [facility] 2021-01-13 00:00:00 2021-01-13 00:00:00 Patient Secure Msg Doctor Unassigned, [place] [facility] 1.2.840.114 350.1.13.10 4.2.7.2.686 [id number] 134 [id number] [facility] 2021-01-07 00:00:00 2021-01-07 00:00:00 Telephone Talia Medina [facility] 1.2.840.114 350.1.13.10 4.2.7.2.686 [id number] 134 [id number] [facility] 2020-12-17 12:54:01 2020-12-17 13:51:32 Office Visit Talia Medina [facility] 1.2.840.114 350.1.13.10 4.2.7.2.686 [id number] 134 [id number] [facility] 2020-12-17 13:00:00 2020-12-17 13:00:00 Outpatient R TALIA MEDINA [facility] [id number] [facility] 2020-12-17 00:00:00 2020-12-17 00:00:00 Orders Only Doctor Unassigned, [place] [facility] 1.2.840.114 350.1.13.10 4.2.7.2.686 [id number] 009 [id number] [facility] 2020-06-18 15:28:00 2020-06-18 16:09:46 [facility] 1.2.840.114 350.1.13.10 4.2.7.2.686 [id number] 134 [id number] [facility] 2020-06-18 15:28:00 2020-06-18 16:09:46 [facility] 1.2.840.114 350.1.13.10 4.2.7.2.686 [id number] 134 [id number] 2020-06-18 15:15:00 2020-06-18 15:15:00 Outpatient R ADAM [facility] [id number] [facility] 2020-06-17 16:30:00 2020-06-17 16:30:00 Outpatient R ADAM [facility] [id number] [facility] 2020-06-12 00:00:00 2020-06-12 00:00:00 Orders Only Doctor Unassigned, [place] [facility] 1.2.840.114 350.1.13.10 4.2.7.2.686 [id number] 009 [id number] [facility] 2020-06-12 00:00:00 2020-06-12 00:00:00 Orders Only Doctor Unassigned, [place] [facility] 1.2.840.114 350.1.13.10 4.2.7.2.686 [id number] [id number] 2020-05-20 04:10:00 2020-05-21 11:40:00 Hospital Encounter Echo Hodges [facility] 1.2.840.114 350.1.13.10 4.2.7.2.686 [id number] 083 [id number] [facility] 2020-05-20 04:10:00 2020-05-21 11:40:00 Hospital Encounter Echo Hodges [facility] 1.2.840.114 350.1.13.10 4.2.7.2.686 [id number] 083 [id number] 2020-05-20 00:00:00 2020-05-20 00:00:00 Orders Only Doctor Unassigned, [place] [facility] 1.2.840.114 350.1.13.10 4.2.7.2.686 [id number] 009 [id number] [facility] 2020-05-20 00:00:00 2020-05-20 00:00:00 Orders Only Doctor Unassigned, [place] [facility] 1.2.840.114 350.1.13.10 4.2.7.2.686 [id number] 009 [id number] 2020-05-17 09:10:37 2020-05-17 09:25:37 Senior Project 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 1, [facility] 1.2.840.114 350.1.13.10 4.2.7.2.686 [id number] 353 [id number] [facility] 2020-05-17 09:10:37 2020-05-17 09:25:37 Senior Project 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 1, [facility] 1.2.840.114 350.1.13.10 4.2.7.2.686 [id number] 353 [id number] 2020-05-17 08:17:41 2020-05-17 08:54:38 Routine Visit Room, [facility] 1.2.840.114 350.1.13.10 4.2.7.2.686 [id number] 134 [id number] [facility] 2020-05-17 08:17:41 2020-05-17 08:54:38 Routine Visit Room, [facility] 1.2.840.114 350.1.13.10 4.2.7.2.686 [id number] 134 [id number] 2020-05-17 08:00:00 2020-05-17 08:00:00 Outpatient R [facility] [id number] [facility] 2020-05-16 14:00:00 2020-05-16 14:00:00 Outpatient R [facility] [id number] [facility] 2020-05-14 11:09:37 2020-05-14 12:11:42 Routine Visit Room, [facility] OsmarEcho Costa [facility] 1.2840.114 350.1.13.10 4.2.7.2.686 [id number] 134 [id number] [facility] 2020-05-14 11:09:37 2020-05-14 12:11:42 Routine Visit Room, [facility] 1.2840.114 350.1.13.10 4.2.7.2.686 [id number] 134 [id number] 2020-05-14 11:00:00 2020-05-14 11:00:00 Outpatient R [facility] [id number] [facility] 2020-05-14 00:00:00 2020-05-14 00:00:00 Orders Only Doctor Unassigned, [place] [facility] 1.2840.114 350.1.13.10 4.2.7.2.686 [id number] 009 [id number] [facility] 2020-05-14 00:00:00 2020-05-14 00:00:00 Orders Only Doctor Unassigned, [place] [facility] 1.2840.114 350.1.13.10 4.2.7.2.686 [id number] 009 [id number] 2020-05-10 10:41:31 2020-05-10 11:25:11 Senior Project 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 Ultrasound, [facility] 1.2840.114 350.1.13.10 4.2.7.2.686 [id number] 134 [id number] 2020-05-10 10:41:31 2020-05-10 11:25:11 Senior Project 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 Ultrasound, [facility] Pascual Lino [facility] 1.2.840.114 350.1.13.10 4.2.7.2.686 [id number] 134 [id number] [facility] 2020-05-10 10:30:00 2020-05-10 10:30:00 Outpatient P [facility] [id number] [facility] 2020-04-29 11:00:00 2020-04-29 11:00:00 Outpatient R [facility] [id number] [facility] 2020-04-25 10:09:00 2020-04-25 12:35:00 Hospital Encounter Echo Hodges [facility] 1.2.840.114 350.1.13.10 4.2.7.2.686 [id number] 2020-04-25 10:09:00 2020-04-25 12:35:00 Hospital Encounter Echo Hodges [facility] 1.2.840.114 350.1.13.10 4.2.7.2.686 [id number] 083 [id number] [facility] 2020-04-25 08:21:54 2020-04-25 09:48:28 Routine Visit Room, [facility] 1.2.840.114 350.1.13.10 4.2.7.2.686 [id number] 134 [id number] 2020-04-25 08:21:54 2020-04-25 09:48:28 Routine Visit Room, [facility] AdamFeliciacy [facility] 1.2.840.114 350.1.13.10 4.2.7.2.686 [id number] 134 [id number] [facility] 2020-04-25 08:00:00 2020-04-25 08:00:00 Outpatient R [facility] [id number] [facility] 2020-04-22 13:01:30 2020-04-22 14:28:44 [facility] 1.2.840.114 350.1.13.10 4.2.7.2.686 [id number] 134 [id number] 2020-04-22 13:01:30 2020-04-22 14:28:44 Routine Visit Echo Hodges [facility] 1.2.840.114 350.1.13.10 4.2.7.2.686 [id number] 134 [id number] [facility] 2020-04-22 13:00:00 2020-04-22 13:00:00 Outpatient R ECHO HODGES [facility] [id number] [facility] 2020-04-20 09:11:00 2020-04-20 11:10:00 Hospital Encounter Echo Hodges [facility] 1.2.840.114 350.1.13.10 4.2.7.2.686 [id number] 083 [id number] 2020-04-20 09:11:00 2020-04-20 11:10:00 Hospital Encounter Echo Hodges [facility] 1.2.840.114 350.1.13.10 4.2.7.2.686 [id number] 083 [id number] [facility] 2020-04-20 09:08:00 2020-04-20 09:08:00 Outpatient P [facility] ESTELA [id number] [facility] 2020-04-20 00:00:00 2020-04-20 00:00:00 Orders Only Doctor Unassigned, [place] [facility] 1.2.840.114 350.1.13.10 4.2.7.2.686 [id number] [id number] 2020-04-20 00:00:00 2020-04-20 00:00:00 Orders Only Doctor Unassigned, [place] [facility] 1.2.840.114 350.1.13.10 4.2.7.2.686 [id number] 009 [id number] [facility] 2020-04-12 15:07:00 2020-04-12 16:30:00 Hospital Encounter Echo Hodges Vivian L AKKRISTI [facility] 1.2.840.114 350.1.13.10 4.2.7.2.686 [id number] 083 [id number] 2020-04-12 15:07:00 2020-04-12 16:30:00 Hospital Encounter Echo Hodges Vivian L [facility] 1.2.840.114 350.1.13.10 4.2.7.2.686 [id number] 083 [id number] [facility] 2020-04-12 13:43:19 2020-04-12 14:45:57 Routine Visit AdumEsperanza AKKRISTI [facility] 1.2.840.114 350.1.13.10 4.2.7.2.686 [id number] 134 [id number] 2020-04-12 13:43:19 2020-04-12 14:45:57 Routine Visit AdumEsperanza [facility] 1.2.840.114 350.1.13.10 4.2.7.2.686 [id number] 134 [id number] [facility] 2020-04-12 13:04:57 2020-04-12 13:34:57 Senior Project 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 Ultrasound, [facility] Building 1.2.840.114 350.1.13.10 4.2.7.2.686 [id number] 134 [id number] 2020-04-12 13:04:57 2020-04-12 13:34:57 Senior Project 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 Ultrasound, [facility] Lauren Jackman [facility] 1.2.840.114 350.1.13.10 4.2.7.2.686 [id number] 134 [id number] [facility] 2020-04-12 13:00:00 2020-04-12 13:00:00 Outpatient P [facility] [id number] [facility] 2020-04-09 09:21:59 2020-04-09 09:36:59 Senior Project 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 2, Adc Lab [facility] [place] nal Building 1.2.840.114 350.1.13.10 4.2.7.2.686 [id number] 353 [id number] 2020-04-09 09:21:59 2020-04-09 09:36:59 Senior Project 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 2, Adc Lab Talia Medina [facility] nal Building 1.2.840.114 350.1.13.10 4.2.7.2.686 [id number] 353 [id number] [facility] 2020-04-09 09:15:00 2020-04-09 09:15:00 Outpatient R [facility] [id number] [facility] 2020-04-08 13:50:06 2020-04-08 14:05:06 Senior Project 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 2, Adc Lab [facility] 1.2.840.114 350.1.13.10 4.2.7.2.686 [id number] 2020-04-08 13:50:06 2020-04-08 14:05:06 Senior Project 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 2, Adc Lab Echo Hodges [facility] 1.2.840.114 350.1.13.10 4.2.7.2.686 [id number] 353 [id number] [facility] 2020-04-08 13:05:39 2020-04-08 13:46:28 Routine Visit Echo Hodges [facility] nal Building 1.2.840.114 350.1.13.10 4.2.7.2.686 [id number] 134 [id number] [facility] 2020-04-08 13:05:39 2020-04-08 13:46:28 Routine Visit Echo Hodges [facility] nal Building 1.2.840.114 350.1.13.10 4.2.7.2.686 [id number] 134 [id number] 2020-04-08 13:00:00 2020-04-08 13:00:00 Outpatient ECHO VELOZ [facility] [id number] [facility] 2020-04-08 00:00:00 2020-04-08 00:00:00 Case Management [facility] 1.2.840.114 350.1.13.10 4.2.7.2.686 [id number] 134 [id number] [facility] 2020-04-08 00:00:00 2020-04-08 00:00:00 Case Management Adam [facility] Building 1.2.840.114 350.1.13.10 4.2.7.2.686 [id number] 134 [id number] 2020-04-03 13:00:00 2020-04-03 13:00:00 Outpatient R ECHO HODGES [facility] [id number] [facility] 2020-03-20 09:15:00 2020-03-20 09:15:00 Outpatient ECHO VELOZ [facility] [id number] [facility] 2020-03-18 16:00:00 2020-03-18 16:00:00 Outpatient ECHO VELOZ [facility] [id number] [facility] 2020-03-08 13:00:00 2020-03-08 13:00:00 Outpatient R ECHO HODGES [facility] [id number] [facility] 2020-02-09 14:30:00 2020-02-09 14:30:00 Outpatient R ADAM [facility] [id number] [facility] 2020-02-09 08:30:37 2020-02-09 08:45:37 Telemedici ne Visit Adam [facility] Building 1.2.840.114 350.1.13.10 4.2.7.2.686 [id number] 134 [id number] [facility] 2020-02-09 08:30:37 2020-02-09 08:45:37 Telemedici ne Visit Talia Medina [facility] 1.2.840.114 350.1.13.10 4.2.7.2.686 [id number] 134 [id number] 2020-02-08 16:30:00 2020-02-08 16:30:00 Outpatient R TALIA MEDINA [facility] [id number] [facility] 2020-01-19 10:38:05 2020-01-19 11:38:05 Senior Project 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 Ultrasound, [facility] Martha Waters [facility] 1.2.840.114 350.1.13.10 4.2.7.2.686 [id number] 134 [id number] [facility] 2020-01-19 10:38:05 2020-01-19 11:38:05 Senior Project 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 Ultrasound, [facility] 1.2.840.114 350.1.13.10 4.2.7.2.686 [id number] 134 [id number] 2020-01-19 11:00:00 2020-01-19 11:00:00 Outpatient R [facility] [id number] [facility] 2020-01-10 15:27:02 2020-01-10 15:42:02 Senior Project 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 2, Adc Lab Echo Hodges [facility] 1.2.840.114 350.1.13.10 4.2.7.2.686 [id number] 353 [id number] [facility] 2020-01-10 15:27:02 2020-01-10 15:42:02 Senior Project 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 2, [facility] Lab [facility] 1.2.840.114 350.1.13.10 4.2.7.2.686 [id number] 353 [id number] 2020-01-10 15:30:00 2020-01-10 15:30:00 Outpatient R ECHO HODGES [facility] [id number] [facility] 2020-01-10 14:47:58 2020-01-10 15:22:57 Routine Visit Echo Hodges [facility] Jozef Castillo nal Building 1.2.840.114 350.1.13.10 4.2.7.2.686 [id number] 134 [id number] [facility] 2020-01-10 14:47:58 2020-01-10 15:22:57 Routine Visit Echo Hodges [facility] Jozef Castillo nal Building 1.2.840.114 350.1.13.10 4.2.7.2.686 [id number] 134 [id number] 2019-12-27 13:00:00 2019-12-27 13:00:00 Outpatient R ECHO HODGES [facility] [id number] [facility] 2019-12-13 00:00:00 2019-12-13 00:00:00 Telephone Echo Hodges [facility] [place] Ramon [facility] 1.2.840.114 350.1.13.10 4.2.7.2.686 [id number] 134 [id number] [facility] 2019-12-13 00:00:00 2019-12-13 00:00:00 Telephone Echo Hodges [facility] Jozef Castillo nal Building 1.2.840.114 350.1.13.10 4.2.7.2.686 [id number] 134 [id number] 2019-12-08 00:00:00 2019-12-08 00:00:00 Case Management Echo Hodges [facility] Jozef Chapaio nal Building 1.2.840.114 350.1.13.10 4.2.7.2.686 [id number] 134 [id number] [facility] 2019-12-08 00:00:00 2019-12-08 00:00:00 Case Management Echo Hodges [facility] 1.2.840.114 350.1.13.10 4.2.7.2.686 [id number] 134 [id number] 2019-12-07 00:00:00 2019-12-07 00:00:00 Telephone Echo Hodges [facility] 1.2.840.114 350.1.13.10 4.2.7.2.686 [id number] 134 [id number] [facility] 2019-12-07 00:00:00 2019-12-07 00:00:00 Telephone [facility] 1.2.840.114 350.1.13.10 4.2.7.2.686 [id number] 134 [id number] 2019-11-29 13:51:24 2019-11-29 14:06:24 Senior Project 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 2, Adc Lab Echo Hodges [facility] Building 1.2.840.114 350.1.13.10 4.2.7.2.686 [id number] 353 [id number] [facility] 2019-11-29 13:51:24 2019-11-29 14:06:24 Senior Project 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 2, Adc Lab [facility] 1.2.840.114 350.1.13.10 4.2.7.2.686 [id number] 353 [id number] 2019-11-29 13:00:25 2019-11-29 13:36:47 Routine Visit Echo Hodges [facility] 1.2.840.114 350.1.13.10 4.2.7.2.686 [id number] 134 [id number] [facility] 2019-11-29 13:00:00 2019-11-29 13:00:00 Outpatient R ECHO HODGES [facility] [id number] [facility] 2019-11-29 00:00:00 2019-11-29 00:00:00 Orders Only Doctor Unassigned, [place] [facility] 1.2.840.114 350.1.13.10 4.2.7.2.686 [id number] [id number] [facility] 2019-11-07 08:13:02 2019-11-15 09:41:50 Telemedici ne Visit Echo Hodges [facility] 1..840.114 350.1.13.10 4.2.7.2.686 [id number] 134 [id number] [facility] 2019-11-14 11:24:05 2019-11-14 12:36:31 Senior Project 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 Ultrasound, Lauren Dhillon [facility] LACTATION NURSE [facility] 1..840.114 350.1.13.10 4.2.7.2.686 [id number] [facility] 2019-11-14 11:00:00 2019-11-14 11:00:00 Outpatient P [facility] [id number] [facility] 2019-11-07 14:00:00 2019-11-07 14:00:00 Outpatient R ECHO HODGES [facility] [id number] [facility] 2019-10-27 09:00:00 2019-10-27 09:00:00 Outpatient R ILANA MONTES [facility] [id number] [facility] 2019-10-26 00:00:00 2019-10-26 00:00:00 Telephone Echo Hodges [facility] 1..840.114 350.1.13.10 4.2.7.2.686 [id number] 134 [id number] [facility] 2019-10-18 00:00:00 2019-10-18 00:00:00 Telephone Kanika Lay [facility] LACTATION NURSE [facility] 1..840.114 350.1.13.10 4.2.7.2.686 [id number] [facility] 2019-04-25 14:00:00 2019-04-25 14:33:35 Outpatient R TALIA MEDINA [facility] [id number] [facility] 2019-03-15 06:47:00 2019-03-16 19:30:00 Inpatient P ECHO HODGES [facility] ESTELA [id number] [facility] 2019-03-15 06:47:00 2019-03-16 19:30:00 Hospital Encounter Echo Hodges [facility] 1.2.840.114 350.1.13.10 4.2.7.2.686 [id number] [facility] 2019-03-09 14:22:30 2019-03-09 14:37:30 Senior Project 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 1, Adc Lab Talia Medina [facility] 1.2.114 350.1.13.10 4.2.7.2.686 [id number] [facility] 2019-03-09 00:00:00 2019-03-09 00:00:00 Orders Only Doctor Unassigned, [place] [facility] 1.2.840.114 350.1.13.10 4.2.7.2.686 [id number] [facility] 2019-03-08 00:00:00 2019-03-08 00:00:00 Case Management Talia Medina [facility] 1.2.840.114 350.1.13.10 4.2.7.2.686 [id number] [facility] 2019-03-08 00:00:00 2019-03-08 00:00:00 Telephone Echo Hodges [facility] 1.2840.114 350.1.13.10 4.2.7.2.686 [id number] [facility] 2019-03-07 14:36:38 2019-03-07 15:24:28 Routine Visit Talia Medina [facility] 1.2.840.114 350.1.13.10 4.2.7.2.686 [id number] [facility] 2019-02-21 14:33:39 2019-02-21 15:05:05 Routine Visit Echo Hodges [facility] 1.2.840.114 350.1.13.10 4.2.7.2.686 [id number] [facility] 2019-02-21 13:45:00 2019-02-21 15:05:05 Outpatient R ECHO HODGES [facility] [id number] [facility] 2019-01-23 11:15:00 2019-01-23 11:15:00 Outpatient ECHO VELOZ [facility] [id number] [facility] 2018-12-26 10:30:00 2018-12-26 11:28:51 Outpatient R ECHO HODGES [facility] [id number] [facility] 2018-11-08 13:30:00 2018-11-08 14:17:04 Outpatient P TALYA ORR [facility] [id number] [facility] 2018-10-31 11:00:00 2018-10-31 11:59:43 Outpatient R ILANA MONTES [facility] [id number] [facility]
--- NOTE | 2023-12-27 10:46 | EDPHYS ---
Physician Documentation [facility] Name: Mary Joe Age: 23 yrs Sex: Female : 2000 Arrival Date: 12/27/2023 Time: 10:33 Bed IW5 Private MD: ED Physician Sarbjit Mason HPI: 12/26 10:49 This 23 yrs old Black Female presents to ER via Ambulatory with complaints of Sore rt Throat. 10:49 Patient presents to the ED with 3 days of sore throat, chills, body aches. Denies rt cough, shortness of breath. Denies other acute complaints at this time, symptoms are mild in severity, no other aggravating or alleviating factors.. 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 - Infectious Disease History:: Denies. - Social history:: Smoking status: Patient denies any tobacco usage or history of. - Family history:: not pertinent. ROS: 10:49 Cardiovascular: Negative for chest pain, palpitations, and edema, Respiratory: Negative rt for shortness of breath, cough, wheezing, and pleuritic chest pain, Abdomen/GI: Negative for abdominal pain, nausea, vomiting, diarrhea, and constipation, Skin: Negative for injury, rash, and discoloration, Neuro: Negative for headache, weakness, numbness, tingling, and seizure, Psych: Negative for depression, anxiety, suicide ideation, homicidal ideation, and hallucinations, 10:49 Constitutional: Positive for body aches, chills, 10:49 ENT: Positive for sore throat, Negative for rhinorrhea, Exam: 10:49 Constitutional: This is a well developed, well nourished patient who is awake, alert, rt and in no acute distress. Head/Face: Normocephalic, atraumatic. Chest/axilla: Normal chest wall appearance and motion. Nontender with no deformity. No lesions are appreciated. Cardiovascular: Regular rate and rhythm with a normal S1 and S2. No gallops, murmurs, or rubs. Normal PMI, no JVD. No pulse deficits. Respiratory: Lungs have equal breath sounds bilaterally, clear to auscultation and percussion. No rales, rhonchi or wheezes noted. No increased work of breathing, no retractions or nasal flaring. Abdomen/GI: Soft, non-tender, with normal bowel sounds. No distension or tympany. No guarding or rebound. No evidence of tenderness throughout. Skin: Warm, dry with normal turgor. Normal color with no rashes, no lesions, and no evidence of cellulitis. MS/ Extremity: Pulses equal, no cyanosis. Neurovascular intact. Full, normal range of motion. Neuro: Awake and alert, GCS 15, oriented to person, place, time, and situation. Cranial nerves II-XII grossly intact. Motor strength 5/5 in all extremities. Sensory grossly intact. Cerebellar exam normal. Normal gait. 10:49 ENT: Posterior pharyngeal erythema with mild exudates, no tonsillar hypertrophy, uvula is midline. Vital Signs: 10:42 BP 145 / 86; Pulse 88; Resp 16; Temp 97.8; Pulse Ox 100% ; bp MDM: 10:41 Patient medically screened. rt 10:49 Differential diagnosis: Strep pharyngitis, viral syndrome. Data reviewed: vital signs, rt nurses notes. 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 CT scan is not indicated. Will treat for strep pharyngitis empirically, will forego swabs given high pretest probability. Counseling: I had a detailed discussion with the patient and/or guardian regarding the historical points, exam findings, and any diagnostic results supporting the discharge/admit diagnosis, the need for outpatient follow up, to return to the emergency department if symptoms worsen or persist or if there are any questions or concerns that arise at home. Administered Medications: No medications were administered Disposition Summary: 12/27/23 10:45 Discharge Ordered Notes: Location: Home rt Problem: new rt Symptoms: have improved rt Condition: Stable rt Diagnosis - Streptococcal pharyngitis rt Followup: rt - With: Private Physician - When: 2 - 3 days - Reason: Discharge Instructions: - Discharge Summary Sheet bp - Strep Throat, Adult rt Forms: - Work release form bp - Medication Reconciliation Form rt - Antibiotic Education rt - Prescription Opioid Use rt - Patient Portal Instructions rt - Leadership Thank You Letter rt Prescriptions: - Amoxicillin 875 mg Oral Tablet - take 1 tablet ORAL route every 12 hours for 10 days; 20 tablet; Refills: 0, rt Product Selection Permitted Signatures: Everett Ruiz RN RN bp Sarbjit Mason MD MD rt
--- NOTE | 2023-12-27 10:46 | ER ---
Nurse's Notes [facility] Name: Mary Joe Age: 23 yrs Sex: Female : 2000 Arrival Date: 12/27/2023 Time: 10:33 Bed IW5 Private MD: Diagnosis: Streptococcal pharyngitis Presentation: 12/26 10:42 Chief complaint: Patient states: 3 DAYS SORE THROAT. Coronavirus screen: At this time, bp the client does not indicate any symptoms associated with coronavirus-19. Ebola Screen: No symptoms or risks identified at this time. Initial Sepsis Screen: Does the patient meet any 2 criteria? No. Patient's initial sepsis screen is negative. Does the patient have a suspected source of infection? No. Patient's initial sepsis screen is negative. Risk Assessment: Do you want to hurt yourself or someone else? Patient reports no desire to harm self or others. Onset of symptoms is unknown. 10:42 Method Of Arrival: Ambulatory bp 10:42 Acuity: VANDANA 4 bp Triage Assessment: 10:43 General: Appears in no apparent distress. ill, Behavior is calm, cooperative, bp appropriate for age. Pain: Complains of pain in neck. EENT: Throat is reddened has patchy exudate. Neuro: No deficits noted. Cardiovascular: No deficits noted. Respiratory: No deficits noted. GI: No signs and/or symptoms were reported involving the gastrointestinal system. : No signs and/or symptoms were reported regarding the genitourinary system. Derm: No deficits noted. Musculoskeletal: No deficits noted. 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 - Infectious Disease History:: Denies. - Social history:: Smoking status: Patient denies any tobacco usage or history of. - Family history:: not pertinent. Screenin:[facility] ED Fall Risk Assessment (Adult) History of falling in the last 3 months, ll1 including since admission No falls in past 3 months (0 pts) Confusion or Disorientation No (0 pts) Intoxicated or Sedated No (0 pts) Impaired Gait No (0 pts) Mobility Assist Device Used No (0 pt) Altered Elimination No (0 pt) Score/Fall Risk Level 0 - 2 = Low Risk Maintained a safe environment, Hourly rounding (assess needs \T\ fall precautionary measures) done. Abuse screen: Denies threats or abuse. Nutritional screening: No deficits noted. Tuberculosis screening: No symptoms or risk factors identified. Assessment: 10:59 Reassessment: No changes from previously documented assessment. Patient and/or family ll1 updated on plan of care and expected duration. Pain level reassessed. 10:59 Respiratory: Airway is patent Respiratory effort is even, unlabored. ll1 10:59 Respiratory:. ll1 Vital Signs: 10:42 BP 145 / 86; Pulse 88; Resp 16; Temp 97.8; Pulse Ox 100% ; bp ED Course: 10:33 Patient arrived in ED. rg4 10:34 Sarbjit Mason MD is Attending Physician. rt 10:42 Triage completed. bp 10:43 Arm band placed on. bp 10:44 Everett Ruiz, RN is Primary Nurse. bp 10:59 No provider procedures requiring assistance completed. Patient did not have IV access ll1 during this emergency room visit. 11:00 Patient has correct armband on for positive identification. Provided Education on: ll1 finish all prescribed antibiotics. Administered Medications: No medications were administered Medication: 11:00 VIS not applicable for this client. ll1 Outcome: 10:45 Discharge ordered by . rt 10:59 Discharged to home ambulatory, ll1 10:59 Condition: stable 10:59 Discharge instructions given to patient, Instructed on discharge instructions, follow up and referral plans. medication usage, Demonstrated understanding of instructions, follow-up care, medications, Prescriptions given X 1, 11:00 Patient left the ED. ll1 Signatures: Gloria Porter rg4 Everett Ruiz, CHRISTINA RN Shirlene Meza RN RN ll1 Sarbjit Mason MD MD rt
[2023-12-27 11:12] VITALS: BP 145/86; TEMP 97.8; O2SAT 100
== END 2023-12-27 11:00 | disposition home or self-care (01) ==
LOC: ER 10:33
DX: J02.0 Streptococcal pharyngitis (principal)
CPT/HCPCS: 99283

== ENCOUNTER 2024-03-07 12:51 | Emergency (ER) | payer SELFPAY ==
--- NOTE | 2024-03-07 13:13 | ER ---
Nurse's Notes [facility] Name: Mary Joe Age: 23 yrs Sex: Female : 2000 Arrival Date: 03/07/2024 Time: 12:51 Bed IW5 Private MD: Diagnosis: Cellulitis of right finger Presentation: 03/07 13:08 Chief complaint: Patient states: RIGHT FIRST FINGER PAIN AND SWELLING X 4 OR 5 DAYS. db STATES TODAY NOW THROBBING AND TENDER. PAIN IS WORSE. STATES HAS "BLACK SPOT" ON FINGER NOW. Coronavirus screen: Client denies travel out of the [place] in the last 14 days. At this time, the client does not indicate any symptoms associated with coronavirus-19. Ebola Screen: Patient negative for fever greater than or equal to 101.5 degrees Fahrenheit, and additional compatible Ebola Virus Disease symptoms Patient denies exposure to infectious person. Patient denies travel to an Ebola-affected area in the 21 days before illness onset. No symptoms or risks identified at this time. Initial Sepsis Screen: Does the patient meet any 2 criteria? No. Patient's initial sepsis screen is negative. Does the patient have a suspected source of infection? No. Patient's initial sepsis screen is negative. Risk Assessment: Do you want to hurt yourself or someone else? Patient reports no desire to harm self or others. Onset of symptoms was March 07, 2024. 13:08 Method Of Arrival: Ambulatory db 13:08 Acuity: VANDANA 3 db Historical: - Allergies: 13:09 No Known Allergies; db - Home Meds: 13:09 None [Active]; db - PMHx: 13:09 None; db - PSHx: 13:09 None; db - Immunization history:: Adult Immunizations unknown. - Infectious Disease History:: Denies. - Social history:: Smoking status: Patient denies any tobacco usage or history of. Vital Signs: 13:08 BP 134 / 88; Pulse 72; Resp 16; Temp 98.7; Pulse Ox 100% ; Weight 106.59 kg; Height 5 db ft. 7 in. ; Pain 8/10; 13:08 Body Mass Index 36.81 (106.59 kg, 170.18 cm) db 13:08 Pain Scale: Adult db ED Course: 12:54 Patient arrived in ED. ra3 13:01 Anny Cox PA-C is PHCP. sb4 13:01 Hossein Tirado MD is Attending Physician. sb4 13:09 Triage completed. db 13:09 Arm band placed on Patient placed in waiting room. db Administered Medications: No medications were administered Outcome: 13:13 Discharge ordered by . sb4 13:17 Patient left the ED. db Signatures: Ana Fernandez RN RN Anny Coker PA-C PA-C sb4 Nanda Diggs ra3
--- NOTE | 2024-03-07 13:13 | EDPHYS ---
Physician Documentation [facility] Name: Mary Joe Age: 23 yrs Sex: Female : 2000 Arrival Date: 03/07/2024 Time: 12:51 Bed IW5 Private MD: ED Physician Hossein Tirado HPI: 03/07 13:21 This 23 yrs old Black Female presents to ER via Ambulatory with complaints of finger sb4 problem. 13:21 the patient presents with a swollen area of the palmar aspect of distal phalanx of sb4 right index finger. Description: erythematous, tense, warm. Onset: The symptoms/episode began/occurred 3 day(s) ago. Possible cause(s): unknown. Associated signs and symptoms: The patient has no apparent associated signs or symptoms. The patient has not experienced similar symptoms in the past. The patient has not recently seen a physician. Historical: - Allergies: 13:09 No Known Allergies; db - Home Meds: 13:09 None [Active]; db - PMHx: 13:09 None; db - PSHx: 13:09 None; db - Immunization history:: Adult Immunizations unknown. - Infectious Disease History:: Denies. - Social history:: Smoking status: Patient denies any tobacco usage or history of. ROS: 13:21 Constitutional: Negative for fever, chills, and weight loss, sb4 13:21 Skin: Positive for erythema, swelling, of the palmar aspect of distal phalanx of right index finger, 13:21 All other systems are negative, Exam: 13:21 Constitutional: This is a well developed, well nourished patient who is awake, alert, sb4 and in no acute distress. Head/Face: Normocephalic, atraumatic. Eyes: Extra-ocular motions intact. Periorbital areas with no swelling, redness, or edema. ENT: Mucous membranes moist. 13:21 Skin: cellulitis, that is mild, well demarcated, on the palmar aspect of distal phalanx of right index finger, Vital Signs: 13:08 BP 134 / 88; Pulse 72; Resp 16; Temp 98.7; Pulse Ox 100% ; Weight 106.59 kg; Height 5 db ft. 7 in. ; Pain 8/10; 13:08 Body Mass Index 36.81 (106.59 kg, 170.18 cm) db 13:08 Pain Scale: Adult db MDM: 13:05 Patient medically screened. sb4 13:21 Data reviewed: vital signs, nurses notes, and as a result, I will discharge patient. sb4 Counseling: I had a detailed discussion with the patient and/or guardian regarding the historical points, exam findings, and any diagnostic results supporting the discharge/admit diagnosis, to return to the emergency department if symptoms worsen or persist or if there are any questions or concerns that arise at home. Administered Medications: No medications were administered Disposition: 17:43 Co-signature as Attending Physician, Hossein Tirado MD I reviewed the patient's care rn provided by the Advanced Practice Provider and agree with the diagnosis and treatment plan. Disposition Summary: 03/07/24 13:13 Discharge Ordered Notes: Location: Home sb4 Problem: new sb4 Symptoms: are unchanged sb4 Condition: Stable sb4 Diagnosis - Cellulitis of right finger sb4 Followup: sb4 - With: Emergency Department - When: As needed - Reason: Fever > 102 F, Worsening of condition Discharge Instructions: - Discharge Summary Sheet db - Cellulitis, Adult sb4 Forms: - Work release form db - Antibiotic Education sb4 - Patient Portal Instructions sb4 - Leadership Thank You Letter sb4 Prescriptions: - Bactrim DS 800-160 mg Oral Tablet - take 1 tablet ORAL route every 12 hours for 10 days; 20 tablet; Refills: 0, sb4 Product Selection Permitted Signatures: Hossein Tirado MD MD rn Benton, Danielle, RN RN db Brown, Sophia, PA-C PA-C sb4
[2024-03-07 13:21] VITALS: BP 134/88; TEMP 98.7; O2SAT 100
--- OUTSIDE RECORDS SUMMARY | 2024-03-07 14:47 | XMS REPORT | Continuity of Care Document ---
Author Name Unknown Address [address] [facility] [address] [place] [address] [facility] Address [address] [place] [address] Care Team Providers Care Manager Skilled Name Role Phone PCP, PATIENT DOES NOT HAVE A Primary Care Physic millie Unavailable ECHO HODGES Attending Clinician Unavailable Nurse, [facility] Attending Clinician Un available Echo Hodges MD Attending Clinician [phone] Doctor Unassigned, Belva Attending Clinician U Talia Vu PA-C Attending Clinician [phone] TALIA MEDINA Attending Clinician Unavailable Esperanza Parra MD Attending Clinician [phone] RUSLAN DEMPSEY Attending Clinician Unavailable Fran Weiss CRNA Attending Clinician + [phone] Osmany Carcamo MD Attending Clinician + [phone] Ultrasound, Ang-Mfm Attending Clinician UnavailRuslan Ramos MD Attending Clinician [phone] Ultrasound, Adc Mfm Attending Clinician Unavailkurt Duncan MD, Garner Attending Clinician + PASCUAL MCFARLANE Attending Clinician UnaNaina Worrell RN Attending Clinician Unavailable CAMILLA ASHFORD Attending Clinician Unavailable Pob, [facility] Lab Main Attending Clinician UnavailMalka Powell LMSW Attending Clinician [phone] , Adc Lab Attending Clinician Unavailable Room, [facility] Attending Clinician Unavailable Lauren Jackman MD Attending Clinician [phone], Adc Lab Attending Clinician Unavailable Martha Waters MD Attending Clinician [phone] ILANA MONTES Attending Clinician Unavail able Alireza HAYWARD Leroykurt Cabral Attending Clinician [phone] TALYA ORR Attending Clinician Unavaila ECHO Ring Admitting Clinician Unavailable Echo Hodges MD Admitting Clinician [phone] Payers Payer Name Policy Type Policy Number Effective Date Expirati on Date Source [facility] [id number] 2018 00:00:00 [employer] MEDICAID [id number] 2019 00:00:00 MEDICA[place] [id number] 2016 00:00:00 Problems Condition Name Condition Details Condition Category Status Onset Date Resolution Date Last Treatment Date Treating Clinician Comments Source Encounter for tubal ligation counseling Encounter for tubal ligation counseling Disease Active 8- 00:00: 00 [facility] Gestationa l hypertensi on, third trimester Gestationa l hypertensi on, third trimester Disease Active 8 00:00: 00 [facility] 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 Disease Active 3-31 00:00: 00 [facility] Supervisio n of high risk , antepartum Supervisio n of high risk , antepartum Disease Active 2-02 00:00: 00 [facility] Nausea Nausea Disease Active 2-02 00:00: 00 [facility] 37 weeks gestation of 37 weeks gestation of Disease Active 03-15 00:00: 00 [facility] Liveborn infant, of gao , born in hospital by vaginal delivery Liveborn infant, of gao , born in hospital by vaginal delivery Disease Active 03-15 00:00: 00 [facility] Obesity (BMI 30-39.9) Obesity (BMI 30-39.9) Disease Active 11-22 00:00: 00 [facility] Multiparit y Multiparit y Disease Active 08-11 00:00: 00 [facility] History of delivery History of delivery Disease Active 08-11 00:00: 00 Overview: Formattin g of this note might be different from the original. Per patient report [facility] Allergies, Adverse Reactions, Alerts Allergy Name Allergy Type Status Severity Reaction(s) Onset Date Inactive Date Treating Clinician Comments Source NO KNOWN ALLERGIE S Drug Class Active [facility] Social History Social Habit Start Date Stop Date Quantity Comments Source Gender identity [facility] History SDOH Alcohol Frequency [facility] History SDOH Alcohol Std Drinks [facility] History SDOH Alcohol Binge [facility] Exposure to SARS-CoV-2 (event) 2022-10-23 00:00:00 2022-11-02 13:35:00 Not sure [facility] Alcohol Comment 2021-08-20 00:00:00 2021-08-20 00:00:00 quit when found out she was [facility] Alcohol intake 2020-12-17 00:00:00 2020-12-17 00:00:00 0 /d [facility] History of Social function 2019-01-24 00:00:00 2019-01-24 00:00:00 [facility] Tobacco use and exposure 2015-12-20 00:00:00 2015-12-20 00:00:00 Smokeless tobacco non-user [facility] Sex Assigned At 2000 00:00:00 2000 00:00:00 [facility] Smoking Status Start Date Stop Date Source Never smoked tobacco [facility] Medications Ordered Medication Name Filled Medication Name Start Date Stop Date Current Medication? Ordering Clinician Indication Dosage Frequency Signature (SIG) Comments Components Source medroxyPROG ESTERone (DEPO-PROVE RA) syringe 150 mg 02-02 16:00: 00 02-02 15:17 :00 No [id number] 150mg [facility] hydroCHLORO thiazide 12.5 mg tablet 02-22 00:00: 00 Yes [id number] 12.5mg Take 1 tablet by mouth in the morning. [facility] vitamin w/FA tablet 02-21 00:00: 00 Yes [id number] 1{tbl} Take 1 tablet by mouth in the morning. [facility] docusate 100 mg capsule 02-21 00:00: 00 Yes [id number] 200mg Take 2 capsules by mouth once daily as needed for Constipati on. [facility] ferrous sulfate 325 mg (65 mg iron) tablet 02-21 00:00: 00 Yes [id number] 325mg Take 1 tablet by mouth in the morning and 1 tablet in the evening. [facility] ibuprofen 600 mg tablet 02-21 00:00: 00 Yes [id number] 600mg Take 1 tablet by mouth every 6 (six) hours as needed (Pain). Take with food or milk. [facility] vitamin w/FA tablet 02-21 00:00: 00 Yes [id number] 1{tbl} Take 1 tablet by mouth in the morning. [facility] cephALEXin 500 mg capsule 02-17 00:00: 00 Yes [id number] 500mg Take 1 capsule by mouth every 6 (six) hours. [facility] fluticasone propionate 50 mcg/actuati on nasal spray 09-21 00:00: 00 Yes [facility] metoclopram jaron HCl 10 mg tablet 08-20 00:00: 00 Yes [id number] 10mg Take 1 tablet by mouth every 6 (six) hours as needed for Nausea and Vomiting (N/V). [facility] norgestimat e-ethinyl estradioL 0.25-35 mg-mcg per tablet 12-17 00:00: 00 08-20 00:00 :00 No [id number] 1{tbl} Take 1 tablet by mouth daily. [facility] vitamin w/FA tablet 2019-07 00:00: 00 08-20 00:00 :00 No [id number] 1{tbl} Take 1 tablet by mouth daily. [facility] docusate calcium 240 mg capsule 2019-07 00:00: 00 08-20 00:00 :00 No [id number] 240mg Take 1 capsule by mouth once daily as needed for Constipati on. [facility] ferrous sulfate 325 mg (65 mg iron) tablet 2019-07 00:00: 08-20 00:00 :00 No [id number] 325mg Take 1 tablet by mouth 2 (two) times daily. [facility] ibuprofen 600 mg tablet 2019-07 00:00: 08-20 00:00 :00 No [id number] 600mg Take 1 tablet by mouth every 6 (six) hours as needed (Pain). Take with food or milk. [facility] Immunizations Ordered Immunization Name Filled Immunization Name Date Status Comments Source TDAP 2020-04-08 00:00:00 Completed [facility] TDAP 2020-04-08 00:00:00 Completed [facility] TDAP 2020-04-08 00:00:00 Completed [facility] TDAP 2020-04-08 00:00:00 Completed [facility] TDAP 2020-04-08 00:00:00 Completed [facility] TDAP 2020-04-08 00:00:00 Completed [facility] TDAP 2020-04-08 00:00:00 Completed [facility] TDAP 2020-04-08 00:00:00 Completed [facility] TDAP 2020-04-08 00:00:00 Completed [facility] TDAP 2020-04-08 00:00:00 Completed [facility] TDAP 2020-04-08 00:00:00 Completed [facility] TDAP 2020-04-08 00:00:00 Completed [facility] TDAP 2020-04-08 00:00:00 Completed [facility] TDAP 2020-04-08 00:00:00 Completed [facility] TDAP 2020-04-08 00:00:00 Completed [facility] TDAP 2020-04-08 00:00:00 Completed [facility] TDAP 2013-07-19 00:00:00 Completed [facility] TDAP 2013-07-19 00:00:00 Completed [facility] TDAP 2013-07-19 00:00:00 Completed [facility] TDAP 2013-07-19 00:00:00 Completed [facility] TDAP 2013-07-19 00:00:00 Completed [facility] TDAP 2013-07-19 00:00:00 Completed [facility] TDAP 2013-07-19 00:00:00 Completed [facility] TDAP 2013-07-19 00:00:00 Completed [facility] TDAP 2013-07-19 00:00:00 Completed [facility] TDAP 2013-07-19 00:00:00 Completed [facility] TDAP 2013-07-19 00:00:00 Completed [facility] TDAP 2013-07-19 00:00:00 Completed [facility] TDAP 2013-07-19 00:00:00 Completed [facility] TDAP 2013-07-19 00:00:00 Completed [facility] TDAP 2013-07-19 00:00:00 Completed [facility] TDAP 2013-07-19 00:00:00 Completed [facility] TDAP Unknown Completed [facility] TDAP Unknown Completed [facility] TDAP Unknown Completed [facility] TDAP Unknown Completed [facility] TDAP Unknown Completed [facility] TDAP Unknown Completed [facility] TDAP Unknown Completed [facility] TDAP Unknown Completed [facility] TDAP Unknown Completed [facility] TDAP Unknown Completed [facility] TDAP Unknown Completed [facility] TDAP Unknown Completed [facility] Vital Signs Vital Name Observation Time Observation Value Comments S ource Systolic blood pressure 2023-02-02 15:14:00 124 mm[Hg] [facility] Diastolic blood pressure 2023-02-02 15:14:00 84 mm[Hg] [place] [facility] Heart rate 2023-02-02 15:14:00 69 /[facility] 2023-02-02 15:14:00 36.89 Bisi [facility] Respiratory rate 2023-02-02 15:14:00 18 /min [facility] Body weight 2023-02-02 15:14:00 107.23 kg [facility] BMI 2023-02-02 15:14:00 37.03 kg/m2 [facility] Systolic blood pressure 2022-11-02 19:20:00 132 mm[Hg] [facility] Diastolic blood pressure 2022-11-02 19:20:00 100 mm[Hg] [facility] Heart rate 2022-11-02 19:20:00 72 /min Unive [facility] Body temperature 2022-11-02 19:20:00 37 Bisi [facility] Respiratory rate 2022-11-02 19:20:00 18 /min [facility] Body height 2022-11-02 19:20:00 170.2 cm [facility] Body weight 2022-11-02 19:20:00 103.42 kg [facility] BMI 2022-11-02 19:20:00 35.71 kg/m2 [facility] Systolic blood pressure 2022-03-16 16:56:00 128 mm[Hg] [facility] Diastolic blood pressure 2022-03-16 16:56:00 82 mm[Hg] [facility] Heart rate 2022-03-16 16:56:00 62 /min Unive [facility] Body temperature 2022-03-16 16:56:00 36.78 Bisi [facility] Respiratory rate 2022-03-16 16:56:00 18 /min [facility] Body height 2022-03-16 16:56:00 170.2 cm [facility] Body weight 2022-03-16 16:56:00 91.173 kg [facility] BMI 2022-03-16 16:56:00 31.48 kg/m2 [facility] Procedures Procedure Date / Time Performed Performing Clinician Source ASSIGNMENT OF BENEFITS 2023-02-02 14:48:21 Docto r Unassigned, Belva [facility] GC & CHLAMYDIA AMPLIFIED ASSAY 2022-11-02 19:52:00 Talia Medina [facility] LAB ONLY PAP SMEAR-LIQUID BASED 2022-11-02 19:52:00 Talia Medina [facility] TRICHOMONAS AMPLIFIED ASSAY 2022-11-02 19:52:00 Talia Mednia [facility] PAP SMEAR-LIQUID BASED-CP 2022-11-02 19:52:00 Adam Talia [facility] HIGH RISK HPV-THIN PREP 2022-11-02 19:52:00 Talia Medina [facility] PATIENT FINANCIAL POLICY 2022-11-02 18:37:30 Doctor Unassigned, Belva [facility] CONSENT FOR CONTRACEPTION 2022-11-02 05:01:00 Doctor Unassigned, Belva [facility] Encounters Start Date/Time End Date/Time Encounter Type Admission Type Attending [facility] Facility Care Department Encounter ID Source 2021-05-17 02:01:28 Outpatient [facility] [id number] [facility] 2021-05-16 21:48:38 Outpatient P [facility] [id number] [facility] 2021-05-16 19:33:22 Outpatient P [facility] [id number] [facility] 2021-05-16 19:31:22 Outpatient P [facility] [id number] [facility] 2023-05-05 14:00:00 2023-05-05 14:00:00 Outpatient ECHO VELOZ [facility] [id number] [facility] 2023-02-02 10:00:00 2023-02-02 10:15:09 Outpatient ECHO VELOZ [facility] [id number] [facility] 2023-02-02 10:00:00 2023-02-02 10:15:09 Nurse Visit Nurse, [facility] Echo Hodges [facility] [id number] 350.1.13.10 4.2.7.2.686 [id number] [facility] 2023-02-02 00:00:00 2023-02-02 00:00:00 Orders Only Doctor Unassigned, Belva [facility] 1.2.840.114 350.1.13.10 4.2.7.2.686 [id number] [facility] 2023-01-29 14:30:00 2023-01-29 14:30:00 Outpatient R ECHO HODGES [facility] [id number] [facility] 2023-01-12 14:15:00 2023-01-12 14:15:00 Outpatient R ECHO HODGES [facility] [id number] [facility] 2022-12-08 00:00:00 2022-12-08 00:00:00 Telephone Talia Medina [facility] 1.2.840.114 350.1.13.10 4.2.7.2.686 [id number] 134 [id number] [facility] 2022-11-25 00:00:00 2022-11-25 00:00:00 Patient Secure Msg Doctor Unassigned, Belva [facility] 1.2.840.114 350.1.13.10 4.2.7.2.686 [id number] 134 [id number] [facility] 2022-11-16 00:00:00 2022-11-16 00:00:00 Telephone Talia Medina [facility] 1.2.840.114 350.1.13.10 4.2.7.2.686 [id number] [facility] 2022-11-02 14:15:00 2022-11-02 15:02:03 Outpatient R TALIA MEDINA [facility] [id number] [facility] 2022-11-02 14:15:00 2022-11-02 15:02:03 Office Visit Talia Medina [facility] [id number] 350.1.13.10 4.2.7.2.686 [id number] [facility] 2022-11-02 00:00:00 2022-11-02 00:00:00 Orders Only Doctor Unassigned, Belva [facility] 1.2114 350.1.13.10 4.2.7.2.686 [id number] [facility] 2022-06-29 10:30:00 2022-06-29 10:30:00 Outpatient TALIA ALVAREZ [facility] [id number] [facility] 2022-06-18 00:00:00 2022-06-18 00:00:00 Refill Esperanza Parra [facility] 1.84.114 350.1.13.10 4.2.7.2.686 [id number] 134 [id number] [facility] 2022-05-11 15:00:00 2022-05-11 15:00:00 Outpatient R ECHO HODGES [facility] [id number] [facility] 2022-03-26 15:00:00 2022-03-26 15:00:00 Outpatient R ECHO HODGES [facility] [id number] [facility] 2022-03-16 11:15:00 2022-03-16 12:10:28 Outpatient R ECHO HODGES [facility] [id number] [facility] 2022-03-16 11:15:00 2022-03-16 12:10:28 Routine Visit Echo Hodges [facility] 1.84.114 350.1.13.10 4.2.7.2.686 [id number] 134 [id number] [facility] 2022-03-04 00:00:00 2022-03-04 00:00:00 Telephone Echo Hodges [facility] 1.2.840.114 350.1.13.10 4.2.7.2.686 [id number] 134 [id number] [facility] 2022-02-25 14:30:00 2022-02-25 14:30:00 Nurse Visit Nurse, [facility] Echo Hodges [facility] 1.0.114 350.1.13.10 4.2.7.2.686 [id number] [facility] 2022-02-25 14:30:00 2022-02-25 13:35:46 Outpatient R ECHO HODGES [facility] [id number] [facility] 2022-02-23 09:00:00 2022-02-23 09:00:00 Outpatient P RUSLAN DEMPSEY [facility] [id number] [facility] 2022-02-20 04:04:00 2022-02-21 18:25:00 Inpatient X ECHO HODGES [facility] [id number] [facility] 2022-02-20 04:04:00 2022-02-21 18:25:00 Hospital Encounter Echo Hodges [facility] 1..114 350.1.13.10 4.2.7.2.686 [id number] [facility] 2022-02-20 12:04:53 2022-02-20 12:04:53 Anesthesia Event Fran Weiss Jeffrey S [facility] 1..114 350.1.13.10 4.2.7.2.686 [id number] [facility] 2022-02-20 00:00:00 2022-02-20 00:00:00 Orders Only Doctor Unassigned, Belva [facility] 1.0.114 350.1.13.10 4.2.7.2.686 [id number] [facility] 2022-02-17 20:59:00 2022-02-17 21:55:00 Outpatient P ECHO HODGES [facility] [id number] [facility] 2022-02-17 20:59:00 2022-02-17 21:55:00 Hospital Encounter Echo Hodges [facility] 1.2.840.114 350.1.13.10 4.2.7.2.686 [id number] [facility] 2022-02-16 16:10:00 2022-02-17 08:10:00 Outpatient X ECHO HODGES [facility] [id number] [facility] 2022-02-16 16:10:00 2022-02-17 08:10:00 Hospital Encounter Echo Hodges [facility] 1.2.840.114 350.1.13.10 4.2.7.2.686 [id number] [facility] 2022-02-16 15:30:00 2022-02-16 15:45:00 Routine Visit Adam Talia [facility] PROFESSIO [facility] 1.2840.114 350.1.13.10 4.2.7.2.686 [id number] [facility] 2022-02-16 15:30:00 2022-02-16 15:30:00 [facility] [id number] [facility] 2022-02-16 00:00:00 2022-02-16 00:00:00 Orders Only Doctor Unassigned, Belva [facility] 1.2840.114 350.1.13.10 4.2.7.2.686 [id number] [facility] 2022-02-03 15:00:00 2022-02-03 15:00:00 Outpatient R [facility] [id number] [facility] 2022-02-02 16:15:00 2022-02-02 16:36:06 Outpatient R CARROLL ECHO [facility] [id number] [facility] 2022-02-02 16:15:00 2022-02-02 16:36:06 Routine Visit [place] [facility] 1.840.114 350.1.13.10 4.2.7.2.686 [id number] [facility] 2022-02-02 16:15:00 2022-02-02 16:15:00 Outpatient R CARROLL ECHO [facility] [id number] [facility] 2022-01-26 09:15:00 2022-01-26 09:37:53 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 Visit Ultrasound, Ruslan Goldstein [facility] 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 [facility] ..840.114 350.1.13.10 4.2.7.2.686 [id number] [facility] 2022-01-26 09:15:00 2022-01-26 09:15:00 Outpatient RUSLAN TATUM [facility] [id number] [facility] 2022-01-07 15:30:00 2022-01-07 15:30:00 Outpatient TALIA ALVAREZ [facility] [id number] [facility] 2021-12-31 11:15:00 2021-12-31 11:15:00 Outpatient TALIA ALVAREZ [facility] [id number] [facility] 2021-12-18 13:00:00 2021-12-18 13:00:00 Outpatient TALIA ALVAREZ [facility] [id number] [facility] 2021-12-18 13:00:00 2021-12-18 13:00:00 [facility] [id number] [facility] 2021-12-18 13:00:00 2021-12-18 13:00:00 Outpatient Misha [facility] [id number] [facility] 2021-12-18 10:15:00 2021-12-18 10:15:00 Outpatient R [facility] [id number] [facility] 2021-12-17 13:15:00 2021-12-17 13:55:19 Outpatient R ECHO HODGES [facility] [id number] [facility] 2021-12-17 13:15:00 2021-12-17 13:55:19 Routine Visit Echo Hodges [facility] 1.2.840.114 350.1.13.10 4.2.7.2.686 [id number] [facility] 2021-12-17 00:00:00 2021-12-17 00:00:00 Orders Only Doctor Unassigned, Belva [facility] 1.2840.114 350.1.13.10 4.2.7.2.686 [id number] [facility] 2021-11-18 10:45:00 2021-11-18 12:39:29 Outpatient P JONESYANIRAWALTERTALIA [facility] [id number] [facility] 2021-11-18 10:45:00 2021-11-18 12:39:29 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 Visit Ultrasound, Adc m Adam [facility] 1.2.840.114 350.1.13.10 4.2.7.2.686 [id number] [facility] 2021-11-18 10:15:00 2021-11-18 10:51:35 [facility] 1.2.840.114 350.1.13.10 4.2.7.2.686 [id number] [facility] 2021-11-11 00:00:00 2021-11-11 00:00:00 Telephone Echo Hodges [facility] 1.2.840.114 350.1.13.10 4.2.7.2.686 [id number] [facility] 2021-11-04 11:15:00 2021-11-04 12:00:00 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 Visit Ultrasound, Adc Pascual Bocanegra [facility] 1.2840.114 350.1.13.10 4.2.7.2.686 [id number] [facility] 2021-11-04 11:15:00 2021-11-04 11:15:00 Outpatient P PASCUAL LINO [facility] [id number] [facility] 2021-11-04 00:00:00 2021-11-04 00:00:00 Letter (Out) Echo Hodges [facility] 1.2.840.114 350.1.13.10 4.2.7.2.686 [id number] [facility] 2021-11-04 00:00:00 2021-11-04 00:00:00 Letter (Out) Echo Hodges [facility] 1.2.840.114 350.1.13.10 4.2.7.2.686 [id number] [facility] 2021-11-03 00:00:00 2021-11-03 00:00:00 Patient Secure Msg Doctor Unassigned, Belva [facility] 1.2840.114 350.1.13.10 4.2.7.2.686 [id number] [facility] 2021-10-28 14:45:00 2021-10-28 15:30:00 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 Visit Ultrasound, Adc isreal colbert [facility] 1.2840.114 350.1.13.10 4.2.7.2.686 [id number] [facility] 2021-10-28 14:45:00 2021-10-28 14:45:00 Outpatient P [facility] [id number] [facility] 2021-10-28 14:45:00 2021-10-28 14:45:00 Outpatient P AUGIE RAJENDRA Oksana [facility] [id number] [facility] 2021-10-16 13:00:00 2021-10-16 14:20:07 Outpatient R ECHO HODGES [facility] [id number] [facility] 2021-10-16 13:00:00 2021-10-16 14:20:07 Office Visit Echo Hodges [facility] 1..840.114 350.1.13.10 4.2.7.2.686 [id number] [facility] 2021-10-16 13:00:00 2021-10-16 14:20:07 Outpatient R ECHO HODGES [facility] [id number] [facility] 2021-10-16 00:00:00 2021-10-16 00:00:00 Letter (Out) Echo Hodges [facility] [place] ..840.114 350.1.13.10 4.2.7.2.686 [id number] 134 [id number] [facility] 2021-10-16 00:00:00 2021-10-16 00:00:00 Orders Only Doctor Unassigned, Belva [facility] ..840.114 350.1.13.10 4.2.7.2.686 [id number] 009 [id number] [facility] 2021-10-01 00:00:00 2021-10-01 00:00:00 Telephone Echo Hodges [facility] 1..840.114 350.1.13.10 4.2.7.2.686 [id number] 134 [id number] [facility] 2021-09-25 00:00:00 2021-09-25 00:00:00 Orders Only Doctor Unassigned, Belva [facility] 1.2.840.114 350.1.13.10 4.2.7.2.686 [id number] 009 [id number] [facility] 2021-09-24 00:00:00 2021-09-24 00:00:00 Telephone Echo Hodges [facility] 1.2.840.114 350.1.13.10 4.2.7.2.686 [id number] 134 [id number] [facility] 2021-09-22 00:00:00 2021-09-22 00:00:00 Telephone Talia Medina [facility] 1.2.840.114 350.1.13.10 4.2.7.2.686 [id number] 134 [id number] [facility] 2021-09-19 00:00:00 2021-09-19 00:00:00 Telephone JessicaNaina [facility] 1.2840.114 350.1.13.10 4.2.7.2.686 [id number] [facility] 2021-09-18 09:20:00 2021-09-18 09:55:56 Outpatient CAMILLA DONOVAN [facility] [id number] [facility] 2021-09-17 16:00:00 2021-09-17 16:53:47 Outpatient TALIA ALVAREZ [facility] [id number] [facility] 2021-09-17 16:00:00 2021-09-17 16:53:47 Routine Visit Talia Medina [facility] 1.2.840.114 350.1.13.10 4.2.7.2.686 [id number] 134 [id number] [facility] 2021-09-17 00:00:00 2021-09-17 00:00:00 Letter (Out) Talia Medina [facility] 1.2.840.114 350.1.13.10 4.2.7.2.686 [id number] 134 [id number] [facility] 2021-09-12 00:00:00 2021-09-12 00:00:00 Patient Secure Msg Talia Medina [facility] 1.2840.114 350.1.13.10 4.2.7.2.686 [id number] 134 [id number] [facility] 2021-09-10 00:00:00 2021-09-10 00:00:00 Patient Secure Msg Doctor Unassigned, Belva [facility] 1.2840.114 350.1.13.10 4.2.7.2.686 [id number] 365 [id number] [facility] 2021-09-09 00:00:00 2021-09-09 00:00:00 Telephone Echo Hodges Costa [facility] 1.2.840.114 350.1.13.10 4.2.7.2.686 [id number] 134 [id number] [facility] 2021-09-02 00:00:00 2021-09-02 00:00:00 Telephone Talia Medina [facility] 1.2.840.114 350.1.13.10 4.2.7.2.686 [id number] 134 [id number] [facility] 2021-08-29 11:30:00 2021-08-29 11:45:00 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 Visit Pob, Adc Lab Main Echo Hodges Costa [facility] 1.2840.114 350.1.13.10 4.2.7.2.686 [id number] 353 [id number] [facility] 2021-08-29 11:30:00 2021-08-29 11:30:00 Outpatient R ECHO HODGES [facility] [id number] [facility] 2021-08-29 00:00:00 2021-08-29 00:00:00 Orders Only Doctor Unassigned, Belva [facility] 1.2840.114 350.1.13.10 4.2.7.2.686 [id number] [id number] [facility] 2021-08-24 00:00:00 2021-08-24 00:00:00 Case Management Talia Medina [facility] 1.840.114 350.1.13.10 4.2.7.2.686 [id number] [facility] 2021-08-21 00:00:00 2021-08-21 00:00:00 Patient Secure Msg Doctor Unassigned, Belva [facility] 1.840.114 350.1.13.10 4.2.7.2.686 [id number] 134 [id number] [facility] 2021-08-21 00:00:00 2021-08-21 00:00:00 Patient Outreach Malka Hernandez [facility] 1.2840.114 350.1.13.10 4.2.7.2.686 [id number] [facility] 2021-08-20 14:30:00 2021-08-20 15:36:52 Initial Visit Echo Hodges [facility] 1.284.114 350.1.13.10 4.2.7.2.686 [id number] 134 [id number] [facility] 2021-08-20 14:30:00 2021-08-20 15:36:52 Outpatient ECHO VELOZ [facility] [id number] [facility] 2021-08-20 00:00:00 2021-08-20 00:00:00 Patient Secure Msg Doctor Unassigned, Belva [facility] 1.2.840.114 350.1.13.10 4.2.7.2.686 [id number] 134 [id number] [facility] 2021-08-20 00:00:00 2021-08-20 00:00:00 Letter (Out) Carroll Echo [facility] 1..840.114 350.1.13.10 4.2.7.2.686 [id number] 134 [id number] [facility] 2021-08-20 00:00:00 2021-08-20 00:00:00 Orders Only Doctor Unassigned, Belva [facility] .840.114 350.1.13.10 4.2.7.2.686 [id number] [id number] [facility] 2021-08-12 14:00:00 2021-08-12 14:00:00 Outpatient TALIA ALVAREZ [facility] [id number] [facility] 2021-08-04 00:00:00 2021-08-04 00:00:00 Patient Secure Msg Doctor Unassigned, Belva [facility] .2840.114 350.1.13.10 4.2.7.2.686 [id number] 019 [id number] [facility] 2021-02-06 13:30:00 2021-02-06 13:30:00 Outpatient TALIA ALVAREZ [facility] [id number] [facility] 2021-01-16 00:00:00 2021-01-16 00:00:00 Letter (Out) Carroll Echo [facility] 1.840.114 350.1.13.10 4.2.7.2.686 [id number] 134 [id number] [facility] 2021-01-16 00:00:00 2021-01-16 00:00:00 Telephone Talia Medina [facility] 1.2.840.114 350.1.13.10 4.2.7.2.686 [id number] 134 [id number] [facility] 2021-01-13 00:00:00 2021-01-13 00:00:00 Patient Secure Msg Doctor Unassigned, Belva [facility] 1.2.840.114 350.1.13.10 4.2.7.2.686 [id number] 134 [id number] [facility] 2021-01-07 00:00:00 2021-01-07 00:00:00 Telephone Talia Medina [facility] 1.2.840.114 350.1.13.10 4.2.7.2.686 [id number] 134 [id number] [facility] 2020-12-17 12:54:01 2020-12-17 13:51:32 Office Visit Talia Medina [facility] 1.2.840.114 350.1.13.10 4.2.7.2.686 [id number] 134 [id number] [facility] 2020-12-17 13:00:00 2020-12-17 13:00:00 Outpatient R TALIA MEDINA [facility] [id number] [facility] 2020-12-17 00:00:00 2020-12-17 00:00:00 Orders Only Doctor Unassigned, Belva [facility] 1.2.840.114 350.1.13.10 4.2.7.2.686 [id number] [id number] [facility] 2020-06-18 15:28:00 2020-06-18 16:09:46 Routine Visit Talia Medina [facility] 1.2.840.114 350.1.13.10 4.2.7.2.686 [id number] 134 [id number] [facility] 2020-06-18 15:28:00 2020-06-18 16:09:46 Routine Visit Talia Medina [facility] 1.2.840.114 350.1.13.10 4.2.7.2.686 [id number] 134 [id number] 2020-06-18 15:15:00 2020-06-18 15:15:00 Outpatient R [facility] [id number] [facility] 2020-06-17 16:30:00 2020-06-17 16:30:00 Outpatient R [facility] [id number] [facility] 2020-06-12 00:00:00 2020-06-12 00:00:00 Orders Only Doctor Unassigned, Belva [facility] 1.2.840.114 350.1.13.10 4.2.7.2.686 [id number] [id number] [facility] 2020-06-12 00:00:00 2020-06-12 00:00:00 Orders Only Doctor Unassigned, Belva [facility] 1.2.840.114 350.1.13.10 4.2.7.2.686 [id number] [id number] 2020-05-20 04:10:00 2020-05-21 11:40:00 Hospital Encounter Echo Hodges [facility] 1.2.840.114 350.1.13.10 4.2.7.2.686 [id number] 083 [id number] [facility] 2020-05-20 04:10:00 2020-05-21 11:40:00 Hospital Encounter Echo Hodges [facility] 1.2.840.114 350.1.13.10 4.2.7.2.686 [id number] 2020-05-20 00:00:00 2020-05-20 00:00:00 Orders Only Doctor Unassigned, Belva [facility] 1.2.840.114 350.1.13.10 4.2.7.2.686 [id number] 009 [id number] [facility] 2020-05-20 00:00:00 2020-05-20 00:00:00 Orders Only Doctor Unassigned, Belva [facility] 1.2.840.114 350.1.13.10 4.2.7.2.686 [id number] [id number] 2020-05-17 09:10:37 2020-05-17 09:25:37 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 Visit 1, [facility] 1.2.840.114 350.1.13.10 4.2.7.2.686 [id number] 353 [id number] [facility] 2020-05-17 09:10:37 2020-05-17 09:25:37 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 Visit 1, [facility] 1.2.840.114 350.1.13.10 4.2.7.2.686 [id number] 353 [id number] 2020-05-17 08:17:41 2020-05-17 08:54:38 Routine Visit Room, [facility] 1.2.840.114 350.1.13.10 4.2.7.2.686 [id number] 134 [id number] [facility] 2020-05-17 08:17:41 2020-05-17 08:54:38 Routine Visit Room, [facility] 1.2.840.114 350.1.13.10 4.2.7.2.686 [id number] 134 [id number] 2020-05-17 08:00:00 2020-05-17 08:00:00 Outpatient R [facility] [id number] [facility] 2020-05-16 14:00:00 2020-05-16 14:00:00 Outpatient R [facility] [id number] [facility] 2020-05-14 11:09:37 2020-05-14 12:11:42 Routine Visit Room, [facility] HodgesEcho Costa [facility] Building 1.2.840.114 350.1.13.10 4.2.7.2.686 [id number] 134 [id number] [facility] 2020-05-14 11:09:37 2020-05-14 12:11:42 Routine Visit Room, [facility] Building 1.284.114 350.1.13.10 4.2.7.2.686 [id number] 134 [id number] 2020-05-14 11:00:00 2020-05-14 11:00:00 Outpatient R [facility] [id number] [facility] 2020-05-14 00:00:00 2020-05-14 00:00:00 Orders Only Doctor Unassigned, Belva [facility] 1.20.114 350.1.13.10 4.2.7.2.686 [id number] [id number] [facility] 2020-05-14 00:00:00 2020-05-14 00:00:00 Orders Only Doctor Unassigned, Belva [facility] 1.2840.114 350.1.13.10 4.2.7.2.686 [id number] [id number] 2020-05-10 10:41:31 2020-05-10 11:25:11 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 Visit Ultrasound, [facility] Building 1.2840.114 350.1.13.10 4.2.7.2.686 [id number] 134 [id number] 2020-05-10 10:41:31 2020-05-10 11:25:11 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 Visit Ultrasound, [facility] L[facility] 1.2.840.114 350.1.13.10 4.2.7.2.686 [id number] 134 [id number] [facility] 2020-05-10 10:30:00 2020-05-10 10:30:00 Outpatient P [facility] [id number] [facility] 2020-04-29 11:00:00 2020-04-29 11:00:00 Outpatient R [facility] [id number] [facility] 2020-04-25 10:09:00 2020-04-25 12:35:00 Hospital Encounter Echo Hodges [facility] 1.2.840.114 350.1.13.10 4.2.7.2.686 [id number] [id number] 2020-04-25 10:09:00 2020-04-25 12:35:00 Hospital Encounter Echo Hodges [facility] 1.2.840.114 350.1.13.10 4.2.7.2.686 [id number] [facility] 2020-04-25 08:21:54 2020-04-25 09:48:28 Routine Visit Room, [facility] 1.2.840.114 350.1.13.10 4.2.7.2.686 [id number] 134 [id number] 2020-04-25 08:21:54 2020-04-25 09:48:28 Routine Visit Room, [facility] Talia Medina [facility] Building 1.2.840.114 350.1.13.10 4.2.7.2.686 [id number] 134 [id number] [facility] 2020-04-25 08:00:00 2020-04-25 08:00:00 Outpatient R [facility] [id number] [facility] 2020-04-22 13:01:30 2020-04-22 14:28:44 Routine Visit Hodges, Echo Cam [facility] 1.2.840.114 350.1.13.10 4.2.7.2.686 [id number] 134 [id number] 2020-04-22 13:01:30 2020-04-22 14:28:44 Routine Visit Echo Hodges [facility] 1.2.840.114 350.1.13.10 4.2.7.2.686 [id number] 134 [id number] [facility] 2020-04-22 13:00:00 2020-04-22 13:00:00 Outpatient R ECHO HODGES [facility] [id number] [facility] 2020-04-20 09:11:00 2020-04-20 11:10:00 Hospital Encounter Echo Hodges [facility] 1.2.840.114 350.1.13.10 4.2.7.2.686 [id number] 2020-04-20 09:11:00 2020-04-20 11:10:[address] En[address] Echo Hodges [facility] 1.2.840.114 350.1.13.10 4.2.7.2.686 [id number] [facility] 2020-04-20 09:08:00 2020-04-20 09:08:00 Outpatient P [facility] [id number] [facility] 2020-04-20 00:00:00 2020-04-20 00:00:00 Orders Only Doctor Unassigned, Belva [facility] 1.2.840.114 350.1.13.10 4.2.7.2.686 [id number] [id number] 2020-04-20 00:00:00 2020-04-20 00:00:00 Orders Only Doctor Unassigned, Belva [facility] 1.2.840.114 350.1.13.10 4.2.7.2.686 [id number] [id number] [facility] 2020-04-12 15:07:00 2020-04-12 16:30:00 Hospital Encounter Echo Hodges Vivian L VTKRISTI [facility] 1.2.840.114 350.1.13.10 4.2.7.2.686 [id number] 083 [id number] 2020-04-12 15:07:00 2020-04-12 16:30:00 Hospital Encounter Echo Hodges Vivian L VTKRISTI [facility] 1.2.840.114 350.1.13.10 4.2.7.2.686 [id number] [id number] [facility] 2020-04-12 13:43:19 2020-04-12 14:45:57 Routine Visit AdumEsperanza [facility] Building 1.2.840.114 350.1.13.10 4.2.7.2.686 [id number] 134 [id number] 2020-04-12 13:43:19 2020-04-12 14:45:57 Routine Visit Adum, Esperanza Mckeon [facility] Building 1.2.840.114 350.1.13.10 4.2.7.2.686 [id number] 134 [id number] [facility] 2020-04-12 13:04:57 2020-04-12 13:34:57 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 Visit Ultrasound, [facility] Building 1.2.840.114 350.1.13.10 4.2.7.2.686 [id number] 134 [id number] 2020-04-12 13:04:57 2020-04-12 13:34:57 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 Visit Ultrasound, Adc [facility] Lauren Jackman [facility] Building 1.2.840.114 350.1.13.10 4.2.7.2.686 [id number] 134 [id number] [facility] 2020-04-12 13:00:00 2020-04-12 13:00:00 Outpatient P [facility] [id number] [facility] 2020-04-09 09:21:59 2020-04-09 09:36:59 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 Visit 2, Adc Lab [facility] Jozef Castillo nal Building 1.2.840.114 350.1.13.10 4.2.7.2.686 [id number] 353 [id number] 2020-04-09 09:21:59 2020-04-09 09:36:59 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 Visit 2, Adc Lab [facility] 1.2.840.114 350.1.13.10 4.2.7.2.686 [id number] 353 [id number] [facility] 2020-04-09 09:15:00 2020-04-09 09:15:00 Outpatient R [facility] [id number] [facility] 2020-04-08 13:50:06 2020-04-08 14:05:06 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 Visit 2, Adc Lab [facility] Building 1.2.840.114 350.1.13.10 4.2.7.2.686 [id number] 353 [id number] 2020-04-08 13:50:06 2020-04-08 14:05:06 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 Visit 2, Adc Lab Echo [facility]ges [facility] 1.2.840.114 350.1.13.10 4.2.7.2.686 [id number] 353 [id number] [facility] 2020-04-08 13:05:39 2020-04-08 13:46:28 Routine Visit Echo [facility] 1.2.840.114 350.1.13.10 4.2.7.2.686 [id number] 134 [id number] [facility] 2020-04-08 13:05:39 2020-04-08 13:46:28 [facility]ine Visit [facility] 1.2.840.114 350.1.13.10 4.2.7.2.686 [id number] 134 [id number] 2020-04-08 13:00:00 2020-04-08 13:00:00 Outpatient ECHO VELOZ [facility] [id number] [facility] 2020-04-08 00:00:00 2020-04-08 00:00:00 [facility] 1..840.114 350.1.13.10 4.2.7.2.686 [id number] 134 [id number] [facility] 2020-04-08 00:00:00 2020-04-08 00:00:00 Case Management Adam [facility] 1..840.114 350.1.13.10 4.2.7.2.686 [id number] 134 [id number] 2020-04-03 13:00:00 2020-04-03 13:00:00 Outpatient R ECHO HODGES [facility] [id number] [facility] 2020-03-20 09:15:00 2020-03-20 09:15:00 Outpatient ECHO VELOZ [facility] [id number] [facility] 2020-03-18 16:00:00 2020-03-18 16:00:00 Outpatient ECHO VELOZ [facility] [id number] [facility] 2020-03-08 13:00:00 2020-03-08 13:00:00 Outpatient ECHO VELOZ [facility] [id number] [facility] 2020-02-09 14:30:00 2020-02-09 14:30:00 Outpatient R [facility] [id number] [facility] 2020-02-09 08:30:37 2020-02-09 08:45:37 [facility]medici ne [facility] 1..840.114 350.1.13.10 4.2.7.2.686 [id number] 134 [id number] [facility] 2020-02-09 08:30:37 2020-02-09 08:45:37 Telemedici ne Visit Adam Talia [facility] Building 1.2.840.114 350.1.13.10 4.2.7.2.686 [id number] 134 [id number] 2020-02-08 16:30:00 2020-02-08 16:30:00 Outpatient R TALIA MEDINA [facility] [id number] [facility] 2020-01-19 10:38:05 2020-01-19 11:38:05 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 Visit Ultrasound, [facility] Martha Waters [facility] 1.2.840.114 350.1.13.10 4.2.7.2.686 [id number] 134 [id number] [facility] 2020-01-19 10:38:05 2020-01-19 11:38:05 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 Visit Ultrasound, [facility] 1.2.840.114 350.1.13.10 4.2.7.2.686 [id number] 134 [id number] 2020-01-19 11:00:00 2020-01-19 11:00:00 Outpatient R [facility] [id number] [facility] 2020-01-10 15:27:02 2020-01-10 15:42:02 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 Visit 2, Adc Lab cEho Hodges [facility] 1.2.840.114 350.1.13.10 4.2.7.2.686 [id number] 353 [id number] [facility] 2020-01-10 15:27:02 2020-01-10 15:42:02 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 Visit 2, [facility] 1.2.840.114 350.1.13.10 4.2.7.2.686 [id number] 353 [id number] 2020-01-10 15:30:00 2020-01-10 15:30:00 Outpatient R ECHO HODGES [facility] [id number] [facility] 2020-01-10 14:47:58 2020-01-10 15:22:57 Routine Visit Echo Hodgesio nal Building 1.2.840.114 350.1.13.10 4.2.7.2.686 [id number] 134 [id number] [facility] 2020-01-10 14:47:58 2020-01-10 15:22:57 Routine Visit Echo Hodges VTKRISTI Chapaio nal Building 1.2.840.114 350.1.13.10 4.2.7.2.686 [id number] 134 [id number] 2019-12-27 13:00:00 2019-12-27 13:00:00 Outpatient R ECHO HODGES [facility] [id number] [facility] 2019-12-13 00:00:00 2019-12-13 00:00:00 Telephone Echo Hodges [facility] Jozef Chapaio nal Building 1.2.840.114 350.1.13.10 4.2.7.2.686 [id number] 134 [id number] [facility] 2019-12-13 00:00:00 2019-12-13 00:00:00 Telephone Echo Hodges [facility] Jozef Chapaio nal Building 1.2.840.114 350.1.13.10 4.2.7.2.686 [id number] 134 [id number] 2019-12-08 00:00:00 2019-12-08 00:00:00 Case Management Echo Hodges [facility] Jozef Whitakeressio nal Building 1.2.840.114 350.1.13.10 4.2.7.2.686 [id number] 134 [id number] [facility] 2019-12-08 00:00:00 2019-12-08 00:00:00 Case Management Echo Hodges [facility] Jozef Navarro Professio nal Building 1.2.840.114 350.1.13.10 4.2.7.2.686 [id number] 134 [id number] 2019-12-07 00:00:00 2019-12-07 00:00:00 Telephone Echo Hodges [facility] Ramon Castillo [facility] Building 1.2.840.114 350.1.13.10 4.2.7.2.686 [id number] 134 [id number] [facility] 2019-12-07 00:00:00 2019-12-07 00:00:00 Telephone Echo Hodges [facility] Ram[facility] Castillo [facility] 1.2.840.114 350.1.13.10 4.2.7.2.686 [id number] 134 [id number] 2019-11-29 13:51:24 2019-11-29 14:06:24 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 Visit 2, Adc Lab Echo Hodges [facility] Ramon Castillo [facility] 1.2.840.114 350.1.13.10 4.2.7.2.686 [id number] 353 [id number] [facility] 2019-11-29 13:51:24 2019-11-29 14:06:24 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 Visit 2, [facility] 1.2.840.114 350.1.13.10 4.2.7.2.686 [id number] 353 [id number] 2019-11-29 13:00:25 2019-11-29 13:36:47 Routine Visit Echo Hodges [facility] Ramon Castillo [facility] 1.2.840.114 350.1.13.10 4.2.7.2.686 [id number] 134 [id number] [facility] 2019-11-29 13:00:00 2019-11-29 13:00:00 Outpatient R ECHO HODGES [facility] [id number] [facility] 2019-11-29 00:00:00 2019-11-29 00:00:00 Orders Only Doctor Unassigned, Belva [facility] 1.2.840.114 350.1.13.10 4.2.7.2.686 [id number] [id number] [facility] 2019-11-07 08:13:02 2019-11-15 09:41:50 Telemedici ne Visit Echo Hodges [facility] 1.2840.114 350.1.13.10 4.2.7.2.686 [id number] 134 [id number] [facility] 2019-11-14 11:24:05 2019-11-14 12:36:31 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 Visit Ultrasound, Lauren Dhillon [facility] 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 [facility] 1.84.114 350.1.13.10 4.2.7.2.686 [id number] [facility] 2019-11-14 11:00:00 2019-11-14 11:00:00 Outpatient P [facility] [id number] [facility] 2019-11-07 14:00:00 2019-11-07 14:00:00 Outpatient R CARROLL ECHO [facility] [id number] [facility] 2019-10-27 09:00:00 2019-10-27 09:00:00 Outpatient R ILANA MONTES [facility] [id number] [facility] 2019-10-26 00:00:00 2019-10-26 00:00:00 Telephone Ehco Hodges [facility] 1.284.114 350.1.13.10 4.2.7.2.686 [id number] [facility] 2019-10-18 00:00:00 2019-10-18 00:00:00 Telephone Kanika Lay 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 [facility] [id number] 350.1.13.10 4.2.7.2.686 [id number] [facility] 2019-04-25 14:00:00 2019-04-25 14:33:35 Outpatient R TALIA MEDINA [facility] [id number] [facility] 2019-03-15 06:47:00 2019-03-16 19:30:00 Inpatient P ECHO HODGES [facility] ESTELA [id number] [facility] 2019-03-15 06:47:00 2019-03-16 19:30:00 Hospital Encounter Echo Hodges [facility] [id number] 350.1.13.10 4.2.7.2.686 [id number] [facility] 2019-03-09 14:22:30 2019-03-09 14:37:30 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 Visit 1, Adc Lab Adam [facility] [id number] 350.1.13.10 4.2.7.2.686 [id number] [facility] 2019-03-09 00:00:00 2019-03-09 00:00:00 Orders Only Doctor Unassigned, Belva [facility] 1.2.840.114 350.1.13.10 4.2.7.2.686 [id number] [facility] 2019-03-08 00:00:00 2019-03-08 00:00:00 Case Management Talia Medina [facility] 1.2.840.114 350.1.13.10 4.2.7.2.686 [id number] [facility] 2019-03-08 00:00:00 2019-03-08 00:00:00 Telephone Echo Hodges [facility] 1.2.840.114 350.1.13.10 4.2.7.2.686 [id number] [facility] 2019-03-07 14:36:38 2019-03-07 15:24:28 Routine Visit [facility] 1.2.840.114 350.1.13.10 4.2.7.2.686 [id number] [facility] 2019-02-21 14:33:39 2019-02-21 15:05:05 Routine Visit Echo Hodges [facility] 1.2.840.114 350.1.13.10 4.2.7.2.686 [id number] [facility] 2019-02-21 13:45:00 2019-02-21 15:05:05 Outpatient [facility] [id number] [facility] 2019-01-23 11:15:00 2019-01-23 11:15:00 Outpatient [facility] [id number] [facility] 2018-12-26 10:30:00 2018-12-26 11:28:51 Outpatient [facility] [id number] [facility] 2018-11-08 13:30:00 2018-11-08 14:17:04 Outpatient [facility] [id number] [facility] 2018-10-31 11:00:00 2018-10-31 11:59:43 Outpatient [facility] [id number] [facility]
== END 2024-03-07 13:17 | disposition home or self-care (01) ==
LOC: ER 12:51
DX: L03.011 Cellulitis of right finger (principal)

== ENCOUNTER 2024-03-09 07:51 | Emergency (ER) | payer SELFPAY ==
--- OUTSIDE RECORDS SUMMARY | 2024-03-09 07:56 | XMS REPORT | Continuity of Care Document ---
Author Name Unknown Address [address] [place] [address] [facility] Address [address] [place] [address] Care Team Providers Care Patient Clerical Assistant Name Role Phone PCP, PATIENT DOES NOT HAVE A Primary Care Physic millie Unavailable ECHO HODGES Attending Clinician Unavailable Nurse, [facility] Attending Clinician Un available Echo Hodges MD Attending Clinician [phone] Doctor Unassigned, [place] Attending Clinician U Talia Vu PA-C Attending Clinician [phone] TALIA MEDINA Attending Clinician Unavailable Esperanza Parra MD Attending Clinician [phone] RUSLAN DEMPSEY Attending Clinician Unavailable Fran Weiss CRNA Attending Clinician + [phone] Osmany Carcamo MD Attending Clinician + [phone] Ultrasound, Ang-Mfm Attending Clinician UnavailRuslan Ramos MD Attending Clinician [phone] Ultrasound, Adc Mfm Attending Clinician Unavailkurt Duncan MD, Garner Attending Clinician + PASCUAL MCFARLANE Attending Clinician UnaNaina Worrell RN Attending Clinician Unavailable CAMILLA ASHFORD Attending Clinician Unavailable Pob, [facility] Main Attending Clinician UnavailMalka Powell LMSW Attending Clinician [phone] , Adc Lab Attending Clinician Unavailable Room, [facility] Attending Clinician Unavailable Lauren Jackman MD Attending Clinician [phone], Adc Lab Attending Clinician Unavailable Martha Waters MD Attending Clinician [phone] ILANA MONTES Attending Clinician Unavail able Alireza HAYWARD Leroykurt Cabral Attending Clinician [phone] TALYA ORR Attending Clinician Unavaila ECHO Ring Admitting Clinician Unavailable Echo Hodges MD Admitting Clinician [phone] Payers Payer Name Policy Type Policy Number Effective Date Expirati on Date Source [facility] [id number] 2018 00:00:00 [employer] MEDICAID [id number] 2019 00:00:00 MEDICA[place] OF [place] [id number] 2016 00:00:00 Problems Condition Name Condition Details Condition Category Status Onset Date Resolution Date Last Treatment Date Treating Clinician Comments Source Encounter for tubal ligation counseling Encounter for tubal ligation counseling Disease Active 8- 00:00: 00 [facility] Gestationa l hypertensi on, third trimester Gestationa l hypertensi on, third trimester Disease Active 8 00:00: 00 [facility] 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 Disease Active 3-31 00:00: 00 [facility] Supervisio n of high risk , antepartum Supervisio n of high risk , antepartum Disease Active 2-02 00:00: 00 [facility] Nausea Nausea Disease Active 2-02 00:00: 00 [facility] 37 weeks gestation of 37 weeks gestation of Disease Active 03-15 00:00: 00 [facility] Liveborn infant, of gao , born in hospital by vaginal delivery Liveborn infant, of gao , born in hospital by vaginal delivery Disease Active 03-15 00:00: 00 [facility] Obesity (BMI 30-39.9) Obesity (BMI 30-39.9) Disease Active 11-22 00:00: 00 [facility] Multiparit y Multiparit y Disease Active 08-11 00:00: 00 [facility] History of delivery History of delivery Disease Active 08-11 00:00: 00 Overview: Formattin g of this note might be different from the original. Per patient report [facility] Allergies, Adverse Reactions, Alerts Allergy Name Allergy Type Status Severity Reaction(s) Onset Date Inactive Date Treating Clinician Comments Source NO KNOWN ALLERGIE S Drug Class Active [facility] Social History Social Habit Start Date Stop Date Quantity Comments Source Gender identity [facility] History SDOH Alcohol Frequency [facility] History SDOH Alcohol Std Drinks [facility] History SDOH Alcohol Binge [facility] Exposure to SARS-CoV-2 (event) 2022-10-23 00:00:00 2022-11-02 13:35:00 Not sure [facility] Alcohol Comment 2021-08-20 00:00:00 2021-08-20 00:00:00 quit when found out she was [facility] Alcohol intake 2020-12-17 00:00:00 2020-12-17 00:00:00 0 /d [facility] History of Social function 2019-01-24 00:00:00 2019-01-24 00:00:00 [facility] Tobacco use and exposure 2015-12-20 00:00:00 2015-12-20 00:00:00 Smokeless tobacco non-user [facility] Sex Assigned At 2000 00:00:00 2000 00:00:00 [facility] Smoking Status Start Date Stop Date Source Never smoked tobacco [facility] Medications Ordered Medication Name Filled Medication Name Start Date Stop Date Current Medication? Ordering Clinician Indication Dosage Frequency Signature (SIG) Comments Components Source medroxyPROG ESTERone (DEPO-PROVE RA) syringe 150 mg 02-02 16:00: 00 02-02 15:17 :00 No [id number] 150mg [facility] hydroCHLORO thiazide 12.5 mg tablet 02-22 00:00: 00 Yes [id number] 12.5mg Take 1 tablet by mouth in the morning. [facility] vitamin w/FA tablet 02-21 00:00: 00 Yes [id number] 1{tbl} Take 1 tablet by mouth in the morning. [facility] docusate 100 mg capsule 02-21 00:00: 00 Yes [id number] 200mg Take 2 capsules by mouth once daily as needed for Constipati on. [facility] ferrous sulfate 325 mg (65 mg iron) tablet 02-21 00:00: 00 Yes [id number] 325mg Take 1 tablet by mouth in the morning and 1 tablet in the evening. [facility] ibuprofen 600 mg tablet 02-21 00:00: 00 Yes [id number] 600mg Take 1 tablet by mouth every 6 (six) hours as needed (Pain). Take with food or milk. [facility] vitamin w/FA tablet 02-21 00:00: 00 Yes [id number] 1{tbl} Take 1 tablet by mouth in the morning. [facility] cephALEXin 500 mg capsule 02-17 00:00: 00 Yes [id number] 500mg Take 1 capsule by mouth every 6 (six) hours. [facility] fluticasone propionate 50 mcg/actuati on nasal spray 09-21 00:00: 00 Yes [facility] metoclopram jaron HCl 10 mg tablet 08-20 00:00: 00 Yes [id number] 10mg Take 1 tablet by mouth every 6 (six) hours as needed for Nausea and Vomiting (N/V). [facility] norgestimat e-ethinyl estradioL 0.25-35 mg-mcg per tablet 12-17 00:00: 00 08-20 00:00 :00 No [id number] 1{tbl} Take 1 tablet by mouth daily. [facility] vitamin w/FA tablet 2019-07 00:00: 00 08-20 00:00 :00 No [id number] 1{tbl} Take 1 tablet by mouth daily. [facility] docusate calcium 240 mg capsule 2019-07 00:00: 00 08-20 00:00 :00 No [id number] 240mg Take 1 capsule by mouth once daily as needed for Constipati on. [facility] ferrous sulfate 325 mg (65 mg iron) tablet 2019-07 00:00: 08-20 00:00 :00 No [id number] 325mg Take 1 tablet by mouth 2 (two) times daily. [facility] ibuprofen 600 mg tablet 2019-07 00:00: 08-20 00:00 :00 No [id number] 600mg Take 1 tablet by mouth every 6 (six) hours as needed (Pain). Take with food or milk. [facility] Immunizations Ordered Immunization Name Filled Immunization Name Date Status Comments Source TDAP 2020-04-08 00:00:00 Completed [facility] TDAP 2020-04-08 00:00:00 Completed [facility] TDAP 2020-04-08 00:00:00 Completed [facility] TDAP 2020-04-08 00:00:00 Completed [facility] TDAP 2020-04-08 00:00:00 Completed [facility] TDAP 2020-04-08 00:00:00 Completed [facility] TDAP 2020-04-08 00:00:00 Completed [facility] TDAP 2020-04-08 00:00:00 Completed [facility] TDAP 2020-04-08 00:00:00 Completed [facility] TDAP 2020-04-08 00:00:00 Completed [facility] TDAP 2020-04-08 00:00:00 Completed [facility] TDAP 2020-04-08 00:00:00 Completed [facility] TDAP 2020-04-08 00:00:00 Completed [facility] TDAP 2020-04-08 00:00:00 Completed [facility] TDAP 2020-04-08 00:00:00 Completed [facility] TDAP 2020-04-08 00:00:00 Completed [facility] TDAP 2013-07-19 00:00:00 Completed [facility] TDAP 2013-07-19 00:00:00 Completed [facility] TDAP 2013-07-19 00:00:00 Completed [facility] TDAP 2013-07-19 00:00:00 Completed [facility] TDAP 2013-07-19 00:00:00 Completed [facility] TDAP 2013-07-19 00:00:00 Completed [facility] TDAP 2013-07-19 00:00:00 Completed [facility] TDAP 2013-07-19 00:00:00 Completed [facility] TDAP 2013-07-19 00:00:00 Completed [facility] TDAP 2013-07-19 00:00:00 Completed [facility] TDAP 2013-07-19 00:00:00 Completed [facility] TDAP 2013-07-19 00:00:00 Completed [facility] TDAP 2013-07-19 00:00:00 Completed [facility] TDAP 2013-07-19 00:00:00 Completed [facility] TDAP 2013-07-19 00:00:00 Completed [facility] TDAP 2013-07-19 00:00:00 Completed [facility] TDAP Unknown Completed [facility] TDAP Unknown Completed [facility] TDAP Unknown Completed [facility] TDAP Unknown Completed [facility] TDAP Unknown Completed [facility] TDAP Unknown Completed [facility] TDAP Unknown Completed [facility] TDAP Unknown Completed [facility] TDAP Unknown Completed [facility] TDAP Unknown Completed [facility] TDAP Unknown Completed [facility] TDAP Unknown Completed [facility] Vital Signs Vital Name Observation Time Observation Value Comments S ource Systolic blood pressure 2023-02-02 15:14:00 124 mm[Hg] [facility] Diastolic blood pressure 2023-02-02 15:14:00 84 mm[Hg] [place] [facility] Heart rate 2023-02-02 15:14:00 69 /min [facility] Body temperature 2023-02-02 15:14:00 36.89 Bisi [facility] Respiratory rate 2023-02-02 15:14:00 18 /min [facility] Body weight 2023-02-02 15:14:00 107.23 kg [facility] BMI 2023-02-02 15:14:00 37.03 kg/m2 [facility] Systolic blood pressure 2022-11-02 19:20:00 132 mm[Hg] [facility] Diastolic blood pressure 2022-11-02 19:20:00 100 mm[Hg] [facility] Heart rate 2022-11-02 19:20:00 72 /min Unive [facility] Body temperature 2022-11-02 19:20:00 37 Bisi [facility] Respiratory rate 2022-11-02 19:20:00 18 /min [facility] Body height 2022-11-02 19:20:00 170.2 cm [facility] Body weight 2022-11-02 19:20:00 103.42 kg [facility] BMI 2022-11-02 19:20:00 35.71 kg/m2 [facility] Systolic blood pressure 2022-03-16 16:56:00 128 mm[Hg] [facility] Diastolic blood pressure 2022-03-16 16:56:00 82 mm[Hg] [facility] Heart rate 2022-03-16 16:56:00 62 /min Unive [facility] Body temperature 2022-03-16 16:56:00 36.78 Bisi [facility] Respiratory rate 2022-03-16 16:56:00 18 /min [facility] Body height 2022-03-16 16:56:00 170.2 cm [facility] Body weight 2022-03-16 16:56:00 91.173 kg [facility] BMI 2022-03-16 16:56:00 31.48 kg/m2 [facility] Procedures Procedure Date / Time Performed Performing Clinician Source ASSIGNMENT OF BENEFITS 2023-02-02 14:48:21 Docto r Unassigned, [place] [facility] GC & CHLAMYDIA AMPLIFIED ASSAY 2022-11-02 19:52:00 Talia Medina [facility] LAB ONLY PAP SMEAR-LIQUID BASED 2022-11-02 19:52:00 Talia Medina [facility] TRICHOMONAS AMPLIFIED ASSAY 2022-11-02 19:52:00 Talia Medina [facility] PAP SMEAR-LIQUID BASED-CP 2022-11-02 19:52:00 Adam Talia [facility] HIGH RISK HPV-THIN PREP 2022-11-02 19:52:00 Talia Medina [facility] PATIENT FINANCIAL POLICY 2022-11-02 18:37:30 Doctor Unassigned, [place] [facility] CONSENT FOR CONTRACEPTION 2022-11-02 05:01:00 Doctor Unassigned, [place] [facility] Encounters Start Date/Time End Date/Time Encounter Type Admission Type Attending [facility] Facility Care Department Encounter ID Source 2021-05-17 02:01:28 Outpatient [facility] ESTELA [id number] [facility] 2021-05-16 21:48:38 Outpatient P [facility] [id number] [facility] 2021-05-16 19:33:22 Outpatient P [facility] [id number] [facility] 2021-05-16 19:31:22 Outpatient P [facility] [id number] [facility] 2023-05-05 14:00:00 2023-05-05 14:00:00 Outpatient ECHO VELOZ [facility] [id number] [facility] 2023-02-02 10:00:00 2023-02-02 10:15:09 Outpatient ECHO VELOZ [facility] [id number] [facility] 2023-02-02 10:00:00 2023-02-02 10:15:09 Nurse Visit Nurse, [facility] Echo Hodges [facility] 1.2.840.114 350.1.13.10 4.2.7.2.686 [id number] [facility] 2023-02-02 00:00:00 2023-02-02 00:00:00 Orders Only Doctor Unassigned, [place] [facility] 1.2.840.114 350.1.13.10 4.2.7.2.686 [id number] [facility] 2023-01-29 14:30:00 2023-01-29 14:30:00 Outpatient R ECHO HODGES [facility] [id number] [facility] 2023-01-12 14:15:00 2023-01-12 14:15:00 Outpatient R ECHO HODGES [facility] [id number] [facility] 2022-12-08 00:00:00 2022-12-08 00:00:00 Telephone Talia Medina [facility] 1.2.840.114 350.1.13.10 4.2.7.2.686 [id number] 134 [id number] [facility] 2022-11-25 00:00:00 2022-11-25 00:00:00 Patient Secure Msg Doctor Unassigned, [place] [facility] 1.2.840.114 350.1.13.10 4.2.7.2.686 [id number] 134 [id number] [facility] 2022-11-16 00:00:00 2022-11-16 00:00:00 Telephone Talia Medina [facility] 1.2.840.114 350.1.13.10 4.2.7.2.686 [id number] [facility] 2022-11-02 14:15:00 2022-11-02 15:02:03 Outpatient R TALIA MEDINA [facility] [id number] [facility] 2022-11-02 14:15:00 2022-11-02 15:02:03 Office Visit Talia Medina [facility] 1.2.840.114 350.1.13.10 4.2.7.2.686 [id number] [facility] 2022-11-02 00:00:00 2022-11-02 00:00:00 Orders Only Doctor Unassigned, [place] [facility] 1.2114 350.1.13.10 4.2.7.2.686 [id number] [facility] 2022-06-29 10:30:00 2022-06-29 10:30:00 Outpatient TALIA ALVAREZ [facility] [id number] [facility] 2022-06-18 00:00:00 2022-06-18 00:00:00 Refill Esperanza Parra [facility] 1.84.114 350.1.13.10 4.2.7.2.686 [id number] [facility] 2022-05-11 15:00:00 2022-05-11 15:00:00 Outpatient R ECHO HODGES [facility] [id number] [facility] 2022-03-26 15:00:00 2022-03-26 15:00:00 Outpatient R ECHO HODGES [facility] [id number] [facility] 2022-03-16 11:15:00 2022-03-16 12:10:28 Outpatient R ECHO HODGES [facility] [id number] [facility] 2022-03-16 11:15:00 2022-03-16 12:10:28 Routine Visit Echo Hodges [facility] 1.84.114 350.1.13.10 4.2.7.2.686 [id number] 134 [id number] [facility] 2022-03-04 00:00:00 2022-03-04 00:00:00 Telephone [facility] Hodges [facility] 1.2.840.114 350.1.13.10 4.2.7.2.686 [id number] 134 [id number] [facility] 2022-02-25 14:30:00 2022-02-25 14:30:00 [facility] 1.0.114 350.1.13.10 4.2.7.2.686 [id number] [facility] 2022-02-25 14:30:00 2022-02-25 13:35:46 Outpatient R ECHO HODGES [facility] [id number] [facility] 2022-02-23 09:00:00 2022-02-23 09:00:00 Outpatient P RUSLAN DEMPSEY [facility] [id number] [facility] 2022-02-20 04:04:00 2022-02-21 18:25:00 Inpatient X ECHO HODGES [facility] [id number] [facility] 2022-02-20 04:04:00 2022-02-21 18:25:00 Hospital Encounter Echo Hodges [facility] 1..114 350.1.13.10 4.2.7.2.686 [id number] [facility] 2022-02-20 12:04:53 2022-02-20 12:04:53 Anesthesia Event Fran Weiss Jeffrey S [facility] 1..114 350.1.13.10 4.2.7.2.686 [id number] [facility] 2022-02-20 00:00:00 2022-02-20 00:00:00 Orders Only Doctor Unassigned, [place] [facility] 1.0.114 350.1.13.10 4.2.7.2.686 [id number] [facility] 2022-02-17 20:59:00 2022-02-17 21:55:00 Outpatient P ECHO HODGES [facility] [id number] [facility] 2022-02-17 20:59:00 2022-02-17 21:55:00 Hospital Encounter Echo Hodges [facility] 1.2.840.114 350.1.13.10 4.2.7.2.686 [id number] [facility] 2022-02-16 16:10:00 2022-02-17 08:10:00 Outpatient X ECHO HODGES [facility] [id number] [facility] 2022-02-16 16:10:00 2022-02-17 08:10:00 Hospital Encounter Echo Hodges [facility] 1.2.840.114 350.1.13.10 4.2.7.2.686 [id number] [facility] 2022-02-16 15:30:00 2022-02-16 15:45:00 Routine Visit Adam Talia [facility] 1.2840.114 350.1.13.10 4.2.7.2.686 [id number] [facility] 2022-02-16 15:30:00 2022-02-16 15:30:00 [id number] 2022-02-16 00:00:00 2022-02-16 00:00:00 Orders Only Doctor Unassigned, [place] [facility] 1.2840.114 350.1.13.10 4.2.7.2.686 [id number] [facility] 2022-02-03 15:00:00 2022-02-03 15:00:00 Outpatient R [facility] [id number] [facility] 2022-02-02 16:15:00 2022-02-02 16:36:06 Outpatient R CARROLL ECHO [facility] [id number] [facility] 2022-02-02 16:15:00 2022-02-02 16:36:06 Routine Visit Carroll Echo [facility] 1.840.114 350.1.13.10 4.2.7.2.686 [id number] [facility] 2022-02-02 16:15:00 2022-02-02 16:15:00 Outpatient R CARROLL ECHO [facility] [id number] [facility] 2022-01-26 09:15:00 2022-01-26 09:37:53 [employer] Visit Ultrasound, Ruslan Goldstein [facility] HAND COMPOSITOR [facility] ..840.114 350.1.13.10 4.2.7.2.686 [id number] [facility] 2022-01-26 09:15:00 2022-01-26 09:15:00 Outpatient RUSLAN TATUM [facility] [id number] [facility] 2022-01-07 15:30:00 2022-01-07 15:30:00 Outpatient TALIA ALVAREZ [facility] [id number] [facility] 2021-12-31 11:15:00 2021-12-31 11:15:00 Outpatient TALIA ALVAREZ [facility] [id number] [facility] 2021-12-18 13:00:00 2021-12-18 13:00:00 Outpatient TALIA ALVAREZ [facility] [id number] [facility] 2021-12-18 13:00:00 2021-12-18 13:00:00 [facility] [id number] [facility] 2021-12-18 13:00:00 2021-12-18 13:00:00 Outpatient Misha MEDINA [facility] [id number] [facility] 2021-12-18 10:15:00 2021-12-18 10:15:00 Outpatient R [facility] [id number] [facility] 2021-12-17 13:15:00 2021-12-17 13:55:19 Outpatient R ECHO HODGES [facility] [id number] [facility] 2021-12-17 13:15:00 2021-12-17 13:55:19 Routine Visit Echo Hodges [facility] 1.2.840.114 350.1.13.10 4.2.7.2.686 [id number] [facility] 2021-12-17 00:00:00 2021-12-17 00:00:00 Orders Only Doctor Unassigned, [place] [facility] 1.2840.114 350.1.13.10 4.2.7.2.686 [id number] [facility] 2021-11-18 10:45:00 2021-11-18 12:39:29 Outpatient P JONESYANIRAWALTERTALIA [facility] [id number] [facility] 2021-11-18 10:45:00 2021-11-18 12:39:29 [employer] Visit Ultrasound, Adc m Adam [facility] 1.2.840.114 350.1.13.10 4.2.7.2.686 [id number] [facility] 2021-11-18 10:15:00 2021-11-18 10:51:35 [facility] 1.2.840.114 350.1.13.10 4.2.7.2.686 [id number] [facility] 2021-11-11 00:00:00 2021-11-11 00:00:00 Telephone Echo Hodges [facility] 1.2.840.114 350.1.13.10 4.2.7.2.686 [id number] [facility] 2021-11-04 11:15:00 2021-11-04 12:00:00 [employer] Visit Ultrasound, Adc Pascual Bocanegra [facility] 1.2840.114 350.1.13.10 4.2.7.2.686 [id number] [facility] 2021-11-04 11:15:00 2021-11-04 11:15:00 Outpatient P PASCUAL LINO [facility] [id number] [facility] 2021-11-04 00:00:00 2021-11-04 00:00:00 Letter (Out) Echo Hodges [facility] 1.2.840.114 350.1.13.10 4.2.7.2.686 [id number] 134 [id number] [facility] 2021-11-04 00:00:00 2021-11-04 00:00:00 Letter (Out) Echo Hodges [facility] 1.2.840.114 350.1.13.10 4.2.7.2.686 [id number] 134 [id number] [facility] 2021-11-03 00:00:00 2021-11-03 00:00:00 Patient Secure Msg Doctor Unassigned, [place] [facility] 1.2840.114 350.1.13.10 4.2.7.2.686 [id number] 134 [id number] [facility] 2021-10-28 14:45:00 2021-10-28 15:30:00 [employer] Visit Ultrasound, Adc isreal colbert [facility] 1.2840.114 350.1.13.10 4.2.7.2.686 [id number] 134 [id number] [facility] 2021-10-28 14:45:00 2021-10-28 14:45:00 Outpatient P [facility] [id number] [facility] 2021-10-28 14:45:00 2021-10-28 14:45:00 Outpatient P AUGIE RAJENDRA Oksana GARNER [facility] [id number] [facility] 2021-10-16 13:00:00 2021-10-16 14:20:07 Outpatient R ECHO HODGES [facility] [id number] [facility] 2021-10-16 13:00:00 2021-10-16 14:20:07 Office Visit Echo Hodges [facility] 1..840.114 350.1.13.10 4.2.7.2.686 [id number] 134 [id number] [facility] 2021-10-16 13:00:00 2021-10-16 14:20:07 Outpatient R ECHO HODGES [facility] [id number] [facility] 2021-10-16 00:00:00 2021-10-16 00:00:00 Letter (Out) Echo Hodges [facility] ..840.114 350.1.13.10 4.2.7.2.686 [id number] 134 [id number] [facility] 2021-10-16 00:00:00 2021-10-16 00:00:00 Orders Only Doctor Unassigned, [place] [facility] ..840.114 350.1.13.10 4.2.7.2.686 [id number] 009 [id number] [facility] 2021-10-01 00:00:00 2021-10-01 00:00:00 Telephone Echo Hodges [facility] 1..840.114 350.1.13.10 4.2.7.2.686 [id number] 134 [id number] [facility] 2021-09-25 00:00:00 2021-09-25 00:00:00 Orders Only Doctor Unassigned, [place] [facility] 1.2.840.114 350.1.13.10 4.2.7.2.686 [id number] 009 [id number] [facility] 2021-09-24 00:00:00 2021-09-24 00:00:00 Telephone Echo Hodges [facility] 1.2.840.114 350.1.13.10 4.2.7.2.686 [id number] 134 [id number] [facility] 2021-09-22 00:00:00 2021-09-22 00:00:00 Telephone Talia Medina [facility] 1.2.840.114 350.1.13.10 4.2.7.2.686 [id number] 134 [id number] [facility] 2021-09-19 00:00:00 2021-09-19 00:00:00 Telephone JessicaNaina [facility] 1.2840.114 350.1.13.10 4.2.7.2.686 [id number] 019 [id number] [facility] 2021-09-18 09:20:00 2021-09-18 09:55:56 Outpatient CAMILLA DONOVAN [facility] [id number] [facility] 2021-09-17 16:00:00 2021-09-17 16:53:47 Outpatient TALIA ALVAREZ [facility] [id number] [facility] 2021-09-17 16:00:00 2021-09-17 16:53:47 Routine Visit Talia Medina [facility] 1.2.840.114 350.1.13.10 4.2.7.2.686 [id number] 134 [id number] [facility] 2021-09-17 00:00:00 2021-09-17 00:00:00 Letter (Out) Talia Medina [facility] 1.2.840.114 350.1.13.10 4.2.7.2.686 [id number] 134 [id number] [facility] 2021-09-12 00:00:00 2021-09-12 00:00:00 Patient Secure Msg Talia Medina [facility] 1.2840.114 350.1.13.10 4.2.7.2.686 [id number] 134 [id number] [facility] 2021-09-10 00:00:00 2021-09-10 00:00:00 Patient Secure Msg Doctor Unassigned, [place] [facility] 1.2840.114 350.1.13.10 4.2.7.2.686 [id number] [facility] 2021-09-09 00:00:00 2021-09-09 00:00:00 Telephone Echo Hodges Costa [facility] 1.2.840.114 350.1.13.10 4.2.7.2.686 [id number] 134 [id number] [facility] 2021-09-02 00:00:00 2021-09-02 00:00:00 Telephone Talia Medina [facility] 1.2.840.114 350.1.13.10 4.2.7.2.686 [id number] 134 [id number] [facility] 2021-08-29 11:30:00 2021-08-29 11:45:00 [employer] Visit Pob, Adc Lab Main Echo Hodges Costa [facility] 1.2840.114 350.1.13.10 4.2.7.2.686 [id number] 353 [id number] [facility] 2021-08-29 11:30:00 2021-08-29 11:30:00 Outpatient R ECHO HODGES [facility] [id number] [facility] 2021-08-29 00:00:00 2021-08-29 00:00:00 Orders Only Doctor Unassigned, [place] [facility] 1.2840.114 350.1.13.10 4.2.7.2.686 [id number] [id number] [facility] 2021-08-24 00:00:00 2021-08-24 00:00:00 Case Management Talia Med[facility] 1.840.114 350.1.13.10 4.2.7.2.686 [id number] [facility] 2021-08-21 00:00:00 2021-08-21 00:00:00 Patient Secure Msg Doctor Unassigned, [place] [facility] 1.840.114 350.1.13.10 4.2.7.2.686 [id number] 134 [id number] [facility] 2021-08-21 00:00:00 2021-08-21 00:00:00 Patient Outreach Malka Hernandez [facility] 1.2840.114 350.1.13.10 4.2.7.2.686 [id number] 098 [id number] [facility] 2021-08-20 14:30:00 2021-08-20 15:36:52 Initial Visit Echo Hodges [facility] 1.284.114 350.1.13.10 4.2.7.2.686 [id number] 134 [id number] [facility] 2021-08-20 14:30:00 2021-08-20 15:36:52 Outpatient ECHO VELOZ [facility] [id number] [facility] 2021-08-20 00:00:00 2021-08-20 00:00:00 Patient Secure Msg Doctor Unassigned, [place] [facility] 1.2.840.114 350.1.13.10 4.2.7.2.686 [id number] 134 [id number] [facility] 2021-08-20 00:00:00 2021-08-20 00:00:00 Letter (Out) [place] Echo [facility] 1..840.114 350.1.13.10 4.2.7.2.686 [id number] 134 [id number] [facility] 2021-08-20 00:00:00 2021-08-20 00:00:00 Orders Only Doctor Unassigned, [place] [facility] .840.114 350.1.13.10 4.2.7.2.686 [id number] 009 [id number] [facility] 2021-08-12 14:00:00 2021-08-12 14:00:00 Outpatient TALIA ALVAREZ [facility] [id number] [facility] 2021-08-04 00:00:00 2021-08-04 00:00:00 Patient Secure Msg Doctor Unassigned, [place] [facility] .2840.114 350.1.13.10 4.2.7.2.686 [id number] 019 [id number] [facility] 2021-02-06 13:30:00 2021-02-06 13:30:00 Outpatient TALIA ALVAREZ [facility] [id number] [facility] 2021-01-16 00:00:00 2021-01-16 00:00:00 Letter (Out) [place] Echo [facility] 1.840.114 350.1.13.10 4.2.7.2.686 [id number] 134 [id number] [facility] 2021-01-16 00:00:00 2021-01-16 00:00:00 Telephone Talia Medina [facility] 1.2.840.114 350.1.13.10 4.2.7.2.686 [id number] 134 [id number] [facility] 2021-01-13 00:00:00 2021-01-13 00:00:00 Patient Secure Msg Doctor Unassigned, [place] [facility] 1.2.840.114 350.1.13.10 4.2.7.2.686 [id number] 134 [id number] [facility] 2021-01-07 00:00:00 2021-01-07 00:00:00 Telephone Talia Medina [facility] 1.2.840.114 350.1.13.10 4.2.7.2.686 [id number] 134 [id number] [facility] 2020-12-17 12:54:01 2020-12-17 13:51:32 Office Visit Talia Medina [facility] 1.2.840.114 350.1.13.10 4.2.7.2.686 [id number] 134 [id number] [facility] 2020-12-17 13:00:00 2020-12-17 13:00:00 Outpatient R TALIA MEDINA [facility] [id number] [facility] 2020-12-17 00:00:00 2020-12-17 00:00:00 Orders Only Doctor Unassigned, [place] [facility] 1.2.840.114 350.1.13.10 4.2.7.2.686 [id number] [id number] [facility] 2020-06-18 15:28:00 2020-06-18 16:09:46 Routine Visit Talia Medina [facility] 1.2.840.114 350.1.13.10 4.2.7.2.686 [id number] 134 [id number] [facility] 2020-06-18 15:28:00 2020-06-18 16:09:46 Routine Visit Talia Medina [facility] 1.2.840.114 350.1.13.10 4.2.7.2.686 [id number] 134 [id number] 2020-06-18 15:15:00 2020-06-18 15:15:00 Outpatient R ADAM [facility] [id number] [facility] 2020-06-17 16:30:00 2020-06-17 16:30:00 Outpatient R ADAM [facility] [id number] [facility] 2020-06-12 00:00:00 2020-06-12 00:00:00 Orders Only Doctor Unassigned, [place] [facility] 1.2.840.114 350.1.13.10 4.2.7.2.686 [id number] 009 [id number] [facility] 2020-06-12 00:00:00 2020-06-12 00:00:00 Orders Only Doctor Unassigned, [place] [facility] 1.2.840.114 350.1.13.10 4.2.7.2.686 [id number] 009 [id number] 2020-05-20 04:10:00 2020-05-21 11:40:00 Hospital Encounter Echo Hodges [facility] 1.2.840.114 350.1.13.10 4.2.7.2.686 [id number] 083 [id number] [facility] 2020-05-20 04:10:00 2020-05-21 11:40:00 Hospital Encounter Echo Hodges [facility] 1.2.840.114 350.1.13.10 4.2.7.2.686 [id number] 083 [id number] 2020-05-20 00:00:00 2020-05-20 00:00:00 Orders Only Doctor Unassigned, [place] [facility] 1.2.840.114 350.1.13.10 4.2.7.2.686 [id number] 009 [id number] [facility] 2020-05-20 00:00:00 2020-05-20 00:00:00 Orders Only Doctor Unassigned, [place] [facility] 1.2.840.114 350.1.13.10 4.2.7.2.686 [id number] [id number] 2020-05-17 09:10:37 2020-05-17 09:25:37 [employer] Visit 1, [facility] 1.2.840.114 350.1.13.10 4.2.7.2.686 [id number] 353 [id number] [facility] 2020-05-17 09:10:37 2020-05-17 09:25:37 [employer] Visit 1, [facility] 1.2.840.114 350.1.13.10 4.2.7.2.686 [id number] 353 [id number] 2020-05-17 08:17:41 2020-05-17 08:54:38 Routine Visit Room, [facility] 1.2.840.114 350.1.13.10 4.2.7.2.686 [id number] 134 [id number] [facility] 2020-05-17 08:17:41 2020-05-17 08:54:38 Routine Visit Room, [facility] 1.2.840.114 350.1.13.10 4.2.7.2.686 [id number] 134 [id number] 2020-05-17 08:00:00 2020-05-17 08:00:00 Outpatient R [facility] [id number] [facility] 2020-05-16 14:00:00 2020-05-16 14:00:00 Outpatient R [facility] [id number] [facility] 2020-05-14 11:09:37 2020-05-14 12:11:42 Routine Visit Room, [facility] HodgesEcho Costa [facility] 1.2.840.114 350.1.13.10 4.2.7.2.686 [id number] 134 [id number] [facility] 2020-05-14 11:09:37 2020-05-14 12:11:42 Routine Visit Room, [facility] Building 1.284.114 350.1.13.10 4.2.7.2.686 [id number] 134 [id number] 2020-05-14 11:00:00 2020-05-14 11:00:00 Outpatient R [facility] [id number] [facility] 2020-05-14 00:00:00 2020-05-14 00:00:00 Orders Only Doctor Unassigned, [place] [facility] 1.20.114 350.1.13.10 4.2.7.2.686 [id number] 009 [id number] [facility] 2020-05-14 00:00:00 2020-05-14 00:00:00 Orders Only Doctor Unassigned, [place] [facility] 1.2840.114 350.1.13.10 4.2.7.2.686 [id number] 009 [id number] 2020-05-10 10:41:31 2020-05-10 11:25:11 [employer] Visit Ultrasound, [facility] Building 1.2840.114 350.1.13.10 4.2.7.2.686 [id number] 134 [id number] 2020-05-10 10:41:31 2020-05-10 11:25:11 [employer] Visit Ultrasound, [facility] Pascual Lino [facility] 1.2.840.114 350.1.13.10 4.2.7.2.686 [id number] 134 [id number] [facility] 2020-05-10 10:30:00 2020-05-10 10:30:00 Outpatient P [facility] [id number] [facility] 2020-04-29 11:00:00 2020-04-29 11:00:00 Outpatient R [facility] [id number] [facility] 2020-04-25 10:09:00 2020-04-25 12:35:00 Hospital Encounter Echo Hodges [facility] 1.2.840.114 350.1.13.10 4.2.7.2.686 [id number] 083 [id number] 2020-04-25 10:09:00 2020-04-25 12:35:00 Hospital Encounter Echo Hodges [facility] 1.2.840.114 350.1.13.10 4.2.7.2.686 [id number] 083 [id number] [facility] 2020-04-25 08:21:54 2020-04-25 09:48:28 Routine Visit Room, [facility] 1.2.840.114 350.1.13.10 4.2.7.2.686 [id number] 134 [id number] 2020-04-25 08:21:54 2020-04-25 09:48:28 Routine Visit Room, [facility] Talia Medina [facility] Building 1.2.840.114 350.1.13.10 4.2.7.2.686 [id number] 134 [id number] [facility] 2020-04-25 08:00:00 2020-04-25 08:00:00 Outpatient R [facility] [id number] [facility] 2020-04-22 13:01:30 2020-04-22 14:28:44 Routine Visit Hodges, Echo Cam [facility] 1.2.840.114 350.1.13.10 4.2.7.2.686 [id number] 134 [id number] 2020-04-22 13:01:30 2020-04-22 14:28:44 Routine Visit Echo Hodges [facility] 1.2.840.114 350.1.13.10 4.2.7.2.686 [id number] 134 [id number] [facility] 2020-04-22 13:00:00 2020-04-22 13:00:00 Outpatient R ECHO HODGES [facility] [id number] [facility] 2020-04-20 09:11:00 2020-04-20 11:10:00 Hospital Encounter Echo Hodges [facility] 1.2.840.114 350.1.13.10 4.2.7.2.686 [id number] 083 [id number] 2020-04-20 09:11:00 2020-04-20 11:10:00 Hospital Encounter Echo Hodges [facility] 1.2.840.114 350.1.13.10 4.2.7.2.686 [id number] [facility] 2020-04-20 09:08:00 2020-04-20 09:08:00 Outpatient P HIMB ESTELA [id number] [facility] 2020-04-20 00:00:00 2020-04-20 00:00:00 Orders Only Doctor Unassigned, [place] [facility] 1.2.840.114 350.1.13.10 4.2.7.2.686 [id number] [id number] 2020-04-20 00:00:00 2020-04-20 00:00:00 Orders Only Doctor Unassigned, [place] [facility] 1.2.840.114 350.1.13.10 4.2.7.2.686 [id number] [id number] [facility] 2020-04-12 15:07:00 2020-04-12 16:30:00 Hospital Encounter Echo Hodges Vivian L HIKRISTI [facility] 1.2.840.114 350.1.13.10 4.2.7.2.686 [id number] 083 [id number] 2020-04-12 15:07:00 2020-04-12 16:30:00 Hospital Encounter Echo Hodges Vivian L HIKRISTI [facility] 1.2.840.114 350.1.13.10 4.2.7.2.686 [id number] 083 [id number] [facility] 2020-04-12 13:43:19 2020-04-12 14:45:57 Routine Visit AdumEsperanza [facility] 1.2.840.114 350.1.13.10 4.2.7.2.686 [id number] 134 [id number] 2020-04-12 13:43:19 2020-04-12 14:45:57 Routine Visit Adum, Esperanza Mckeon [facility] 1.2.840.114 350.1.13.10 4.2.7.2.686 [id number] 134 [id number] [facility] 2020-04-12 13:04:57 2020-04-12 13:34:57 [employer] Visit Ultrasound, [facility] Building 1.2.840.114 350.1.13.10 4.2.7.2.686 [id number] 134 [id number] 2020-04-12 13:04:57 2020-04-12 13:34:57 [employer] Visit Ultrasound, Adc [facility] Lauren Jackman [facility] 1.2.840.114 350.1.13.10 4.2.7.2.686 [id number] 134 [id number] [facility] 2020-04-12 13:00:00 2020-04-12 13:00:00 Outpatient P [facility] [id number] [facility] 2020-04-09 09:21:59 2020-04-09 09:36:59 [employer] Visit 2, Adc Lab [facility] Jozef Castillo nal Building 1.2.840.114 350.1.13.10 4.2.7.2.686 [id number] 353 [id number] 2020-04-09 09:21:59 2020-04-09 09:36:59 [employer] Visit 2, [facility] Lab [facility] 1.2.840.114 350.1.13.10 4.2.7.2.686 [id number] 353 [id number] [facility] 2020-04-09 09:15:00 2020-04-09 09:15:00 Outpatient R [facility] [id number] [facility] 2020-04-08 13:50:06 2020-04-08 14:05:06 [employer] Visit 2, Adc Lab [facility] 1.2.840.114 350.1.13.10 4.2.7.2.686 [id number] 353 [id number] 2020-04-08 13:50:06 2020-04-08 14:05:06 [employer] Visit 2, Ad[facility] Lab [facility] 1.2.840.114 350.1.13.10 4.2.7.2.686 [id number] 353 [id number] [facility] 2020-04-08 13:05:39 2020-04-08 13:46:28 Routine Visit [facility] 1.2.840.114 350.1.13.10 4.2.7.2.686 [id number] 134 [id number] [facility] 2020-04-08 13:05:39 2020-04-08 13:46:28 Routine Visit [facility] 1.2.840.114 350.1.13.10 4.2.7.2.686 [id number] 134 [id number] 2020-04-08 13:00:00 2020-04-08 13:00:00 Outpatient ECHO VELOZ [facility] [id number] [facility] 2020-04-08 00:00:00 2020-04-08 00:00:00 [facility]..840.114 350.1.13.10 4.2.7.2.686 [id number] 134 [id number] [facility] 2020-04-08 00:00:00 2020-04-08 00:00:00 Case Management Adam [facility] 1..840.114 350.1.13.10 4.2.7.2.686 [id number] 134 [id number] 2020-04-03 13:00:00 2020-04-03 13:00:00 Outpatient R ECHO HODGES [facility] [id number] [facility] 2020-03-20 09:15:00 2020-03-20 09:15:00 Outpatient ECHO VELOZ [facility] [id number] [facility] 2020-03-18 16:00:00 2020-03-18 16:00:00 Outpatient ECHO VELOZ [facility] [id number] [facility] 2020-03-08 13:00:00 2020-03-08 13:00:00 Outpatient ECHO VELOZ [facility] [id number] [facility] 2020-02-09 14:30:00 2020-02-09 14:30:00 Outpatient R ADAM [facility] [id number] [facility] 2020-02-09 08:30:37 2020-02-09 08:45:37 [facility]ici ne [facility] 1..840.114 350.1.13.10 4.2.7.2.686 [id number] 134 [id number] [facility] 2020-02-09 08:30:37 2020-02-09 08:45:37 Telemedici ne Visit Adam Talia [facility] Building 1.2.840.114 350.1.13.10 4.2.7.2.686 [id number] 134 [id number] 2020-02-08 16:30:00 2020-02-08 16:30:00 Outpatient R TALIA MEDINA [facility] [id number] [facility] 2020-01-19 10:38:05 2020-01-19 11:38:05 [employer] Visit Ultrasound, [facility] Martha Waters [facility] 1.2.840.114 350.1.13.10 4.2.7.2.686 [id number] 134 [id number] [facility] 2020-01-19 10:38:05 2020-01-19 11:38:05 [employer] Visit Ultrasound, [facility] 1.2.840.114 350.1.13.10 4.2.7.2.686 [id number] 134 [id number] 2020-01-19 11:00:00 2020-01-19 11:00:00 Outpatient R [facility] [id number] [facility] 2020-01-10 15:27:02 2020-01-10 15:42:02 [employer] Visit 2, Adc Lab Echo Hodges [facility] 1.2.840.114 350.1.13.10 4.2.7.2.686 [id number] 353 [id number] [facility] 2020-01-10 15:27:02 2020-01-10 15:42:02 [employer] Visit 2, [facility] 1.2.840.114 350.1.13.10 4.2.7.2.686 [id number] 353 [id number] 2020-01-10 15:30:00 2020-01-10 15:30:00 Outpatient R ECHO HODGES [facility] [id number] [facility] 2020-01-10 14:47:58 2020-01-10 15:22:57 Routine Visit Echo Hodgesio nal Building 1.2.840.114 350.1.13.10 4.2.7.2.686 [id number] 134 [id number] [facility] 2020-01-10 14:47:58 2020-01-10 15:22:57 Routine Visit Echo Hodges HIKRISTI [facility] Building 1.2.840.114 350.1.13.10 4.2.7.2.686 [id number] 134 [id number] 2019-12-27 13:00:00 2019-12-27 13:00:00 Outpatient R ECHO HODGES [facility] [id number] [facility] 2019-12-13 00:00:00 2019-12-13 00:00:00 Telephone Echo Hodges [facility] Jozef Chapaio nal Building 1.2.840.114 350.1.13.10 4.2.7.2.686 [id number] 134 [id number] [facility] 2019-12-13 00:00:00 2019-12-13 00:00:00 Telephone Echo Hodges [facility] Jozef Chapaio nal Building 1.2.840.114 350.1.13.10 4.2.7.2.686 [id number] 134 [id number] 2019-12-08 00:00:00 2019-12-08 00:00:00 Case Management Echo Hodges [facility] Jozef Whitakeressio nal Building 1.2.840.114 350.1.13.10 4.2.7.2.686 [id number] 134 [id number] [facility] 2019-12-08 00:00:00 2019-12-08 00:00:00 Case Management cEho Hodges [facility] Jozef Navarro Professio nal Building 1.2.840.114 350.1.13.10 4.2.7.2.686 [id number] 134 [id number] 2019-12-07 00:00:00 2019-12-07 00:00:00 Telephone Echo Hodges [facility] Ramon Castillo [facility] Building 1.2.840.114 350.1.13.10 4.2.7.2.686 [id number] 134 [id number] [facility] 2019-12-07 00:00:00 2019-12-07 00:00:00 Telephone Echo Hodges [facility] Ramon Castillo [facility] Building 1.2.840.114 350.1.13.10 4.2.7.2.686 [id number] 2019-11-29 13:51:24 2019-11-29 14:06:24 [employer] Visit 2, [facility] Echo Hod[facility] Ramon Castillo [facility] 1.2.840.114 350.1.13.10 4.2.7.2.686 [id number] [facility] 2019-11-29 13:51:24 2019-11-29 14:06:24 [employer] Visit 2, [facility] 1.2.840.114 350.1.13.10 4.2.7.2.686 [id number] 2019-11-29 13:00:25 2019-11-29 13:36:47 Routine Visit Echo Hodges [facility] Ramon Castillo [facility] 1.2.840.114 350.1.13.10 4.2.7.2.686 [id number] [facility] 2019-11-29 13:00:00 2019-11-29 13:00:00 Outpatient R ECHO HODGES [facility] [id number] [facility] 2019-11-29 00:00:00 2019-11-29 00:00:00 Orders Only Doctor Unassigned, [place] [facility] 1.2.840.114 350.1.13.10 4.2.7.2.686 [id number] [facility] 2019-11-07 08:13:02 2019-11-15 09:41:50 Telemedici ne Visit Echo Hodges [facility] 1.2840.114 350.1.13.10 4.2.7.2.686 [id number] [facility] 2019-11-14 11:24:05 2019-11-14 12:36:31 [employer] Visit Ultrasound, Lauren Dhillon [facility] HAND COMPOSITOR [facility] 1.84.114 350.1.13.10 [id number] [facility] 2019-11-14 11:00:00 2019-11-14 11:00:00 Outpatient P [facility] [id number] [facility] 2019-11-07 14:00:00 2019-11-07 14:00:00 Outpatient R CARROLL ECHO [facility] [id number] [facility] 2019-10-27 09:00:00 2019-10-27 09:00:00 Outpatient R ILANA MONTES [facility] [id number] [facility] 2019-10-26 00:00:00 2019-10-26 00:00:00 Telephone Echo Hodges [facility] [id number] [facility] 2019-10-18 00:00:00 2019-10-18 00:00:00 Telephone Kanika Lay [facility] HAND COMPOSITOR [facility] [id number] [id number] [id number] [id number] [facility] 2019-04-25 14:00:00 2019-04-25 14:33:35 Outpatient R TALIA MEDINA [facility] [id number] [facility] 2019-03-15 06:47:00 2019-03-16 19:30:00 Inpatient P ECHO HODGES [facility] ESTELA [id number] [facility] 2019-03-15 06:47:00 2019-03-16 19:30:00 Hospital Encounter Echo Hodges [facility] [id number] [id number] [id number] [facility] 2019-03-09 14:22:30 2019-03-09 14:37:30 [employer] Visit 1, Adc Lab Adam [facility] [id number] [id number] [id number] [facility] 2019-03-09 00:00:00 2019-03-09 00:00:00 Orders Only Doctor Unassigned, [place] [facility] [id number] 350.1.13.10 4.2.7.2.686 [id number] [facility] 2019-03-08 00:00:00 2019-03-08 00:00:00 Case Management Talia Medina [facility] [id number] [id number] 4.2.7.2.686 [id number] [facility] 2019-03-08 00:00:00 2019-03-08 00:00:00 Telephone Echo Hodges [facility] [id number] [id number] 4.2.7.2.686 [id number] [facility] 2019-03-07 14:36:38 2019-03-07 15:24:28 Routine Visit Jones[facility]ushbuTalia [facility] Building [id number] [id number] 4.2.7.2.686 [id number] [facility] 2019-02-21 14:33:39 2019-02-21 15:05:05 Routine Visit Echo Hodges [facility] Building [id number] [id number] 4.2.7.2.686 [id number] [facility] 2019-02-21 13:45:00 2019-02-21 15:05:05 Outpatient R CARROLL ECHO [facility] [id number] [facility] 2019-01-23 11:15:00 2019-01-23 11:15:00 Outpatient ECHO VELOZ [facility] [id number] [facility] 2018-12-26 10:30:00 2018-12-26 11:28:51 Outpatient ECHO VELOZ [facility] [id number] [facility] 2018-11-08 13:30:00 2018-11-08 14:17:04 Outpatient P TALYA ORR [facility] [id number] [facility] 2018-10-31 11:00:00 2018-10-31 11:59:43 Outpatient ILANA PENA [facility] [id number] [facility]
[2024-03-09] MEDS ORDERED: BUPIVACAINE 0.5% PF 10 ML VIAL ONE (08:21)
--- NOTE | 2024-03-09 09:24 | EDPHYS ---
Physician Documentation [facility] Name: Mary Joe Age: 23 yrs Sex: Female : 2000 Arrival Date: 03/09/2024 Time: 07:51 Bed 18 Private MD: ED Physician Sarbjit Mason HPI: 03/09 09:31 This 23 yrs old Black Female presents to ER via Ambulatory with complaints of Finger rt Injury. 09:31 Patient was seen in the ED for cellulitis to the right index finger 2 days ago, was rt prescribed Bactrim. States that symptoms have worsened, is worsening swelling and discoloration to the very tip. Denies other acute complaints at this time, symptoms are mild in severity, no other aggravating or alleviating factors.. 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 - Infectious Disease History:: Denies. - Social history:: Smoking status: Patient denies any tobacco usage or history of. - Family history:: not pertinent. ROS: 09:31 Constitutional: Negative for fever, chills, and weight loss, Neuro: Negative for rt headache, weakness, numbness, tingling, and seizure, Psych: Negative for depression, anxiety, suicide ideation, homicidal ideation, and hallucinations, 09:31 MS/extremity: Positive for Swelling, pain to fingertip, Exam: 09:31 Constitutional: This is a well developed, well nourished patient who is awake, alert, rt and in no acute distress. Head/Face: Normocephalic, atraumatic. Neuro: Awake and alert, GCS 15, oriented to person, place, time, and situation. Cranial nerves II-XII grossly intact. Motor strength 5/5 in all extremities. Sensory grossly intact. Cerebellar exam normal. Normal gait. 09:31 Musculoskeletal/extremity: Swelling to right index finger at the fingertip. The rest of the digit is not swollen, no fusiform swelling. Able to flex, extend. There is apparent paronychia.. Vital Signs: 08:02 BP 142 / 95; Pulse 61; Resp 16; Pulse Ox 100% on R/A; Weight 104.33 kg; Height 5 ft. 7 iw in. ; Pain 8/10; 08:10 BP 133 / 102; Pulse 77; Resp 18; Temp 98.1; Pulse Ox 100% ; Weight 104.33 kg; Height 5 ar6 ft. 7 in. ; Pain 8/10; 08:10 Body Mass Index 36.02 (104.33 kg, 170.18 cm) ar6 08:02 Pain Scale: Adult iw 08:10 Pain Scale: Adult ar6 Procedures: 09:31 I \T\ D: Incision and drainage was performed for an abscess of the right Index finger rt paronychia Prepped with Betadine, Anesthetized with 0.5% Marcaine, 2 cc digital block. Incised with #11 blade. Drained small amount purulent fluid. Dressing: sterile 4x4 gauze, the patient tolerated the procedure well. MDM: 08:09 Patient medically screened. rt 09:31 Differential diagnosis: Paronychia, cellulitis. Data reviewed: vital signs, nurses rt notes. Test considered but Not performed: Other Details Patient has no signs or symptoms concerning for flexor tenosynovitis, further labs and imaging are not indicated. Counseling: I had a detailed discussion with the patient and/or guardian regarding the historical points, exam findings, and any diagnostic results supporting the discharge/admit diagnosis, the need for outpatient follow up, to return to the emergency department if symptoms worsen or persist or if there are any questions or concerns that arise at home. 03/09 08:18 Order name: Incision \T\ Drainage Setup; Complete Time: 08:28 rt Administered Medications: 08:18 CANCELLED (Duplicate Order): bupivacaine-epinephrine(0.5 %) 5 ml Infiltration once; to rt bedside 08:53 Drug: Bupivacaine Infiltration (0.5 %) 5 ml 10 ml Infiltration once Volume: 10 ml; mb9 Route: Infiltration; Disposition Summary: 03/09/24 09:23 Discharge Ordered Notes: Location: Home rt Problem: an ongoing problem rt Symptoms: have improved rt Condition: Stable rt Diagnosis - Paronychia of right index finger rt Followup: rt - With: Private Physician - When: 5 - 6 days - Reason: Discharge Instructions: - Discharge Summary Sheet rt - Paronychia rt Forms: - Medication Reconciliation Form rt - Antibiotic Education rt - Prescription Opioid Use rt - Patient Portal Instructions rt - Leadership Thank You Letter rt - Work release form ar6 Signatures: Linda Reyna RN RN iw Lakia Trevizo RN RN mb9 Sarbjit Mason MD MD rt Corrections: (The following items were deleted from the chart) 08:18 08:18 Bupivacaine-Epinephrine Infiltration (0.5 %) 5 ml Infiltration once; to bedside rt ordered. rt
--- NOTE | 2024-03-09 09:24 | ER ---
Nurse's Notes [facility] Name: Mary Joe Age: 23 yrs Sex: Female : 2000 Arrival Date: 03/09/2024 Time: 07:51 Bed 18 Private MD: Diagnosis: Paronychia of right index finger Presentation: 03/09 08:02 Chief complaint: Patient states: was seen here Wednesday, got prescribed antibiotics for iw my finger , it is more swollen and now its purple and feels numb , right index finger. Coronavirus screen: At this time, the client does not indicate any symptoms associated with coronavirus-19. Initial Sepsis Screen: Does the patient meet any 2 criteria? No. Patient's initial sepsis screen is negative. Does the patient have a suspected source of infection? No. Patient's initial sepsis screen is negative. Risk Assessment: Do you want to hurt yourself or someone else? Patient reports no desire to harm self or others. Onset of symptoms was March 02, 2024. 08:02 Method Of Arrival: Ambulatory iw 08:02 Acuity: VANDANA 3 iw Triage Assessment: 08:10 General: Appears in no apparent distress. Behavior is calm, cooperative, appropriate ar6 for age. Pain: Complains of pain in right hand Pain does not radiate. Pain currently is 8 out of 10 on a pain scale. Quality of pain is described as pressure, tender, tingling, Pain began 2-3 days ago. Is continuous. EENT: Oral mucosa is moist. Neuro: Level of Consciousness is awake, alert, obeys commands, Oriented to person, place, time, situation. Cardiovascular: Capillary refill < 3 seconds. Respiratory: Airway is patent. GI: Abdomen is round non-distended, Abd is soft and non tender X 4 quads. : No signs and/or symptoms were reported regarding the genitourinary system. Derm: Skin is intact, is healthy with good turgor, right first digit with pain, swelling, tenderness, discoloration. Musculoskeletal: No signs and/or symptoms reported regarding the musculoskeletal system. 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 - Infectious Disease History:: Denies. - Social history:: Smoking status: Patient denies any tobacco usage or history of. - Family history:: not pertinent. Screenin:10 [facility] ED Fall Risk Assessment (Adult) History of falling in the last 3 months, ar6 including since admission No falls in past 3 months (0 pts) Confusion or Disorientation No (0 pts) Intoxicated or Sedated No (0 pts) Impaired Gait No (0 pts) Mobility Assist Device Used No (0 pt) Altered Elimination No (0 pt) Score/Fall Risk Level 0 - 2 = Low Risk. [facility] ED Fall Risk Assessment (Adult) Score/Fall Risk Level 0 - 2 = Low Risk Oriented to surroundings, Maintained a safe environment, Educated pt \T\ family on fall prevention, incl call for assistance when getting out of bed, Assessed \T\ reinforced patient's understanding of fall precautions, Hourly rounding (assess needs \T\ fall precautionary measures) done, Used gait belt as appropriate. Abuse screen: Denies threats or abuse. Denies injuries from another. Nutritional screening: No deficits noted. Tuberculosis screening: No symptoms or risk factors identified. Assessment: 08:11 Reassessment: No changes from previously documented assessment. see triage assessment. ar6 Vital Signs: 08:02 BP 142 / 95; Pulse 61; Resp 16; Pulse Ox 100% on R/A; Weight 104.33 kg; Height 5 ft. 7 iw in. ; Pain 8/10; 08:10 BP 133 / 102; Pulse 77; Resp 18; Temp 98.1; Pulse Ox 100% ; Weight 104.33 kg; Height 5 ar6 ft. 7 in. ; Pain 8/10; 08:10 Body Mass Index 36.02 (104.33 kg, 170.18 cm) ar6 08:02 Pain Scale: Adult iw 08:10 Pain Scale: Adult ar6 ED Course: 07:56 Patient arrived in ED. mg5 07:57 Sarbjit Mason MD is Attending Physician. rt 08:03 Triage completed. iw 08:05 Giuliana Luu, RN is Primary Nurse. ar6 08:10 No apparent distress. Awaiting ED provider evaluation. ar6 08:10 Arm band placed on right wrist. ar6 08:10 Patient has correct armband on for positive identification. Bed in low position. Call ar6 light in reach. Side rails up X 1. Pulse ox on. NIBP on. Door closed. Noise minimized. Lights dimmed. Warm blanket given. 08:10 No provider procedures requiring assistance completed. ar6 09:39 Patient did not have IV access during this emergency room visit. ar6 Administered Medications: 08:18 CANCELLED (Duplicate Order): bupivacaine-epinephrine(0.5 %) 5 ml Infiltration once; to rt bedside 08:53 Drug: Bupivacaine Infiltration (0.5 %) 5 ml 10 ml Infiltration once Volume: 10 ml; mb9 Route: Infiltration; Medication: 08:19 VIS not applicable for this client. ar6 Outcome: 09:23 Discharge ordered by . rt 09:39 Discharged to home ambulatory, ar6 09:39 Condition: stable 09:39 Discharge instructions given to patient, Instructed on discharge instructions, follow up and referral plans. Demonstrated understanding of instructions, follow-up care, 09:39 Patient left the ED. ar6 Signatures: Linda Reyna, Lakia Baptiste RN RN RN mb9 Sarbjit Mason MD MD rt Keily Manzano mg5 Giuliana Luu RN RN ar6
[2024-03-09 09:45] VITALS: O2SAT 100
[2024-03-09 09:47] VITALS: BP 133/102; TEMP 98.1
== END 2024-03-09 09:39 | disposition home or self-care (01) ==
LOC: ER 07:51
PROC: 0J9J0ZZ Drainage of Right Hand Subcutaneous Tissue and Fascia, Open Approach (ICD-10-PCS; principal; 2024-03-09)
DX: L03.011 Cellulitis of right finger (principal)
CPT/HCPCS: 99283